=== PATIENT | male | born 1955 | race Caucasian/White ===

== ENCOUNTER 2020-04-04 12:47 | Inpatient (IN) | payer BC ==
[~2020-04-04] VITALS: Ht 162.6 cm; Wt 79.8 kg
--- NOTE | 2020-04-04 13:24 | Emergency Room Report ---
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 Patient flew in from [place] to see Dr. Messer who I spoke to this morning. Patient only complaining of mild abdominal pain. 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 COVID-19 Screening: Negative COVID-19 COVID-19 Testing Source: [facility] Nursing Documentation-[facility] Hx Hypertension: Yes Review of Systems All Other Systems: negative except mentioned in HPI Physical Exam Vital Signs Date Time Temp Pulse Resp B/P (MAP) Pulse Ox O2 Delivery O2 Flow Rate FiO2 04/04/20 13:01 98.4 77 16 145/84 (104) 96 Room Air Sp02 EP Interpretation: reviewed, normal General Appearance: no apparent distress, alert, non-toxic Head: normocephalic, atraumatic Eyes: bilateral eye normal inspection, bilateral eye PERRL ENT: hearing grossly normal, normal pharynx, no angioedema, normal voice Neck: full range of motion, supple/symm/no masses Respiratory: chest non-tender, lungs clear, normal breath sounds, speaking full sentences Cardiovascular #1: regular rate, rhythm, no edema Cardiovascular #2: 2+ carotid (R), 2+ carotid (L), 2+ radial (R), 2+ radial (L), 2+ dorsalis pedis (R), 2+ dorsalis pedis (L) Gastrointestinal: normal bowel sounds, non tender, soft, non-distended, no guarding, no rebound, other - Enterocutaneous fistula with colostomy bag overlying. Small amount of fecal matter within the colostomy bag. No active drainage. Nonperitoneal take abdomen. No distention or rebound or guarding Rectal: deferred Genitourinary: normal inspection, no CVA tenderness Musculoskeletal: back normal, normal range of motion, gait/station normal, non- tender Neurologic: alert, motor strength/tone normal, oriented x3, sensory intact, responsive, speech normal Psychiatric: judgement/insight normal, memory normal, mood/affect normal, no suicidal/homicidal ideation Lymphatic: no adenopathy Medical Decision Making Diagnostic Impression: Primary Impression: Post-operative complication ER Course EKG: NSR, no ischemia, intervals WNL. No ectopy. Rate 65 bpm Rhythm strip: patient monitored for arrhythmias - no malignant dysrhythmias, runs of PVCs, nor pauses noted 64-year-old male with a history of Weaver pouch here with enterocutaneous fistula. Patient had an enterocutaneous fistula on physical examination. He had no evidence of peritonitis. Vital signs within normal limits in the emergency department. Currently waiting results of lab tests rapid COVID-19, CBC, CMP, coagulation studies, urinalysis. Patient to be admitted to E. under care of Dr. Messer. Signed out to oncoming physician. Last Vital Signs Date Time Temp Pulse Resp B/P (MAP) Pulse Ox O2 Delivery O2 Flow Rate FiO2 04/04/20 13:01 98.4 77 16 145/84 (104) 96 Room Air Colby Helton M.D. Apr 04, 2020 13:24
[2020-04-04] MEDS ORDERED: Hydromorphone 0.5mg/0.5ml inj IVP ONE (14:00)
[2020-04-04 14:15] LABS: BASOPHILS % (AUTO) 1.4 % (0.0-2.0); EOSINOPHILS % (AUTO) 2.7 % (0.0-3.0); HEMATOCRIT 40.5 % (42.0-52.0); HEMOGLOBIN 12.5 G/DL (14.2-18.0); LYMPHOCYTES % (AUTO) 31.9 % (20.0-45.0); MEAN CORPUSCULAR VOLUME 85 FL (80-99); MONOCYTES % (AUTO) 9.3 % (1.0-10.0); NEUTROPHILS % (AUTO) 54.8 % (45.0-75.0); PLATELET COUNT 448 K/UL (150-450); RED BLOOD COUNT 4.74 M/UL (4.70-6.10); RED CELL DISTRIBUTION WIDTH 14.3 % (11.6-14.8); WHITE BLOOD COUNT 7.1 K/UL (4.8-10.8)
[2020-04-04 14:20] LABS: CALCIUM 9.6 MG/DL (8.5-10.1); CREATININE 1.4 MG/DL (0.55-1.30); POTASSIUM 3.6 MMOL/L (3.5-5.1)
[2020-04-04 14:26] LABS: ALBUMIN/GLOBULIN RATIO 0.6 (1.0-2.7); BILIRUBIN,TOTAL 0.2 MG/DL (0.2-1.0)
[2020-04-04] MEDS ORDERED: LANTUS SOL100 UNIT/1 SUBQ (14:39)
[2020-04-04] MEDS ORDERED: GLUCAGON EMERGEN1 MG IM (14:39)
[2020-04-04] MEDS ORDERED: NORCO 7.5/3251 EA ORAL (14:39)
[2020-04-04] MEDS ORDERED: FAMOTIDINE20 MG ORAL (14:39)
[2020-04-04] MEDS ORDERED: HUMALOG100 UNIT/4 SUBQ (14:39)
[2020-04-04] MEDS ORDERED: HYDROMORPHO2 MG/1 M8 IV (14:39)
[2020-04-04] MEDS ORDERED: LOVENOX10 M4 SUBQ (14:39)
[2020-04-04] MEDS ORDERED: APRESOLINE20 MG/ML IV (14:39)
[2020-04-04] MEDS ORDERED: ALLOPURINOL100 M1 ORAL (14:39)
[2020-04-04] MEDS ORDERED: AMLODIPINE BESYL5 MG ORAL (14:39)
[2020-04-04] MEDS ORDERED: CRESTOR10 M2 ORAL (14:39)
[2020-04-04] MEDS ORDERED: SEROQUEL400 MG ORAL (14:39)
[2020-04-04 16:00] VITALS: BP 140/67
--- NOTE | 2020-04-04 16:04 | General Progress Note ---
Progress Note Progress Note Admitted from Emergency Room (came in from [place]) this afternoon with history of proctocolectomy and Weaver continent ileostomy with recent onset enterocutaneous fistula. H&P dictated Abdomen soft, multiple vertical scars, LLQ scar, fistula in midline with bag over it draining small amount of stool Stoma of Weaver continent ileostomy pouch is low in the RLQ and well formed Indwelling 28Fr Leon inserted, confirmed with irrigation, connected to continuous gravity drainage Albumin 3.0 WBC 7100 Hgb 12.5 Imp: Enterocutaneous fistula likely from Weaver Continent Ileostomy pouch Malnutrition present on admission Diabetes HTN Plan: diabetic clear liquid diet indwelling Weaver pouch catheter to drainage Dr. Michaels to see for diabetes management and TPN - PICC line to be inserted tomorrow Pouchogram XRay to be performed tomorrow Will need Ct scan and pouch endoscopy as well Ambulatory Rodrigo Messer MD Apr 04, 2020 16:04
[2020-04-04] MEDS ORDERED: HYDROcodone/Acetamin 7.5/325 tab ORAL PRN (16:15)
[2020-04-04] MEDS ORDERED: Glucagon 1mg Inj IM SCH (16:15)
--- NOTE | 2020-04-04 16:52 | Diagnostic Imaging Report ---
Procedure: XRAY Chest 1v Reason for study: Cough. Preop. Comparison films: None. FINDINGS: A single one view chest is obtained. Vascularity is normal. The lung corbett are clear bilaterally. Cardiac and mediastinal silhouette are within normal limits. CP angles are sharp. The bony thorax appear unremarkable. IMPRESSION: NO ACUTE CARDIOPULMONARY DISEASE.
[2020-04-04 16:56] LABS: INR 1.1 (0.9-1.1)
[2020-04-04 17:15] LABS: FERRITIN 186 NG/ML (8-388); PHOSPHORUS 3.2 MG/DL (2.5-4.9)
[2020-04-04] MEDS: 1/2NS w/KCl 20mEq 1000ml 1,000 ML IV SCH (17:19)
[2020-04-04 18:04] LABS: % IRON SATURATION 13 % (15-50); IRON 41 ug/dL (50-175); TOTAL IRON BINDING CAPACITY 327 ug/dL (250-450)
[2020-04-04 20:00] VITALS: BP 142/89
[2020-04-04] MEDS: QUEtiapine 200mg tab ORAL SCH (22:46)
[2020-04-05] VITALS: BP 117/70
[2020-04-05 02:03] LABS: APPEARANCE,URINE CLEAR; BILIRUBIN, URINE NEGATIVE (NEGATIVE); COLOR,URINE PALE YELLOW; GLUCOSE, URINE (UA) NEGATIVE (NEGATIVE); KETONES,URINE NEGATIVE (NEGATIVE); LEUKOCYTE ESTERASE ,URINE NEGATIVE (NEGATIVE); NITRITE,URINE NEGATIVE (NEGATIVE); PH,URINE 7 (4.5-8.0); PROTEIN,URINE NEGATIVE (NEGATIVE); UROBILINOGEN,URINE NORMAL MG/DL (0.0-1.0)
[2020-04-05] MEDS: 1/2NS w/KCl 20mEq 1000ml 1,000 ML IV SCH ×3 (03:10→20:23)
[2020-04-05 04:00] VITALS: BP 110/65
[2020-04-05 06:40] LABS: EOSINOPHILS % (AUTO) 6.4 % (0.0-3.0); HEMATOCRIT 38.4 % (42.0-52.0); HEMOGLOBIN 12.1 G/DL (14.2-18.0); LYMPHOCYTES % (AUTO) 39.6 % (20.0-45.0); MEAN CORPUSCULAR VOLUME 85 FL (80-99); MONOCYTES % (AUTO) 9.3 % (1.0-10.0); NEUTROPHILS % (AUTO) 43.7 % (45.0-75.0); PLATELET COUNT 414 K/UL (150-450); RED CELL DISTRIBUTION WIDTH 14.7 % (11.6-14.8); WHITE BLOOD COUNT 6.9 K/UL (4.8-10.8)
[2020-04-05 06:52] LABS: INR 1.2 (0.9-1.1)
[2020-04-05 07:10] LABS: ALBUMIN 2.6 G/DL (3.4-5.0); ALBUMIN/GLOBULIN RATIO 0.6 (1.0-2.7); BILIRUBIN,TOTAL 0.2 MG/DL (0.2-1.0); CALCIUM 9.4 MG/DL (8.5-10.1); CREATININE 1.4 MG/DL (0.55-1.30); POTASSIUM 3.8 MMOL/L (3.5-5.1)
[2020-04-05 08:00] VITALS: BP_SYST 119; BP_SYST 163; BP_DIAS 78; BP_DIAS 80
[2020-04-05] MEDS ORDERED: QUEtiapine 200mg tab ORAL SCH ×2 (09:00→21:00)
[2020-04-05] MEDS: Allopurinol 100mg Tab ORAL SCH (09:16)
[2020-04-05] MEDS ORDERED: HYDROcodone/Acetamin 7.5/325 tab ORAL PRN (09:30)
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
--- NOTE | 2020-04-05 10:04 | General Progress Note ---
Progress Note Progress Note AVSS Only needed Wilbur x 1 Not much fistula output with indwelling Weaver pouch catheter to continuous drainage Abdomen soft, flat, catheter stable in pouch stoma Albumin 2.6 Imp: Enterocutaneous fistula, likely from Weaver continent ileostomy pouch Malnutrition, severe Insulin dependent diabetes Plan: PICC and Pouchogram XRay today Dr. Michaels to consult and manage diabetes/TPN Will do CT scan tomorrow and Weaver Pouch Endoscopy 04/08 Rodrigo Messer MD Apr 05, 2020 10:04
[2020-04-05] MEDS ORDERED: Phytonadione 10 MG in D5W 55 ML IVPB SCH (10:30)
[2020-04-05 12:00] VITALS: BP 124/70
[2020-04-05] MEDS ORDERED: Heparin1,000 units/500ml Premix(Conc:2 units/ml) INJ PRN (13:15)
[2020-04-05] MEDS ORDERED: Lidocaine 1% Plain 30 ml INJ PRN (13:15)
[2020-04-05] MEDS ORDERED: Heparin1,000 units/500ml Premix(Conc:2 units/ml) IV ONE (13:15)
[2020-04-05] MEDS ORDERED: Lidocaine 1% Plain 30 ml INJ ONE (13:15)
--- NOTE | 2020-04-05 13:26 | Pre-Procedure Note/Attestation ---
Pre-Procedure Note/Attestation Complete Prior to Procedure Planned Procedure: not applicable Procedure Narrative: PICC insertion Indications for Procedure Pre-Operative Diagnosis: need IV access Attestation informed consent obtained from patient prior to procedure Júnior Frost M.D. Apr 05, 2020 13:26
--- NOTE | 2020-04-05 14:47 | Diagnostic Imaging Report ---
Indications: Needs long-term IV access Technique: Ultrasound confirms patent compressible vein. Total sterile technique, including sterile probe cover and sterile gel, hat, mask,, sterile gown, large sterile drape, and preparation with 2% chlorhexidine utilized. Local anesthesia with 1% lidocaine. Under real-time ultrasound guidance, puncture left basilic vein using 21-gauge needle, documented and archived, passage 0.018 guidewire under direct fluoroscopy, which was used to determine appropriate catheter length, exchange for 4.5 Bhutanese peel-away sheath. 4French Bard dual-lumen power PICC cut to 47 cm. It was inserted through the peel-away sheath. Peel-away sheath and guidewire removed. Catheter fixed to the skin. Both catheter ports aspirated and flushed. Patient tolerated procedure well, without immediate complication. Digital radiograph documents satisfactory catheter tip position, at the cavoatrial junction. Total fluoroscopy time 6.3 seconds.Total fluoroscopy dose 0.85 mGy. Total number of fluoroscopic images obtained: 1. IMPRESSION: Successful placement of left arm PICC under sonographic and fluoroscopic guidance, as described above.
--- NOTE | 2020-04-05 15:21 | Diagnostic Imaging Report ---
Indication: Abdominal pain. Abscess. History of continent ostomy Technique: Kock Pouch Pouchogram w/SBS. Fluoroscopic and radiographic examination performed. Gyn radiograph obtained. Subsequently water-soluble contrast was instilled via the continent ostomy catheter. Radiographic and fluoroscopic images were obtained. Total fluoroscopy time 87.2 seconds. Total fluoroscopy dose 27.9 mGy. Total number of radiographic images/fluoroscopic runs obtained: 25. Comparison: None Findings: Gyn radiograph demonstrates surgical material in the pelvis consistent with known history of continent ostomy creation. Water-soluble contrast was instilled and subsequent fluoroscopic images were obtained. There is normal filling of the pouch. There is reflux into the upstream small bowel loops. The visualized loops of small bowel are normal in caliber. There is no evidence to suggest small bowel obstruction. No discrete mucosal irregularities appreciated however more sensitive evaluation suggested with endoscopy. On lateral imaging there is contrast collecting in the anterior abdominal soft tissues, region of open wound suggesting a fistula. This is above the level of the pouch on frontal view suggesting fistula arises from the pouch. IMPRESSION: Postsurgical changes related to continent ostomy. Suggestion of a very small fistulous connection to the skin with fistula suspected to be arising from the pouch. Unfortunately could not opacify the fistulous tract. Only small amount of contrast is noted in the skin on lateral view, which is at the level of the pouch on frontal view. Consider retrograde catheterization of the anterior abdominal wound once contrast clears from the bowel bowel/pouch. No evidence of small bowel obstruction. Small bowel loops grossly unremarkable appearance to the extent visualized. Findings discussed with ordering physician Dr. Messer.
[2020-04-05 16:00] VITALS: BP 116/79
[2020-04-05] MEDS: HYDROmorphone 1mg/ml Carpuject SUBQ PRN (17:26)
[2020-04-05 20:00] VITALS: BP 126/73
[2020-04-05] MEDS ORDERED: TPN IV SCH ×2 (20:00)
[2020-04-05] MEDS ORDERED: FAT EMULSION 20% IV SCH ×2 (20:00)
[2020-04-05] MEDS: Dyna-Hex 2% Top Sol 2oz TOPIC SCH (20:21)
[2020-04-05] MEDS: QUEtiapine 200mg tab ORAL SCH (20:22)
[2020-04-05] MEDS ORDERED: Fat Emulsion Iv 20% 250 ML IV SCH (21:00)
[2020-04-05] MEDS ORDERED: Dextrose 10% 1,000 ML IV PRN (21:00)
[2020-04-05] MEDS: NovoLOG Insulin Flexpen SUBQ SCH (23:57)
[2020-04-06] VITALS: BP 123/71
[2020-04-06] MEDS ORDERED: NovoLOG Insulin Flexpen SUBQ SCH
[2020-04-06 04:00] VITALS: BP 114/71
[2020-04-06] MEDS: NovoLOG Insulin Flexpen SUBQ SCH ×4 (05:42→23:46)
[2020-04-06 06:39] LABS: BASOPHILS % (AUTO) 1.4 % (0.0-2.0); EOSINOPHILS % (AUTO) 4.8 % (0.0-3.0); HEMATOCRIT 39.6 % (42.0-52.0); HEMOGLOBIN 12.5 G/DL (14.2-18.0); LYMPHOCYTES % (AUTO) 39.2 % (20.0-45.0); MEAN CORPUSCULAR VOLUME 86 FL (80-99); MONOCYTES % (AUTO) 9.2 % (1.0-10.0); NEUTROPHILS % (AUTO) 45.4 % (45.0-75.0); PLATELET COUNT 401 K/UL (150-450); RED BLOOD COUNT 4.59 M/UL (4.70-6.10); WHITE BLOOD COUNT 6.6 K/UL (4.8-10.8)
[2020-04-06 07:09] LABS: ALBUMIN 2.6 G/DL (3.4-5.0); ALBUMIN/GLOBULIN RATIO 0.6 (1.0-2.7); BILIRUBIN,TOTAL 0.2 MG/DL (0.2-1.0); CALCIUM 9.6 MG/DL (8.5-10.1); CREATININE 1.4 MG/DL (0.55-1.30); PHOSPHORUS 3.4 MG/DL (2.5-4.9); POTASSIUM 3.9 MMOL/L (3.5-5.1)
[2020-04-06 08:00] VITALS: BP 135/75
--- NOTE | 2020-04-06 08:57 | General Progress Note ---
Progress Note Progress Note AVSS Feeling well, not much pain. [place] continent ileostomy pouchogram with retrograde small bowel series revealed a fistula tract, likely from the pouch. No evidence of Crohn's disease of small bowel Abdomen soft Urine 2250 BCIR ileo 1640 Enterocutaneous fistula - scant enteric fluid/contrast Imp: Recent onset enterocutaneous fistula likely from Weaver continent ileostomy pouch Plan; TPN, clear liquid diet, monitor fistula output CT scan abd+pelvis with contrast today [place] Pouch endoscopy 04/08 Rodrigo Messer MD Apr 06, 2020 08:57
[2020-04-06] MEDS ORDERED: Omnipaque-300 100ml vial INJ PRN (09:00)
--- NOTE | 2020-04-06 09:10 | General Progress Note ---
Subjective Allergies: Coded Allergies: CODEINE (Verified Allergy, Unknown, 04/04/20) MORPHINE (Verified Allergy, Unknown, 04/04/20) All Systems: reviewed and negative except above Subjective events noted interval notes reviewed glucose values in fair control on TPN and clear liquid diet Item Value Date Time Bedside Blood Glucose 192 mg/dl H 04/06/20 0542 Bedside Blood Glucose 212 mg/dl H 04/06/20 0000 Bedside Blood Glucose 177 mg/dl H 04/05/20 1608 Objective Last 24 Hour Vital Signs Date Time Temp Pulse Resp B/P (MAP) Pulse Ox O2 Delivery O2 Flow Rate FiO2 04/06/20 04:00 97.1 65 16 114/71 (85) 95 04/06/20 00:00 97.3 67 16 123/71 (88) 95 04/05/20 21:00 Room Air 04/05/20 20:00 97.8 75 16 126/73 (90) 96 04/05/20 16:00 97.8 73 20 116/79 (91) 97 04/05/20 12:00 97.5 74 20 124/70 (88) 97 04/05/20 09:17 101 119/78 Intake and Output 04/05/20 04/06/20 19:00 07:00 Intake Total 2860 ml 1120 ml Output Total 2300 ml 1620 ml Balance 560 ml -500 ml Intake Oral 1860 ml 120 ml IV Total 1000 ml 1000 ml Output Urine Total 975 ml 1275 ml Other 1325 ml 345 ml # Voids 3 3 Laboratory Tests 04/05/20 16:03: POC Whole Blood Glucose 177H 04/05/20 23:52: POC Whole Blood Glucose 212H 04/06/20 05:35: White Blood Count 6.6, Red Blood Count 4.59L, Hemoglobin 12.5L, Hematocrit 39.6L , Mean Corpuscular Volume 86, Mean Corpuscular Hemoglobin 27.2, Mean Corpuscular Hemoglobin Concent 31.5L, Red Cell Distribution Width 15.0H, Platelet Count 401, Mean Platelet Volume 5.9L, Neutrophils (%) (Auto) 45.4, Lymphocytes (%) (Auto) 39.2, Monocytes (%) (Auto) 9.2, Eosinophils (%) (Auto) 4.8H, Basophils (%) (Auto) 1.4, Sodium Level 138, Potassium Level 3.9, Chloride Level 104, Carbon Dioxide Level 24, Anion Gap 10, Blood Urea Nitrogen 10, Creatinine 1.4H, Estimat Glomerular Filtration Rate 51.4, Glucose Level 197H, Calcium Level 9.6, Phosphorus Level 3.4, Magnesium Level 1.8, Total Bilirubin 0.2, Aspartate Amino Transf (AST/SGOT) 30, Alanine Aminotransferase (ALT/SGPT) 42, Alkaline Phosphata se 95, Total Protein 7.1, Albumin 2.6L, Globulin 4.5, Albumin/Globulin Ratio 0.6L 04/06/20 05:39: POC Whole Blood Glucose 192H Height (Feet): 5 Height (Inches): 5.00 Weight (Pounds): 169 General Appearance: no apparent distress Neck: normal alignment Cardiovascular: normal rate Respiratory/Chest: lungs clear Abdomen: normal bowel sounds Objective Current Medications Medications (Trade) Dose Ordered Sig/Lea Route PRN Reason Start Time Stop Time Status Last Admin Dose Admin Acetaminophen (Tylenol) 650 mg Q4H PRN ORAL Mild Pain (Pain Scale 1-3) 04/05/20 09:30 05/05/20 09:29 Acetaminophen/ Hydrocodone Bitart ([place] 7.5/325) 1 tab Q4H PRN ORAL Moderate Pain (Pain Scale 4-6) 04/05/20 09:30 04/12/20 09:29 Allopurinol (Zyloprim) 100 mg DAILY ORAL 04/05/20 09:00 05/05/20 08:59 04/05/20 09:16 Amlodipine Besylate (Norvasc) 5 mg DAILY ORAL 04/05/20 09:00 05/05/20 08:59 04/05/20 09:17 Barium Sulfate (Readi-Cat 2) 450 ml NOW PRN ORAL Radiology Procedure 04/06/20 09:00 04/08/20 08:59 Chlorhexidine Gluconate (Re-Hex 2%) 1 applic DAILY@2000 TOPIC 04/05/20 20:00 07/04/20 19:59 04/05/20 20:21 Dextrose 1,000 ml @ 0 mls/hr Q24H PRN IV PN interrupted or unavailable 04/05/20 21:00 05/05/20 20:59 Dextrose (Dextrose 50%) 25 ml Q30M PRN IV Hypoglycemia 04/05/20 20:30 07/04/20 20:29 Dextrose (Dextrose 50%) 50 ml Q30M PRN IV Hypoglycemia 04/05/20 20:30 07/04/20 20:29 Diatrizoate Meglum/ Diatrizoate Sod (Gastrografin) 720 ml ONCE RECTAL 04/05/20 08:00 04/08/20 23:59 Famotidine (Pepcid) 20 mg BID ORAL 04/04/20 18:00 07/03/20 17:59 04/05/20 17:26 Fat Emulsion Intravenous 240 ml/Amino Acids/ Electrolytes/ Dextrose 2,040 ml @ 85 mls/hr Q24H IV 04/05/20 20:00 05/05/20 19:59 04/05/20 20:24 Hydromorphone HCl (Dilaudid) 1 mg Q4H PRN SUBQ Severe Pain (Pain Scale 7-10) 04/05/20 09:30 04/12/20 09:29 04/05/20 17:26 Insulin Aspart (NovoLOG) Q6HR SUBQ 04/06/20 00:00 07/05/20 00:00 04/06/20 05:42 Iohexol (OMNIPAQUE-300 100ml) 100 ml NOW PRN INJ Radiology Procedure 04/06/20 09:00 04/08/20 08:59 Ondansetron HCl (Zofran) 4 mg Q4H PRN IVP Nausea & Vomiting 04/04/20 16:00 05/04/20 15:59 Phytonadione (Vitamin K) 10 mg ONCE A WEEK SUBQ 04/12/20 09:00 07/11/20 08:59 Quetiapine Fumarate (SEROqueL) 400 mg BEDTIME ORAL 04/04/20 22:45 05/20/20 20:59 04/05/20 20:22 Sodium 1,000 ml @ 40 mls/hr Q24H IV 04/05/20 20:00 05/05/20 19:59 04/05/20 20:23 Assessment/Plan Problem List: (1) Diabetes mellitus ICD Codes: E11.9 - Type 2 diabetes mellitus without complications SNOMED: 64249396 (2) Post-operative complication ICD Codes: T81.9XXA - Unspecified complication of procedure, initial encounter SNOMED: 749980957 (3) Weaver Pouch fistula Assessment/Plan: increase R insulin of TPN bag from 10 to 16 units discussed with pharmacist continue Novolog sliding scale every 6 hours hypoglycemia protocol in order Justyn Michaels MD Apr 06, 2020 09:10
[2020-04-06] MEDS: Allopurinol 100mg Tab ORAL SCH (09:48)
[2020-04-06 12:00] VITALS: BP 139/73
[2020-04-06 16:00] VITALS: BP 128/78
--- NOTE | 2020-04-06 16:44 | Consultation ---
DATE OF CONSULTATION: 04/05/2020 ENDOCRINOLOGY CONSULTATION CONSULTING PHYSICIAN: Justyn Michaels M.D. REFERRING PHYSICIAN: Rodrigo Messer M.D. REASON FOR CONSULTATION: Diabetes management. HISTORY OF PRESENT ILLNESS: The patient is a 64-year-old male with a history of ulcerative colitis, status post Weaver pouch, who presented to the hospital with cutaneous fistula. The patient is a diabetic. As an outpatient, he is on Levemir 35 units twice a day, metformin, as well as Victoza daily. I was called to manage diabetes since he is going to be NPO, on TPN. PAST MEDICAL HISTORY: 1. Type 2 diabetes, on insulin. 2. Hypertension. 3. Hyperuricemia. 4. Ulcerative colitis. PAST SURGICAL HISTORY: Proctocolectomy and creation of Weaver type of Kock pouch continent ileostomy many years ago. REVIEW OF SYSTEMS: Per history HPI. FAMILY HISTORY: Noncontributory. SOCIAL HISTORY: From [place]. No smoking, alcohol, or drug use. LABORATORY DATA: WBC 6.9, hemoglobin 12, hematocrit 38, platelets of 414. Sodium 138, potassium 3.9, chloride 104, bicarb 22, BUN 9, creatinine 1.4, glucose of 111. PHYSICAL EXAMINATION: GENERAL: Awake and alert. VITAL SIGNS: Blood pressure is 132/80, heart rate 80, temperature 98.2, respiratory rate 18. HEENT: Pupils are equal and reactive to light. Sclerae nonicteric. NECK: No JVD. No thyromegaly. No bruit. LUNGS: Clear. HEART: Regular. ABDOMEN: Positive bowel sounds. EXTREMITIES: No clubbing, cyanosis, or edema. DIAGNOSES: 1. Ulcerative colitis. 2. Diabetes. PLAN: 1. The patient will be mostly NPO, on clear liquid diet and on TPN. 2. I discussed with the pharmacist on adding 10 units of regular insulin to the TPN bag. 3. Humalog on sliding scale insulin. 4. NovoLog sliding scale every 6 hours. 5. Hypoglycemia protocol is in order. 6. Further adjustment according to blood glucose values. I will follow during the hospital stay. Thank you, Dr. Messer, for the courtesy of this consultation. Justyn Michaels M.D. DR: SRIDHAR JOB#: [id number] CC: ANANDA
--- NOTE | 2020-04-06 17:15 | Diagnostic Imaging Report ---
EXAM: CT Abdomen and Pelvis With Intravenous Contrast CLINICAL HISTORY: ABSCESS TECHNIQUE: Axial computed tomography images of the abdomen and pelvis with intravenous contrast. CTDI is 6.70 mGy and DLP is 371.70 mGy-cm. One or more of the following dose reduction techniques were used: automated exposure control, adjustment of the mA and/or kV according to patient size, use of iterative reconstruction technique. COMPARISON: No relevant prior studies available. FINDINGS: Reported fistula. Correlate with dedicated exam and report. Lung bases: Unremarkable. ABDOMEN: Liver: Unremarkable. Gallbladder and bile ducts: Cholecystectomy. Pancreas: Unremarkable. Spleen: Unremarkable. Adrenals: Unremarkable. Kidneys and ureters: Unremarkable. No hydronephrosis. Stomach and bowel: Scarring and tethering of some bowel loops in the lower abdomen. Previous bowel surgery with ileostomy pouch. Nonobstructive bowel gas pattern. PELVIS: Appendix: Appendix not identified. Bladder: Scarring and tethering of the dome of the bladder to the undersurface of the lower abdominal wall. Reproductive: Unremarkable. ABDOMEN and PELVIS: Intraperitoneal space: Unremarkable. Bones/joints: No acute fracture. Soft tissues: Soft tissue edema, inflammation and foci of air in the abdominal wall. No discrete drainable collection. Vasculature: Unremarkable. No abdominal aortic aneurysm. Lymph nodes: No enlarged lymph nodes. IMPRESSION: Soft tissue edema, inflammation and foci of air in the abdominal wall. No discrete drainable collection.
[2020-04-06 20:00] VITALS: BP 150/88
[2020-04-06] MEDS ORDERED: FAT EMULSION 20% IV SCH ×2 (20:00)
[2020-04-06] MEDS ORDERED: TPN IV SCH ×2 (20:00)
[2020-04-06] MEDS: Dyna-Hex 2% Top Sol 2oz TOPIC SCH (20:03)
[2020-04-06] MEDS: 1/2NS w/KCl 20mEq 1000ml 1,000 ML IV SCH (20:03)
[2020-04-06] MEDS: HYDROmorphone 1mg/ml Carpuject SUBQ PRN (20:04)
[2020-04-06] MEDS: QUEtiapine 200mg tab ORAL SCH (20:05)
[2020-04-07] VITALS: BP 122/71
[2020-04-07 04:00] VITALS: BP 125/79
[2020-04-07] MEDS: NovoLOG Insulin Flexpen SUBQ SCH ×4 (05:19→23:05)
[2020-04-07 06:32] LABS: BASOPHILS % (AUTO) 1.5 % (0.0-2.0); EOSINOPHILS % (AUTO) 4.7 % (0.0-3.0); HEMATOCRIT 38.5 % (42.0-52.0); LYMPHOCYTES % (AUTO) 42.1 % (20.0-45.0); MEAN CORPUSCULAR VOLUME 86 FL (80-99); NEUTROPHILS % (AUTO) 42.7 % (45.0-75.0); PLATELET COUNT 361 K/UL (150-450); RED BLOOD COUNT 4.49 M/UL (4.70-6.10); RED CELL DISTRIBUTION WIDTH 14.6 % (11.6-14.8); WHITE BLOOD COUNT 6.5 K/UL (4.8-10.8)
[2020-04-07 06:57] LABS: ALANINE AMINOTRANSFERASE 35 U/L (12-78); ALBUMIN 2.8 G/DL (3.4-5.0); ALBUMIN/GLOBULIN RATIO 0.6 (1.0-2.7); ALKALINE PHOSPHATASE 90 U/L (46-116); ANION GAP 9 mmol/L (5-15); ASPARTATE AMINO TRANSFERASE 24 U/L (15-37); BILIRUBIN,TOTAL 0.2 MG/DL (0.2-1.0); BLOOD UREA NITROGEN 13 mg/dL (7-18); CALCIUM 9.1 MG/DL (8.5-10.1); CARBON DIOXIDE 24 MMOL/L (21-32); CHLORIDE 106 MMOL/L (98-107); CREATININE 1.2 MG/DL (0.55-1.30); PHOSPHORUS 4.6 MG/DL (2.5-4.9); SODIUM 139 MMOL/L (136-145)
[2020-04-07 08:00] VITALS: BP 124/75
--- NOTE | 2020-04-07 09:09 | General Progress Note ---
Progress Note Progress Note AVSS Intermittent pain at fistula site. Dr. Michaels managing diabetes while on TPN Abdomen soft, scant tenderness at midline fistula site lower abdomen Indwelling Weavre pouch catheter stable in position draining well CT: inflammation of abdominal wall at fistula site, no fluid collection Urine 2150 (po 1800 clear liquids) BCIR ileo 1590 Fistula 5cc days/ 0 overnight Cr down 1.2 Albumin 2.8 Imp: Enterocutaneous fistula of Weaver continent ileostomy pouch Plan: Weaver pouch endoscopy in AM Fistulogram in AM Continue TPN and continuous drainage of Weaver continent ileostomy pouch Rodrigo Messer MD Apr 07, 2020 09:09
[2020-04-07] MEDS: Allopurinol 100mg Tab ORAL SCH (09:20)
[2020-04-07 12:00] VITALS: BP 139/60
--- NOTE | 2020-04-07 12:40 | General Progress Note ---
Subjective Allergies: Coded Allergies: CODEINE (Verified Allergy, Unknown, 04/04/20) MORPHINE (Verified Allergy, Unknown, 04/04/20) All Systems: reviewed and negative except above Subjective events noted interval notes reviewed glucose values slightly on higher side sitting on a chair and having clear liquid lunch Item Value Date Time Bedside Blood Glucose 165 mg/dl H 04/07/20 0519 Bedside Blood Glucose 197 mg/dl H 04/06/20 2346 Bedside Blood Glucose 212 mg/dl H 04/06/20 1710 Bedside Blood Glucose 193 mg/dl H 04/06/20 1313 Objective Last 24 Hour Vital Signs Date Time Temp Pulse Resp B/P (MAP) Pulse Ox O2 Delivery O2 Flow Rate FiO2 04/07/20 09:20 65 124/75 04/07/20 08:00 96.8 65 20 124/75 (91) 97 04/07/20 04:00 98.2 70 15 125/79 (94) 97 04/07/20 00:00 97.9 73 17 122/71 (88) 96 04/06/20 21:00 Room Air 04/06/20 20:00 98.1 67 16 150/88 (108) 98 04/06/20 16:00 97.6 67 20 128/78 (95) 99 Intake and Output 04/06/20 04/07/20 19:00 07:00 Intake Total 2820 ml 1895 ml Output Total 2175 ml 1600 ml Balance 645 ml 295 ml Intake Oral 1320 ml 480 ml IV Total 1500 ml 1415 ml Output Urine Total 900 ml 1250 ml Other 1275 ml 350 ml # Voids 5 Laboratory Tests 04/06/20 17:06: POC Whole Blood Glucose 212H 04/07/20 05:10: White Blood Count 6.5, Red Blood Count 4.49L, Hemoglobin 12.0L, Hematocrit 38.5L , Mean Corpuscular Volume 86, Mean Corpuscular Hemoglobin 26.8L, Mean Corpuscular Hemoglobin Concent 31.3L, Red Cell Distribution Width 14.6, Platelet Count 361, Mean Platelet Volume 5.8L, Neutrophils (%) (Auto) 42.7L, Lymphocytes (%) (Auto) 42.1, Monocytes (%) (Auto) 9.0, Eosinophils (%) (Auto) 4.7H, Basophils (%) (Auto) 1.5, Sodium Level 139, Potassium Level 4.0, Chloride Level 106, Carbon Dioxide Level 24, Anion Gap 9, Blood Urea Nitrogen 13, Creatinine 1.2, Estimat Glomerular Filtration Rate > 60, Glucose Level 179H, Calcium Level 9.1, Phosphorus Level 4.6, Magnesium Level 1.9, Total Bilirubin 0.2, Aspartate Amino Transf (AST/SGOT) 24, Alanine Aminotransferase (ALT/SGPT) 35, Alkaline Phosphatase 90, Total Protein 7.2, Albumin 2.8L, Globulin 4.4, Albumin/Globulin Ratio 0.6L Height (Feet): 5 Height (Inches): 5.00 Weight (Pounds): 169 General Appearance: no apparent distress Neck: normal alignment Cardiovascular: normal rate Respiratory/Chest: lungs clear Abdomen: normal bowel sounds Objective Current Medications Medications (Trade) Dose Ordered Sig/Lea Route PRN Reason Start Time Stop Time Status Last Admin Dose Admin Acetaminophen (Tylenol) 650 mg Q4H PRN ORAL Mild Pain (Pain Scale 1-3) 04/05/20 09:30 05/05/20 09:29 Acetaminophen/ Hydrocodone Bitart ([place] 7.5/325) 1 tab Q4H PRN ORAL Moderate Pain (Pain Scale 4-6) 04/05/20 09:30 04/12/20 09:29 Allopurinol (Zyloprim) 100 mg DAILY ORAL 04/05/20 09:00 05/05/20 08:59 04/07/20 09:20 Amlodipine Besylate (Norvasc) 5 mg DAILY ORAL 04/05/20 09:00 05/05/20 08:59 04/07/20 09:20 Barium Sulfate (Readi-Cat 2) 450 ml NOW PRN ORAL Radiology Procedure 04/06/20 09:00 04/08/20 08:59 Chlorhexidine Gluconate (Re-Hex 2%) 1 applic DAILY@2000 TOPIC 04/05/20 20:00 07/04/20 19:59 04/06/20 20:03 Dextrose 1,000 ml @ 0 mls/hr Q24H PRN IV PN interrupted or unavailable 04/05/20 21:00 05/05/20 20:59 Dextrose (Dextrose 50%) 25 ml Q30M PRN IV Hypoglycemia 04/05/20 20:30 07/04/20 20:29 Dextrose (Dextrose 50%) 50 ml Q30M PRN IV Hypoglycemia 04/05/20 20:30 07/04/20 20:29 Diatrizoate Meglum/ Diatrizoate Sod (Gastrografin) 720 ml ONCE RECTAL 04/05/20 08:00 04/08/20 23:59 Famotidine (Pepcid) 20 mg BID ORAL 04/04/20 18:00 07/03/20 17:59 04/07/20 09:20 Fat Emulsion Intravenous 240 ml/Amino Acids/ Electrolytes/ Dextrose 2,040 ml @ 85 mls/hr Q24H IV 04/06/20 20:00 04/07/20 19:59 04/06/20 20:10 Fat Emulsion Intravenous 240 ml/Amino Acids/ Electrolytes/ Dextrose 2,040 ml @ 85 mls/hr Q24H IV 04/07/20 20:00 04/08/20 19:59 Hydromorphone HCl (Dilaudid) 1 mg Q4H PRN SUBQ Severe Pain (Pain Scale 7-10) 04/05/20 09:30 04/12/20 09:29 04/06/20 20:04 Insulin Aspart (NovoLOG) Q6HR SUBQ 04/06/20 00:00 07/05/20 00:00 04/07/20 05:19 Iohexol (OMNIPAQUE-300 100ml) 100 ml NOW PRN INJ Radiology Procedure 04/06/20 09:00 04/08/20 08:59 Ondansetron HCl (Zofran) 4 mg Q4H PRN IVP Nausea & Vomiting 04/04/20 16:00 05/04/20 15:59 Phytonadione (Vitamin K) 10 mg ONCE A WEEK SUBQ 04/12/20 09:00 07/11/20 08:59 Quetiapine Fumarate (SEROqueL) 400 mg BEDTIME ORAL 04/04/20 22:45 05/20/20 20:59 04/06/20 20:05 Sodium 1,000 ml @ 40 mls/hr Q24H IV 04/05/20 20:00 05/05/20 19:59 04/06/20 20:03 Assessment/Plan Problem List: (1) Diabetes mellitus ICD Codes: E11.9 - Type 2 diabetes mellitus without complications SNOMED: 45938713 (2) Post-operative complication ICD Codes: T81.9XXA - Unspecified complication of procedure, initial encounter SNOMED: 162331054 (3) Weaver Pouch fistula Assessment/Plan: increase R insulin of TPN bag from 16 to 20 units discussed with pharmacist continue Novolog sliding scale every 6 hours hypoglycemia protocol in order Justyn Michaels MD Apr 07, 2020 12:40
[2020-04-07] MEDS: HYDROmorphone 1mg/ml Carpuject SUBQ PRN ×2 (13:51→19:45)
[2020-04-07 16:00] VITALS: BP 156/86
[2020-04-07] MEDS: 1/2NS w/KCl 20mEq 1000ml 1,000 ML IV SCH (19:45)
[2020-04-07] MEDS: Dyna-Hex 2% Top Sol 2oz TOPIC SCH (19:45)
[2020-04-07 20:00] VITALS: BP 138/78
[2020-04-07] MEDS ORDERED: FAT EMULSION 20% IV SCH ×2 (20:00)
[2020-04-07] MEDS ORDERED: TPN IV SCH ×2 (20:00)
[2020-04-07] MEDS: QUEtiapine 200mg tab ORAL SCH (20:52)
[2020-04-08] VITALS: BP 124/72
[2020-04-08 04:00] VITALS: BP 118/64
[2020-04-08] MEDS: NovoLOG Insulin Flexpen SUBQ SCH ×3 (05:45→17:13)
--- NOTE | 2020-04-08 06:26 | General Progress Note ---
Subjective Allergies: Coded Allergies: CODEINE (Verified Allergy, Unknown, 04/04/20) MORPHINE (Verified Allergy, Unknown, 04/04/20) All Systems: reviewed and negative except above Subjective events noted interval notes reviewed glucose values if fair control Item Value Date Time Bedside Blood Glucose 160 mg/dl H 04/08/20 0545 Bedside Blood Glucose 197 mg/dl H 04/07/20 2305 Bedside Blood Glucose 183 mg/dl H 04/07/20 1700 Bedside Blood Glucose 181 mg/dl H 04/07/20 1245 Bedside Blood Glucose 165 mg/dl H 04/07/20 0519 Objective Last 24 Hour Vital Signs Date Time Temp Pulse Resp B/P (MAP) Pulse Ox O2 Delivery O2 Flow Rate FiO2 04/08/20 04:00 97.8 71 18 118/64 (82) 96 04/08/20 00:00 97.7 66 20 124/72 (89) 96 04/07/20 21:00 Room Air 04/07/20 20:00 98.3 66 20 138/78 (98) 97 04/07/20 16:00 98.6 68 21 156/86 (109) 99 04/07/20 12:00 97.2 63 20 139/60 (86) 97 04/07/20 09:20 65 124/75 04/07/20 09:00 Room Air 04/07/20 08:00 96.8 65 20 124/75 (91) 97 Intake and Output 04/07/20 04/08/20 19:00 07:00 Intake Total 3135 ml 1605 ml Output Total 1570 ml 2080 ml Balance 1565 ml -475 ml Intake Oral 1760 ml 480 ml IV Total 1375 ml 1125 ml Output Urine Total 1050 ml 1930 ml Other 520 ml 150 ml # Voids 5 2 Laboratory Tests 04/07/20 23:04: POC Whole Blood Glucose 197H Height (Feet): 5 Height (Inches): 5.00 Weight (Pounds): 169 General Appearance: no apparent distress Neck: normal alignment Cardiovascular: normal rate Respiratory/Chest: lungs clear Abdomen: normal bowel sounds Objective Current Medications Medications (Trade) Dose Ordered Sig/Lea Route PRN Reason Start Time Stop Time Status Last Admin Dose Admin Acetaminophen (Tylenol) 650 mg Q4H PRN ORAL Mild Pain (Pain Scale 1-3) 04/05/20 09:30 05/05/20 09:29 Acetaminophen/ Hydrocodone Bitart ([place] 7.5/325) 1 tab Q4H PRN ORAL Moderate Pain (Pain Scale 4-6) 04/05/20 09:30 04/12/20 09:29 Allopurinol (Zyloprim) 100 mg DAILY ORAL 04/05/20 09:00 05/05/20 08:59 04/07/20 09:20 Amlodipine Besylate (Norvasc) 5 mg DAILY ORAL 04/05/20 09:00 05/05/20 08:59 04/07/20 09:20 Barium Sulfate (Readi-Cat 2) 450 ml NOW PRN ORAL Radiology Procedure 04/06/20 09:00 04/08/20 08:59 Chlorhexidine Gluconate (Re-Hex 2%) 1 applic DAILY@2000 TOPIC 04/05/20 20:00 07/04/20 19:59 04/07/20 19:45 Dextrose 1,000 ml @ 0 mls/hr Q24H PRN IV PN interrupted or unavailable 04/05/20 21:00 05/05/20 20:59 Dextrose (Dextrose 50%) 25 ml Q30M PRN IV Hypoglycemia 04/05/20 20:30 07/04/20 20:29 Dextrose (Dextrose 50%) 50 ml Q30M PRN IV Hypoglycemia 04/05/20 20:30 07/04/20 20:29 Diatrizoate Meglum/ Diatrizoate Sod (Gastrografin) 720 ml ONCE RECTAL 04/05/20 08:00 04/08/20 23:59 Famotidine (Pepcid) 20 mg BID ORAL 04/04/20 18:00 07/03/20 17:59 04/07/20 17:02 Fat Emulsion Intravenous 240 ml/Amino Acids/ Electrolytes/ Dextrose 2,040 ml @ 85 mls/hr Q24H IV 04/07/20 20:00 04/08/20 19:59 04/07/20 20:07 Hydromorphone HCl (Dilaudid) 1 mg Q4H PRN SUBQ Severe Pain (Pain Scale 7-10) 04/05/20 09:30 04/12/20 09:29 04/07/20 19:45 Insulin Aspart (NovoLOG) Q6HR SUBQ 04/06/20 00:00 07/05/20 00:00 04/08/20 05:45 Iohexol (OMNIPAQUE-300 100ml) 100 ml NOW PRN INJ Radiology Procedure 04/06/20 09:00 04/08/20 08:59 Ondansetron HCl (Zofran) 4 mg Q4H PRN IVP Nausea & Vomiting 04/04/20 16:00 05/04/20 15:59 Phytonadione (Vitamin K) 10 mg ONCE A WEEK SUBQ 04/12/20 09:00 07/11/20 08:59 Quetiapine Fumarate (SEROqueL) 400 mg BEDTIME ORAL 04/04/20 22:45 05/20/20 20:59 04/07/20 20:52 Sodium 1,000 ml @ 40 mls/hr Q24H IV 04/05/20 20:00 05/05/20 19:59 04/07/20 19:45 Assessment/Plan Problem List: (1) Diabetes mellitus ICD Codes: E11.9 - Type 2 diabetes mellitus without complications SNOMED: 50169947 (2) Post-operative complication ICD Codes: T81.9XXA - Unspecified complication of procedure, initial encounter SNOMED: 203835872 (3) Weaver Pouch fistula Assessment/Plan: keep R insulin of TPN at 20 units / bag continue Novolog sliding scale every 6 hours hypoglycemia protocol in order Justyn Michaels MD Apr 08, 2020 06:26
--- NOTE | 2020-04-08 07:55 | Pre-Procedure Note/Attestation ---
Pre-Procedure Note/Attestation Complete Prior to Procedure Planned Procedure: not applicable Procedure Narrative: Meg continent ileostomy pouch endoscopy Indications for Procedure Pre-Operative Diagnosis: enterocutaneous fistula Attestation I attest that I discussed the nature of the procedure; its benefits; risks and complications; and alternatives (and the risks and benefits of such alternatives), prior to the procedure, with the patient (or the patient's legal policy services representative). I attest that, if there was a reasonable possibility of needing a blood transfusion, the patient (or the patient's legal policy services representative) was given the [facility] standardized written summary, pursuant to the [place] Blood Safety Act ([place] Health and Safety Code # 1645, as amended). I attest that I re-evaluated the patient just prior to the surgery and that there has been no change in the patient's H&P, except as documented below: none Rodrigo Messer MD Apr 08, 2020 07:55
[2020-04-08 07:56] LABS: BASOPHILS % (AUTO) 1.8 % (0.0-2.0); EOSINOPHILS % (AUTO) 5.3 % (0.0-3.0); HEMATOCRIT 40.1 % (42.0-52.0); HEMOGLOBIN 12.8 G/DL (14.2-18.0); LYMPHOCYTES % (AUTO) 44.3 % (20.0-45.0); MEAN CORPUSCULAR VOLUME 85 FL (80-99); MONOCYTES % (AUTO) 9.1 % (1.0-10.0); NEUTROPHILS % (AUTO) 39.5 % (45.0-75.0); PLATELET COUNT 322 K/UL (150-450); RED BLOOD COUNT 4.69 M/UL (4.70-6.10); RED CELL DISTRIBUTION WIDTH 14.6 % (11.6-14.8); WHITE BLOOD COUNT 6.5 K/UL (4.8-10.8)
[2020-04-08 08:00] VITALS: BP 108/70
[2020-04-08 08:21] LABS: ALBUMIN/GLOBULIN RATIO 0.7 (1.0-2.7); BILIRUBIN,TOTAL 0.2 MG/DL (0.2-1.0); CALCIUM 9.5 MG/DL (8.5-10.1); CREATININE 1.3 MG/DL (0.55-1.30); POTASSIUM 4.2 MMOL/L (3.5-5.1)
--- NOTE | 2020-04-08 08:33 | General Progress Note ---
Progress Note Progress Note AVSS Having some abdominal pain around fistula site. Abdominal wall is indurated without evident cellulitis and scant drainage from fistula Pouch endoscopy this AM: normal pouch and valve, elongated and angulated access segment, no drainage or air from fistula during endoscopy Plan: Fistulogram XRay today ID consult re need for IV antibiotics in view of CT and exam, despite afebrile and no leukocytosis Continue TPN, continuous drainage of Weaver Pouch Rodrigo Messer MD Apr 08, 2020 08:33
--- NOTE | 2020-04-08 08:39 | Brief Operative Note ---
Immediate Post Operative Note Operative Note Pre-op Diagnosis: enterocutaneous fistula Procedure: Weaver continent ileostomy pouch endoscopy Post-op Diagnosis: same Post-op Diagnosis: same as pre-op Findings: consistent w/pre-op dx studies, other - normal pouch and valve, elongated and angulated access segment Surgeon: smiley Anesthesia: other - none Specimen: none Complications: none Condition: stable Fluids: none Estimated Blood Loss: none Drains: other - 28 Leon to Weaver Pouch Implant(s) used?: No Rodrigo Messer MD Apr 08, 2020 08:39
[2020-04-08] MEDS: Allopurinol 100mg Tab ORAL SCH (08:53)
[2020-04-08] MEDS ORDERED: Vancomycin 500 MG in D5W 110 ML IVPB ONE (09:00)
--- NOTE | 2020-04-08 09:29 | Procedure Note ---
DATE OF PROCEDURE: 04/08/2020 ENDOSCOPY PROCEDURE REPORT ENDOSCOPIST: Rodrigo Messer MD. ANESTHESIA: None. SEDATION: None. PRE-ENDOSCOPY DIAGNOSES: 1. 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 3. Status post proctocolectomy with ileostomy in 1979. 4. Status post Weaver continent ileostomy in 1994. POST-ENDOSCOPY DIAGNOSES: 1. 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 3. Status post proctocolectomy with ileostomy in 1979. 4. Status post Weaver continent ileostomy in 1994. ENDOSCOPY PERFORMED: Weaver continent ileostomy pouch endoscopy. FINDINGS: Elongation and angulation of the access segment with the distance from the stoma to the tip of the valve measuring 12 cm instead of what would be anticipated as approximately 8 cm in this patient. The pouch mucosa is normal and retroflexed views revealed a circumferentially well-formed nipple valve. The site of fistula was not identified and there was no bubbling or liquid coming out of the fistulous site in the midline incision during the endoscopy. DESCRIPTION OF PROCEDURE: The patient was positioned supine in the GI lab without any anesthesia or sedation given or required. Using a GIF-P140 endoscope, the stoma was entered and the pouch was distended. The above described findings were observed. Withdrawal views confirmed the above findings. After removing the endoscope, I was able with very slight manipulation to insert a 28-[place] Leon catheter into the Weaver continent ileostomy pouch. It was confirmed with irrigation and taped to the skin and connected to a continuous drainage bag. The patient tolerated the endoscopy well. Rodrigo Messer M.D. DR: AVERY JOB#: [id number] CC:
[2020-04-08 12:00] VITALS: BP 115/74
[2020-04-08] MEDS: Piperacillin/Tazobactam 3.375 GM in NS 110 ML IVPB SCH ×2 (12:30→19:45)
[2020-04-08] MEDS: HYDROmorphone 1mg/ml Carpuject SUBQ PRN ×2 (15:39→19:46)
[2020-04-08 16:00] VITALS: BP 115/73
[2020-04-08] MEDS ORDERED: Vancomycin 1.5gm/300ml Premix IVPB SCH (16:00)
--- NOTE | 2020-04-08 19:09 | Infectious Diseases Prog Note ---
Assessment/Plan Assessment/Plan Full consult dictated: A) 1) abdominal pain 2) CT with soft tissue edema and inflammation of abdominal wall, ?? cellulitis, hx of recent abscess and I/D 3) fistula 4) hx Weaver continent ileostomy 5) enterocutaneous fistula 6) pmh noted 7) allergies - codeine, morphine P) 1) zosyn and vancomycin 2) monitor clinically 3) monitor labs 4) will f/u 5) thank you Subjective Allergies: Coded Allergies: CODEINE (Verified Allergy, Unknown, 04/04/20) MORPHINE (Verified Allergy, Unknown, 04/04/20) Objective Last 24 Hour Vital Signs Date Time Temp Pulse Resp B/P (MAP) Pulse Ox O2 Delivery O2 Flow Rate FiO2 04/08/20 16:09 97.2 04/08/20 16:00 97.2 81 18 115/73 (87) 96 04/08/20 12:00 97.2 74 24 115/74 (88) 96 04/08/20 09:00 Room Air 04/08/20 08:53 81 108/70 04/08/20 08:00 97.9 81 18 108/70 (83) 97 04/08/20 04:00 97.8 71 18 118/64 (82) 96 04/08/20 00:00 97.7 66 20 124/72 (89) 96 04/07/20 21:00 Room Air 04/07/20 20:00 98.3 66 20 138/78 (98) 97 Height (Feet): 5 Height (Inches): 5.00 Weight (Pounds): 169 Laboratory Tests Test 04/07/20 23:04 04/08/20 06:42 POC Whole Blood Glucose 197 MG/DL (74-106) H White Blood Count 6.5 K/UL (4.8-10.8) Red Blood Count 4.69 M/UL (4.70-6.10) L Hemoglobin 12.8 G/DL (14.2-18.0) L Hematocrit 40.1 % (42.0-52.0) L Mean Corpuscular Volume 85 FL (80-99) Mean Corpuscular Hemoglobin 27.3 PG (27.0-31.0) Mean Corpuscular Hemoglobin Concent 32.0 G/DL (32.0-36.0) Red Cell Distribution Width 14.6 % (11.6-14.8) Platelet Count 322 K/UL (150-450) Mean Platelet Volume 6.1 FL (6.5-10.1) L Neutrophils (%) (Auto) 39.5 % (45.0-75.0) L Lymphocytes (%) (Auto) 44.3 % (20.0-45.0) Monocytes (%) (Auto) 9.1 % (1.0-10.0) Eosinophils (%) (Auto) 5.3 % (0.0-3.0) H Basophils (%) (Auto) 1.8 % (0.0-2.0) Sodium Level 138 MMOL/L (136-145) Potassium Level 4.2 MMOL/L (3.5-5.1) Chloride Level 103 MMOL/L (98-107) Carbon Dioxide Level 25 MMOL/L (21-32) Anion Gap 10 mmol/L (5-15) Blood Urea Nitrogen 16 mg/dL (7-18) Creatinine 1.3 MG/DL (0.55-1.30) Estimat Glomerular Filtration Rate 55.9 mL/min (>60) Glucose Level 163 MG/DL (74-106) H Calcium Level 9.5 MG/DL (8.5-10.1) Magnesium Level 1.8 MG/DL (1.8-2.4) Total Bilirubin 0.2 MG/DL (0.2-1.0) Aspartate Amino Transf (AST/SGOT) 36 U/L (15-37) Alanine Aminotransferase (ALT/SGPT) 42 U/L (12-78) Alkaline Phosphatase 98 U/L (46-116) Total Protein 7.3 G/DL (6.4-8.2) Albumin 3.0 G/DL (3.4-5.0) L Globulin 4.3 g/dL Albumin/Globulin Ratio 0.7 (1.0-2.7) L Current Medications Medications (Trade) Dose Ordered Sig/Lea Route PRN Reason Start Time Stop Time Status Last Admin Dose Admin Acetaminophen (Tylenol) 650 mg Q4H PRN ORAL Mild Pain (Pain Scale 1-3) 04/05/20 09:30 05/05/20 09:29 Acetaminophen/ Hydrocodone Bitart ([place] 7.5/325) 1 tab Q4H PRN ORAL Moderate Pain (Pain Scale 4-6) 04/05/20 09:30 04/12/20 09:29 Allopurinol (Zyloprim) 100 mg DAILY ORAL 04/05/20 09:00 05/05/20 08:59 04/08/20 08:53 Amlodipine Besylate (Norvasc) 5 mg DAILY ORAL 04/05/20 09:00 05/05/20 08:59 04/08/20 08:53 Chlorhexidine Gluconate (Re-Hex 2%) 1 applic DAILY@2000 TOPIC 04/05/20 20:00 07/04/20 19:59 04/07/20 19:45 Dextrose 1,000 ml @ 0 mls/hr Q24H PRN IV PN interrupted or unavailable 04/05/20 21:00 05/05/20 20:59 Dextrose (Dextrose 50%) 25 ml Q30M PRN IV Hypoglycemia 04/05/20 20:30 07/04/20 20:29 Dextrose (Dextrose 50%) 50 ml Q30M PRN IV Hypoglycemia 04/05/20 20:30 07/04/20 20:29 Diatrizoate Meglum/ Diatrizoate Sod (Gastrografin) 720 ml ONCE RECTAL 04/05/20 08:00 04/08/20 23:59 Famotidine (Pepcid) 20 mg BID ORAL 04/04/20 18:00 07/03/20 17:59 04/08/20 17:10 Fat Emulsion Intravenous 240 ml/Amino Acids/ Electrolytes/ Dextrose 2,040 ml @ 85 mls/hr Q24H IV 04/07/20 20:00 04/08/20 19:59 04/07/20 20:07 Hydromorphone HCl (Dilaudid) 1 mg Q4H PRN SUBQ Severe Pain (Pain Scale 7-10) 04/05/20 09:30 04/12/20 09:29 04/08/20 15:39 Insulin Aspart (NovoLOG) Q6HR SUBQ 04/06/20 00:00 07/05/20 00:00 04/08/20 17:13 Ondansetron HCl (Zofran) 4 mg Q4H PRN IVP Nausea & Vomiting 04/04/20 16:00 05/04/20 15:59 Phytonadione (Vitamin K) 10 mg ONCE A WEEK SUBQ 04/12/20 09:00 07/11/20 08:59 Piperacillin Sod/ Tazobactam Sod 3.375 gm/Sodium Chloride 110 ml @ 27.5 mls/hr Q8H IVPB 04/08/20 11:00 04/15/20 10:59 04/08/20 12:30 Quetiapine Fumarate (SEROqueL) 400 mg BEDTIME ORAL 04/04/20 22:45 05/20/20 20:59 04/07/20 20:52 Sodium 1,000 ml @ 40 mls/hr Q24H IV 04/05/20 20:00 05/05/20 19:59 04/07/20 19:45 Wilman Rosas MD Apr 08, 2020 19:09
[2020-04-08] MEDS: Fat Emulsion Iv 20% 240 ML in Tpn 1,800 ML IV SCH (19:41)
[2020-04-08] MEDS: Dyna-Hex 2% Top Sol 2oz TOPIC SCH (19:45)
[2020-04-08] MEDS: 1/2NS w/KCl 20mEq 1000ml 1,000 ML IV SCH (19:45)
[2020-04-08 20:00] VITALS: BP 145/78
[2020-04-08] MEDS: Vancomycin 750 MG in NS 275 ML IVPB SCH (20:27)
[2020-04-08] MEDS: QUEtiapine 200mg tab ORAL SCH (20:27)
--- NOTE | 2020-04-08 20:44 | Consultation ---
DATE OF CONSULTATION: 04/08/2020 INFECTIOUS DISEASE CONSULTATION CONSULTING PHYSICIAN: Wilman Rosas MD ATTENDING PHYSICIAN: Rodrigo Messer MD REFERRING PHYSICIAN: Rodrigo Messer MD REASON FOR CONSULTATION: Possible abdominal wall infection including cellulitis. CHIEF COMPLAINT: Patient's chief complaint coming to the hospital is enterocutaneous fistula, abdominal pain, recent abdominal wall abscess. HISTORY OF PRESENT ILLNESS: This is a very pleasant 64-year-old male who comes into [facility] with abdominal discomfort. Patient has a history of Weaver type of [place] pouch continent ileostomy. Patient was clinically stable and was able to intubate the pouch; however, recently in the past month he has noted some fullness in central abdomen. Patient lives in [place]. Patient had an abscess and status post drainage in [place]. Patient then subsequently had an enterocutaneous fistula. The fistula most likely involves the Weaver continent ileostomy pouch. Patient was admitted to [facility] and the ostomy appliance was applied over the fistula. Patient is status post Weaver continent ileostomy pouch endoscopy. A CT scan of the abdomen and pelvis showed the following: It showed abdominal wall soft tissue edema and inflammation, but no fluid collection. Infectious Disease consultation requested for further antibiotics for possible abdominal wall infection including possible cellulitis. Patient was started empirically on Vanco and Zosyn. Case was discussed with patient and RN at the bedside. REVIEW OF SYSTEMS: CONSTITUTIONAL: Patient denies any fever, chills, or night sweats. HEAD AND NECK: No mention of head pain or neck pain. CARDIAC: No chest pain. GASTROINTESTINAL: He had abdominal discomfort at the abdominal wall. GENITOURINARY: No urinary symptoms. No dysuria or frequency. PULMONARY: No cough, congestion, or shortness of breath. SKIN: No rash. 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 ALLERGIES: Allergic to codeine and morphine. He has no antibiotic allergies. SOCIAL HISTORY: Negative for smoking, alcohol, or drug abuse. He is from [place]. FAMILY HISTORY: Noncontributory. MEDICATIONS: Upon reviewing the MAR, I started the patient on Zosyn and Vanco. He is also on TPN. He is on insulin. He is on hydromorphone, hydrocodone, amlodipine, allopurinol, famotidine. Outside medications noted and reconciliated. Antibiotics, Vanco and Zosyn. PHYSICAL EXAMINATION: VITAL SIGNS: Temperature is 97.2, pulse rate is 81, respiratory rate is 18, blood pressure is 115/73, saturation 96% on room air. GENERAL: Alert, responsive, oriented x3. No acute distress. HEAD AND NECK: Oral exam, no thrush. Eye exam, no icterus. Normocephalic. Neck is supple. No JVD. HEART: Regular. No gallop or murmur. No friction rub. ABDOMEN: Soft. Positive bowel sounds. Some discomfort, fullness, redness, and warmth to the abdominal wall. LUNGS: Clear bilaterally. No rhonchi or rales. SKIN: No other rash noted. EXTREMITIES: Lower extremity exam, he has no evidence of cellulitis. No redness. MUSCULOSKELETAL: No joint pain. No septic arthritis. PERIPHERAL VASCULAR: No gangrene. GENITOURINARY: No Leon. No CVA tenderness. NEUROLOGIC: Intact. LINE SITES: Without phlebitis. He is on TPN. LABORATORY DATA: White count 6.5, hemoglobin 12.8. Creatinine is 1.3. LFTs were noted. UA was negative. Cultures, SARS COVID nasopharyngeal testing is negative. IMAGING STUDIES: CT scan of the abdomen and pelvis showed soft tissue edema and inflammation of the abdominal wall. No abscess or drainable collection. Chest x-ray showed no acute cardiopulmonary disease. ASSESSMENT AND PLAN: 1. Patient has soft tissue edema of the abdominal wall with inflammation. No obvious drainable fluid collection. He does have a history of abscess in abdominal wall that is status post drainage. Questionable if the patient has cellulitis. It is unclear. Clinically, he has some fullness and redness and pain, but nothing severe, but based on the CT scan, he looks like he could have some type of soft tissue infection including possibly cellulitis, soft tissue edema, inflammation mentioned on the CT scan and he has discomfort in the abdominal wall. I will place the patient on Vanco and Zosyn for MRSA gram-negative anaerobic coverage. Continue Vanco and Zosyn for abdominal wall soft tissue edema and inflammation, rule out abdominal wall cellulitis. Monitor the patient clinically and monitor laboratories. On Vanco and Zosyn for now again for possible abdominal wall infection including abdominal wall cellulitis. There is no abscess seen on the CT scan. 2. Patient has enterocutaneous fistula. Patient is status post pouch endoscopy. Management per Dr. Messer. 3. Patient has history of diabetes. Continue blood sugar treatment per Endocrine. 4. Hypertension. Continue blood pressure treatment primary care team and Endocrine. 5. Blood sugar and blood pressure control for hypertension and diabetes. 6. Patient has a history of Weaver continent ileostomy. 7. 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 8. History of multiple abdominal surgeries including proctocolectomy and cholecystectomy and Weaver ileostomy. 9. Allergies to codeine, morphine. 10. Social history is negative 11. Family history is noncontributory. 12. MAR is noted. 13. Case discussed with RN. 14. Continue treatment per Dr. Messer and consultants. 15. Orders were noted and entered. Wilman Rosas M.D. DR: TUSHAR JOB#: [id number] CC:
[2020-04-09] VITALS: BP 144/69
[2020-04-09] MEDS: NovoLOG Insulin Flexpen SUBQ SCH ×7 (00:02→23:55)
[2020-04-09] MEDS: Piperacillin/Tazobactam 3.375 GM in NS 110 ML IVPB SCH ×3 (03:01→18:27)
[2020-04-09 04:00] VITALS: BP 99/62
--- NOTE | 2020-04-09 06:33 | General Progress Note ---
Subjective Allergies: Coded Allergies: CODEINE (Verified Allergy, Unknown, 04/04/20) MORPHINE (Verified Allergy, Unknown, 04/04/20) All Systems: reviewed and negative except above Subjective events noted interval notes reviewed glucose values if fair control on clear liquid diet Item Value Date Time Bedside Blood Glucose 149 mg/dl H 04/09/20 0558 Bedside Blood Glucose 155 mg/dl H 04/09/20 0002 Bedside Blood Glucose 198 mg/dl H 04/08/20 1800 Bedside Blood Glucose 140 mg/dl H 04/08/20 1230 Bedside Blood Glucose 160 mg/dl H 04/08/20 0545 Bedside Blood Glucose 197 mg/dl H 04/07/20 2305 Objective Last 24 Hour Vital Signs Date Time Temp Pulse Resp B/P (MAP) Pulse Ox O2 Delivery O2 Flow Rate FiO2 04/09/20 04:00 98.0 79 18 99/62 (74) 97 04/09/20 00:00 97.8 66 20 144/69 (94) 96 04/08/20 21:00 Room Air 04/08/20 20:00 97.8 64 18 145/78 (100) 96 04/08/20 16:09 97.2 04/08/20 16:00 97.2 81 18 115/73 (87) 96 04/08/20 12:00 97.2 74 24 115/74 (88) 96 04/08/20 09:00 Room Air 04/08/20 08:53 81 108/70 04/08/20 08:00 97.9 81 18 108/70 (83) 97 Intake and Output 04/08/20 04/09/20 19:00 07:00 Intake Total 590 ml 990 ml Output Total 1320 ml 1120 ml Balance -730 ml -130 ml Intake Oral 590 ml 240 ml IV Total 750 ml Output Urine Total 900 ml 900 ml Other 420 ml 220 ml # Voids 3 4 Laboratory Tests 04/08/20 06:42: White Blood Count 6.5, Red Blood Count 4.69L, Hemoglobin 12.8L, Hematocrit 40.1L , Mean Corpuscular Volume 85, Mean Corpuscular Hemoglobin 27.3, Mean Corpuscular Hemoglobin Concent 32.0, Red Cell Distribution Width 14.6, Platelet Count 322, Mean Platelet Volume 6.1L, Neutrophils (%) (Auto) 39.5L, Lymphocytes (%) (Auto) 44.3, Monocytes (%) (Auto) 9.1, Eosinophils (%) (Auto) 5.3H, Basophils (%) (Auto) 1.8, Sodium Level 138, Potassium Level 4.2, Chloride Level 103, Carbon Dioxide Level 25, Anion Gap 10, Blood Urea Nitrogen 16, Creatinine 1.3, Estimat Glomerular Filtration Rate 55.9, Glucose Level 163H, Calcium Level 9.5, Magnesium Level 1.8, Total Bilirubin 0.2, Aspartate Amino Transf (AST/SGOT) 36, Alanine Aminotransferase (ALT/SGPT) 42, Alkaline Phosphatase 98, Total Protein 7.3, Albumin 3.0L, Globulin 4.3, Albumin/Globulin Ratio 0.7L 04/08/20 12:11: POC Whole Blood Glucose [Pending] 04/08/20 17:07: POC Whole Blood Glucose [Pending] 04/08/20 23:57: POC Whole Blood Glucose 155H 04/09/20 05:33: POC Whole Blood Glucose 149H 04/09/20 05:51: White Blood Count [Pending], Red Blood Count [Pending], Hemoglobin [Pending], Hematocrit [Pending], Mean Corpuscular Volume [Pending], Mean Corpuscular Hemoglobin [Pending], Mean Corpuscular Hemoglobin Concent [Pending], Red Cell Distribution Width [Pending], Platelet Count [Pending], Mean Platelet Volume [Pending], Neutrophils (%) (Auto) [Pending], Lymphocytes (%) (Auto) [Pending], Monocytes (%) (Auto) [Pending], Eosinophils (%) (Auto) [Pending], Basophils (%) (Auto) [Pending], Sodium Level [Pending], Potassium Level [Pending], Chloride Level [Pending], Carbon Dioxide Level [Pending], Blood Urea Nitrogen [Pending], Creatinine [Pending], Estimat Glomerular Filtration Rate [Pending], Glucose Level [Pending], Calcium Level [Pending], Phosphorus Level [Pending], Magnesium Level [Pending], Total Bilirubin [Pending], Aspartate Amino Transf (AST/SGOT) [Pending], Alanine Aminotransferase (ALT/SGPT) [Pending], Alkaline Phosphatase [Pending], Total Protein [Pending], Albumin [Pending], Globulin [Pending] Height (Feet): 5 Height (Inches): 5.00 Weight (Pounds): 169 General Appearance: no apparent distress Neck: normal alignment Cardiovascular: normal rate Respiratory/Chest: lungs clear Abdomen: normal bowel sounds Objective Current Medications Medications (Trade) Dose Ordered Sig/Lea Route PRN Reason Start Time Stop Time Status Last Admin Dose Admin Acetaminophen (Tylenol) 650 mg Q4H PRN ORAL Mild Pain (Pain Scale 1-3) 04/05/20 09:30 05/05/20 09:29 Acetaminophen/ Hydrocodone Bitart ([place] 7.5/325) 1 tab Q4H PRN ORAL Moderate Pain (Pain Scale 4-6) 04/05/20 09:30 04/12/20 09:29 Allopurinol (Zyloprim) 100 mg DAILY ORAL 04/05/20 09:00 05/05/20 08:59 04/08/20 08:53 Amlodipine Besylate (Norvasc) 5 mg DAILY ORAL 04/05/20 09:00 05/05/20 08:59 04/08/20 08:53 Chlorhexidine Gluconate (Re-Hex 2%) 1 applic DAILY@2000 TOPIC 04/05/20 20:00 07/04/20 19:59 04/08/20 19:45 Dextrose 1,000 ml @ 85 mls/hr Q24H PRN IV PN interrupted or unavailable 04/05/20 21:00 05/05/20 20:59 04/09/20 01:58 Dextrose (Dextrose 50%) 25 ml Q30M PRN IV Hypoglycemia 04/05/20 20:30 07/04/20 20:29 Dextrose (Dextrose 50%) 50 ml Q30M PRN IV Hypoglycemia 04/05/20 20:30 07/04/20 20:29 Famotidine (Pepcid) 20 mg BID ORAL 04/04/20 18:00 07/03/20 17:59 04/08/20 17:10 Fat Emulsion Intravenous 240 ml/Amino Acids/ Electrolytes/ Dextrose 2,040 ml @ 85 mls/hr Q24H IV 04/08/20 20:00 05/08/20 19:59 04/08/20 19:41 Hydromorphone HCl (Dilaudid) 1 mg Q4H PRN SUBQ Severe Pain (Pain Scale 7-10) 04/05/20 09:30 04/12/20 09:29 04/08/20 19:46 Insulin Aspart (NovoLOG) Q6HR SUBQ 04/06/20 00:00 07/05/20 00:00 04/09/20 05:36 Ondansetron HCl (Zofran) 4 mg Q4H PRN IVP Nausea & Vomiting 04/04/20 16:00 05/04/20 15:59 Phytonadione (Vitamin K) 10 mg ONCE A WEEK SUBQ 04/12/20 09:00 07/11/20 08:59 Piperacillin Sod/ Tazobactam Sod 3.375 gm/Sodium Chloride 110 ml @ 27.5 mls/hr Q8H IVPB 04/08/20 11:00 04/15/20 10:59 04/09/20 03:01 Quetiapine Fumarate (SEROqueL) 400 mg BEDTIME ORAL 04/04/20 22:45 05/20/20 20:59 04/08/20 20:27 Sodium 1,000 ml @ 40 mls/hr Q24H IV 04/05/20 20:00 05/05/20 19:59 04/08/20 19:45 Vancomycin HCl (Vanco pharmacy to dose) 1 ea DAILY PRN MISC Per rx protocol 04/08/20 19:15 05/08/20 19:14 Vancomycin HCl 750 mg/Sodium Chloride 275 ml @ 183.333 mls/hr Q12HR@0900,2100 IVPB 04/08/20 21:00 04/13/20 20:59 04/08/20 20:27 Assessment/Plan Problem List: (1) Diabetes mellitus ICD Codes: E11.9 - Type 2 diabetes mellitus without complications SNOMED: 99980470 (2) Post-operative complication ICD Codes: T81.9XXA - Unspecified complication of procedure, initial encounter SNOMED: 908828629 (3) Weaver Pouch fistula Assessment/Plan: keep R insulin of TPN at 20 units / bag add Novolog 3 units ac tid continue Novolog sliding scale every 6 hours hypoglycemia protocol in order Justyn Michaels MD Apr 09, 2020 06:33
[2020-04-09 06:40] LABS: BASOPHILS % (AUTO) 1.4 % (0.0-2.0); EOSINOPHILS % (AUTO) 4.1 % (0.0-3.0); HEMATOCRIT 42.4 % (42.0-52.0); HEMOGLOBIN 13.1 G/DL (14.2-18.0); LYMPHOCYTES % (AUTO) 50.3 % (20.0-45.0); MEAN CORPUSCULAR VOLUME 87 FL (80-99); MONOCYTES % (AUTO) 8.3 % (1.0-10.0); NEUTROPHILS % (AUTO) 35.9 % (45.0-75.0); PLATELET COUNT 343 K/UL (150-450); RED CELL DISTRIBUTION WIDTH 14.7 % (11.6-14.8); WHITE BLOOD COUNT 8.1 K/UL (4.8-10.8)
[2020-04-09 07:08] LABS: ALBUMIN 3.2 G/DL (3.4-5.0); ALBUMIN/GLOBULIN RATIO 0.7 (1.0-2.7); BILIRUBIN,TOTAL 0.6 MG/DL (0.2-1.0); CALCIUM 9.6 MG/DL (8.5-10.1); CREATININE 1.5 MG/DL (0.55-1.30); PHOSPHORUS 4.2 MG/DL (2.5-4.9); POTASSIUM 3.8 MMOL/L (3.5-5.1)
[2020-04-09 08:00] VITALS: BP 114/64
[2020-04-09] MEDS ORDERED: Cathflo Alteplase 2mg Inj INJ SCH (08:00)
[2020-04-09] MEDS: Vancomycin 750 MG in NS 275 ML IVPB SCH ×2 (08:53→20:18)
[2020-04-09] MEDS: Allopurinol 100mg Tab ORAL SCH (08:53)
[2020-04-09] MEDS: HYDROmorphone 1mg/ml Carpuject SUBQ PRN ×2 (09:55→18:26)
--- NOTE | 2020-04-09 10:03 | Diagnostic Imaging Report ---
Indication: Leaking cutaneous fistula in patient with ileostomy pouch Technique: After sterile prepping, a Leon catheter was inserted into the abdominal wall defect, and used to hand inject contrast under direct fluoroscopic visualization. Saved fluoroscopic loops and overhead images were obtained. Total fluoroscopy time 337 seconds. Total dose area product 2.5 mGym2 Number of images: 27 Comparison: Reference made to enterostomy pouch study dated 04/05/2020 Findings: Injection of contrast demonstrates contrast tracking in multiple directions. Contrast tracks to the left of the injection point, fills a blind ending structure that does not appear to be bowel. However, a small track of contrast is seen tracking caudad to the injection point, and opacifies the enterostomy pouch, as contrast is seen to surround the enterostomy catheter. Numerous other areas of intra-abdominal contrast opacification are demonstrated, but it is unclear whether these are intraluminal or extraluminal regarding the bowel, suspect the latter. Subsequent overhead images demonstrate contrast within the pouch as well as within what are probably abdominal wall or intraperitoneal blind-ending collections. Impression: Fistulogram, demonstrating very complex enterocutaneous fistula. One of the fistula tracts appears to communicate with the enterostomy pouch.
[2020-04-09 12:00] VITALS: BP 120/72
--- NOTE | 2020-04-09 14:17 | General Progress Note ---
Progress Note Progress Note AVSS On Zosyn and Vancomycin per ID. Fistulogram XRay revealed complex enterocutaneous fistula tract leading into the Weaver continent ileostomy pouch. 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
[2020-04-09 16:00] VITALS: BP 126/76
[2020-04-09 20:00] VITALS: BP 147/84
[2020-04-09] MEDS: Fat Emulsion Iv 20% 240 ML in Tpn 1,800 ML IV SCH (20:00)
[2020-04-09] MEDS: Dyna-Hex 2% Top Sol 2oz TOPIC SCH (20:15)
[2020-04-09] MEDS: QUEtiapine 200mg tab ORAL SCH (20:16)
[2020-04-09] MEDS: 1/2NS w/KCl 20mEq 1000ml 1,000 ML IV SCH (20:17)
[2020-04-10] VITALS: BP 107/62
[2020-04-10] MEDS: Piperacillin/Tazobactam 3.375 GM in NS 110 ML IVPB SCH ×3 (02:17→19:18)
[2020-04-10 04:00] VITALS: BP 130/68
[2020-04-10] MEDS: NovoLOG Insulin Flexpen SUBQ SCH ×5 (06:05→23:57)
[2020-04-10 06:32] LABS: ALBUMIN 2.9 G/DL (3.4-5.0); ALBUMIN/GLOBULIN RATIO 0.7 (1.0-2.7); BILIRUBIN,TOTAL 0.3 MG/DL (0.2-1.0); CALCIUM 8.8 MG/DL (8.5-10.1); CREATININE 1.4 MG/DL (0.55-1.30)
[2020-04-10 06:38] LABS: BASOPHILS % (AUTO) 1.4 % (0.0-2.0); EOSINOPHILS % (AUTO) 5.8 % (0.0-3.0); HEMATOCRIT 37.9 % (42.0-52.0); LYMPHOCYTES % (AUTO) 35.8 % (20.0-45.0); MEAN CORPUSCULAR VOLUME 86 FL (80-99); MONOCYTES % (AUTO) 9.1 % (1.0-10.0); NEUTROPHILS % (AUTO) 47.9 % (45.0-75.0); PLATELET COUNT 320 K/UL (150-450); RED BLOOD COUNT 4.43 M/UL (4.70-6.10); RED CELL DISTRIBUTION WIDTH 14.8 % (11.6-14.8); WHITE BLOOD COUNT 6.4 K/UL (4.8-10.8)
--- NOTE | 2020-04-10 06:52 | General Progress Note ---
Subjective ROS Limited/Unobtainable: Yes Allergies: Coded Allergies: CODEINE (Verified Allergy, Unknown, 04/04/20) MORPHINE (Verified Allergy, Unknown, 04/04/20) Subjective events noted interval notes reviewed no longer on liquid diet NPO on TPN glucose values in fair control - high 100s Objective Last 24 Hour Vital Signs Date Time Temp Pulse Resp B/P (MAP) Pulse Ox O2 Delivery O2 Flow Rate FiO2 04/10/20 04:00 98.2 74 20 130/68 (88) 98 04/10/20 00:00 98.1 61 18 107/62 (77) 98 04/09/20 21:00 Room Air 04/09/20 20:00 98.5 63 20 147/84 (105) 97 04/09/20 16:00 98.0 66 18 126/76 (93) 97 04/09/20 12:00 97.5 65 18 120/72 (88) 97 04/09/20 09:00 Room Air 04/09/20 08:53 81 114/64 04/09/20 08:00 99.2 81 18 114/64 (81) 99 Intake and Output 04/09/20 04/10/20 19:00 07:00 Intake Total 1000 ml Output Total 2795 ml 3370 ml Balance -1795 ml -3370 ml Intake Oral 1000 ml Output Urine Total 2400 ml 3100 ml Other 395 ml 270 ml Laboratory Tests 04/09/20 11:59: POC Whole Blood Glucose [Pending] 04/09/20 18:20: POC Whole Blood Glucose [Pending] 04/09/20 19:40: Vancomycin Level Trough 10.1 04/09/20 23:47: POC Whole Blood Glucose 171H 04/10/20 05:34: White Blood Count 6.4, Red Blood Count 4.43L, Hemoglobin 12.0L, Hematocrit 37.9L , Mean Corpuscular Volume 86, Mean Corpuscular Hemoglobin 27.2, Mean Corpuscular Hemoglobin Concent 31.8L, Red Cell Distribution Width 14.8, Platelet Count 320, Mean Platelet Volume 6.7, Neutrophils (%) (Auto) 47.9, Lymphocytes (%) (Auto) 35.8, Monocytes (%) (Auto) 9.1, Eosinophils (%) (Auto) 5.8H, Basophils (%) (Auto) 1.4, Sodium Level 137, Potassium Level 4.0, Chloride Level 103, Carbon Dioxide Level 25, Anion Gap 9, Blood Urea Nitrogen 16, Creatinine 1.4H, Estimat Glomerular Filtration Rate 51.4, Glucose Level 183H, Calcium Level 8.8, Magnesium Level 2.2, Total Bilirubin 0.3, Aspartate Amino Transf (AST/SGOT) 46H, Alanine Aminotransferase (ALT/SGPT) 58, Alkaline Phosphatase 110, Total Protein 7.0, Albumin 2.9L, Globulin 4.1, Albumin/Globulin Ratio 0.7L Height (Feet): 5 Height (Inches): 5.00 Weight (Pounds): 169 General Appearance: no apparent distress Neck: normal alignment Cardiovascular: normal rate Respiratory/Chest: lungs clear Abdomen: normal bowel sounds Objective Current Medications Medications (Trade) Dose Ordered Sig/Lea Route PRN Reason Start Time Stop Time Status Last Admin Dose Admin Acetaminophen (Tylenol) 650 mg Q4H PRN ORAL Mild Pain (Pain Scale 1-3) 04/05/20 09:30 05/05/20 09:29 Acetaminophen/ Hydrocodone Bitart ([place] 7.5/325) 1 tab Q4H PRN ORAL Moderate Pain (Pain Scale 4-6) 04/05/20 09:30 04/12/20 09:29 Allopurinol (Zyloprim) 100 mg DAILY ORAL 04/05/20 09:00 05/05/20 08:59 04/09/20 08:53 Amlodipine Besylate (Norvasc) 5 mg DAILY ORAL 04/05/20 09:00 05/05/20 08:59 04/09/20 08:53 Chlorhexidine Gluconate (Re-Hex 2%) 1 applic DAILY@2000 TOPIC 04/05/20 20:00 07/04/20 19:59 04/09/20 20:15 Dextrose 1,000 ml @ 85 mls/hr Q24H PRN IV PN interrupted or unavailable 04/05/20 21:00 05/05/20 20:59 04/09/20 01:58 Dextrose (Dextrose 50%) 25 ml Q30M PRN IV Hypoglycemia 04/09/20 06:45 07/08/20 06:44 Dextrose (Dextrose 50%) 50 ml Q30M PRN IV Hypoglycemia 04/09/20 06:45 07/08/20 06:44 Famotidine (Pepcid) 20 mg BID ORAL 04/04/20 18:00 07/03/20 17:59 04/09/20 18:26 Fat Emulsion Intravenous 240 ml/Amino Acids/ Electrolytes/ Dextrose 2,040 ml @ 85 mls/hr Q24H IV 04/08/20 20:00 05/08/20 19:59 04/09/20 20:00 Hydromorphone HCl (Dilaudid) 1 mg Q4H PRN SUBQ Severe Pain (Pain Scale 7-10) 04/05/20 09:30 04/12/20 09:29 04/09/20 18:26 Insulin Aspart (NovoLOG) Q6HR SUBQ 04/06/20 00:00 07/05/20 00:00 04/10/20 06:05 Insulin Aspart (NovoLOG) 3 units NOVOTIAC SUBQ 04/09/20 11:50 07/08/20 11:49 04/09/20 18:34 Ondansetron HCl (Zofran) 4 mg Q4H PRN IVP Nausea & Vomiting 04/04/20 16:00 05/04/20 15:59 Phytonadione (Vitamin K) 10 mg ONCE A WEEK SUBQ 04/12/20 09:00 07/11/20 08:59 Piperacillin Sod/ Tazobactam Sod 3.375 gm/Sodium Chloride 110 ml @ 27.5 mls/hr Q8H IVPB 04/08/20 11:00 04/15/20 10:59 04/10/20 02:17 Quetiapine Fumarate (SEROqueL) 400 mg BEDTIME ORAL 04/04/20 22:45 05/20/20 20:59 04/09/20 20:16 Sodium 1,000 ml @ 40 mls/hr Q24H IV 04/05/20 20:00 05/05/20 19:59 04/09/20 20:17 Vancomycin HCl (Vanco pharmacy to dose) 1 ea DAILY PRN MISC Per rx protocol 04/08/20 19:15 05/08/20 19:14 Vancomycin HCl 750 mg/Sodium Chloride 275 ml @ 183.333 mls/hr Q12HR@0900,2100 IVPB 04/08/20 21:00 04/13/20 20:59 04/09/20 20:18 Assessment/Plan Problem List: (1) Diabetes mellitus ICD Codes: E11.9 - Type 2 diabetes mellitus without complications SNOMED: 17265496 (2) Post-operative complication ICD Codes: T81.9XXA - Unspecified complication of procedure, initial encounter SNOMED: 458598217 (3) Weaver Pouch fistula Assessment/Plan: increase R insulin of TPN to 23 units / bag DC Novolog 3 units ac tid - he is NPO continue Novolog sliding scale every 6 hours hypoglycemia protocol in order Justyn Michaels MD Apr 10, 2020 06:52
[2020-04-10 08:00] VITALS: BP 114/67
[2020-04-10] MEDS: Vancomycin 750 MG in NS 275 ML IVPB SCH ×2 (08:31→20:59)
[2020-04-10] MEDS: Allopurinol 100mg Tab ORAL SCH (08:39)
--- NOTE | 2020-04-10 08:44 | General Progress Note ---
Progress Note Progress Note AVSS Now NPO with TPN and IV fluids. Pain around fistula is decreased Abdomen soft, mild nunu-fistula induration persists Urine 4100 BCIR ileo 665 Fistula - no drainage of stool or gas Cr yesterday 1.5 not 1.4 albumin 2.9 Mg 2.2 after infusions yesterday Imp: complex enterocutaneous fistula involving Weaver continent ileostomy pouch Improving on antibiotics, NPO, and TPN Plan: continue current regimen repeat Pouchogram XRay and repeat fistulogram XRay in 2-3 days continue TPN and Zosyn + Vancomycin Rodrigo Messer MD Apr 10, 2020 08:44
[2020-04-10] MEDS ORDERED: oxyCODONE HCL/Acetaminophen 5/325mg ORAL PRN (09:00)
[2020-04-10] MEDS ORDERED: Silver Nitrate Stick TOPIC PRN (09:00)
[2020-04-10 12:00] VITALS: BP 121/77
[2020-04-10 16:00] VITALS: BP 130/72
--- NOTE | 2020-04-10 16:44 | Infectious Diseases Prog Note ---
Assessment/Plan Assessment/Plan ASSESSMENT AND PLAN: 1. enterocutaneous fistula, abdominal wall soft tissue edema and inflammation on CT scan ? abdominal wall cellulitis/soft tissue infection, ? infected fistula site/wound infection - zosyn and vancomycin -day # 3 - clinically improved - monitor labs/creatinine - management per Dr. Messer 2. Patient has enterocutaneous fistula. Patient is status post pouch endoscopy. Management per Dr. Messer. 3. Patient has history of diabetes. Continue blood sugar treatment per Endocrine. 4. Hypertension. Continue blood pressure treatment primary care team and Endocrine. 5. Blood sugar and blood pressure control for hypertension and diabetes. 6. Patient has a history of Weaver continent ileostomy. 7. 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 8. History of multiple abdominal surgeries including proctocolectomy and cholecystectomy and Weaver ileostomy. 9. Allergies to codeine, morphine. 10. Social history is negative 11. Family history is noncontributory. 12. MAR is noted. 13. Case discussed with RN. 14. Continue treatment per Dr. Messer and consultants. 15. Orders were noted and entered. Subjective Constitutional: Denies: fever HEENT: Denies: congestion Respiratory: Denies: shortness of breath Cardiovascular: Denies: chest pain Gastrointestinal/Abdominal: Reports: diarrhea, other - less abdominal discomfort but still some ; Denies: nausea, vomiting Genitourinary: Denies: dysuria, hematuria Neurologic: Denies: headache, numbness Psychiatric: Denies: depression Skin: Denies: rash Hematologic: Denies: bleeding Musculoskeletal: Denies: pain Allergies: Coded Allergies: CODEINE (Verified Allergy, Unknown, 04/04/20) MORPHINE (Verified Allergy, Unknown, 04/04/20) Objective Last 24 Hour Vital Signs Date Time Temp Pulse Resp B/P (MAP) Pulse Ox O2 Delivery O2 Flow Rate FiO2 04/10/20 12:00 97.9 78 20 121/77 (92) 98 04/10/20 09:00 Room Air 04/10/20 08:40 76 114/67 04/10/20 08:00 97.3 76 20 114/67 (83) 98 04/10/20 04:00 98.2 74 20 130/68 (88) 98 04/10/20 00:00 98.1 61 18 107/62 (77) 98 04/09/20 21:00 Room Air 04/09/20 20:00 98.5 63 20 147/84 (105) 97 Height (Feet): 5 Height (Inches): 5.00 Weight (Pounds): 169 General Appearance: no acute distress HEENT: normocephalic, atraumatic, anicteric, mucous membranes moist, supple, no JVD Respiratory/Chest: lungs clear, normal breath sounds, no respiratory distress, no accessory muscle use Cardiovascular: normal rate, regular rhythm, no gallop/murmur, no JVD Abdomen: normal bowel sounds, soft, non tender, no organomegaly, non distended, other - less abdominal wall pain and induration Genitourinary: other - no lopez Extremities: no cyanosis Skin: no rash Neurologic/Psychiatric: baton twirler II-XII grossly normal, alert, responsive Lymphatic: no neck adenopathy Musculoskeletal: no effusion CT abdomen and pelvis: IMPRESSION: Soft tissue edema, inflammation and foci of air in the abdominal wall. No discrete drainable collection. Chest x-ray - FINDINGS: A single one view chest is obtained. Vascularity is normal. The lung corbett are clear bilaterally. Cardiac and mediastinal silhouette are within normal limits. CP angles are sharp. The bony thorax appear unremarkable. IMPRESSION: NO ACUTE CARDIOPULMONARY DISEASE. Laboratory Tests Test 04/09/20 18:20 04/09/20 19:40 04/09/20 23:47 04/10/20 05:34 POC Whole Blood Glucose Pending 171 MG/DL (74-106) H Vancomycin Level Trough 10.1 ug/mL (5.0-12.0) White Blood Count 6.4 K/UL (4.8-10.8) Red Blood Count 4.43 M/UL (4.70-6.10) L Hemoglobin 12.0 G/DL (14.2-18.0) L Hematocrit 37.9 % (42.0-52.0) L Mean Corpuscular Volume 86 FL (80-99) Mean Corpuscular Hemoglobin 27.2 PG (27.0-31.0) Mean Corpuscular Hemoglobin Concent 31.8 G/DL (32.0-36.0) L Red Cell Distribution Width 14.8 % (11.6-14.8) Platelet Count 320 K/UL (150-450) Mean Platelet Volume 6.7 FL (6.5-10.1) Neutrophils (%) (Auto) 47.9 % (45.0-75.0) Lymphocytes (%) (Auto) 35.8 % (20.0-45.0) Monocytes (%) (Auto) 9.1 % (1.0-10.0) Eosinophils (%) (Auto) 5.8 % (0.0-3.0) H Basophils (%) (Auto) 1.4 % (0.0-2.0) Sodium Level 137 MMOL/L (136-145) Potassium Level 4.0 MMOL/L (3.5-5.1) Chloride Level 103 MMOL/L (98-107) Carbon Dioxide Level 25 MMOL/L (21-32) Anion Gap 9 mmol/L (5-15) Blood Urea Nitrogen 16 mg/dL (7-18) Creatinine 1.4 MG/DL (0.55-1.30) H Estimat Glomerular Filtration Rate 51.4 mL/min (>60) Glucose Level 183 MG/DL (74-106) H Calcium Level 8.8 MG/DL (8.5-10.1) Magnesium Level 2.2 MG/DL (1.8-2.4) Total Bilirubin 0.3 MG/DL (0.2-1.0) Aspartate Amino Transf (AST/SGOT) 46 U/L (15-37) H Alanine Aminotransferase (ALT/SGPT) 58 U/L (12-78) Alkaline Phosphatase 110 U/L (46-116) Total Protein 7.0 G/DL (6.4-8.2) Albumin 2.9 G/DL (3.4-5.0) L Globulin 4.1 g/dL Albumin/Globulin Ratio 0.7 (1.0-2.7) L Test 04/10/20 11:55 POC Whole Blood Glucose 172 MG/DL (74-106) H Current Medications Medications (Trade) Dose Ordered Sig/Lea Route PRN Reason Start Time Stop Time Status Last Admin Dose Admin Acetaminophen (Tylenol) 650 mg Q4H PRN ORAL Mild Pain (Pain Scale 1-3) 04/05/20 09:30 05/05/20 09:29 Allopurinol (Zyloprim) 100 mg DAILY ORAL 04/05/20 09:00 05/05/20 08:59 04/10/20 08:39 Amlodipine Besylate (Norvasc) 5 mg DAILY ORAL 04/05/20 09:00 05/05/20 08:59 04/10/20 08:40 Chlorhexidine Gluconate (Re-Hex 2%) 1 applic DAILY@2000 TOPIC 04/05/20 20:00 07/04/20 19:59 04/09/20 20:15 Dextrose 1,000 ml @ 85 mls/hr Q24H PRN IV PN interrupted or unavailable 04/05/20 21:00 05/05/20 20:59 04/09/20 01:58 Dextrose (Dextrose 50%) 25 ml Q30M PRN IV Hypoglycemia 04/09/20 06:45 07/08/20 06:44 Dextrose (Dextrose 50%) 50 ml Q30M PRN IV Hypoglycemia 04/09/20 06:45 07/08/20 06:44 Famotidine (Pepcid) 20 mg BID ORAL 04/04/20 18:00 07/03/20 17:59 04/10/20 08:39 Fat Emulsion Intravenous 240 ml/Amino Acids/ Electrolytes/ Dextrose 2,040 ml @ 85 mls/hr Q24H IV 04/08/20 20:00 05/08/20 19:59 04/09/20 20:00 Hydromorphone HCl (Dilaudid) 1 mg Q4H PRN SUBQ Severe Pain (Pain Scale 7-10) 04/05/20 09:30 04/12/20 09:29 04/09/20 18:26 Insulin Aspart (NovoLOG) Q6HR SUBQ 04/06/20 00:00 07/05/20 00:00 04/10/20 11:59 Ondansetron HCl (Zofran) 4 mg Q4H PRN IVP Nausea & Vomiting 04/04/20 16:00 05/04/20 15:59 Oxycodone/ Acetaminophen (Percocet 5-325) 1 tab Q4H PRN ORAL Moderate Pain (Pain Scale 4-6) 04/10/20 09:00 04/17/20 08:59 Phytonadione (Vitamin K) 10 mg ONCE A WEEK SUBQ 04/12/20 09:00 07/11/20 08:59 Piperacillin Sod/ Tazobactam Sod 3.375 gm/Sodium Chloride 110 ml @ 27.5 mls/hr Q8H IVPB 04/08/20 11:00 04/15/20 10:59 04/10/20 11:50 Quetiapine Fumarate (SEROqueL) 400 mg BEDTIME ORAL 04/04/20 22:45 05/20/20 20:59 04/09/20 20:16 Silver Nitrate (Silver Nitrate Applicators) 6 applic DAILYPRN PRN TOPIC abdominal wound application 04/10/20 09:00 07/09/20 08:59 Sodium 1,000 ml @ 40 mls/hr Q24H IV 04/05/20 20:00 05/05/20 19:59 04/09/20 20:17 Vancomycin HCl (Vanco pharmacy to dose) 1 ea DAILY PRN MISC Per rx protocol 04/08/20 19:15 05/08/20 19:14 Vancomycin HCl 750 mg/Sodium Chloride 275 ml @ 183.333 mls/hr Q12HR@0900,2100 IVPB 04/08/20 21:00 04/13/20 20:59 04/10/20 08:31 Wilman Rosas MD Apr 10, 2020 16:44
[2020-04-10 20:00] VITALS: BP 135/73
[2020-04-10] MEDS: Dyna-Hex 2% Top Sol 2oz TOPIC SCH (20:02)
[2020-04-10] MEDS: QUEtiapine 200mg tab ORAL SCH (20:02)
[2020-04-10] MEDS: 1/2NS w/KCl 20mEq 1000ml 1,000 ML IV SCH (20:02)
[2020-04-10] MEDS: Fat Emulsion Iv 20% 240 ML in Tpn 1,800 ML IV SCH (20:04)
[2020-04-11] VITALS: BP 105/61
[2020-04-11] MEDS: Piperacillin/Tazobactam 3.375 GM in NS 110 ML IVPB SCH ×3 (03:03→19:26)
[2020-04-11 04:00] VITALS: BP 102/68
[2020-04-11] MEDS: NovoLOG Insulin Flexpen SUBQ SCH ×4 (06:12→23:49)
[2020-04-11 08:00] VITALS: BP 113/67
[2020-04-11 09:04] LABS: BASOPHILS % (AUTO) 2.1 % (0.0-2.0); EOSINOPHILS % (AUTO) 5.1 % (0.0-3.0); HEMOGLOBIN 12.6 G/DL (14.2-18.0); LYMPHOCYTES % (AUTO) 45.8 % (20.0-45.0); MEAN CORPUSCULAR VOLUME 84 FL (80-99); MONOCYTES % (AUTO) 8.4 % (1.0-10.0); NEUTROPHILS % (AUTO) 38.6 % (45.0-75.0); PLATELET COUNT 305 K/UL (150-450); RED BLOOD COUNT 4.63 M/UL (4.70-6.10); RED CELL DISTRIBUTION WIDTH 14.2 % (11.6-14.8); WHITE BLOOD COUNT 6.4 K/UL (4.8-10.8)
[2020-04-11] MEDS: Vancomycin 750 MG in NS 275 ML IVPB SCH ×2 (09:46→21:00)
[2020-04-11] MEDS: Allopurinol 100mg Tab ORAL SCH (09:46)
[2020-04-11 09:49] LABS: ALBUMIN/GLOBULIN RATIO 0.8 (1.0-2.7); BILIRUBIN,TOTAL 0.3 MG/DL (0.2-1.0); CALCIUM 8.9 MG/DL (8.5-10.1); CREATININE 1.3 MG/DL (0.55-1.30); PHOSPHORUS 3.3 MG/DL (2.5-4.9); POTASSIUM 4.4 MMOL/L (3.5-5.1)
--- NOTE | 2020-04-11 10:12 | General Progress Note ---
Progress Note Progress Note AVSS Only occasional pain at enterocutaneous fistula site just inferior to umbilicus in midline scar. Scant seropurulent drainage. AgNo3 applied to granulations at fistula site Abdomen soft Urine 4100 BCIR ileo 390 CBC - wnl BNN 17 Cr 1.3 (down) albumin 3 Imp: Healing enterocutaneous fistula of Weaver Pouch Plan: continue NPO, TPN, indwelling Weaver Pouch catheter to continuous drainage Anticipate follow-up fistulogram and Pouchogram on 04/15 Rodrigo Messer MD Apr 11, 2020 10:12
[2020-04-11] MEDS: HYDROmorphone 1mg/ml Carpuject SUBQ PRN ×2 (10:24→17:41)
[2020-04-11 12:00] VITALS: BP 130/73
[2020-04-11 16:00] VITALS: BP 116/66
--- NOTE | 2020-04-11 17:59 | General Progress Note ---
Subjective Allergies: Coded Allergies: CODEINE (Verified Allergy, Unknown, 04/04/20) MORPHINE (Verified Allergy, Unknown, 04/04/20) Subjective events noted interval notes reviewed NPO on TPN fair glycemic control Item Value Date Time Bedside Blood Glucose 175 mg/dl H 04/10/20 0605 Bedside Blood Glucose 171 mg/dl H 04/09/20 2355 Bedside Blood Glucose 161 mg/dl H 04/09/20 1839 Bedside Blood Glucose 238 mg/dl H 04/09/20 1201 Bedside Blood Glucose 149 mg/dl H 04/09/20 0558 Bedside Blood Glucose 155 mg/dl H 04/09/20 0002 Bedside Blood Glucose 160 mg/dl H 04/11/20 1726 Bedside Blood Glucose 185 mg/dl H 04/11/20 1222 Bedside Blood Glucose 171 mg/dl H 04/11/20 0612 Bedside Blood Glucose 165 mg/dl H 04/10/20 2357 Bedside Blood Glucose 163 mg/dl H 04/10/20 1747 Bedside Blood Glucose 172 mg/dl H 04/10/20 1159 Objective Last 24 Hour Vital Signs Date Time Temp Pulse Resp B/P (MAP) Pulse Ox O2 Delivery O2 Flow Rate FiO2 04/11/20 16:00 98.2 65 17 116/66 (83) 100 04/11/20 12:00 97.8 63 18 130/73 (92) 97 04/11/20 09:46 72 113/67 04/11/20 09:00 Room Air 04/11/20 08:00 97.8 72 17 113/67 (82) 96 04/11/20 04:00 97.9 65 18 102/68 (79) 96 04/11/20 00:00 98.1 66 18 105/61 (76) 97 04/10/20 21:00 Room Air 04/10/20 20:00 98.2 63 20 135/73 (93) 97 Intake and Output 04/10/20 04/11/20 19:00 07:00 Intake Total 245 ml Output Total 1170 ml 1620 ml Balance -1170 ml -1375 ml Intake Oral 120 ml IV Total 125 ml Output Urine Total 1000 ml 1400 ml Other 170 ml 220 ml # Voids 4 Laboratory Tests 04/11/20 06:10: POC Whole Blood Glucose 171H 04/11/20 08:05: White Blood Count 6.4, Red Blood Count 4.63L, Hemoglobin 12.6L, Hematocrit 39.0L , Mean Corpuscular Volume 84, Mean Corpuscular Hemoglobin 27.3, Mean Corpuscular Hemoglobin Concent 32.4, Red Cell Distribution Width 14.2, Platelet Count 305, Mean Platelet Volume 6.8, Neutrophils (%) (Auto) 38.6L, Lymphocytes (%) (Auto) 45.8H, Monocytes (%) (Auto) 8.4, Eosinophils (%) (Auto) 5.1H, Basophils (%) (Auto) 2.1H, Sodium Level 138, Potassium Level 4.4, Chloride Level 104, Carbon Dioxide Level 23, Anion Gap 11, Blood Urea Nitrogen 17, Creatinine 1.3, Estimat Glomerular Filtration Rate 55.9, Glucose Level 154H, Calcium Level 8.9, Phosphorus Level 3.3, Magnesium Level 1.9, Total Bilirubin 0.3, Aspartate Amino Transf (AST/SGOT) 65H, Alanine Aminotransferase (ALT/SGPT) 81H, Alkaline Phosphatase 130H, Total Protein 6.8, Albumin 3.0L, Globulin 3.8, Albumin/Globulin Ratio 0.8L, Vancomycin Level Trough 13.4H 04/11/20 12:17: POC Whole Blood Glucose 185H 04/11/20 17:23: POC Whole Blood Glucose 160H Height (Feet): 5 Height (Inches): 5.00 Weight (Pounds): 169 General Appearance: no apparent distress Neck: normal alignment Cardiovascular: normal rate Respiratory/Chest: lungs clear Abdomen: normal bowel sounds Pelvis: normal external exam Objective Current Medications Medications (Trade) Dose Ordered Sig/Lea Route PRN Reason Start Time Stop Time Status Last Admin Dose Admin Acetaminophen (Tylenol) 650 mg Q4H PRN ORAL Mild Pain (Pain Scale 1-3) 04/05/20 09:30 05/05/20 09:29 Allopurinol (Zyloprim) 100 mg DAILY ORAL 04/05/20 09:00 05/05/20 08:59 04/11/20 09:46 Amlodipine Besylate (Norvasc) 5 mg DAILY ORAL 04/05/20 09:00 05/05/20 08:59 04/11/20 09:46 Chlorhexidine Gluconate (Re-Hex 2%) 1 applic DAILY@1999 TOPIC 04/05/20 20:00 07/04/20 19:59 04/10/20 20:02 Dextrose 1,000 ml @ 85 mls/hr Q24H PRN IV PN interrupted or unavailable 04/05/20 21:00 05/05/20 20:59 04/09/20 01:58 Dextrose (Dextrose 50%) 25 ml Q30M PRN IV Hypoglycemia 04/09/20 06:45 07/08/20 06:44 Dextrose (Dextrose 50%) 50 ml Q30M PRN IV Hypoglycemia 04/09/20 06:45 07/08/20 06:44 Famotidine (Pepcid) 20 mg BID ORAL 04/04/20 18:00 07/03/20 17:59 04/11/20 17:20 Fat Emulsion Intravenous 240 ml/Amino Acids/ Electrolytes/ Dextrose 2,040 ml @ 85 mls/hr Q24H IV 04/08/20 20:00 04/11/20 19:59 04/10/20 20:04 Fat Emulsion Intravenous 240 ml/Amino Acids/ Electrolytes/ Dextrose 2,040 ml @ 85 mls/hr Q24H IV 04/11/20 20:00 05/11/20 19:59 Hydromorphone HCl (Dilaudid) 1 mg Q4H PRN SUBQ Severe Pain (Pain Scale 7-10) 04/11/20 10:30 04/18/20 10:29 04/11/20 17:41 Insulin Aspart (NovoLOG) Q6HR SUBQ 04/06/20 00:00 07/05/20 00:00 04/11/20 17:26 Ondansetron HCl (Zofran) 4 mg Q4H PRN IVP Nausea & Vomiting 04/04/20 16:00 05/04/20 15:59 Oxycodone/ Acetaminophen (Percocet 5-325) 1 tab Q4H PRN ORAL Moderate Pain (Pain Scale 4-6) 04/10/20 09:00 04/17/20 08:59 04/10/20 17:27 Phytonadione (Vitamin K) 10 mg ONCE A WEEK SUBQ 04/12/20 09:00 07/11/20 08:59 Piperacillin Sod/ Tazobactam Sod 3.375 gm/Sodium Chloride 110 ml @ 27.5 mls/hr Q8H IVPB 04/08/20 11:00 04/15/20 10:59 04/11/20 12:08 Quetiapine Fumarate (SEROqueL) 400 mg BEDTIME ORAL 04/04/20 22:45 05/20/20 20:59 04/10/20 20:02 Silver Nitrate (Silver Nitrate Applicators) 6 applic DAILYPRN PRN TOPIC abdominal wound application 04/10/20 09:00 07/09/20 08:59 Sodium 1,000 ml @ 40 mls/hr Q24H IV 04/05/20 20:00 05/05/20 19:59 04/10/20 20:02 Vancomycin HCl (Vanco pharmacy to dose) 1 ea DAILY PRN MISC Per rx protocol 04/08/20 19:15 05/08/20 19:14 Vancomycin HCl 750 mg/Sodium Chloride 275 ml @ 183.333 mls/hr Q12HR@0900,2100 IVPB 04/08/20 21:00 04/13/20 20:59 04/11/20 09:46 Assessment/Plan Problem List: (1) Diabetes mellitus ICD Codes: E11.9 - Type 2 diabetes mellitus without complications SNOMED: 58465876 (2) Post-operative complication ICD Codes: T81.9XXA - Unspecified complication of procedure, initial encounter SNOMED: 113645033 (3) Weaver Pouch fistula Assessment/Plan: continue with R 23 units per bag of TPN continue Novolog sliding scale every 6 hours hypoglycemia protocol in order Justyn Michaels MD Apr 11, 2020 17:59
[2020-04-11 20:00] VITALS: BP 150/81
[2020-04-11] MEDS: Dyna-Hex 2% Top Sol 2oz TOPIC SCH (20:02)
[2020-04-11] MEDS: 1/2NS w/KCl 20mEq 1000ml 1,000 ML IV SCH (20:02)
[2020-04-11] MEDS: Fat Emulsion Iv 20% 240 ML in Tpn 1,800 ML IV SCH (20:03)
[2020-04-11] MEDS: QUEtiapine 200mg tab ORAL SCH (20:03)
[2020-04-12] VITALS: BP 97/60
[2020-04-12] MEDS: Piperacillin/Tazobactam 3.375 GM in NS 110 ML IVPB SCH ×3 (03:05→20:04)
[2020-04-12 04:00] VITALS: BP 103/61
[2020-04-12] MEDS: NovoLOG Insulin Flexpen SUBQ SCH ×3 (05:27→18:40)
[2020-04-12 06:25] LABS: BASOPHILS % (AUTO) 2.6 % (0.0-2.0); EOSINOPHILS % (AUTO) 5.2 % (0.0-3.0); HEMATOCRIT 39.3 % (42.0-52.0); HEMOGLOBIN 12.2 G/DL (14.2-18.0); LYMPHOCYTES % (AUTO) 45.1 % (20.0-45.0); MEAN CORPUSCULAR VOLUME 86 FL (80-99); MONOCYTES % (AUTO) 8.5 % (1.0-10.0); NEUTROPHILS % (AUTO) 38.5 % (45.0-75.0); PLATELET COUNT 312 K/UL (150-450); RED BLOOD COUNT 4.58 M/UL (4.70-6.10); RED CELL DISTRIBUTION WIDTH 14.4 % (11.6-14.8); WHITE BLOOD COUNT 6.4 K/UL (4.8-10.8)
--- NOTE | 2020-04-12 06:25 | General Progress Note ---
Subjective ROS Limited/Unobtainable: Yes Allergies: Coded Allergies: CODEINE (Verified Allergy, Unknown, 04/04/20) MORPHINE (Verified Allergy, Unknown, 04/04/20) Subjective events noted at bedside NPO fair glycemic control Item Value Date Time Bedside Blood Glucose 152 mg/dl H 04/12/20 0527 Bedside Blood Glucose 164 mg/dl H 04/11/20 2349 Bedside Blood Glucose 160 mg/dl H 04/11/20 1800 Bedside Blood Glucose 185 mg/dl H 04/11/20 1222 Bedside Blood Glucose 171 mg/dl H 04/11/20 0612 Bedside Blood Glucose 165 mg/dl H 04/10/20 2357 Objective Last 24 Hour Vital Signs Date Time Temp Pulse Resp B/P (MAP) Pulse Ox O2 Delivery O2 Flow Rate FiO2 04/12/20 04:00 97.2 60 16 103/61 (75) 95 04/12/20 00:00 97.9 67 16 97/60 (72) 95 04/11/20 21:00 Room Air 04/11/20 20:00 97.3 64 16 150/81 (104) 98 04/11/20 16:00 98.2 65 17 116/66 (83) 100 04/11/20 12:00 97.8 63 18 130/73 (92) 97 04/11/20 09:46 72 113/67 04/11/20 09:00 Room Air 04/11/20 08:00 97.8 72 17 113/67 (82) 96 Intake and Output 04/11/20 04/12/20 19:00 07:00 Intake Total 1615 ml 1435 ml Output Total 1795 ml 1345 ml Balance -180 ml 90 ml Intake Oral 240 ml 50 ml IV Total 1375 ml 1385 ml Output Urine Total 1475 ml 1050 ml Other 320 ml 295 ml # Voids 4 3 Laboratory Tests 04/11/20 08:05: White Blood Count 6.4, Red Blood Count 4.63L, Hemoglobin 12.6L, Hematocrit 39.0L , Mean Corpuscular Volume 84, Mean Corpuscular Hemoglobin 27.3, Mean Corpuscular Hemoglobin Concent 32.4, Red Cell Distribution Width 14.2, Platelet Count 305, Mean Platelet Volume 6.8, Neutrophils (%) (Auto) 38.6L, Lymphocytes (%) (Auto) 45.8H, Monocytes (%) (Auto) 8.4, Eosinophils (%) (Auto) 5.1H, Basophils (%) (Auto) 2.1H, Sodium Level 138, Potassium Level 4.4, Chloride Level 104, Carbon Dioxide Level 23, Anion Gap 11, Blood Urea Nitrogen 17, Creatinine 1.3, Estimat Glomerular Filtration Rate 55.9, Glucose Level 154H, Calcium Level 8.9, Phosphorus Level 3.3, Magnesium Level 1.9, Total Bilirubin 0.3, Aspartate Amino Transf (AST/SGOT) 65H, Alanine Aminotransferase (ALT/SGPT) 81H, Alkaline Phosphatase 130H, Total Protein 6.8, Albumin 3.0L, Globulin 3.8, Albumin/Globulin Ratio 0.8L, Vancomycin Level Trough 13.4H 04/11/20 12:17: POC Whole Blood Glucose 185H 04/11/20 17:23: POC Whole Blood Glucose 160H 04/11/20 23:41: POC Whole Blood Glucose 164H 04/12/20 05:20: White Blood Count [Pending], Red Blood Count [Pending], Hemoglobin [Pending], Hematocrit [Pending], Mean Corpuscular Volume [Pending], Mean Corpuscular Hemoglobin [Pending], Mean Corpuscular Hemoglobin Concent [Pending], Red Cell Distribution Width [Pending], Platelet Count [Pending], Mean Platelet Volume [Pending], Neutrophils (%) (Auto) [Pending], Lymphocytes (%) (Auto) [Pending], Monocytes (%) (Auto) [Pending], Eosinophils (%) (Auto) [Pending], Basophils (%) (Auto) [Pending], Sodium Level [Pending], Potassium Level [Pending], Chloride Level [Pending], Carbon Dioxide Level [Pending], Blood Urea Nitrogen [Pending], Creatinine [Pending], Estimat Glomerular Filtration Rate [Pending], Glucose Level [Pending], Calcium Level [Pending], Phosphorus Level [Pending], Magnesium Level [Pending], Total Bilirubin [Pending], Aspartate Amino Transf (AST/SGOT) [P ending], Alanine Aminotransferase (ALT/SGPT) [Pending], Alkaline Phosphatase [Pending], Total Protein [Pending], Albumin [Pending], Globulin [Pending] 04/12/20 05:23: POC Whole Blood Glucose 152H Height (Feet): 5 Height (Inches): 5.00 Weight (Pounds): 169 General Appearance: no apparent distress Neck: normal alignment Cardiovascular: normal rate Respiratory/Chest: lungs clear Abdomen: normal bowel sounds Pelvis: normal external exam Objective Current Medications Medications (Trade) Dose Ordered Sig/Lea Route PRN Reason Start Time Stop Time Status Last Admin Dose Admin Acetaminophen (Tylenol) 650 mg Q4H PRN ORAL Mild Pain (Pain Scale 1-3) 04/05/20 09:30 05/05/20 09:29 Allopurinol (Zyloprim) 100 mg DAILY ORAL 04/05/20 09:00 05/05/20 08:59 04/11/20 09:46 Amlodipine Besylate (Norvasc) 5 mg DAILY ORAL 04/05/20 09:00 05/05/20 08:59 04/11/20 09:46 Chlorhexidine Gluconate (Re-Hex 2%) 1 applic DAILY@2000 TOPIC 04/05/20 20:00 07/04/20 19:59 04/11/20 20:02 Dextrose 1,000 ml @ 85 mls/hr Q24H PRN IV PN interrupted or unavailable 04/05/20 21:00 05/05/20 20:59 04/09/20 01:58 Dextrose (Dextrose 50%) 25 ml Q30M PRN IV Hypoglycemia 04/09/20 06:45 07/08/20 06:44 Dextrose (Dextrose 50%) 50 ml Q30M PRN IV Hypoglycemia 04/09/20 06:45 07/08/20 06:44 Famotidine (Pepcid) 20 mg BID ORAL 04/04/20 18:00 07/03/20 17:59 04/11/20 17:20 Fat Emulsion Intravenous 240 ml/Amino Acids/ Electrolytes/ Dextrose 2,040 ml @ 85 mls/hr Q24H IV 04/11/20 20:00 05/11/20 19:59 04/11/20 20:03 Hydromorphone HCl (Dilaudid) 1 mg Q4H PRN SUBQ Severe Pain (Pain Scale 7-10) 04/11/20 10:30 04/18/20 10:29 04/11/20 17:41 Insulin Aspart (NovoLOG) Q6HR SUBQ 04/06/20 00:00 07/05/20 00:00 04/12/20 05:27 Ondansetron HCl (Zofran) 4 mg Q4H PRN IVP Nausea & Vomiting 04/04/20 16:00 05/04/20 15:59 Oxycodone/ Acetaminophen (Percocet 5-325) 1 tab Q4H PRN ORAL Moderate Pain (Pain Scale 4-6) 04/10/20 09:00 04/17/20 08:59 04/10/20 17:27 Phytonadione (Vitamin K) 10 mg ONCE A WEEK SUBQ 04/12/20 09:00 07/11/20 08:59 Piperacillin Sod/ Tazobactam Sod 3.375 gm/Sodium Chloride 110 ml @ 27.5 mls/hr Q8H IVPB 04/08/20 11:00 04/15/20 10:59 04/12/20 03:05 Quetiapine Fumarate (SEROqueL) 400 mg BEDTIME ORAL 04/04/20 22:45 05/20/20 20:59 04/11/20 20:03 Silver Nitrate (Silver Nitrate Applicators) 6 applic DAILYPRN PRN TOPIC abdominal wound application 04/10/20 09:00 07/09/20 08:59 Sodium 1,000 ml @ 40 mls/hr Q24H IV 04/05/20 20:00 05/05/20 19:59 04/11/20 20:02 Vancomycin HCl (Vanco pharmacy to dose) 1 ea DAILY PRN MISC Per rx protocol 04/08/20 19:15 05/08/20 19:14 Vancomycin HCl 750 mg/Sodium Chloride 275 ml @ 183.333 mls/hr Q12HR@0900,2100 IVPB 04/08/20 21:00 04/13/20 20:59 04/11/20 21:00 Assessment/Plan Problem List: (1) Diabetes mellitus ICD Codes: E11.9 - Type 2 diabetes mellitus without complications SNOMED: 47751577 (2) Post-operative complication ICD Codes: T81.9XXA - Unspecified complication of procedure, initial encounter SNOMED: 295385510 (3) Weaver Pouch fistula Assessment/Plan: continue with R 23 units per bag of TPN continue Novolog sliding scale every 6 hours hypoglycemia protocol in order Dr Brian Cornell will cover me this weekend Justyn Michaels MD Apr 12, 2020 06:25
[2020-04-12 06:45] LABS: ALBUMIN 2.8 G/DL (3.4-5.0); ALBUMIN/GLOBULIN RATIO 0.7 (1.0-2.7); BILIRUBIN,TOTAL 0.4 MG/DL (0.2-1.0); CALCIUM 9.2 MG/DL (8.5-10.1); CREATININE 1.4 MG/DL (0.55-1.30); PHOSPHORUS 4.1 MG/DL (2.5-4.9); POTASSIUM 4.1 MMOL/L (3.5-5.1)
[2020-04-12 08:00] VITALS: BP 131/76
--- NOTE | 2020-04-12 08:46 | General Progress Note ---
Progress Note Progress Note AVSS Still needing analgesia for mid-abdominal pain. Fistula site dry overnight - C&S sent of drainage yesterday. No stool or gas from fistula. 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
[2020-04-12] MEDS: Allopurinol 100mg Tab ORAL SCH (09:08)
[2020-04-12] MEDS: Vancomycin 750 MG in NS 275 ML IVPB SCH ×2 (09:08→21:55)
[2020-04-12] MEDS: 1/2NS w/KCl 20mEq 1000ml 1,000 ML IV SCH ×2 (09:10→15:30)
[2020-04-12] MEDS: Phytonadione 10 mg/mL 1ml amp SUBQ SCH (09:18)
[2020-04-12] MEDS: HYDROmorphone 1mg/ml Carpuject SUBQ PRN ×2 (10:59→18:43)
[2020-04-12 12:00] VITALS: BP 133/70
[2020-04-12 16:00] VITALS: BP 130/71
--- NOTE | 2020-04-12 16:51 | Infectious Diseases Prog Note ---
Assessment/Plan Assessment/Plan ASSESSMENT AND PLAN: 1. enterocutaneous fistula, abdominal wall soft tissue edema and inflammation on CT scan ? abdominal wall cellulitis/soft tissue infection, ? infected fistula site/wound infection - zosyn and vancomycin -day # 5 - f/u on wound culture culture - clinically improved but still some mild induration - monitor labs/creatinine - continue management per Dr. Messer 2. Patient has enterocutaneous fistula. Patient is status post pouch endoscopy. Management per Dr. Messer. 3. Patient has history of diabetes. Continue blood sugar treatment per Endocrine. 4. Hypertension. Continue blood pressure treatment primary care team and Endocrine. 5. Blood sugar and blood pressure control for hypertension and diabetes. 6. Patient has a history of Weaver continent ileostomy. 7. 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 8. History of multiple abdominal surgeries including proctocolectomy and cholecystectomy and Weaver ileostomy. 9. Allergies to codeine, morphine. 10. Social history is negative 11. Family history is noncontributory. 12. MAR is noted. 13. Case discussed with RN. 14. Continue treatment per Dr. Messer and consultants. 15. Orders were noted and entered. Subjective Constitutional: Reports: fatigue; Denies: fever HEENT: Denies: congestion Respiratory: Denies: shortness of breath Cardiovascular: Denies: chest pain Gastrointestinal/Abdominal: Reports: other - less abdominal pain ; Denies: nausea, vomiting Genitourinary: Denies: dysuria, hematuria Neurologic: Denies: headache Psychiatric: Denies: depression Skin: Denies: rash Hematologic: Denies: bleeding Musculoskeletal: Reports: pain - less abdominal pain Allergies: Coded Allergies: CODEINE (Verified Allergy, Unknown, 04/04/20) MORPHINE (Verified Allergy, Unknown, 04/04/20) Objective Last 24 Hour Vital Signs Date Time Temp Pulse Resp B/P (MAP) Pulse Ox O2 Delivery O2 Flow Rate FiO2 04/12/20 12:00 97.7 61 18 133/70 (91) 98 04/12/20 09:08 71 131/76 04/12/20 08:43 Room Air 04/12/20 08:00 98.4 71 18 131/76 (94) 98 04/12/20 04:00 97.2 60 16 103/61 (75) 95 04/12/20 00:00 97.9 67 16 97/60 (72) 95 04/11/20 21:00 Room Air 04/11/20 20:00 97.3 64 16 150/81 (104) 98 Height (Feet): 5 Height (Inches): 5.00 Weight (Pounds): 169 General Appearance: no acute distress HEENT: normocephalic, atraumatic, anicteric Respiratory/Chest: lungs clear, normal breath sounds, no respiratory distress, no accessory muscle use Cardiovascular: normal rate, regular rhythm, no gallop/murmur, no JVD Abdomen: normal bowel sounds, soft, non tender, no organomegaly, non distended, other - less induration and pain but persists Genitourinary: other - no lopez, no cva pain Extremities: no cyanosis Skin: no rash Neurologic/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 No discrete drainable collection. Chest x-ray - FINDINGS: A single one view chest is obtained. Vascularity is normal. The lung corbett are clear bilaterally. Cardiac and mediastinal silhouette are within normal limits. CP angles are sharp. The bony thorax appear unremarkable. IMPRESSION: NO ACUTE CARDIOPULMONARY DISEASE. Microbiology Date/Time Source Procedure Growth Status 04/11/20 17:10 Other(Specify in comment) Gram Stain - Final Resulted 04/11/20 17:10 Other(Specify in comment) Wound Culture Pending Resulted Laboratory Tests Test 04/11/20 17:23 04/11/20 23:41 04/12/20 05:20 04/12/20 05:23 POC Whole Blood Glucose 160 MG/DL (74-106) H 164 MG/DL (74-106) H 152 MG/DL (74-106) H White Blood Count 6.4 K/UL (4.8-10.8) Red Blood Count 4.58 M/UL (4.70-6.10) L Hemoglobin 12.2 G/DL (14.2-18.0) L Hematocrit 39.3 % (42.0-52.0) L Mean Corpuscular Volume 86 FL (80-99) Mean Corpuscular Hemoglobin 26.6 PG (27.0-31.0) L Mean Corpuscular Hemoglobin Concent 31.0 G/DL (32.0-36.0) L Red Cell Distribution Width 14.4 % (11.6-14.8) Platelet Count 312 K/UL (150-450) Mean Platelet Volume 7.3 FL (6.5-10.1) Neutrophils (%) (Auto) 38.5 % (45.0-75.0) L Lymphocytes (%) (Auto) 45.1 % (20.0-45.0) H Monocytes (%) (Auto) 8.5 % (1.0-10.0) Eosinophils (%) (Auto) 5.2 % (0.0-3.0) H Basophils (%) (Auto) 2.6 % (0.0-2.0) H Sodium Level 139 MMOL/L (136-145) Potassium Level 4.1 MMOL/L (3.5-5.1) Chloride Level 105 MMOL/L (98-107) Carbon Dioxide Level 23 MMOL/L (21-32) Anion Gap 11 mmol/L (5-15) Blood Urea Nitrogen 19 mg/dL (7-18) H Creatinine 1.4 MG/DL (0.55-1.30) H Estimat Glomerular Filtration Rate 51.4 mL/min (>60) Glucose Level 158 MG/DL (74-106) H Calcium Level 9.2 MG/DL (8.5-10.1) Phosphorus Level 4.1 MG/DL (2.5-4.9) Magnesium Level 1.9 MG/DL (1.8-2.4) Total Bilirubin 0.4 MG/DL (0.2-1.0) Aspartate Amino Transf (AST/SGOT) 61 U/L (15-37) H Alanine Aminotransferase (ALT/SGPT) 84 U/L (12-78) H Alkaline Phosphatase 132 U/L (46-116) H Total Protein 6.9 G/DL (6.4-8.2) Albumin 2.8 G/DL (3.4-5.0) L Globulin 4.1 g/dL Albumin/Globulin Ratio 0.7 (1.0-2.7) L Current Medications Medications (Trade) Dose Ordered Sig/Lea Route PRN Reason Start Time Stop Time Status Last Admin Dose Admin Acetaminophen (Tylenol) 650 mg Q4H PRN ORAL Mild Pain (Pain Scale 1-3) 04/05/20 09:30 05/05/20 09:29 Allopurinol (Zyloprim) 100 mg DAILY ORAL 04/05/20 09:00 05/05/20 08:59 04/12/20 09:08 Amlodipine Besylate (Norvasc) 5 mg DAILY ORAL 04/05/20 09:00 05/05/20 08:59 04/12/20 09:08 Chlorhexidine Gluconate (Re-Hex 2%) 1 applic DAILY@2000 TOPIC 04/05/20 20:00 07/04/20 19:59 04/11/20 20:02 Dextrose 1,000 ml @ 85 mls/hr Q24H PRN IV PN interrupted or unavailable 04/05/20 21:00 05/05/20 20:59 04/09/20 01:58 Dextrose (Dextrose 50%) 25 ml Q30M PRN IV Hypoglycemia 04/09/20 06:45 07/08/20 06:44 Dextrose (Dextrose 50%) 50 ml Q30M PRN IV Hypoglycemia 04/09/20 06:45 07/08/20 06:44 Famotidine (Pepcid) 20 mg BID ORAL 04/04/20 18:00 07/03/20 17:59 04/12/20 09:08 Fat Emulsion Intravenous 240 ml/Amino Acids/ Electrolytes/ Dextrose 2,040 ml @ 85 mls/hr Q24H IV 04/11/20 20:00 05/11/20 19:59 04/11/20 20:03 Hydromorphone HCl (Dilaudid) 1 mg Q4H PRN SUBQ Severe Pain (Pain Scale 7-10) 04/11/20 10:30 04/18/20 10:29 04/12/20 10:59 Insulin Aspart (NovoLOG) Q6HR SUBQ 04/06/20 00:00 07/05/20 00:00 04/12/20 13:24 Ondansetron HCl (Zofran) 4 mg Q4H PRN IVP Nausea & Vomiting 04/04/20 16:00 05/04/20 15:59 Oxycodone/ Acetaminophen (Percocet 5-325) 1 tab Q4H PRN ORAL Moderate Pain (Pain Scale 4-6) 04/10/20 09:00 04/17/20 08:59 04/10/20 17:27 Phytonadione (Vitamin K) 10 mg ONCE A WEEK SUBQ 04/12/20 09:00 07/11/20 08:59 04/12/20 09:18 Piperacillin Sod/ Tazobactam Sod 3.375 gm/Sodium Chloride 110 ml @ 27.5 mls/hr Q8H IVPB 04/08/20 11:00 04/15/20 10:59 04/12/20 11:07 Quetiapine Fumarate (SEROqueL) 400 mg BEDTIME ORAL 04/12/20 21:00 05/20/20 20:59 Silver Nitrate (Silver Nitrate Applicators) 6 applic DAILYPRN PRN TOPIC abdominal wound application 04/10/20 09:00 07/09/20 08:59 Sodium 1,000 ml @ 75 mls/hr [id number] IV 04/05/20 20:00 05/05/20 19:59 04/12/20 15:30 Vancomycin HCl (Vanco pharmacy to dose) 1 ea DAILY PRN MISC Per rx protocol 04/08/20 19:15 05/08/20 19:14 Vancomycin HCl 750 mg/Sodium Chloride 275 ml @ 183.333 mls/hr Q12HR@0900,2100 IVPB 04/08/20 21:00 04/15/20 20:59 04/12/20 09:08 Wilman Rosas MD Apr 12, 2020 16:51
[2020-04-12 20:00] VITALS: BP 141/74
[2020-04-12] MEDS: Fat Emulsion Iv 20% 240 ML in Tpn 1,800 ML IV SCH (20:40)
[2020-04-12] MEDS: Dyna-Hex 2% Top Sol 2oz TOPIC SCH (20:45)
[2020-04-13] VITALS: BP 116/75
[2020-04-13] MEDS: Vancomycin 750 MG in NS 275 ML IVPB SCH ×3 (00:12→23:12)
[2020-04-13] MEDS: NovoLOG Insulin Flexpen SUBQ SCH ×5 (00:18→23:28)
[2020-04-13] MEDS: Piperacillin/Tazobactam 3.375 GM in NS 110 ML IVPB SCH ×3 (03:10→18:24)
[2020-04-13 04:00] VITALS: BP 118/70
[2020-04-13 06:02] LABS: BASOPHILS % (AUTO) 2.2 % (0.0-2.0); EOSINOPHILS % (AUTO) 5.9 % (0.0-3.0); HEMATOCRIT 38.1 % (42.0-52.0); MEAN CORPUSCULAR VOLUME 86 FL (80-99); MONOCYTES % (AUTO) 10.5 % (1.0-10.0); NEUTROPHILS % (AUTO) 37.5 % (45.0-75.0); PLATELET COUNT 298 K/UL (150-450); RED BLOOD COUNT 4.43 M/UL (4.70-6.10); RED CELL DISTRIBUTION WIDTH 14.1 % (11.6-14.8); WHITE BLOOD COUNT 5.7 K/UL (4.8-10.8)
[2020-04-13 06:44] LABS: ALBUMIN 2.9 G/DL (3.4-5.0); ALBUMIN/GLOBULIN RATIO 0.7 (1.0-2.7); BILIRUBIN,TOTAL 0.6 MG/DL (0.2-1.0); CALCIUM 9.6 MG/DL (8.5-10.1); CREATININE 1.3 MG/DL (0.55-1.30)
[2020-04-13] MEDS: 1/2NS w/KCl 20mEq 1000ml 1,000 ML IV SCH (07:10)
[2020-04-13 08:00] VITALS: BP 101/60
[2020-04-13] MEDS: Allopurinol 100mg Tab ORAL SCH (08:57)
--- NOTE | 2020-04-13 09:47 | General Progress Note ---
Progress Note Progress Note AVSS Scant fistula output - no enteric fluid or gas. C&S revealing gram neg fred (prelim) - on Zosyn and Vanco Abdomen soft, nunu-fistula abdominal wall tissues are less indurated - no sign of cellulitis or abscess Urine 3275 BCIR ileo 415 (he is npo) BUN 18 Cr 1.3 (down) Mg 1.8 Imp: Stable with healing Weaver pouch enterocutaneous fistula Plan: continue NPO, TPN, antibiotics per ID, continuous drainage of Weaver Pouch Rodrigo Messer MD Apr 13, 2020 09:47
[2020-04-13 12:02] VITALS: BP 131/75
[2020-04-13] MEDS: HYDROmorphone 1mg/ml Carpuject SUBQ PRN ×2 (12:45→18:24)
[2020-04-13 16:00] VITALS: BP 120/73
[2020-04-13 20:00] VITALS: BP_SYST 140; BP_SYST 146; BP_DIAS 81; BP_DIAS 87
[2020-04-13] MEDS: Fat Emulsion Iv 20% 240 ML in Tpn 1,800 ML IV SCH (20:00)
[2020-04-13] MEDS: Dyna-Hex 2% Top Sol 2oz TOPIC SCH (20:21)
[2020-04-14] VITALS: BP 117/69
[2020-04-14] MEDS: 1/2NS w/KCl 20mEq 1000ml 1,000 ML IV SCH ×2 (01:33→13:46)
[2020-04-14] MEDS: Piperacillin/Tazobactam 3.375 GM in NS 110 ML IVPB SCH (02:01)
[2020-04-14 04:00] VITALS: BP 122/71
[2020-04-14] MEDS: NovoLOG Insulin Flexpen SUBQ SCH ×4 (06:07→23:40)
--- NOTE | 2020-04-14 06:59 | Consultation ---
DATE OF CONSULTATION: 04/13/2020 ENDOCRINOLOGY CONSULTATION CONSULTING PHYSICIAN: Brian Cornell M.D. REFERRING PHYSICIAN: Rodrigo Messer M.D. REASON FOR CONSULTATION: I was asked to see this 64-year-old male by Dr. Rodrigo Messer in endocrinology consultation for management of type 2 diabetes mellitus, PERTINENT HISTORY:He hasw been diabetic for many years on metformin 1000 mg b.i.d. and Januvia 100 mg po qd.He is admitted for revision of Kock pouch by Dr. Gabe Messer.He is on TPN [id number]% at 80 cc/hr. FAMILY HISTORY: Unremarkable. PERSONAL HISTORY: Unremarkable. REVIEW OF SYSTEMS: Unremarkable. PHYSICAL EXAMINATION: GENERAL: The patient is in no acute distress. VITAL SIGNS: Blood pressure is 140/81, pulse 71, respirations 18, and temperature 98.0. HEAD AND NECK: Unremarkable. LUNGS: Clear. HEART: Regular. ABDOMEN: Soft. Bowel sounds hypoactive.Kock pouch intact/ EXTREMITIES: No edema._. NEUROLOGICAL: Cranial nerves II through XII are grossly intact. Toes are downgoing to plantar stimulation. LABORATORY DATA: Glucose 175 mg %. IMPRESSIONS:1.Diabetes mellitus stable 2.Malnutrition PLANS:He can take oral meds but still needs TPN.Metformin 1000 mg po BID and Januvia 100 mg po qd. Accuchecks Q6hr with intermediate sliding scale Novolog. Brian Cornell M.D. DR: JEANETTE JOB#: [id number] CC: ANANDA
[2020-04-14 08:00] VITALS: BP 113/68
--- NOTE | 2020-04-14 09:37 | General Progress Note ---
Progress Note Progress Note AVSS No labs drawn today except CBC despite obvious orders in chart. Abdomen soft, fistula site dry with surrounding induration, mild tenderness, no cellulitis Urine 2074 BCIR ileo 390 CBC - stable No other labs drawn despite orders from yesterday Fistula site swab - Klebsiella resistant to Zosyn - ID notified Imp: Stable Plan: continue npo, TPN, indwelling Weaver Pouch catheter to continuous drainage ID to alter antibiotics per C&S Tomorrow repeat fistulogram and Pouchogram XRays Rodrigo Messer MD Apr 14, 2020 09:37
[2020-04-14] MEDS: Allopurinol 100mg Tab ORAL SCH (09:41)
[2020-04-14 10:32] LABS: BASOPHILS % (AUTO) 2.5 % (0.0-2.0); EOSINOPHILS % (AUTO) 4.5 % (0.0-3.0); HEMATOCRIT 37.7 % (42.0-52.0); LYMPHOCYTES % (AUTO) 47.1 % (20.0-45.0); MEAN CORPUSCULAR VOLUME 86 FL (80-99); MONOCYTES % (AUTO) 8.2 % (1.0-10.0); NEUTROPHILS % (AUTO) 37.7 % (45.0-75.0); PLATELET COUNT 323 K/UL (150-450); RED BLOOD COUNT 4.39 M/UL (4.70-6.10); RED CELL DISTRIBUTION WIDTH 14.4 % (11.6-14.8); WHITE BLOOD COUNT 5.3 K/UL (4.8-10.8)
[2020-04-14] MEDS: cefTRIAXone 2 GM in D5W 55 ML IVPB SCH (10:38)
[2020-04-14 10:48] LABS: ALBUMIN/GLOBULIN RATIO 0.7 (1.0-2.7); BILIRUBIN,TOTAL 0.4 MG/DL (0.2-1.0); CALCIUM 9.2 MG/DL (8.5-10.1); CREATININE 1.3 MG/DL (0.55-1.30); POTASSIUM 4.2 MMOL/L (3.5-5.1)
[2020-04-14 12:00] VITALS: BP 124/74
[2020-04-14] MEDS: HYDROmorphone 1mg/ml Carpuject SUBQ PRN ×2 (13:46→18:27)
[2020-04-14 16:00] VITALS: BP 124/72
--- NOTE | 2020-04-14 17:35 | Infectious Diseases Prog Note ---
Assessment/Plan Assessment/Plan ASSESSMENT AND PLAN: 1. enterocutaneous fistula, abdominal wall soft tissue edema and inflammation on CT scan ? abdominal wall cellulitis/soft tissue infection, ? infected fistula site/wound infection wound/drainage culture with klebsiella - sensitive to cephalosporins, carbapenems and levofloxacin, R-zosyn - change abx to ceftriaxone and flagyl - clinically improved but still some mild induration - monitor labs/creatinine - continue management per Dr. Messer - fistulogram and pouchogram - communicated with Dr. Messer - d/w patient and 2. Patient has enterocutaneous fistula. Patient is status post pouch endoscopy. Management per Dr. Messer. 3. Patient has history of diabetes. Continue blood sugar treatment per Endocrine. 4. Hypertension. Continue blood pressure treatment primary care team and Endocrine. 5. Blood sugar and blood pressure control for hypertension and diabetes. 6. Patient has a history of Weaver continent ileostomy. 7. 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 8. History of multiple abdominal surgeries including proctocolectomy and cholecystectomy and Weaver ileostomy. 9. Allergies to codeine, morphine. 10. Social history is negative 11. Family history is noncontributory. 12. MAR is noted. 13. Case discussed with RN. 14. Continue treatment per Dr. Messer and consultants. 15. Orders were noted and entered. Subjective Constitutional: Denies: fever HEENT: Denies: congestion Respiratory: Denies: shortness of breath Cardiovascular: Denies: chest pain Gastrointestinal/Abdominal: Reports: other - some abdominal discomfort but less ; Denies: nausea, vomiting Genitourinary: Denies: dysuria Neurologic: Denies: headache Psychiatric: Denies: depression Skin: Denies: rash Hematologic: Denies: bleeding Musculoskeletal: Denies: pain Allergies: Coded Allergies: CODEINE (Verified Allergy, Unknown, 04/04/20) MORPHINE (Verified Allergy, Unknown, 04/04/20) Objective Last 24 Hour Vital Signs Date Time Temp Pulse Resp B/P (MAP) Pulse Ox O2 Delivery O2 Flow Rate FiO2 04/14/20 16:00 98.1 66 18 124/72 (89) 96 04/14/20 16:00 98.1 66 18 124/72 (89) 96 04/14/20 14:16 98.2 04/14/20 12:00 98.2 67 18 124/74 (91) 97 04/14/20 09:40 68 113/68 04/14/20 09:00 Room Air 04/14/20 08:00 97.9 68 17 113/68 (83) 93 04/14/20 04:00 98.1 67 18 122/71 (88) 98 04/14/20 00:00 97.7 85 18 117/69 (85) 96 04/13/20 21:00 Room Air 04/13/20 20:00 98.0 71 18 140/81 (100) 97 04/13/20 18:54 97.8 Height (Feet): 5 Height (Inches): 5.00 Weight (Pounds): 169 General Appearance: no acute distress HEENT: normocephalic, atraumatic, anicteric, mucous membranes moist Respiratory/Chest: lungs clear, normal breath sounds, no respiratory distress, no accessory muscle use Cardiovascular: normal rate, regular rhythm, no gallop/murmur Abdomen: normal bowel sounds, soft, non tender, no organomegaly, non distended, other - fistula site with mild drainage and abdminal wall induration, no significant cellulitis Genitourinary: other - no lopez Extremities: no cyanosis Skin: no rash, no lesions Neurologic/Psychiatric: 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 No discrete drainable collection. Chest x-ray - FINDINGS: A single one view chest is obtained. Vascularity is normal. The lung corbett are clear bilaterally. Cardiac and mediastinal silhouette are within normal limits. CP angles are sharp. The bony thorax appear unremarkable. IMPRESSION: NO ACUTE CARDIOPULMONARY DISEASE. Microbiology Date/Time Source Procedure Growth Status 04/11/20 17:10 Other(Specify in comment) Gram Stain - Final Complete 04/11/20 17:10 Wound Culture - Final Klebsiella Pneumoniae Complete 04/04/20 13:45 Nasopharynx SARS-CoV-2 Antigen (Rapid)(NALINI) - Final Complete Laboratory Tests Test 04/13/20 18:17 04/13/20 23:11 04/14/20 05:52 04/14/20 09:50 POC Whole Blood Glucose 155 MG/DL (74-106) H 179 MG/DL (74-106) H 175 MG/DL (74-106) H White Blood Count 5.3 K/UL (4.8-10.8) Red Blood Count 4.39 M/UL (4.70-6.10) L Hemoglobin 12.0 G/DL (14.2-18.0) L Hematocrit 37.7 % (42.0-52.0) L Mean Corpuscular Volume 86 FL (80-99) Mean Corpuscular Hemoglobin 27.4 PG (27.0-31.0) Mean Corpuscular Hemoglobin Concent 31.9 G/DL (32.0-36.0) L Red Cell Distribution Width 14.4 % (11.6-14.8) Platelet Count 323 K/UL (150-450) Mean Platelet Volume 7.8 FL (6.5-10.1) Neutrophils (%) (Auto) 37.7 % (45.0-75.0) L Lymphocytes (%) (Auto) 47.1 % (20.0-45.0) H Monocytes (%) (Auto) 8.2 % (1.0-10.0) Eosinophils (%) (Auto) 4.5 % (0.0-3.0) H Basophils (%) (Auto) 2.5 % (0.0-2.0) H Prothrombin Time 11.3 SEC (9.30-11.50) Prothromb Time International Ratio 1.0 (0.9-1.1) Sodium Level 140 MMOL/L (136-145) Potassium Level 4.2 MMOL/L (3.5-5.1) Chloride Level 106 MMOL/L (98-107) Carbon Dioxide Level 25 MMOL/L (21-32) Anion Gap 9 mmol/L (5-15) Blood Urea Nitrogen 17 mg/dL (7-18) Creatinine 1.3 MG/DL (0.55-1.30) Estimat Glomerular Filtration Rate 55.9 mL/min (>60) Glucose Level 175 MG/DL (74-106) H Calcium Level 9.2 MG/DL (8.5-10.1) Phosphorus Level 3.0 MG/DL (2.5-4.9) Magnesium Level 2.1 MG/DL (1.8-2.4) Total Bilirubin 0.4 MG/DL (0.2-1.0) Aspartate Amino Transf (AST/SGOT) 71 U/L (15-37) H Alanine Aminotransferase (ALT/SGPT) 111 U/L (12-78) H Alkaline Phosphatase 142 U/L (46-116) H Total Protein 7.3 G/DL (6.4-8.2) Albumin 3.0 G/DL (3.4-5.0) L Globulin 4.3 g/dL Albumin/Globulin Ratio 0.7 (1.0-2.7) L Test 04/14/20 11:55 POC Whole Blood Glucose 183 MG/DL (74-106) H Current Medications Medications (Trade) Dose Ordered Sig/Lea Route PRN Reason Start Time Stop Time Status Last Admin Dose Admin Acetaminophen (Tylenol) 650 mg Q4H PRN ORAL Mild Pain (Pain Scale 1-3) 04/05/20 09:30 05/05/20 09:29 Allopurinol (Zyloprim) 100 mg DAILY ORAL 04/05/20 09:00 05/05/20 08:59 04/14/20 09:41 Amlodipine Besylate (Norvasc) 5 mg DAILY ORAL 04/05/20 09:00 05/05/20 08:59 04/14/20 09:40 Ceftriaxone Sodium 2 gm/ Dextrose 55 ml @ 110 mls/hr Q24H IVPB 04/14/20 11:00 04/21/20 10:59 04/14/20 10:38 Chlorhexidine Gluconate (Re-Hex 2%) 1 applic DAILY@2000 TOPIC 04/05/20 20:00 07/04/20 19:59 04/13/20 20:21 Dextrose 1,000 ml @ 85 mls/hr Q24H PRN IV PN interrupted or unavailable 04/05/20 21:00 05/05/20 20:59 04/09/20 01:58 Dextrose (Dextrose 50%) 25 ml Q30M PRN IV Hypoglycemia 04/09/20 06:45 07/08/20 06:44 Dextrose (Dextrose 50%) 50 ml Q30M PRN IV Hypoglycemia 04/09/20 06:45 07/08/20 06:44 Famotidine (Pepcid) 20 mg BID ORAL 04/04/20 18:00 07/03/20 17:59 04/14/20 09:40 Fat Emulsion Intravenous 240 ml/Amino Acids/ Electrolytes/ Dextrose 2,040 ml @ 85 mls/hr Q24H IV 04/11/20 20:00 05/11/20 19:59 04/13/20 20:00 Hydromorphone HCl (Dilaudid) 1 mg Q4H PRN SUBQ Severe Pain (Pain Scale 7-10) 04/11/20 10:30 04/18/20 10:29 04/14/20 13:46 Insulin Aspart (NovoLOG) Q6HR SUBQ 04/06/20 00:00 07/05/20 00:00 04/14/20 12:07 Metronidazole 100 ml @ 100 mls/hr Q8HR IVPB 04/14/20 14:00 04/21/20 13:59 04/14/20 13:28 Ondansetron HCl (Zofran) 4 mg Q4H PRN IVP Nausea & Vomiting 04/04/20 16:00 05/04/20 15:59 Oxycodone/ Acetaminophen (Percocet 5-325) 1 tab Q4H PRN ORAL Moderate Pain (Pain Scale 4-6) 04/10/20 09:00 04/17/20 08:59 04/10/20 17:27 Phytonadione (Vitamin K) 10 mg ONCE A WEEK SUBQ 04/12/20 09:00 07/11/20 08:59 04/12/20 09:18 Quetiapine Fumarate (SEROqueL) 400 mg BEDTIME ORAL 04/12/20 21:00 05/20/20 20:59 04/13/20 20:21 Silver Nitrate (Silver Nitrate Applicators) 6 applic DAILYPRN PRN TOPIC abdominal wound application 04/10/20 09:00 07/09/20 08:59 Sodium 1,000 ml @ 75 mls/hr [id number] IV 04/05/20 20:00 05/05/20 19:59 04/14/20 13:46 Wilman Rosas MD Apr 14, 2020 17:35
[2020-04-14 20:00] VITALS: BP 134/79
[2020-04-14] MEDS: Fat Emulsion Iv 20% 240 ML in Tpn 1,800 ML IV SCH (20:03)
[2020-04-14] MEDS: Dyna-Hex 2% Top Sol 2oz TOPIC SCH (20:03)
[2020-04-15] VITALS (8 sets, daily range): BP systolic 107–123; BP diastolic 63–79
[2020-04-15] MEDS: 1/2NS w/KCl 20mEq 1000ml 1,000 ML IV SCH ×2 (03:02→16:44)
[2020-04-15] MEDS: NovoLOG Insulin Flexpen SUBQ SCH ×4 (05:36→23:13)
--- NOTE | 2020-04-15 06:17 | General Progress Note ---
Subjective Allergies: Coded Allergies: CODEINE (Verified Allergy, Unknown, 04/04/20) MORPHINE (Verified Allergy, Unknown, 04/04/20) All Systems: reviewed and negative except above Subjective events noted NPO fair glycemic control Item Value Date Time Bedside Blood Glucose 156 mg/dl H 04/15/20 0536 Bedside Blood Glucose 164 mg/dl H 04/14/20 2340 Bedside Blood Glucose 159 mg/dl H 04/14/20 1741 Bedside Blood Glucose 183 mg/dl H 04/14/20 1207 Bedside Blood Glucose 175 mg/dl H 04/14/20 0607 Bedside Blood Glucose 179 mg/dl H 04/14/20 0000 Objective Last 24 Hour Vital Signs Date Time Temp Pulse Resp B/P (MAP) Pulse Ox O2 Delivery O2 Flow Rate FiO2 04/15/20 00:00 97.8 69 18 114/69 (84) 96 04/14/20 21:00 Room Air 04/14/20 20:00 98.0 62 18 134/79 (97) 97 04/14/20 18:57 98.1 04/14/20 16:00 98.1 66 18 124/72 (89) 96 04/14/20 16:00 98.1 66 18 124/72 (89) 96 04/14/20 14:16 98.2 04/14/20 12:00 98.2 67 18 124/74 (91) 97 04/14/20 09:40 68 113/68 04/14/20 09:00 Room Air 04/14/20 08:00 97.9 68 17 113/68 (83) 93 Intake and Output 04/14/20 04/15/20 19:00 07:00 Output Total 1620 ml Balance -1620 ml Output Urine Total 1300 ml Other 320 ml # Voids 2 Laboratory Tests 04/14/20 09:50: White Blood Count 5.3, Red Blood Count 4.39L, Hemoglobin 12.0L, Hematocrit 37.7L , Mean Corpuscular Volume 86, Mean Corpuscular Hemoglobin 27.4, Mean Corpuscular Hemoglobin Concent 31.9L, Red Cell Distribution Width 14.4, Platelet Count 323, Mean Platelet Volume 7.8, Neutrophils (%) (Auto) 37.7L, Lymphocytes (%) (Auto) 47.1H, Monocytes (%) (Auto) 8.2, Eosinophils (%) (Auto) 4.5H, Basophils (%) (Auto) 2.5H, Prothrombin Time 11.3, Prothromb Time International Ratio 1.0, Sodium Level 140, Potassium Level 4.2, Chloride Level 106, Carbon Dioxide Level 25, Anion Gap 9, Blood Urea Nitrogen 17, Creatinine 1.3, Estimat Glomerular Filtration Rate 55.9, Glucose Level 175H, Calcium Level 9.2, Phosphorus Level 3.0, Magnesium Level 2.1, Total Bilirubin 0.4, Aspartate Amino Transf (AST/SGOT) 71H, Alanine Aminotransferase (ALT/SGPT) 111H, Alkaline Phosphatase 142H, Total Protein 7.3, Albumin 3.0L, Globulin 4.3, Albumin/Globulin Ratio 0.7L 04/14/20 11:55: POC Whole Blood Glucose 183H 04/14/20 17:35: POC Whole Blood Glucose 159H 04/14/20 23:32: POC Whole Blood Glucose [Pending] 04/15/20 05:23: POC Whole Blood Glucose [Pending] Height (Feet): 5 Height (Inches): 5.00 Weight (Pounds): 169 General Appearance: no apparent distress Neck: normal alignment Cardiovascular: normal rate Respiratory/Chest: lungs clear Abdomen: normal bowel sounds Objective Current Medications Medications (Trade) Dose Ordered Sig/Lea Route PRN Reason Start Time Stop Time Status Last Admin Dose Admin Acetaminophen (Tylenol) 650 mg Q4H PRN ORAL Mild Pain (Pain Scale 1-3) 04/05/20 09:30 05/05/20 09:29 Allopurinol (Zyloprim) 100 mg DAILY ORAL 04/05/20 09:00 05/05/20 08:59 04/14/20 09:41 Amlodipine Besylate (Norvasc) 5 mg DAILY ORAL 04/05/20 09:00 05/05/20 08:59 04/14/20 09:40 Ceftriaxone Sodium 2 gm/ Dextrose 55 ml @ 110 mls/hr Q24H IVPB 04/14/20 11:00 04/21/20 10:59 04/14/20 10:38 Chlorhexidine Gluconate (Re-Hex 2%) 1 applic DAILY@2000 TOPIC 04/05/20 20:00 07/04/20 19:59 04/14/20 20:03 Dextrose 1,000 ml @ 85 mls/hr Q24H PRN IV PN interrupted or unavailable 04/05/20 21:00 05/05/20 20:59 04/09/20 01:58 Dextrose (Dextrose 50%) 25 ml Q30M PRN IV Hypoglycemia 04/09/20 06:45 07/08/20 06:44 Dextrose (Dextrose 50%) 50 ml Q30M PRN IV Hypoglycemia 04/09/20 06:45 07/08/20 06:44 Famotidine (Pepcid) 20 mg BID ORAL 04/04/20 18:00 07/03/20 17:59 04/14/20 17:31 Fat Emulsion Intravenous 240 ml/Amino Acids/ Electrolytes/ Dextrose 2,040 ml @ 85 mls/hr Q24H IV 04/11/20 20:00 05/11/20 19:59 04/14/20 20:03 Hydromorphone HCl (Dilaudid) 1 mg Q4H PRN SUBQ Severe Pain (Pain Scale 7-10) 04/11/20 10:30 04/18/20 10:29 04/14/20 18:27 Insulin Aspart (NovoLOG) Q6HR SUBQ 04/06/20 00:00 07/05/20 00:00 04/15/20 05:36 Metronidazole 100 ml @ 100 mls/hr Q8HR IVPB 04/14/20 14:00 04/21/20 13:59 04/15/20 05:20 Ondansetron HCl (Zofran) 4 mg Q4H PRN IVP Nausea & Vomiting 04/04/20 16:00 05/04/20 15:59 Oxycodone/ Acetaminophen (Percocet 5-325) 1 tab Q4H PRN ORAL Moderate Pain (Pain Scale 4-6) 04/10/20 09:00 04/17/20 08:59 04/10/20 17:27 Phytonadione (Vitamin K) 10 mg ONCE A WEEK SUBQ 04/12/20 09:00 07/11/20 08:59 04/12/20 09:18 Quetiapine Fumarate (SEROqueL) 400 mg BEDTIME ORAL 04/12/20 21:00 05/20/20 20:59 04/14/20 21:31 Silver Nitrate (Silver Nitrate Applicators) 6 applic DAILYPRN PRN TOPIC abdominal wound application 04/10/20 09:00 07/09/20 08:59 Sodium 1,000 ml @ 75 mls/hr [id number] IV 04/05/20 20:00 05/05/20 19:59 04/15/20 03:02 Assessment/Plan Problem List: (1) Diabetes mellitus ICD Codes: E11.9 - Type 2 diabetes mellitus without complications SNOMED: 33837079 (2) Post-operative complication ICD Codes: T81.9XXA - Unspecified complication of procedure, initial encounter SNOMED: 144918873 (3) Weaver Pouch fistula Assessment/Plan: continue with R 23 units per bag of TPN continue Novolog sliding scale every 6 hours hypoglycemia protocol in order Dr Brian Cornell will cover me this weekend Justyn Michaels MD Apr 15, 2020 06:16
[2020-04-15 07:10] LABS: BASOPHILS % (AUTO) 2.1 % (0.0-2.0); EOSINOPHILS % (AUTO) 4.6 % (0.0-3.0); HEMATOCRIT 38.2 % (42.0-52.0); LYMPHOCYTES % (AUTO) 46.4 % (20.0-45.0); MEAN CORPUSCULAR VOLUME 86 FL (80-99); MONOCYTES % (AUTO) 8.9 % (1.0-10.0); PLATELET COUNT 326 K/UL (150-450); RED BLOOD COUNT 4.42 M/UL (4.70-6.10); RED CELL DISTRIBUTION WIDTH 14.5 % (11.6-14.8); WHITE BLOOD COUNT 5.3 K/UL (4.8-10.8)
[2020-04-15 07:13] LABS: ALANINE AMINOTRANSFERASE 114 U/L (12-78); ALBUMIN 2.9 G/DL (3.4-5.0); ALBUMIN/GLOBULIN RATIO 0.7 (1.0-2.7); ALKALINE PHOSPHATASE 140 U/L (46-116); ANION GAP 10 mmol/L (5-15); ASPARTATE AMINO TRANSFERASE 67 U/L (15-37); BILIRUBIN,TOTAL 0.4 MG/DL (0.2-1.0); BLOOD UREA NITROGEN 17 mg/dL (7-18); CALCIUM 9.3 MG/DL (8.5-10.1); CARBON DIOXIDE 24 MMOL/L (21-32); CHLORIDE 106 MMOL/L (98-107); CREATININE 1.1 MG/DL (0.55-1.30); PHOSPHORUS 3.9 MG/DL (2.5-4.9); SODIUM 140 MMOL/L (136-145)
[2020-04-15] MEDS: Allopurinol 100mg Tab ORAL SCH (08:45)
--- NOTE | 2020-04-15 08:45 | General Progress Note ---
Progress Note Progress Note AVSS Still with central abdominal pain - occasional percocet and occasional dilaudid SQ. Now on Rocephin + Flagyl IV per ID and cultures Abdomen soft, fistula site dry with mild surrounding induration which is decreased Urine 2700 BCIR ileo 540 CBC- wnl BUN down 17 Cr down 1.1 Mg 1.7 albumin 2.9 Imp: Enterocutaneous fistula involving Weaver Continent Ileostomy pouch - no drainage since NPO with continuous drainage of Weaver Pouch with indwelling catheter Plan: Mg infusions Continue TPN, npo follow-up Fistulogram and Pouchogram XRays today Rodrigo Messer MD Apr 15, 2020 08:45
[2020-04-15] MEDS ORDERED: oxyCODONE HCL/Acetaminophen 5/325mg ORAL PRN (09:00)
[2020-04-15] MEDS: cefTRIAXone 2 GM in D5W 55 ML IVPB SCH (11:19)
[2020-04-15] MEDS: HYDROmorphone 1mg/ml Carpuject SUBQ PRN ×2 (14:57→19:59)
--- NOTE | 2020-04-15 15:56 | Diagnostic Imaging Report ---
Indication: Abdominal pain. Abscess. History of continent ostomy. Cutaneous fistulogram from the pouch noted on exam of 04/08/2020. Technique: Fistulogram, Kock Pouch Pouchogram w/SBS. Fluoroscopic and radiographic examination performed. [employer] radiograph obtained. Subsequently the cutaneous site of the fistula was probed with a 5 Serbian Kumpe catheter and injection of water-soluble contrast. Subsequently water-soluble contrast instilled via the continent ostomy catheter. Radiographic and fluoroscopic images were obtained. Total fluoroscopy time 88.1 seconds. Total fluoroscopy dose 19.4 mGy. Total number of radiographic images/fluoroscopic runs obtained: 32. Comparison: 04/08/2009 and and 04/05/2020 Findings: [employer] radiograph demonstrates surgical material in the pelvis consistent with known history of continent ostomy creation. Upon probing of the exit site and extending/so the Kumpe catheter cannot opacify the bowel or fistulous tract to the pouch. Water-soluble contrast was instilled and subsequent fluoroscopic images were obtained. There is normal filling of the pouch. There is reflux into the upstream small bowel loops. The visualized loops of small bowel are normal in caliber. There is no evidence to suggest small bowel obstruction. On lateral imaging there is contrast collecting in the anterior abdominal soft tissues, with persistent connection to the pouch which appears smaller compared to the prior exam. IMPRESSION: Persistent enterocutaneous fistula communicating with the enterostomy pouch. The fistulous tract however appears smaller/narrower when compared to the prior exam. Findings discussed and images reviewed in person with ordering physician Dr. Messer.
[2020-04-15] MEDS ORDERED: Cathflo Alteplase 2mg Inj INJ ONE (19:45)
[2020-04-15] MEDS ORDERED: Pantoprazole Inj IVP ONE (19:45)
[2020-04-15] MEDS: Dyna-Hex 2% Top Sol 2oz TOPIC SCH (19:57)
[2020-04-15] MEDS: Fat Emulsion Iv 20% 240 ML in Tpn 1,800 ML IV SCH (19:59)
[2020-04-16 03:49] VITALS: BP 118/78
[2020-04-16] MEDS: NovoLOG Insulin Flexpen SUBQ SCH ×3 (05:43→17:38)
[2020-04-16] MEDS: 1/2NS w/KCl 20mEq 1000ml 1,000 ML IV SCH ×3 (05:44→15:02)
--- NOTE | 2020-04-16 05:59 | General Progress Note ---
Subjective Allergies: Coded Allergies: CODEINE (Verified Allergy, Unknown, 04/04/20) MORPHINE (Verified Allergy, Unknown, 04/04/20) All Systems: reviewed and negative except above Subjective events noted NPO glucose slightly on higher side plan for surgery on Wed at noon noted NPO on TPN Item Value Date Time Bedside Blood Glucose 160 mg/dl H 04/16/20 0543 Bedside Blood Glucose 177 mg/dl H 04/15/20 2313 Bedside Blood Glucose 170 mg/dl H 04/15/20 1834 Bedside Blood Glucose 231 mg/dl H 04/15/20 1212 Bedside Blood Glucose 156 mg/dl H 04/15/20 0536 Bedside Blood Glucose 164 mg/dl H 04/14/20 2340 Objective Last 24 Hour Vital Signs Date Time Temp Pulse Resp B/P (MAP) Pulse Ox O2 Delivery O2 Flow Rate FiO2 04/16/20 03:49 97.9 69 20 118/78 (91) 97 04/15/20 23:23 97.8 70 17 107/68 (81) 98 04/15/20 21:00 Room Air 04/15/20 20:00 98.1 66 20 123/79 (94) 97 04/15/20 16:00 98.4 69 18 114/71 (85) 98 04/15/20 12:00 98.2 72 18 122/71 (88) 98 04/15/20 09:00 Room Air 04/15/20 08:45 72 119/72 04/15/20 08:00 98.1 72 18 119/72 (88) 96 Intake and Output 04/15/20 04/16/20 19:00 07:00 Output Total 2820 ml Balance -2820 ml Output Urine Total 1800 ml Other 1020 ml Laboratory Tests 04/15/20 12:05: POC Whole Blood Glucose [Pending] 04/15/20 18:32: POC Whole Blood Glucose [Pending] 04/15/20 23:12: POC Whole Blood Glucose [Pending] 04/16/20 05:42: POC Whole Blood Glucose [Pending] Height (Feet): 5 Height (Inches): 5.00 Weight (Pounds): 169 General Appearance: no apparent distress Neck: normal alignment Cardiovascular: normal rate Respiratory/Chest: lungs clear Abdomen: normal bowel sounds Objective Current Medications Medications (Trade) Dose Ordered Sig/Lea Route PRN Reason Start Time Stop Time Status Last Admin Dose Admin Acetaminophen (Tylenol) 650 mg Q4H PRN ORAL Mild Pain (Pain Scale 1-3) 04/05/20 09:30 05/05/20 09:29 Al Hydroxide/Mg Hydroxide (Mylanta) 30 ml Q2HR PRN ORAL GI 04/15/20 21:45 05/15/20 21:44 Allopurinol (Zyloprim) 100 mg DAILY ORAL 04/05/20 09:00 05/05/20 08:59 04/15/20 08:45 Amlodipine Besylate (Norvasc) 5 mg DAILY ORAL 04/05/20 09:00 05/05/20 08:59 04/15/20 08:45 Ceftriaxone Sodium 2 gm/ Dextrose 55 ml @ 110 mls/hr Q24H IVPB 04/14/20 11:00 04/21/20 10:59 04/15/20 11:19 Chlorhexidine Gluconate (Re-Hex 2%) 1 applic DAILY@2000 TOPIC 04/05/20 20:00 07/04/20 19:59 04/15/20 19:57 Dextrose 1,000 ml @ 85 mls/hr Q24H PRN IV PN interrupted or unavailable 04/05/20 21:00 05/05/20 20:59 04/09/20 01:58 Dextrose (Dextrose 50%) 25 ml Q30M PRN IV Hypoglycemia 04/09/20 06:45 07/08/20 06:44 Dextrose (Dextrose 50%) 50 ml Q30M PRN IV Hypoglycemia 04/09/20 06:45 07/08/20 06:44 Famotidine (Pepcid) 20 mg BID ORAL 04/04/20 18:00 07/03/20 17:59 04/15/20 18:32 Fat Emulsion Intravenous 240 ml/Amino Acids/ Electrolytes/ Dextrose 2,040 ml @ 85 mls/hr Q24H IV 04/11/20 20:00 05/11/20 19:59 04/15/20 19:59 Hydromorphone HCl (Dilaudid) 1 mg Q4H PRN SUBQ Severe Pain (Pain Scale 7-10) 04/11/20 10:30 04/18/20 10:29 04/15/20 19:59 Insulin Aspart (NovoLOG) Q6HR SUBQ 04/06/20 00:00 07/05/20 00:00 04/16/20 05:43 Metronidazole 100 ml @ 100 mls/hr Q8HR IVPB 04/14/20 14:00 04/21/20 13:59 04/16/20 05:42 Ondansetron HCl (Zofran) 4 mg Q4H PRN IVP Nausea & Vomiting 04/04/20 16:00 05/04/20 15:59 Oxycodone/ Acetaminophen (Percocet 5-325) 1 tab Q4H PRN ORAL Moderate Pain (Pain Scale 4-6) 04/15/20 09:00 04/22/20 08:59 Pantoprazole (Protonix) 40 mg DAILY IVP 04/16/20 09:00 05/16/20 08:59 Phytonadione (Vitamin K) 10 mg ONCE A WEEK SUBQ 04/12/20 09:00 07/11/20 08:59 04/12/20 09:18 Quetiapine Fumarate (SEROqueL) 400 mg BEDTIME ORAL 04/12/20 21:00 05/20/20 20:59 04/15/20 22:30 Silver Nitrate (Silver Nitrate Applicators) 6 applic DAILYPRN PRN TOPIC abdominal wound application 04/10/20 09:00 07/09/20 08:59 Sodium 1,000 ml @ 75 mls/hr [id number] IV 04/05/20 20:00 05/05/20 19:59 04/16/20 05:44 Assessment/Plan Problem List: (1) Diabetes mellitus ICD Codes: E11.9 - Type 2 diabetes mellitus without complications SNOMED: 53290717 (2) Post-operative complication ICD Codes: T81.9XXA - Unspecified complication of procedure, initial encounter SNOMED: 127055514 (3) Weaver Pouch fistula Assessment/Plan: increase R insulin of TPN from 23 to 27 units / bag continue Novolog sliding scale every 6 hours hypoglycemia protocol in order plan for surgery on Wed noted Justyn Michaels MD Apr 16, 2020 05:58
[2020-04-16 06:40] LABS: EOSINOPHILS % (AUTO) 4.9 % (0.0-3.0); HEMATOCRIT 37.8 % (42.0-52.0); HEMOGLOBIN 12.1 G/DL (14.2-18.0); LYMPHOCYTES % (AUTO) 44.5 % (20.0-45.0); MEAN CORPUSCULAR VOLUME 86 FL (80-99); MONOCYTES % (AUTO) 9.8 % (1.0-10.0); NEUTROPHILS % (AUTO) 38.8 % (45.0-75.0); PLATELET COUNT 326 K/UL (150-450); RED BLOOD COUNT 4.42 M/UL (4.70-6.10); WHITE BLOOD COUNT 6.4 K/UL (4.8-10.8)
[2020-04-16 06:50] LABS: ALANINE AMINOTRANSFERASE 105 U/L (12-78); ALBUMIN/GLOBULIN RATIO 0.8 (1.0-2.7); ALKALINE PHOSPHATASE 144 U/L (46-116); ANION GAP 9 mmol/L (5-15); ASPARTATE AMINO TRANSFERASE 58 U/L (15-37); BILIRUBIN,TOTAL 0.3 MG/DL (0.2-1.0); BLOOD UREA NITROGEN 19 mg/dL (7-18); CALCIUM 8.9 MG/DL (8.5-10.1); CARBON DIOXIDE 24 MMOL/L (21-32); CHLORIDE 104 MMOL/L (98-107); CREATININE 1.2 MG/DL (0.55-1.30); SODIUM 137 MMOL/L (136-145)
[2020-04-16 07:51] VITALS: BP 126/76
--- NOTE | 2020-04-16 08:12 | General Progress Note ---
Progress Note Progress Note Fistulogram negative but Pouchogram of Weaver continent ileostomy pouch reveals persistent fistulous tract to skin Abdomen soft I&O satisfactory Labs all stable on TPN Imp: Persistent enterocutaneous fistula involving Weaver continent ileostomy pouch Plan; Surgical repair of fistula with laparotomy, possible gastrostomy Continue TPN, npo Heparin SQ pre-op Full discussion with patient re the surgery, indications, alternatives, options and risks including pouch resection with Tracie ileostomy, bleeding, infection, injury to adjacent structures or organs, DVT despite prophylaxis, etc; all questions answered Rodrigo Messer MD Apr 16, 2020 08:12
[2020-04-16] MEDS: Allopurinol 100mg Tab ORAL SCH (09:04)
[2020-04-16] MEDS: Pantoprazole Inj IVP SCH (09:04)
[2020-04-16] MEDS ORDERED: Fat Emulsion Iv 20% 240 ML in Tpn 1,800 ML IV SCH (09:30)
[2020-04-16 12:00] VITALS: BP 115/74
[2020-04-16] MEDS: HYDROmorphone 1mg/ml Carpuject SUBQ PRN ×2 (12:00→18:15)
[2020-04-16] MEDS: Neomycin Sulfate 500mg Tab ORAL SCH ×3 (12:00→20:58)
[2020-04-16] MEDS: cefTRIAXone 2 GM in D5W 55 ML IVPB SCH (12:00)
--- NOTE | 2020-04-16 12:43 | Anethesia Preoperative Eval ---
Anesthesia Pre-op PMH/ROS General Date of Evaluation: Apr 16, 2020 Time of Evaluation: 12:39 Anesthesiologist: Ember ASA Score: ASA 2 Mallampati Score Class I : Soft palate, uvula, fauces, pillars visible Class II: Soft palate, uvula, fauces visible Class III: Soft palate, base of uvula visible Class IV: Only hard plate visible Mallampati Classification: Class II Surgeon: Ayde Diagnosis: Entero-cutaneous fistula Surgical Procedure: Laparotomy Anesthesia History: none Family History: no anesthesia problems Allergies: Coded Allergies: CODEINE (Verified Allergy, Unknown, 04/04/20) MORPHINE (Verified Allergy, Unknown, 04/04/20) Medications: see eMAR Patient NPO?: Yes Past Medical History Cardiovascular: Reports: HTN - stable on meds; Denies: CAD, [place], valve dz, arrhythmia, other Pulmonary: Denies: asthma, COPD, JAYESH, other Gastrointestinal/Genitourinary: Reports: GERD - mild, other - h/o UC s/p total colectomy; Denies: CRI, ESRD Neurologic/Psychiatric: Denies: dementia, CVA, depression/anxiety, TIA, other Endocrine: Reports: DM; Denies: hypothyroidism, steroids, other HEENT: Denies: cataract (L), cataract (R), glaucoma, [place] (L), [place] (R), other Hematology/Immune: Denies: anemia, DVT, bleeding disorder, other Musculoskeletal/Integumentary: Denies: OA, RA, DJD, DDD, edema, other PMH Narrative: as above PSxH Narrative: see H&P Anesthesia Pre-op Phys. Exam Physician Exam Last Vital Signs Date Time Temp Pulse Resp B/P (MAP) Pulse Ox O2 Delivery O2 Flow Rate FiO2 04/16/20 12:00 99.9 56 19 115/74 (88) 100 04/16/20 09:00 Room Air Constitutional: NAD Neurologic: CN 2-12 intact Cardiovascular: RRR, no M/R/G Respiratory: CTA Gastrointestinal: S/NT/ND Airway Exam Mallampati Score: Class II MO: full Neck: flexible ROM: full Teeth: intact Dentures: no upper, no lower Anesthesia Pre-op A/P Labs Hematology Test 04/16/20 05:20 White Blood Count 6.4 K/UL (4.8-10.8) Red Blood Count 4.42 M/UL (4.70-6.10) L Hemoglobin 12.1 G/DL (14.2-18.0) L Hematocrit 37.8 % (42.0-52.0) L Mean Corpuscular Volume 86 FL (80-99) Mean Corpuscular Hemoglobin 27.5 PG (27.0-31.0) Mean Corpuscular Hemoglobin Concent 32.1 G/DL (32.0-36.0) Red Cell Distribution Width 14.0 % (11.6-14.8) Platelet Count 326 K/UL (150-450) Mean Platelet Volume 7.8 FL (6.5-10.1) Neutrophils (%) (Auto) 38.8 % (45.0-75.0) L Lymphocytes (%) (Auto) 44.5 % (20.0-45.0) Monocytes (%) (Auto) 9.8 % (1.0-10.0) Eosinophils (%) (Auto) 4.9 % (0.0-3.0) H Basophils (%) (Auto) 2.0 % (0.0-2.0) Chemistry Test 04/15/20 18:32 04/15/20 23:12 04/16/20 05:20 04/16/20 05:42 POC Whole Blood Glucose Pending Pending Pending Sodium Level 137 MMOL/L (136-145) Potassium Level 4.0 MMOL/L (3.5-5.1) Chloride Level 104 MMOL/L (98-107) Carbon Dioxide Level 24 MMOL/L (21-32) Anion Gap 9 mmol/L (5-15) Blood Urea Nitrogen 19 mg/dL (7-18) H Creatinine 1.2 MG/DL (0.55-1.30) Estimat Glomerular Filtration Rate > 60 mL/min (>60) Glucose Level 172 MG/DL (74-106) H Calcium Level 8.9 MG/DL (8.5-10.1) Magnesium Level 2.0 MG/DL (1.8-2.4) Total Bilirubin 0.3 MG/DL (0.2-1.0) Aspartate Amino Transf (AST/SGOT) 58 U/L (15-37) H Alanine Aminotransferase (ALT/SGPT) 105 U/L (12-78) H Alkaline Phosphatase 144 U/L (46-116) H Total Protein 6.9 G/DL (6.4-8.2) Albumin 3.0 G/DL (3.4-5.0) L Globulin 3.9 g/dL Albumin/Globulin Ratio 0.8 (1.0-2.7) L Test 04/16/20 12:09 POC Whole Blood Glucose 195 MG/DL (74-106) H Studies Pre-op Studies: EKG - NSR Risk Assessment & Plan Assessment: ASA 2 Plan: GA with ETT Pre-Antibiotics Drug: as scheduled Fernandez Pa MD Apr 16, 2020 12:43
--- NOTE | 2020-04-16 14:31 | Infectious Diseases Prog Note ---
Assessment/Plan Assessment/Plan ASSESSMENT AND PLAN: 1. enterocutaneous fistula, abdominal wall soft tissue edema and inflammation on CT scan ? abdominal wall cellulitis/soft tissue infection, ? infected fistula site/wound infection wound/drainage culture with klebsiella - sensitive to cephalosporins, carbapenems and levofloxacin, R-zosyn - ceftriaxone and flagyl - day # 3 - antifungal coverage - micafungin (cannot use diflucan because of drug interactions) - clinically improved but still some mild induration - plan on fistula repair surgery tomorrow - monitor labs - continue management per Dr. Messer - communicated with Dr. Messer - d/w patient and 2. Patient has enterocutaneous fistula. Patient is status post pouch endoscopy. Management per Dr. Messer. 3. Patient has history of diabetes. Continue blood sugar treatment per Endocrine. 4. Hypertension. Continue blood pressure treatment primary care team and Endocrine. 5. Blood sugar and blood pressure control for hypertension and diabetes. 6. Patient has a history of Weaver continent ileostomy. 7. 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 8. History of multiple abdominal surgeries including proctocolectomy and cholecystectomy and Weaver ileostomy. 9. Allergies to codeine, morphine. 10. Social history is negative 11. Family history is noncontributory. 12. MAR is noted. 13. Case discussed with RN. 14. Continue treatment per Dr. Messer and consultants. 15. Orders were noted and entered. Subjective Constitutional: Denies: fever HEENT: Denies: congestion Respiratory: Denies: shortness of breath Cardiovascular: Denies: chest pain Gastrointestinal/Abdominal: Reports: other - less abdominal pain ; Denies: nausea, vomiting Genitourinary: Denies: dysuria Neurologic: Denies: headache Psychiatric: Denies: depression Skin: Denies: rash Hematologic: Denies: bleeding Musculoskeletal: Denies: pain Allergies: Coded Allergies: CODEINE (Verified Allergy, Unknown, 04/04/20) MORPHINE (Verified Allergy, Unknown, 04/04/20) Objective Last 24 Hour Vital Signs Date Time Temp Pulse Resp B/P (MAP) Pulse Ox O2 Delivery O2 Flow Rate FiO2 04/16/20 12:30 97.6 04/16/20 12:00 99.9 56 19 115/74 (88) 100 04/16/20 09:04 76 126/76 3/9/21 09:00 Room Air 04/16/20 07:51 97.6 76 17 126/76 (93) 95 04/16/20 03:49 97.9 69 20 118/78 (91) 97 04/15/20 23:23 97.8 70 17 107/68 (81) 98 04/15/20 21:00 Room Air 04/15/20 20:00 98.1 66 20 123/79 (94) 97 04/15/20 16:00 98.4 69 18 114/71 (85) 98 Height (Feet): 5 Height (Inches): 5.00 Weight (Pounds): 169 General Appearance: no acute distress HEENT: normocephalic, atraumatic, anicteric, mucous membranes moist Respiratory/Chest: lungs clear, normal breath sounds, no respiratory distress, no accessory muscle use Cardiovascular: normal rate, regular rhythm, no gallop/murmur Abdomen: normal bowel sounds, soft, non tender, no organomegaly, non distended, other - less abdominal induration and less pain Genitourinary: other - no lopez Extremities: no cyanosis Skin: no rash Neurologic/Psychiatric: track man II-XII grossly normal, alert, responsive Lymphatic: no neck adenopathy Musculoskeletal: no effusion CT abdomen and pelvis: IMPRESSION: Soft tissue edema, inflammation and foci of air in the abdominal wall. No discrete drainable collection. Chest x-ray - FINDINGS: A single one view chest is obtained. Vascularity is normal. The lung corbett are clear bilaterally. Cardiac and mediastinal silhouette are within normal limits. CP angles are sharp. The bony thorax appear unremarkable. IMPRESSION: NO ACUTE CARDIOPULMONARY DISEASE. Laboratory Tests Test 04/15/20 18:32 04/15/20 23:12 04/16/20 05:20 04/16/20 05:42 POC Whole Blood Glucose Pending Pending Pending White Blood Count 6.4 K/UL (4.8-10.8) Red Blood Count 4.42 M/UL (4.70-6.10) L Hemoglobin 12.1 G/DL (14.2-18.0) L Hematocrit 37.8 % (42.0-52.0) L Mean Corpuscular Volume 86 FL (80-99) Mean Corpuscular Hemoglobin 27.5 PG (27.0-31.0) Mean Corpuscular Hemoglobin Concent 32.1 G/DL (32.0-36.0) Red Cell Distribution Width 14.0 % (11.6-14.8) Platelet Count 326 K/UL (150-450) Mean Platelet Volume 7.8 FL (6.5-10.1) Neutrophils (%) (Auto) 38.8 % (45.0-75.0) L Lymphocytes (%) (Auto) 44.5 % (20.0-45.0) Monocytes (%) (Auto) 9.8 % (1.0-10.0) Eosinophils (%) (Auto) 4.9 % (0.0-3.0) H Basophils (%) (Auto) 2.0 % (0.0-2.0) Sodium Level 137 MMOL/L (136-145) Potassium Level 4.0 MMOL/L (3.5-5.1) Chloride Level 104 MMOL/L (98-107) Carbon Dioxide Level 24 MMOL/L (21-32) Anion Gap 9 mmol/L (5-15) Blood Urea Nitrogen 19 mg/dL (7-18) H Creatinine 1.2 MG/DL (0.55-1.30) Estimat Glomerular Filtration Rate > 60 mL/min (>60) Glucose Level 172 MG/DL (74-106) H Calcium Level 8.9 MG/DL (8.5-10.1) Magnesium Level 2.0 MG/DL (1.8-2.4) Total Bilirubin 0.3 MG/DL (0.2-1.0) Aspartate Amino Transf (AST/SGOT) 58 U/L (15-37) H Alanine Aminotransferase (ALT/SGPT) 105 U/L (12-78) H Alkaline Phosphatase 144 U/L (46-116) H Total Protein 6.9 G/DL (6.4-8.2) Albumin 3.0 G/DL (3.4-5.0) L Globulin 3.9 g/dL Albumin/Globulin Ratio 0.8 (1.0-2.7) L Test 04/16/20 12:09 POC Whole Blood Glucose 195 MG/DL (74-106) H Current Medications Medications (Trade) Dose Ordered Sig/Lae Route PRN Reason Start Time Stop Time Status Last Admin Dose Admin Acetaminophen (Tylenol) 650 mg Q4H PRN ORAL Mild Pain (Pain Scale 1-3) 04/05/20 09:30 05/05/20 09:29 Al Hydroxide/Mg Hydroxide (Mylanta) 30 ml Q2HR PRN ORAL GI 04/15/20 21:45 05/15/20 21:44 Allopurinol (Zyloprim) 100 mg DAILY ORAL 04/05/20 09:00 05/05/20 08:59 04/16/20 09:04 Amlodipine Besylate (Norvasc) 5 mg DAILY ORAL 04/05/20 09:00 05/05/20 08:59 04/16/20 09:04 Ceftriaxone Sodium 2 gm/ Dextrose 55 ml @ 110 mls/hr Q24H IVPB 04/14/20 11:00 04/21/20 10:59 04/16/20 12:00 Chlorhexidine Gluconate (Re-Hex 2%) 1 applic DAILY@2000 TOPIC 04/05/20 20:00 07/04/20 19:59 04/15/20 19:57 Dextrose 1,000 ml @ 85 mls/hr Q24H PRN IV PN interrupted or unavailable 04/05/20 21:00 05/05/20 20:59 04/09/20 01:58 Dextrose (Dextrose 50%) 25 ml Q30M PRN IV Hypoglycemia 04/09/20 06:45 07/08/20 06:44 Dextrose (Dextrose 50%) 50 ml Q30M PRN IV Hypoglycemia 04/09/20 06:45 07/08/20 06:44 Famotidine (Pepcid) 20 mg BID ORAL 04/04/20 18:00 07/03/20 17:59 04/16/20 09:04 Fat Emulsion Intravenous 240 ml/Amino Acids/ Electrolytes/ Dextrose 2,040 ml @ 85 mls/hr Q24H IV 04/11/20 20:00 04/16/20 19:59 04/15/20 19:59 Fat Emulsion Intravenous 240 ml/Amino Acids/ Electrolytes/ Dextrose 2,040 ml @ 85 mls/hr Q24H IV 04/16/20 20:00 05/16/20 19:59 Heparin Sodium (Porcine) (Heparin 5000 units/ml) 5,000 units ONCE SUBQ 04/17/20 10:00 04/17/20 11:00 Hydromorphone HCl (Dilaudid) 1 mg Q4H PRN SUBQ Severe Pain (Pain Scale 7-10) 04/11/20 10:30 04/18/20 10:29 04/16/20 12:00 Insulin Aspart (NovoLOG) Q6HR SUBQ 04/06/20 00:00 07/05/20 00:00 04/16/20 12:15 Metronidazole 100 ml @ 100 mls/hr Q8HR IVPB 04/14/20 14:00 04/21/20 13:59 04/16/20 05:42 Micafungin Sodium 100 mg/Sodium Chloride 110 ml @ 110 mls/hr Q24H IVPB 04/16/20 16:00 04/23/20 15:59 Neomycin Sulfate (Neomycin Sulfate) 500 mg TID@,,20 ORAL 04/16/20 12:00 04/16/20 20:01 04/16/20 12:00 Ondansetron HCl (Zofran) 4 mg Q4H PRN IVP Nausea & Vomiting 04/04/20 16:00 05/04/20 15:59 Oxycodone/ Acetaminophen (Percocet 5-325) 1 tab Q4H PRN ORAL Moderate Pain (Pain Scale 4-6) 04/15/20 09:00 04/22/20 08:59 Pantoprazole (Protonix) 40 mg DAILY IVP 04/16/20 09:00 05/16/20 08:59 04/16/20 09:04 Phytonadione (Vitamin K) 10 mg ONCE A WEEK SUBQ 04/12/20 09:00 07/11/20 08:59 04/12/20 09:18 Quetiapine Fumarate (SEROqueL) 400 mg BEDTIME ORAL 04/12/20 21:00 05/20/20 20:59 04/15/20 22:30 Silver Nitrate (Silver Nitrate Applicators) 6 applic DAILYPRN PRN TOPIC abdominal wound application 04/10/20 09:00 07/09/20 08:59 Sodium 1,000 ml @ 75 mls/hr [id number] IV 04/05/20 20:00 05/05/20 19:59 04/16/20 05:44 Wilman Rosas MD Apr 16, 2020 14:31
[2020-04-16 15:45] VITALS: BP 127/78
[2020-04-16] MEDS: Micafungin 100 MG in NS 110 ML IVPB SCH ×2 (16:51→16:55)
[2020-04-16 20:00] VITALS: BP 113/72
[2020-04-16] MEDS: Dyna-Hex 2% Top Sol 2oz TOPIC SCH (20:58)
[2020-04-16] MEDS: Fat Emulsion Iv 20% 240 ML in Tpn 1,800 ML IV SCH (20:59)
[2020-04-17] VITALS (14 sets, daily range): BP systolic 109–162; BP diastolic 68–88
[2020-04-17] MEDS: NovoLOG Insulin Flexpen SUBQ SCH ×5 (00:14→23:47)
[2020-04-17] MEDS: 1/2NS w/KCl 20mEq 1000ml 1,000 ML IV SCH ×2 (04:59→17:54)
[2020-04-17 06:14] LABS: EOSINOPHILS % (AUTO) 4.5 % (0.0-3.0); HEMATOCRIT 37.4 % (42.0-52.0); MEAN CORPUSCULAR VOLUME 86 FL (80-99); MONOCYTES % (AUTO) 10.6 % (1.0-10.0); NEUTROPHILS % (AUTO) 39.9 % (45.0-75.0); PLATELET COUNT 324 K/UL (150-450); RED BLOOD COUNT 4.36 M/UL (4.70-6.10); RED CELL DISTRIBUTION WIDTH 14.4 % (11.6-14.8); WHITE BLOOD COUNT 5.7 K/UL (4.8-10.8)
--- NOTE | 2020-04-17 06:27 | General Progress Note ---
Subjective Allergies: Coded Allergies: CODEINE (Verified Allergy, Unknown, 04/04/20) MORPHINE (Verified Allergy, Unknown, 04/04/20) All Systems: reviewed and negative except above Subjective events noted NPO on TPN surgery planned for today glucose values improved Item Value Date Time Bedside Blood Glucose 180 mg/dl H 04/17/20 0520 Bedside Blood Glucose 182 mg/dl H 04/17/20 0014 Bedside Blood Glucose 154 mg/dl H 04/16/20 1800 Bedside Blood Glucose 195 mg/dl H 04/16/20 1215 Bedside Blood Glucose 160 mg/dl H 04/16/20 0543 Bedside Blood Glucose 177 mg/dl H 04/15/20 2313 Objective Last 24 Hour Vital Signs Date Time Temp Pulse Resp B/P (MAP) Pulse Ox O2 Delivery O2 Flow Rate FiO2 04/17/20 04:00 98.0 74 16 109/69 (82) 97 04/17/20 00:00 97.3 69 16 114/68 (83) 95 04/16/20 21:00 Room Air 04/16/20 20:00 97.9 72 16 113/72 (86) 95 04/16/20 18:45 97.8 04/16/20 15:45 97.8 61 18 127/78 (94) 98 04/16/20 12:30 97.6 04/16/20 12:00 99.9 56 19 115/74 (88) 100 04/16/20 09:04 76 126/76 04/16/20 09:00 Room Air 04/16/20 07:51 97.6 76 17 126/76 (93) 95 Intake and Output 04/16/20 04/17/20 19:00 07:00 Intake Total 2025 ml Output Total 2170 ml Balance -145 ml IV Total 2025 ml Output Urine Total 1400 ml Other 770 ml # Voids 1 Laboratory Tests 04/16/20 12:09: POC Whole Blood Glucose 195H 04/16/20 17:31: POC Whole Blood Glucose 154H 04/17/20 00:10: POC Whole Blood Glucose 182H 04/17/20 05:07: POC Whole Blood Glucose 180H 04/17/20 05:31: White Blood Count [Pending], Red Blood Count [Pending], Hemoglobin [Pending], Hematocrit [Pending], Mean Corpuscular Volume [Pending], Mean Corpuscular Hemoglobin [Pending], Mean Corpuscular Hemoglobin Concent [Pending], Red Cell Distribution Width [Pending], Platelet Count [Pending], Mean Platelet Volume [Pending], Neutrophils (%) (Auto) [Pending], Lymphocytes (%) (Auto) [Pending], Monocytes (%) (Auto) [Pending], Eosinophils (%) (Auto) [Pending], Basophils (%) (Auto) [Pending], Sodium Level [Pending], Potassium Level [Pending], Chloride Level [Pending], Carbon Dioxide Level [Pending], Blood Urea Nitrogen [Pending], Creatinine [Pending], Estimat Glomerular Filtration Rate [Pending], Glucose Level [Pending], Calcium Level [Pending], Phosphorus Level [Pending], Magnesium Level [Pending], Total Bilirubin [Pending], Aspartate Amino Transf (AST/SGOT) [Pending], Alanine Aminotransferase (ALT/SGPT) [Pending], Alkaline Phosphatase [Pending], Total Protein [Pending], Albumin [Pending], Globulin [Pending] Height (Feet): 5 Height (Inches): 5.00 Weight (Pounds): 169 General Appearance: no apparent distress Neck: normal alignment Cardiovascular: normal rate Respiratory/Chest: lungs clear Abdomen: normal bowel sounds Objective Current Medications Medications (Trade) Dose Ordered Sig/Lea Route PRN Reason Start Time Stop Time Status Last Admin Dose Admin Acetaminophen (Tylenol) 650 mg Q4H PRN ORAL Mild Pain (Pain Scale 1-3) 04/05/20 09:30 05/05/20 09:29 Al Hydroxide/Mg Hydroxide (Mylanta) 30 ml Q2HR PRN ORAL GI 04/15/20 21:45 05/15/20 21:44 Allopurinol (Zyloprim) 100 mg DAILY ORAL 04/05/20 09:00 05/05/20 08:59 04/16/20 09:04 Amlodipine Besylate (Norvasc) 5 mg DAILY ORAL 04/05/20 09:00 05/05/20 08:59 04/16/20 09:04 Ceftriaxone Sodium 2 gm/ Dextrose 55 ml @ 110 mls/hr Q24H IVPB 04/14/20 11:00 04/21/20 10:59 04/16/20 12:00 Chlorhexidine Gluconate (Re-Hex 2%) 1 applic DAILY@2000 TOPIC 04/05/20 20:00 07/04/20 19:59 04/16/20 20:58 Dextrose 1,000 ml @ 85 mls/hr Q24H PRN IV PN interrupted or unavailable 04/05/20 21:00 05/05/20 20:59 04/09/20 01:58 Dextrose (Dextrose 50%) 25 ml Q30M PRN IV Hypoglycemia 04/09/20 06:45 07/08/20 06:44 Dextrose (Dextrose 50%) 50 ml Q30M PRN IV Hypoglycemia 04/09/20 06:45 07/08/20 06:44 Famotidine (Pepcid) 20 mg BID ORAL 04/04/20 18:00 07/03/20 17:59 04/16/20 17:32 Fat Emulsion Intravenous 240 ml/Amino Acids/ Electrolytes/ Dextrose 2,040 ml @ 85 mls/hr Q24H IV 04/16/20 20:00 05/16/20 19:59 04/16/20 20:59 Heparin Sodium (Porcine) (Heparin 5000 units/ml) 5,000 units ONCE SUBQ 04/17/20 10:00 04/17/20 11:00 Hydromorphone HCl (Dilaudid) 1 mg Q4H PRN SUBQ Severe Pain (Pain Scale 7-10) 04/11/20 10:30 04/18/20 10:29 04/16/20 18:15 Insulin Aspart (NovoLOG) Q6HR SUBQ 04/06/20 00:00 07/05/20 00:00 04/17/20 05:13 Metronidazole 100 ml @ 100 mls/hr Q8HR IVPB 04/14/20 14:00 04/21/20 13:59 04/17/20 05:00 Micafungin Sodium 100 mg/Sodium Chloride 110 ml @ 110 mls/hr Q24H IVPB 04/16/20 16:00 04/23/20 15:59 04/16/20 16:55 Ondansetron HCl (Zofran) 4 mg Q4H PRN IVP Nausea & Vomiting 04/04/20 16:00 05/04/20 15:59 Oxycodone/ Acetaminophen (Percocet 5-325) 1 tab Q4H PRN ORAL Moderate Pain (Pain Scale 4-6) 04/15/20 09:00 04/22/20 08:59 Pantoprazole (Protonix) 40 mg DAILY IVP 04/16/20 09:00 05/16/20 08:59 04/16/20 09:04 Phytonadione (Vitamin K) 10 mg ONCE A WEEK SUBQ 04/12/20 09:00 07/11/20 08:59 04/12/20 09:18 Quetiapine Fumarate (SEROqueL) 400 mg BEDTIME ORAL 04/12/20 21:00 05/20/20 20:59 04/16/20 21:07 Silver Nitrate (Silver Nitrate Applicators) 6 applic DAILYPRN PRN TOPIC abdominal wound application 04/10/20 09:00 07/09/20 08:59 Sodium 1,000 ml @ 75 mls/hr [id number] IV 04/05/20 20:00 05/05/20 19:59 04/17/20 04:59 Assessment/Plan Problem List: (1) Diabetes mellitus ICD Codes: E11.9 - Type 2 diabetes mellitus without complications SNOMED: 49270802 (2) Post-operative complication ICD Codes: T81.9XXA - Unspecified complication of procedure, initial encounter SNOMED: 743926053 (3) Weaver Pouch fistula Assessment/Plan: continue R insulin at 27 units / bag continue Novolog sliding scale every 6 hours hypoglycemia protocol in order going for surgery today Justyn Michaels MD Apr 17, 2020 06:27
[2020-04-17 06:56] LABS: ALBUMIN 2.9 G/DL (3.4-5.0); ALBUMIN/GLOBULIN RATIO 0.7 (1.0-2.7); BILIRUBIN,TOTAL 0.4 MG/DL (0.2-1.0); CREATININE 1.3 MG/DL (0.55-1.30); PHOSPHORUS 3.9 MG/DL (2.5-4.9); POTASSIUM 3.8 MMOL/L (3.5-5.1)
[2020-04-17] MEDS: Allopurinol 100mg Tab ORAL SCH (08:36)
[2020-04-17] MEDS: Pantoprazole Inj IVP SCH (08:36)
--- NOTE | 2020-04-17 08:37 | Pre-Procedure Note/Attestation ---
Pre-Procedure Note/Attestation Complete Prior to Procedure Planned Procedure: not applicable Procedure Narrative: repair of Weaver continent ileostomy pouch enterocutaneous fistula, revision of Weaver pouch stoma, gastrostomy Indications for Procedure Pre-Operative Diagnosis: enterocutaneous fistula of Weaver Continent Ileostomy pouch Attestation I attest that I discussed the nature of the procedure; its benefits; risks and complications; and alternatives (and the risks and benefits of such alternatives), prior to the procedure, with the patient (or the patient's legal telemarketing sales representative). I attest that, if there was a reasonable possibility of needing a blood transfusion, the patient (or the patient's legal telemarketing sales representative) was given the [place] [facility] [employer] [facility] standardized written summary, pursuant to the [place] Blood Safety Act ([place] Health and Safety Code # 1645, as amended). I attest that I re-evaluated the patient just prior to the surgery and that there has been no change in the patient's H&P, except as documented below: none Rodrigo Messer MD Apr 17, 2020 08:36
[2020-04-17] MEDS ORDERED: Heparin 5000 units/ml inj SUBQ SCH (10:00)
[2020-04-17] MEDS ORDERED: NeoSporin Gu Irrig 1ml Amp IRRIG ONE ×2 (10:16→13:27)
[2020-04-17] MEDS ORDERED: Bacitracin 50000 Units Vial ONE ×2 (10:16→13:24)
[2020-04-17] MEDS ORDERED: fentaNYL 100 mcg/2 mL IV PRN (11:00)
[2020-04-17] MEDS ORDERED: Atropine Sulfate 0.4mg/ml inj IVP PRN (11:00)
[2020-04-17] MEDS ORDERED: Labetalol 5mg/ml 20ml vial IV PRN (11:00)
[2020-04-17] MEDS ORDERED: DiphenhydrAMINE 50mg/ml Inj IVP PRN ×2 (11:00→14:30)
[2020-04-17] MEDS ORDERED: Acetaminophen (Non formulary) 100 ML IV ONE (11:00)
[2020-04-17] MEDS ORDERED: Meperidine 25mg/1ml Inj (FOR RIGORS ONLY) IV PRN (11:00)
[2020-04-17] MEDS ORDERED: Midazolam 2mg/2ml Inj IVP PRN (11:00)
[2020-04-17] MEDS ORDERED: LR 1000ml 1,000 ML IVLG SCH (11:00)
[2020-04-17] MEDS ORDERED: LORazepam Inj 2mg/ml 1ml IV PRN (11:00)
--- NOTE | 2020-04-17 11:02 | Immediate Post-Op Evaluation ---
Immediate Post-Op Evalulation Immediate Post-Op Evalulation Procedure: Repair Weaver Pouch Fistula Date of Evaluation: Apr 17, 2020 Time of Evaluation: 14:37 IV Fluids: 500 LR Blood Products: 0 Estimated Blood Loss: 50 Urinary Output: 300 Blood Pressure Systolic: 156 Blood Pressure Diastolic: 86 Pulse Rate: 64 Respiratory Rate: 16 O2 Sat by Pulse Oximetry: 100 Temperature (Fahrenheit): 98 Pain Score (1-10): 2 Nausea: No Vomiting: No Complications 0 Patient Status: awake, reacts, patent, extubated, none Hydration Status: adequate Drug: Given Nathan Vogel MD Apr 17, 2020 11:02
--- NOTE | 2020-04-17 11:03 | 48 Hour Post Anesthesia Eval ---
Post Anesthesia Evaluation Procedure: Repair Weaver Pouch Fistula Date of Evaluation: Apr 17, 2020 Airway: patent Nausea: No Vomiting: No Pain Intensity: 2 Hydration Status: adequate Cardiopulmonary Status: Stable Mental Status/LOC: patient returned to baseline Follow-up Care/Observations: 0 Post-Anesthesia Complications: 0 Follow-up care needed: N/A Nathan Vogel MD Apr 17, 2020 11:03
[2020-04-17] MEDS: cefTRIAXone 2 GM in D5W 55 ML IVPB SCH (11:29)
[2020-04-17] MEDS ORDERED: NS Irrig 1000ml IRRIG ONE ×4 (11:45→13:34)
[2020-04-17] MEDS ORDERED: Lidocaine 1% Plain 30 ml INJ ONE ×2 (11:48→13:46)
[2020-04-17] MEDS ORDERED: Lidocaine 1% MPF 10mg/ml 5ml ONE (11:48)
[2020-04-17] MEDS ORDERED: fentaNYL 100 mcg/2 mL IV ONE ×2 (11:49→12:59)
[2020-04-17] MEDS ORDERED: Rocuronium Bromide 50mg/5ml Inj IV ONE (12:00)
[2020-04-17] MEDS ORDERED: propofoL 1,000mg/100ml IV ONE (12:00)
[2020-04-17] MEDS ORDERED: LR 1000ml ONE (12:00)
[2020-04-17] MEDS ORDERED: NS Irrig 1000ml ONE (12:00)
[2020-04-17] MEDS ORDERED: Sterile Water Irrig 1000ml IRRIG ONE (12:00)
[2020-04-17] MEDS ORDERED: Glycopyrrolate 0.2mg/ml 1ml Vial ONE (13:55)
[2020-04-17] MEDS ORDERED: Neostigmine 1mg/ml 10ml Inj ONE (13:55)
[2020-04-17] MEDS ORDERED: LORazepam 1mg tab SL PRN (14:30)
[2020-04-17] MEDS ORDERED: PCA Education Pamphlet MISC ONE (14:30)
[2020-04-17] MEDS ORDERED: Naloxone 0.4mg/ml Inj IVP PRN (14:30)
[2020-04-17] MEDS ORDERED: PCA HYDROmorphone 1mg/ml 30 ML IV PRN (14:30)
[2020-04-17] MEDS ORDERED: Rate Change PCA 1 Each MISC PRN (14:30)
--- NOTE | 2020-04-17 14:33 | Brief Operative Note ---
Immediate Post Operative Note Operative Note Pre-op Diagnosis: enterocutaneous fistula of Weaver Continent Ileostomy pouch Procedure: Laparotomy with repair of Weaver continent ileostomy enterocutaneous fistula Post-op Diagnosis: same Post-op Diagnosis: same as pre-op Findings: consistent w/pre-op dx studies Surgeon: smiley Additional Surgeons: dania Anesthesiologist: ata Anesthesia: general Specimen: yes - fistula tract with small bowel segment Complications: none Condition: stable Fluids: see anesthesia record Estimated Blood Loss: minimal Drains: other - 28 Leon to Weaver Pouch Implant(s) used?: No Rodrigo Messer MD Apr 17, 2020 14:33
--- NOTE | 2020-04-17 16:14 | Operative Note - Dictated ---
DATE OF OPERATION: 04/17/2020 SURGEON: Rodrigo Messer MD. ADDITIONAL SURGEON: Sg Cervantes MD. ANESTHESIOLOGIST: Nathan Vogel MD. TYPE OF ANESTHESIA: General endotracheal. PREOPERATIVE DIAGNOSES: 1. Weaver continent ileostomy pouch enterocutaneous fistula. 2. History of indeterminate colitis. 3. STATUS POST MULTIPLE ABDOMINAL OPERATIONS: 3.1. Cholecystectomy with incidental appendectomy in . 3.2. Proctocolectomy with Tracie ileostomy in 1979. 3.3. Weaver continent ileostomy pouch in 1989. POSTOPERATIVE DIAGNOSES: 1. Weaver continent ileostomy pouch enterocutaneous fistula. 2. History of indeterminate colitis. 3. STATUS POST MULTIPLE ABDOMINAL OPERATIONS: 3.1. Cholecystectomy with incidental appendectomy in . 3.2. Proctocolectomy with Tracie ileostomy in 1979. 3.3. Weaver continent ileostomy pouch in 1989. OPERATION PERFORMED: Laparotomy with repair of Weaver continent ileostomy pouch enterocutaneous fistula. DESCRIPTION OF PROCEDURE: The patient was taken to the operating room and under general anesthesia with sequential compression device stockings in place, Leon catheter in place and having received preoperative intravenous antibiotics and subcutaneous heparin, the patient was prepped and draped in usual fashion initially with a Tegaderm over the stoma low in the right lower quadrant. Previous midline incision was reopened from above the umbilicus to the pubis going elliptically around the fistula site which was approximately 7 cm inferior to the umbilicus. I initially probed with a lacrimal duct probe, but it did not enter the bowel, although recent imaging showed persistent fistula. There were mild to moderate adhesions to the undersurface of the abdominal wall, but the incision was opened to the full length protecting the bladder. The pouch was mobilized and was lying transversely toward the left upper quadrant, not into the deep pelvis. The afferent bowel was adjacent to where the access segment entered the pouch to become the valve segment. It was clear that the fistula involved the end of the intestinal collar, which is part of the Weaver technique of the Kock pouch continent ileostomy. The site of the fistula was circumferentially mobilized and then resected using a JULES 55 with the staple line oversewn with continuous 3-0 Vicryl. During the dissection, a pouch enterotomy was created. The pouch itself was capacious and completely normal without any evidence of inflammatory bowel disease involving either the pouch or the rest of the small intestine. The pouch enterotomy was closed in layers with continuous locking 2-0 chromic followed by continuous 3-0 Vicryl with serosal patch of some mesenteric fat overlying the repair. There was minimal redundancy of the access segment and the 28-S[place] Leon catheter could readily go from the stoma into the apex of the pouch without difficulty. It was now positioned in the apex of the pouch and the afferent bowel manually occluded. The pouch was distended with 650 mL of saline and there was no sign of any extravasation. The catheter was removed and there was no incontinence. The catheter was reinserted without any difficulty. The pouch was decompressed. I did not feel there was any indication to revise the stoma or access segment because release of scar tissue had alleviated any angulation. Hemostasis was carefully achieved with the Lorena [employer] vessel sealing electrosurgical device and cautery. The field was irrigated with saline and then antibiotic solution. There was slight oozing from the area of the pouch repair, which was covered with Surgicel. The bladder and retroperitoneal structures had been left undisturbed and protected. After ascertaining that hemostasis was secure, the incision was closed in one layer with continuous #1 PDS followed by antibiotic irrigation and closure of the skin with sena. The ileostomy pouch catheter was flushed and connected to a continuous gravity drainage bag. The patient tolerated the procedure well and left the operating room in good condition. Rodrigo Messer M.D. DR: AVERY JOB#: [id number] CC: ANANDA
[2020-04-17] MEDS ORDERED: Ketorolac 30mg Inj IV SCH (16:35)
--- NOTE | 2020-04-17 16:40 | General Progress Note ---
Progress Note Progress Note AVSS c/o back pain despite Dilaudid ALL ROUND LOGGER abdomen soft, dressing dry urine clear yellow Weaver pouch catheter to drainage Imp: back pain ? positional from OR Plan: toradol 15mg IV STAT then q6h for 6 doses maximum prn severe breakthrough pain Rodrigo Messer MD Apr 17, 2020 16:40
[2020-04-17] MEDS ORDERED: Ketorolac 30mg Inj IV PRN (16:45)
[2020-04-17] MEDS: PCA shift volume MISC SCH (19:00)
[2020-04-17] MEDS: Dyna-Hex 2% Top Sol 2oz TOPIC SCH (20:22)
[2020-04-17] MEDS: Fat Emulsion Iv 20% 240 ML in Tpn 1,800 ML IV SCH (20:46)
[2020-04-18] VITALS: BP 109/64
[2020-04-18 04:00] VITALS: BP 122/64
[2020-04-18 05:31] LABS: BASOPHILS % (AUTO) 0.4 % (0.0-2.0); HEMATOCRIT 36.6 % (42.0-52.0); HEMOGLOBIN 11.7 G/DL (14.2-18.0); LYMPHOCYTES % (AUTO) 12.9 % (20.0-45.0); MEAN CORPUSCULAR VOLUME 86 FL (80-99); MONOCYTES % (AUTO) 7.7 % (1.0-10.0); NEUTROPHILS % (AUTO) 79.1 % (45.0-75.0); PLATELET COUNT 322 K/UL (150-450); RED BLOOD COUNT 4.26 M/UL (4.70-6.10); WHITE BLOOD COUNT 12.7 K/UL (4.8-10.8)
[2020-04-18 05:33] LABS: ALBUMIN 2.8 G/DL (3.4-5.0); ALBUMIN/GLOBULIN RATIO 0.7 (1.0-2.7); BILIRUBIN,TOTAL 0.4 MG/DL (0.2-1.0); CREATININE 1.3 MG/DL (0.55-1.30); PHOSPHORUS 2.9 MG/DL (2.5-4.9); POTASSIUM 4.8 MMOL/L (3.5-5.1)
[2020-04-18] MEDS: NovoLOG Insulin Flexpen SUBQ SCH ×4 (06:01→23:48)
--- NOTE | 2020-04-18 06:50 | General Progress Note ---
Subjective Allergies: Coded Allergies: CODEINE (Verified Allergy, Unknown, 04/04/20) MORPHINE (Verified Allergy, Unknown, 04/04/20) All Systems: reviewed and negative except above Subjective events noted NPO on TPN glucose values are high > 200 Item Value Date Time Bedside Blood Glucose 219 mg/dl H 04/18/20 0601 Bedside Blood Glucose 275 mg/dl H 04/18/20 0000 Bedside Blood Glucose 295 mg/dl H 04/17/20 1755 Bedside Blood Glucose 242 mg/dl H 04/17/20 1146 Bedside Blood Glucose 180 mg/dl H 04/17/20 0520 Objective Last 24 Hour Vital Signs Date Time Temp Pulse Resp B/P (MAP) Pulse Ox O2 Delivery O2 Flow Rate FiO2 04/18/20 04:00 77 18 96 04/18/20 04:00 98.1 78 18 122/64 (83) 96 04/18/20 00:00 97.9 82 18 109/64 (79) 95 04/18/20 00:00 82 18 95 04/17/20 21:00 Nasal Cannula 3.0 04/17/20 20:00 86 18 95 04/17/20 20:00 98.1 86 16 128/74 (92) 95 04/17/20 16:00 97.5 72 16 142/77 (98) 97 04/17/20 15:30 97.3 62 16 131/82 (98) 97 04/17/20 15:20 19 04/17/20 15:17 97.9 04/17/20 15:10 97.9 66 15 152/81 100 Nasal Cannula 3 04/17/20 15:05 60 15 154/80 100 Nasal Cannula 3 04/17/20 15:05 14 04/17/20 14:54 63 17 149/83 100 Nasal Cannula 3 04/17/20 14:47 16 04/17/20 14:44 70 16 162/82 100 Nasal Cannula 3 04/17/20 14:39 69 14 154/82 100 Simple Mask 6 04/17/20 14:29 67 15 161/88 100 Simple Mask 6 04/17/20 14:24 67 18 160/84 100 Simple Mask 6 04/17/20 14:23 64 16 100 04/17/20 14:19 98.0 65 19 153/88 99 Simple Mask 6 04/17/20 09:00 Room Air 04/17/20 08:36 72 116/70 04/17/20 08:00 97.3 72 16 116/70 (85) 95 Intake and Output 04/17/20 04/18/20 19:00 07:00 Intake Total 600 ml Output Total 2430 ml 1400 ml Balance -1830 ml -1400 ml IV Total 600 ml Output Urine Total 1980 ml 1400 ml Estimated Blood Loss 50 ml Other 400 ml Laboratory Tests 04/17/20 11:46: POC Whole Blood Glucose 242H 04/17/20 17:55: POC Whole Blood Glucose 295H 04/17/20 23:42: POC Whole Blood Glucose 275H 04/18/20 04:30: White Blood Count 12.7#H, Red Blood Count 4.26L, Hemoglobin 11.7L, Hematocrit 36.6L, Mean Corpuscular Volume 86, Mean Corpuscular Hemoglobin 27.5, Mean Corpuscular Hemoglobin Concent 32.0, Red Cell Distribution Width 14.0, Platelet Count 322, Mean Platelet Volume 7.9, Neutrophils (%) (Auto) 79.1H, Lymphocytes (%) (Auto) 12.9L, Monocytes (%) (Auto) 7.7, Eosinophils (%) (Auto) 0.0, Basophils (%) (Auto) 0.4, Sodium Level 135L, Potassium Level 4.8, Chloride Level 103, Carbon Dioxide Level 25, Anion Gap 8, Blood Urea Nitrogen 19H, Creatinine 1.3, Estimat Glomerular Filtration Rate 55.9, Glucose Level 229H, Calcium Level 9.0, Phosphorus Level 2.9, Magnesium Level 1.8, Total Bilirubin 0.4, Aspartate Amino Transf (AST/SGOT) 42H, Alanine Aminotransferase (ALT/SGPT) 85H, Alkaline Phosphatase 125H, Total Protein 6.7, Albumin 2.8L, Globulin 3.9, Albumin/Globulin Ratio 0.7L 04/18/20 05:53: POC Whole Blood Glucose 219H Height (Feet): 5 Height (Inches): 4.00 Weight (Pounds): 176 General Appearance: no apparent distress Neck: normal alignment Cardiovascular: normal rate Respiratory/Chest: lungs clear Objective Current Medications Medications (Trade) Dose Ordered Sig/Lea Route PRN Reason Start Time Stop Time Status Last Admin Dose Admin Acetaminophen (Tylenol) 650 mg Q4H PRN ORAL Mild Pain 2/26/21 09:30 05/05/20 09:29 Acetaminophen (Tylenol) 650 mg Q4H PRN ORAL temp 100.2 or above 04/17/20 14:45 05/17/20 14:44 Al Hydroxide/Mg Hydroxide (Mylanta) 30 ml Q2HR PRN ORAL GI 04/15/20 21:45 05/15/20 21:44 Allopurinol (Zyloprim) 100 mg DAILY ORAL 04/05/20 09:00 05/05/20 08:59 04/16/20 09:04 Amlodipine Besylate (Norvasc) 5 mg DAILY ORAL 04/05/20 09:00 05/05/20 08:59 04/16/20 09:04 Ceftriaxone Sodium 2 gm/ Dextrose 55 ml @ 110 mls/hr Q24H IVPB 04/14/20 11:00 04/21/20 10:59 04/17/20 11:29 Chlorhexidine Gluconate (Re-Hex 2%) 1 applic DAILY@2000 TOPIC 04/05/20 20:00 07/04/20 19:59 04/17/20 20:22 Dextrose 1,000 ml @ 85 mls/hr Q24H PRN IV PN interrupted or unavailable 04/05/20 21:00 05/05/20 20:59 04/09/20 01:58 Dextrose (Dextrose 50%) 25 ml Q30M PRN IV Hypoglycemia 04/09/20 06:45 07/08/20 06:44 Dextrose (Dextrose 50%) 50 ml Q30M PRN IV Hypoglycemia 04/09/20 06:45 07/08/20 06:44 Diphenhydramine HCl (Benadryl) 50 mg Q4H PRN IVP Itching/Pruritis 04/17/20 14:30 04/19/20 14:29 Fat Emulsion Intravenous 240 ml/Amino Acids/ Electrolytes/ Dextrose 2,040 ml @ 85 mls/hr Q24H IV 04/16/20 20:00 05/16/20 19:59 04/17/20 20:46 Hydromorphone HCl 30 ml @ 0 mls/hr Q24H PRN IV For Pain 04/17/20 14:30 04/19/20 14:29 04/17/20 14:47 Insulin Aspart (NovoLOG) Q6HR SUBQ 04/06/20 00:00 07/05/20 00:00 04/18/20 06:01 Ketorolac Tromethamine (Toradol 30mg) 15 mg Q6H PRN IV Severe Breakthru Pain (>7) 04/17/20 16:45 04/22/20 16:44 Lorazepam (Ativan) 1 mg HSPRN PRN SL Sleep 04/17/20 14:30 04/24/20 14:29 Lorazepam (Ativan) 1 mg Q4H PRN SL Muscle Spasm 04/17/20 14:30 04/24/20 14:29 Metronidazole 100 ml @ 100 mls/hr Q8HR IVPB 04/17/20 14:00 04/24/20 11:39 04/18/20 05:54 Micafungin Sodium 100 mg/Sodium Chloride 110 ml @ 110 mls/hr Q24H IVPB 04/16/20 16:00 04/23/20 15:59 04/16/20 16:55 Miscellaneous Medication (STUDENT ACTIVITIES DIRECTOR Rate Change) 1 ea DAILY PRN MISC rate change 04/17/20 14:30 04/19/20 14:29 Miscellaneous Medication (STUDENT ACTIVITIES DIRECTOR shift volume) 1 ea Q12HR@0700,1900 MISC 04/17/20 19:00 04/19/20 18:59 04/17/20 19:00 Naloxone HCl (Narcan) 0.1 mg Q1M PRN IVP RR<10/min OR SBP<90 mmHg 04/17/20 14:30 04/19/20 14:29 Ondansetron HCl (Zofran) 4 mg Q4H PRN IVP Nausea & Vomiting 04/17/20 14:30 05/17/20 14:29 Pantoprazole (Protonix) 40 mg DAILY IVP 04/16/20 09:00 05/16/20 08:59 04/17/20 08:36 Phytonadione (Vitamin K) 10 mg ONCE A WEEK SUBQ 04/12/20 09:00 07/11/20 08:59 04/12/20 09:18 Quetiapine Fumarate (SEROqueL) 400 mg BEDTIME ORAL 04/12/20 21:00 05/20/20 20:59 04/17/20 20:22 Silver Nitrate (Silver Nitrate Applicators) 6 applic DAILYPRN PRN TOPIC abdominal wound application 04/10/20 09:00 07/09/20 08:59 Sodium 1,000 ml @ 75 mls/hr [id number] IV 04/05/20 20:00 05/05/20 19:59 04/17/20 17:54 Assessment/Plan Problem List: (1) Diabetes mellitus ICD Codes: E11.9 - Type 2 diabetes mellitus without complications SNOMED: 33155666 (2) Post-operative complication ICD Codes: T81.9XXA - Unspecified complication of procedure, initial encounter SNOMED: 559054213 (3) Weaver Pouch fistula Assessment/Plan: add Levemir 10 units bid - OK to administer full dose while NPO continue R insulin at 27 units / bag continue Novolog sliding scale every 6 hours hypoglycemia protocol in order Justyn Michaels MD Apr 18, 2020 06:50
[2020-04-18] MEDS: PCA shift volume MISC SCH ×2 (07:25→19:00)
[2020-04-18 08:00] VITALS: BP 107/64
[2020-04-18] MEDS: Pantoprazole Inj IVP SCH (09:13)
[2020-04-18] MEDS: Allopurinol 100mg Tab ORAL SCH (09:13)
[2020-04-18] MEDS: Levemir Flexpen SUBQ SCH ×2 (09:15→17:55)
[2020-04-18] MEDS ORDERED: Potassium Phosphate 15mm/250ml 250 ML IVPB SCH (10:00)
--- NOTE | 2020-04-18 11:22 | 48 Hour Post Anesthesia Eval ---
Post Anesthesia Evaluation Procedure: Repair Weaver Pouch Fistula Date of Evaluation: Apr 18, 2020 Time of Evaluation: 11:21 Blood Pressure Systolic: 124 0: 72 Pulse Rate: 68 Respiratory Rate: 20 Temperature (Fahrenheit): 97.6 O2 Sat by Pulse Oximetry: 98 Airway: patent Nausea: No Vomiting: No Pain Intensity: 3 Hydration Status: adequate Cardiopulmonary Status: stable Mental Status/LOC: patient returned to baseline Follow-up Care/Observations: n/a Post-Anesthesia Complications: none Follow-up care needed: N/A Fernandez Pa MD Apr 18, 2020 11:22
--- NOTE | 2020-04-18 11:48 | General Progress Note ---
Progress Note Progress Note AVSS pain controlled with dilaudid TRACK LABORER - no need for toradol Chest clear but decreased expansion Cor reg rhythm Abdomen mildly distended, soft, incision clean Overnight 12 hours: urine 1400 BCIR ileo small amount enteric fluid WBC 12,700 Hgb 11.7 BUN 19 Cr 1.3 Phos 2.9 Mg 1.8 On Rocephin, Flagyl, Micafungin Imp: Ileus Atelectasis Plan: Continue NPO, TPN, antibiotics, Leon, TRACK LABORER with basal infusion+demand dosing f/u labs with iron paned Mg and Phos infusions Connect Weaver continent ileostomy pouch catheter to medium intermittent suction instead of gravity drainage - continue q3h and prn flush with NS PT mobility protocol - ambulate with assistance BID as tolerated Rodrigo Messer MD Apr 18, 2020 11:48
[2020-04-18 12:00] VITALS: BP 124/64
[2020-04-18] MEDS: cefTRIAXone 2 GM in D5W 55 ML IVPB SCH (12:02)
[2020-04-18 16:00] VITALS: BP 125/72
[2020-04-18] MEDS: Micafungin 100 MG in NS 110 ML IVPB SCH (16:38)
--- NOTE | 2020-04-18 16:47 | Infectious Diseases Prog Note ---
Assessment/Plan Assessment/Plan ASSESSMENT AND PLAN: 1. enterocutaneous fistula, abdominal wall soft tissue edema and inflammation on CT scan ? abdominal wall cellulitis/soft tissue infection, ? infected fistula site/wound infection wound/drainage culture with klebsiella - sensitive to cephalosporins, carbapenems and levofloxacin, R-zosyn mild leukocytosis post-op - ceftriaxone and flagyl - day # 5 - antifungal coverage - micafungin day # 3 (cannot use diflucan because of drug interactions) - s/p fistula repair - 04/17/20 - monitor labs - continue management per Dr. Messer 2. Patient has enterocutaneous fistula. Patient is status post pouch endoscopy. Management per Dr. Messer. 3. Patient has history of diabetes. Continue blood sugar treatment per Endocrine. 4. Hypertension. Continue blood pressure treatment primary care team and Endocrine. 5. Blood sugar and blood pressure control for hypertension and diabetes. 6. Patient has a history of Weaver continent ileostomy. 7. 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 8. History of multiple abdominal surgeries including proctocolectomy and cholecystectomy and Weaver ileostomy. 9. Allergies to codeine, morphine. 10. Social history is negative 11. Family history is noncontributory. 12. MAR is noted. 13. Case discussed with RN. 14. Continue treatment per Dr. Messer and consultants. 15. Orders were noted and entered. Subjective Constitutional: Denies: fever HEENT: Reports: congestion Respiratory: Reports: shortness of breath Cardiovascular: Denies: chest pain Gastrointestinal/Abdominal: Denies: nausea, vomiting, diarrhea Genitourinary: Reports: other - + lopez Neurologic: Denies: headache Psychiatric: Denies: depression Skin: Denies: rash Hematologic: Denies: bleeding Musculoskeletal: Denies: pain Allergies: Coded Allergies: CODEINE (Verified Allergy, Unknown, 04/04/20) MORPHINE (Verified Allergy, Unknown, 04/04/20) Objective Last 24 Hour Vital Signs Date Time Temp Pulse Resp B/P (MAP) Pulse Ox O2 Delivery O2 Flow Rate FiO2 04/18/20 12:00 77 18 96 04/18/20 12:00 98.4 70 18 124/64 (84) 97 04/18/20 11:22 68 20 98 04/18/20 09:13 77 107/64 04/18/20 09:00 Nasal Cannula 3.0 04/18/20 08:00 98.0 83 18 107/64 (78) 97 04/18/20 08:00 77 18 96 04/18/20 04:00 77 18 96 04/18/20 04:00 98.1 78 18 122/64 (83) 96 04/18/20 00:00 97.9 82 18 109/64 (79) 95 04/18/20 00:00 82 18 95 04/17/20 21:00 Nasal Cannula 3.0 04/17/20 20:00 86 18 95 04/17/20 20:00 98.1 86 16 128/74 (92) 95 Height (Feet): 5 Height (Inches): 4.00 Weight (Pounds): 176 General Appearance: no acute distress HEENT: normocephalic, atraumatic, anicteric, mucous membranes moist Respiratory/Chest: crackles/rales, rhonchi - bilaterally Cardiovascular: normal rate, regular rhythm, no gallop/murmur Abdomen: normal bowel sounds, soft, non tender, non distended Genitourinary: other - no lopez Extremities: no cyanosis Skin: no rash Neurologic/Psychiatric: 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 No discrete drainable collection. Chest x-ray - FINDINGS: A single one view chest is obtained. Vascularity is normal. The lung corbett are clear bilaterally. Cardiac and mediastinal silhouette are within normal limits. CP angles are sharp. The bony thorax appear unremarkable. IMPRESSION: NO ACUTE CARDIOPULMONARY DISEASE. Microbiology Date/Time Source Procedure Growth Status 04/11/20 17:10 Other(Specify in comment) Gram Stain - Final Complete 04/11/20 17:10 Wound Culture - Final Klebsiella Pneumoniae Complete 04/04/20 13:45 Nasopharynx SARS-CoV-2 Antigen (Rapid)(NALINI) - Final Complete Laboratory Tests Test 04/17/20 17:55 04/17/20 23:42 04/18/20 04:30 04/18/20 05:53 POC Whole Blood Glucose 295 MG/DL (74-106) H 275 MG/DL (74-106) H 219 MG/DL (74-106) H White Blood Count 12.7 K/UL (4.8-10.8) #H Red Blood Count 4.26 M/UL (4.70-6.10) L Hemoglobin 11.7 G/DL (14.2-18.0) L Hematocrit 36.6 % (42.0-52.0) L Mean Corpuscular Volume 86 FL (80-99) Mean Corpuscular Hemoglobin 27.5 PG (27.0-31.0) Mean Corpuscular Hemoglobin Concent 32.0 G/DL (32.0-36.0) Red Cell Distribution Width 14.0 % (11.6-14.8) Platelet Count 322 K/UL (150-450) Mean Platelet Volume 7.9 FL (6.5-10.1) Neutrophils (%) (Auto) 79.1 % (45.0-75.0) H Lymphocytes (%) (Auto) 12.9 % (20.0-45.0) L Monocytes (%) (Auto) 7.7 % (1.0-10.0) Eosinophils (%) (Auto) 0.0 % (0.0-3.0) Basophils (%) (Auto) 0.4 % (0.0-2.0) Sodium Level 135 MMOL/L (136-145) L Potassium Level 4.8 MMOL/L (3.5-5.1) Chloride Level 103 MMOL/L (98-107) Carbon Dioxide Level 25 MMOL/L (21-32) Anion Gap 8 mmol/L (5-15) Blood Urea Nitrogen 19 mg/dL (7-18) H Creatinine 1.3 MG/DL (0.55-1.30) Estimat Glomerular Filtration Rate 55.9 mL/min (>60) Glucose Level 229 MG/DL (74-106) H Calcium Level 9.0 MG/DL (8.5-10.1) Phosphorus Level 2.9 MG/DL (2.5-4.9) Magnesium Level 1.8 MG/DL (1.8-2.4) Total Bilirubin 0.4 MG/DL (0.2-1.0) Aspartate Amino Transf (AST/SGOT) 42 U/L (15-37) H Alanine Aminotransferase (ALT/SGPT) 85 U/L (12-78) H Alkaline Phosphatase 125 U/L (46-116) H Total Protein 6.7 G/DL (6.4-8.2) Albumin 2.8 G/DL (3.4-5.0) L Globulin 3.9 g/dL Albumin/Globulin Ratio 0.7 (1.0-2.7) L Current Medications Medications (Trade) Dose Ordered Sig/Lea Route PRN Reason Start Time Stop Time Status Last Admin Dose Admin Acetaminophen (Tylenol) 650 mg Q4H PRN ORAL Mild Pain 04/05/20 09:30 05/05/20 09:29 Acetaminophen (Tylenol) 650 mg Q4H PRN ORAL temp 100.2 or above 04/17/20 14:45 05/17/20 14:44 Al Hydroxide/Mg Hydroxide (Mylanta) 30 ml Q2HR PRN ORAL GI 04/15/20 21:45 05/15/20 21:44 Allopurinol (Zyloprim) 100 mg DAILY ORAL 04/05/20 09:00 05/05/20 08:59 04/18/20 09:13 Amlodipine Besylate (Norvasc) 5 mg DAILY ORAL 04/05/20 09:00 05/05/20 08:59 04/18/20 09:13 Ceftriaxone Sodium 2 gm/ Dextrose 55 ml @ 110 mls/hr Q24H IVPB 04/14/20 11:00 04/21/20 10:59 04/18/20 12:02 Chlorhexidine Gluconate (Re-Hex 2%) 1 applic DAILY@2000 TOPIC 04/05/20 20:00 07/04/20 19:59 04/17/20 20:22 Dextrose 1,000 ml @ 85 mls/hr Q24H PRN IV PN interrupted or unavailable 04/05/20 21:00 05/05/20 20:59 04/09/20 01:58 Dextrose (Dextrose 50%) 25 ml Q30M PRN IV Hypoglycemia 04/09/20 06:45 07/08/20 06:44 Dextrose (Dextrose 50%) 50 ml Q30M PRN IV Hypoglycemia 04/09/20 06:45 07/08/20 06:44 Diphenhydramine HCl (Benadryl) 50 mg Q4H PRN IVP Itching/Pruritis 04/17/20 14:30 04/20/20 12:00 Fat Emulsion Intravenous 240 ml/Amino Acids/ Electrolytes/ Dextrose 2,040 ml @ 85 mls/hr Q24H IV 04/16/20 20:00 05/16/20 19:59 04/17/20 20:46 Hydromorphone HCl 30 ml @ 0 mls/hr Q24H PRN IV For Pain 04/17/20 14:30 04/20/20 12:00 04/17/20 14:47 Insulin Aspart (NovoLOG) Q6HR SUBQ 04/06/20 00:00 07/05/20 00:00 04/18/20 12:04 Insulin Detemir (Levemir) 10 units BID SUBQ 04/18/20 09:00 07/17/20 08:59 04/18/20 09:15 Ketorolac Tromethamine (Toradol 30mg) 15 mg Q6H PRN IV Severe Breakthru Pain (>7) 04/17/20 16:45 04/22/20 16:44 Lorazepam (Ativan) 1 mg HSPRN PRN SL Sleep 04/17/20 14:30 04/24/20 14:29 Lorazepam (Ativan) 1 mg Q4H PRN SL Muscle Spasm 04/17/20 14:30 04/24/20 14:29 Metronidazole 100 ml @ 100 mls/hr Q8HR IVPB 04/17/20 14:00 04/24/20 11:39 04/18/20 14:02 Micafungin Sodium 100 mg/Sodium Chloride 110 ml @ 110 mls/hr Q24H IVPB 04/16/20 16:00 04/23/20 15:59 04/16/20 16:55 Miscellaneous Medication (SENIOR PROPERTY ACCOUNTANT Rate Change) 1 ea DAILY PRN MISC rate change 04/17/20 14:30 04/20/20 12:00 Miscellaneous Medication (SENIOR PROPERTY ACCOUNTANT shift volume) 1 ea Q12HR@0700,1900 MISC 04/17/20 19:00 04/20/20 18:59 04/18/20 07:25 Naloxone HCl (Narcan) 0.1 mg Q1M PRN IVP RR<10/min OR SBP<90 mmHg 04/17/20 14:30 04/20/20 12:00 Ondansetron HCl (Zofran) 4 mg Q4H PRN IVP Nausea & Vomiting 04/17/20 14:30 05/17/20 14:29 04/18/20 14:49 Pantoprazole (Protonix) 40 mg DAILY IVP 04/16/20 09:00 05/16/20 08:59 04/18/20 09:13 Phytonadione (Vitamin K) 10 mg ONCE A WEEK SUBQ 04/12/20 09:00 07/11/20 08:59 04/12/20 09:18 Quetiapine Fumarate (SEROqueL) 400 mg BEDTIME ORAL 04/12/20 21:00 05/20/20 20:59 04/17/20 20:22 Silver Nitrate (Silver Nitrate Applicators) 6 applic DAILYPRN PRN TOPIC abdominal wound application 04/10/20 09:00 07/09/20 08:59 Sodium 1,000 ml @ 75 mls/hr [id number] IV 04/05/20 20:00 05/05/20 19:59 04/17/20 17:54 Wilman Rosas MD Apr 18, 2020 16:47
[2020-04-18] MEDS: 1/2NS w/KCl 20mEq 1000ml 1,000 ML IV SCH (18:10)
[2020-04-18] MEDS: Fat Emulsion Iv 20% 240 ML in Tpn 1,800 ML IV SCH (19:58)
[2020-04-18] MEDS: Dyna-Hex 2% Top Sol 2oz TOPIC SCH (19:58)
[2020-04-18 20:00] VITALS: BP 129/69
[2020-04-19] VITALS: BP 113/61
[2020-04-19 04:00] VITALS: BP 95/50
[2020-04-19] MEDS: NovoLOG Insulin Flexpen SUBQ SCH ×5 (06:14→20:28)
[2020-04-19 06:30] LABS: BASOPHILS % (AUTO) 0.9 % (0.0-2.0); EOSINOPHILS % (AUTO) 1.8 % (0.0-3.0); HEMATOCRIT 34.7 % (42.0-52.0); HEMOGLOBIN 10.9 G/DL (14.2-18.0); LYMPHOCYTES % (AUTO) 29.7 % (20.0-45.0); MEAN CORPUSCULAR VOLUME 88 FL (80-99); MONOCYTES % (AUTO) 9.8 % (1.0-10.0); NEUTROPHILS % (AUTO) 57.8 % (45.0-75.0); PLATELET COUNT 285 K/UL (150-450); RED BLOOD COUNT 3.96 M/UL (4.70-6.10); RED CELL DISTRIBUTION WIDTH 14.5 % (11.6-14.8); WHITE BLOOD COUNT 7.7 K/UL (4.8-10.8)
[2020-04-19 06:53] LABS: % IRON SATURATION 11 % (15-50); IRON 26 ug/dL (50-175); TOTAL IRON BINDING CAPACITY 232 ug/dL (250-450)
[2020-04-19] MEDS: PCA shift volume MISC SCH ×2 (07:00→19:22)
[2020-04-19 07:06] LABS: ALANINE AMINOTRANSFERASE 72 U/L (12-78); ALBUMIN 2.5 G/DL (3.4-5.0); ALBUMIN/GLOBULIN RATIO 0.7 (1.0-2.7); ALKALINE PHOSPHATASE 106 U/L (46-116); ANION GAP 7 mmol/L (5-15); ASPARTATE AMINO TRANSFERASE 30 U/L (15-37); BILIRUBIN,TOTAL 0.3 MG/DL (0.2-1.0); BLOOD UREA NITROGEN 18 mg/dL (7-18); CALCIUM 8.8 MG/DL (8.5-10.1); CARBON DIOXIDE 28 MMOL/L (21-32); CHLORIDE 105 MMOL/L (98-107); CREATININE 1.2 MG/DL (0.55-1.30); PHOSPHORUS 2.8 MG/DL (2.5-4.9); POTASSIUM 4.5 MMOL/L (3.5-5.1); SODIUM 140 MMOL/L (136-145)
[2020-04-19] MEDS ORDERED: Potassium Phosphate 15mm/250ml 250 ML IVPB SCH ×2 (09:00→17:00)
[2020-04-19] MEDS ORDERED: Naloxone 0.4mg/ml Inj IVP PRN (09:00)
[2020-04-19] MEDS ORDERED: DiphenhydrAMINE 50mg/ml Inj IVP PRN (09:00)
[2020-04-19] MEDS ORDERED: PCA HYDROmorphone 1mg/ml 30 ML IV PRN (09:00)
[2020-04-19] MEDS ORDERED: Rate Change PCA 1 Each MISC PRN (09:00)
[2020-04-19 10:07] VITALS: BP 114/67
[2020-04-19] MEDS: Allopurinol 100mg Tab ORAL SCH (10:23)
[2020-04-19] MEDS: Pantoprazole Inj IVP SCH (10:23)
[2020-04-19] MEDS: Phytonadione 10 mg/mL 1ml amp SUBQ SCH (10:24)
[2020-04-19] MEDS: Levemir Flexpen SUBQ SCH ×2 (10:27→18:33)
--- NOTE | 2020-04-19 11:34 | General Progress Note ---
Progress Note Progress Note AVSS Ambulated in hallways this AM. c/o back pain/spasms both sides of lumbar spine - better sitting up (with SCDs on) No palpable abnormality or focal tenderness Also c/o intermittent nausea despite Zofran. Using dilaudid DEVELOPMENT TEAM LEAD with basal rate + demand dosint Abdomen soft, mildly distended, incision clean, Weaver Pouch catheter in place in stoma/pouch Urine 3750 BCIR ileo 120cc overnight WBC down 7700 Hgb down 10.9 BUN 18 Cr 1.2 Mg 1.6 Phos 2.8 albumin 2.5 Iron 26 (50-175) Imp: Ileus Persistent pain, occasional nausea Plan: maintain current regimen including DEVELOPMENT TEAM LEAD with basal infusion another 24 hours, TPN, NPO, Weaver Pouch catheter to medium intermittent suction with q3h flushing, antibiotics Venofer 200mg IV daily x 5 doses Mg and Phos infusions Maintain urinary lopez catheter additional 24-48 hours (pelvic dissection) Add Compazine prn nausea (interactions with Reglan per pharmacist) ambulate with assistance 2-3xdaily as tolerated Rodrigo Messer MD Apr 19, 2020 11:34
[2020-04-19 12:00] VITALS: BP 123/65
[2020-04-19] MEDS: cefTRIAXone 2 GM in D5W 55 ML IVPB SCH (13:33)
[2020-04-19] MEDS: Cyclobenzaprine 10mg Tab ORAL PRN ×2 (13:42→21:44)
[2020-04-19] MEDS: Micafungin 100 MG in NS 110 ML IVPB SCH (15:50)
[2020-04-19 16:00] VITALS: BP 107/70
[2020-04-19] MEDS: 1/2NS w/KCl 20mEq 1000ml 1,000 ML IV SCH ×2 (16:06→20:26)
--- NOTE | 2020-04-19 18:25 | General Progress Note ---
Subjective Allergies: Coded Allergies: CODEINE (Verified Allergy, Unknown, 04/04/20) MORPHINE (Verified Allergy, Unknown, 04/04/20) All Systems: reviewed and negative except above Subjective events noted NPO on TPN glucose values are higher despite adding Levemir Item Value Date Time Bedside Blood Glucose 268 mg/dl H 04/19/20 1207 Bedside Blood Glucose 276 mg/dl H 04/19/20 1027 Bedside Blood Glucose 226 mg/dl H 04/19/20 0614 Bedside Blood Glucose 210 mg/dl H 04/18/20 2348 Objective Last 24 Hour Vital Signs Date Time Temp Pulse Resp B/P (MAP) Pulse Ox O2 Delivery O2 Flow Rate FiO2 04/19/20 12:00 98.1 78 18 123/65 (84) 99 04/19/20 10:23 91 114/67 04/19/20 10:07 97.6 91 18 114/67 (83) 95 04/19/20 09:00 Nasal Cannula 3.0 04/19/20 08:47 95 Nasal Cannula 21 04/19/20 04:00 72 18 95 04/19/20 04:00 98.1 72 18 95/50 (65) 95 04/19/20 00:00 97.9 78 18 113/61 (78) 94 04/19/20 00:00 78 18 94 04/18/20 21:00 Nasal Cannula 3.0 04/18/20 20:00 97.8 77 18 129/69 (89) 94 04/18/20 20:00 77 18 94 04/18/20 19:43 96 Nasal Cannula 1.0 24 Intake and Output 04/18/20 04/19/20 19:00 07:00 Output Total 1310 ml 2570 ml Balance -1310 ml -2570 ml Output Urine Total 1300 ml 2450 ml Other 10 ml 120 ml # Voids 3 Laboratory Tests 04/18/20 23:45: POC Whole Blood Glucose 210H 04/19/20 05:10: White Blood Count 7.7, Red Blood Count 3.96L, Hemoglobin 10.9L, Hematocrit 34.7L , Mean Corpuscular Volume 88, Mean Corpuscular Hemoglobin 27.5, Mean Corpuscular Hemoglobin Concent 31.3L, Red Cell Distribution Width 14.5, Platelet Count 285, Mean Platelet Volume 8.1, Neutrophils (%) (Auto) 57.8, Lymphocytes (%) (Auto) 29.7, Monocytes (%) (Auto) 9.8, Eosinophils (%) (Auto) 1.8, Basophils (%) (Auto) 0.9, Sodium Level 140, Potassium Level 4.5, Chloride Level 105, Carbon Dioxide Level 28, Anion Gap 7, Blood Urea Nitrogen 18, Creatinine 1.2, Estimat Glomerular Filtration Rate > 60, Glucose Level 248H, Calcium Level 8.8, Phosph orus Level 2.8, Magnesium Level 1.6L, Iron Level 26L, Total Iron Binding Ca pacity 232L, Percent Iron Saturation 11L, Unsaturated Iron Binding 206, Total Bilirubin 0.3, Aspartate Amino Transf (AST/SGOT) 30, Alanine Aminotransferase (ALT/SGPT) 72, Alkaline Phosphatase 106, Total Protein 6.2L, Albumin 2.5L, Globulin 3.7, Albumin/Globulin Ratio 0.7L 04/19/20 05:17: POC Whole Blood Glucose 226H 04/19/20 10:22: POC Whole Blood Glucose [Pending] 04/19/20 12:04: POC Whole Blood Glucose [Pending] Height (Feet): 5 Height (Inches): 4.00 Weight (Pounds): 176 General Appearance: no apparent distress Neck: normal alignment Cardiovascular: normal rate Respiratory/Chest: lungs clear Abdomen: hypoactive bowel sounds Pelvis: normal external exam Objective Current Medications Medications (Trade) Dose Ordered Sig/Lea Route PRN Reason Start Time Stop Time Status Last Admin Dose Admin Acetaminophen (Tylenol) 650 mg Q4H PRN ORAL Mild Pain 04/05/20 09:30 05/05/20 09:29 Acetaminophen (Tylenol) 650 mg Q4H PRN ORAL temp 100.2 or above 04/17/20 14:45 05/17/20 14:44 Al Hydroxide/Mg Hydroxide (Mylanta) 30 ml Q2HR PRN ORAL GI 04/15/20 21:45 05/15/20 21:44 Allopurinol (Zyloprim) 100 mg DAILY ORAL 04/05/20 09:00 05/05/20 08:59 04/19/20 10:23 Amlodipine Besylate (Norvasc) 5 mg DAILY ORAL 04/05/20 09:00 05/05/20 08:59 04/19/20 10:23 Ceftriaxone Sodium 2 gm/ Dextrose 55 ml @ 110 mls/hr Q24H IVPB 04/19/20 11:00 04/26/20 10:59 04/19/20 13:33 Chlorhexidine Gluconate (Re-Hex 2%) 1 applic DAILY@2000 TOPIC 04/05/20 20:00 07/04/20 19:59 04/18/20 19:58 Cyclobenzaprine HCl (Flexeril) 10 mg EVERY 8 HOURS PRN ORAL For Pain 04/19/20 11:30 04/26/20 11:29 04/19/20 13:42 Dextrose 1,000 ml @ 85 mls/hr Q24H PRN IV PN interrupted or unavailable 04/05/20 21:00 05/05/20 20:59 04/09/20 01:58 Dextrose (Dextrose 50%) 25 ml Q30M PRN IV Hypoglycemia 04/09/20 06:45 07/08/20 06:44 Dextrose (Dextrose 50%) 50 ml Q30M PRN IV Hypoglycemia 04/09/20 06:45 07/08/20 06:44 Diphenhydramine HCl (Benadryl) 50 mg Q4H PRN IVP Itching/Pruritis 04/19/20 09:00 04/22/20 08:59 Fat Emulsion Intravenous 240 ml/Amino Acids/ Electrolytes/ Dextrose 2,040 ml @ 85 mls/hr Q24H IV 04/19/20 20:00 05/19/20 19:59 Fat Emulsion Intravenous 240 ml/Amino Acids/ Electrolytes/ Dextrose 2,040 ml @ 85 mls/hr Q24H IV 04/16/20 20:00 04/19/20 19:59 04/18/20 19:58 Hydromorphone HCl 30 ml @ 0 mls/hr Q24H PRN IV For Pain 04/19/20 09:00 04/22/20 08:59 04/19/20 15:59 Insulin Aspart (NovoLOG) Q6HR SUBQ 04/06/20 00:00 07/05/20 00:00 04/19/20 12:07 Insulin Detemir (Levemir) 18 units BID SUBQ 04/19/20 09:00 07/17/20 08:59 04/19/20 10:27 Iron Sucrose 200 mg/Sodium Chloride 120 ml @ 240 mls/hr QHS IVPB 04/19/20 21:00 04/23/20 21:29 Ketorolac Tromethamine (Toradol 30mg) 15 mg Q6H PRN IV Severe Breakthru Pain (>7) 04/17/20 16:45 04/22/20 16:44 04/19/20 02:30 Lorazepam (Ativan) 1 mg HSPRN PRN SL Sleep 04/17/20 14:30 04/24/20 14:29 Lorazepam (Ativan) 1 mg Q4H PRN SL Muscle Spasm 04/17/20 14:30 04/24/20 14:29 Metronidazole 100 ml @ 100 mls/hr Q8HR IVPB 04/17/20 14:00 04/24/20 11:39 04/19/20 14:27 Micafungin Sodium 100 mg/Sodium Chloride 110 ml @ 110 mls/hr Q24H IVPB 04/16/20 16:00 04/23/20 15:59 04/19/20 15:50 Miscellaneous Medication (PLASTIC DOLLS MOLD FILLER Rate Change) 1 ea DAILY PRN MISC rate change 04/19/20 09:00 04/22/20 08:59 Miscellaneous Medication (PLASTIC DOLLS MOLD FILLER shift volume) 1 ea Q12HR@0700,1900 MISC 04/19/20 19:00 04/22/20 18:59 Naloxone HCl (Narcan) 0.1 mg Q1M PRN IVP RR<10/min OR SBP<90 mmHg 04/19/20 09:00 04/22/20 08:59 Ondansetron HCl (Zofran) 4 mg Q4H PRN IVP Nausea & Vomiting 04/17/20 14:30 05/17/20 14:29 04/18/20 14:49 Pantoprazole (Protonix) 40 mg DAILY IVP 04/16/20 09:00 05/16/20 08:59 04/19/20 10:23 Phytonadione (Vitamin K) 10 mg ONCE A WEEK SUBQ 04/12/20 09:00 07/11/20 08:59 04/19/20 10:24 Potassium Phosphate 250 ml @ 62.5 mls/hr ONCE IVPB 04/19/20 17:00 04/19/20 19:00 04/19/20 18:16 Prochlorperazine (Compazine) 10 mg Q6H PRN IVP Nausea & Vomiting 04/19/20 11:30 05/19/20 11:29 Quetiapine Fumarate (SEROqueL) 400 mg BEDTIME ORAL 04/12/20 21:00 05/20/20 20:59 04/18/20 21:47 Silver Nitrate (Silver Nitrate Applicators) 6 applic DAILYPRN PRN TOPIC abdominal wound application 04/10/20 09:00 07/09/20 08:59 Sodium 1,000 ml @ 75 mls/hr [id number] IV 04/05/20 20:00 05/05/20 19:59 04/19/20 16:06 Assessment/Plan Problem List: (1) Diabetes mellitus ICD Codes: E11.9 - Type 2 diabetes mellitus without complications SNOMED: 23225528 (2) Post-operative complication ICD Codes: T81.9XXA - Unspecified complication of procedure, initial encounter SNOMED: 992592931 (3) Weaver Pouch fistula Assessment/Plan: increase Levemir to 18 units bid increase R insulin of TPN to 36 untits / bag add Novolog 6 units every 4 hours - hold if glucose < 110 mg/dL change Novolog sliding scale every 6 hours to every 4 hours hypoglycemia protocol in order Justyn Michaels MD Apr 19, 2020 18:25
[2020-04-19 20:00] VITALS: BP 134/75
[2020-04-19] MEDS ORDERED: Fat Emulsion Iv 20% 240 ML in Tpn 1,800 ML IV SCH (20:00)
[2020-04-19] MEDS: Dyna-Hex 2% Top Sol 2oz TOPIC SCH (20:24)
[2020-04-19] MEDS: Venofer 200mg in NS 110ml IVPB SCH (21:59)
[2020-04-20] VITALS: BP 134/69
[2020-04-20] MEDS: NovoLOG Insulin Flexpen SUBQ SCH ×12 (00:18→20:32)
[2020-04-20 04:00] VITALS: BP 124/65
[2020-04-20 06:19] LABS: BASOPHILS % (AUTO) 1.7 % (0.0-2.0); EOSINOPHILS % (AUTO) 5.3 % (0.0-3.0); HEMATOCRIT 34.1 % (42.0-52.0); HEMOGLOBIN 10.6 G/DL (14.2-18.0); MEAN CORPUSCULAR VOLUME 87 FL (80-99); MONOCYTES % (AUTO) 10.4 % (1.0-10.0); NEUTROPHILS % (AUTO) 46.5 % (45.0-75.0); PLATELET COUNT 260 K/UL (150-450); RED BLOOD COUNT 3.91 M/UL (4.70-6.10); RED CELL DISTRIBUTION WIDTH 14.7 % (11.6-14.8); WHITE BLOOD COUNT 5.5 K/UL (4.8-10.8)
[2020-04-20 06:39] LABS: ALANINE AMINOTRANSFERASE 61 U/L (12-78); ALBUMIN 2.4 G/DL (3.4-5.0); ALBUMIN/GLOBULIN RATIO 0.6 (1.0-2.7); ALKALINE PHOSPHATASE 108 U/L (46-116); ANION GAP 9 mmol/L (5-15); ASPARTATE AMINO TRANSFERASE 27 U/L (15-37); BILIRUBIN,TOTAL 0.3 MG/DL (0.2-1.0); BLOOD UREA NITROGEN 13 mg/dL (7-18); CALCIUM 8.6 MG/DL (8.5-10.1); CARBON DIOXIDE 27 MMOL/L (21-32); CHLORIDE 104 MMOL/L (98-107); CREATININE 1.1 MG/DL (0.55-1.30); PHOSPHORUS 3.5 MG/DL (2.5-4.9); POTASSIUM 3.8 MMOL/L (3.5-5.1); SODIUM 140 MMOL/L (136-145)
--- NOTE | 2020-04-20 07:34 | General Progress Note ---
Subjective Allergies: Coded Allergies: CODEINE (Verified Allergy, Unknown, 04/04/20) MORPHINE (Verified Allergy, Unknown, 04/04/20) All Systems: reviewed and negative except above Subjective events noted NPO on TPN glucose values improved after yesterday's adjustment Item Value Date Time Bedside Blood Glucose 146 mg/dl H 04/20/20 0504 Bedside Blood Glucose 125 mg/dl H 04/20/20 0019 Bedside Blood Glucose 217 mg/dl H 04/19/20 2100 Bedside Blood Glucose 219 mg/dl H 04/19/20 1843 Bedside Blood Glucose 268 mg/dl H 04/19/20 1207 Bedside Blood Glucose 276 mg/dl H 04/19/20 1027 Bedside Blood Glucose 226 mg/dl H 04/19/20 0614 Bedside Blood Glucose 210 mg/dl H 04/18/20 2348 Objective Last 24 Hour Vital Signs Date Time Temp Pulse Resp B/P (MAP) Pulse Ox O2 Delivery O2 Flow Rate FiO2 04/20/20 04:00 85 16 93 04/20/20 04:00 98.4 85 16 124/65 (84) 93 04/20/20 00:00 80 18 94 04/20/20 00:00 98.0 83 18 134/69 (90) 93 04/19/20 21:00 Room Air 04/19/20 20:00 98.6 80 18 134/75 (94) 94 04/19/20 20:00 80 18 94 04/19/20 19:23 96 Room Air 21 04/19/20 16:00 98.4 99 18 107/70 (82) 98 04/19/20 16:00 99 18 98 04/19/20 12:00 98.1 78 18 123/65 (84) 99 04/19/20 12:00 79 18 99 04/19/20 10:23 91 114/67 04/19/20 10:07 97.6 91 18 114/67 (83) 95 04/19/20 09:00 Nasal Cannula 3.0 04/19/20 08:47 95 Nasal Cannula 21 Intake and Output 04/19/20 04/20/20 19:00 07:00 Intake Total 2090 ml Output Total 1300 ml 2770 ml Balance 790 ml -2770 ml IV Total 2090 ml Output Urine Total 1300 ml 2650 ml Other 120 ml Laboratory Tests 04/19/20 10:22: POC Whole Blood Glucose [Pending] 04/19/20 12:04: POC Whole Blood Glucose [Pending] 04/19/20 18:30: POC Whole Blood Glucose [Pending] 04/19/20 20:22: POC Whole Blood Glucose 217H 04/20/20 00:10: POC Whole Blood Glucose 125H 04/20/20 04:14: POC Whole Blood Glucose 146H 04/20/20 05:15: White Blood Count 5.5, Red Blood Count 3.91L, Hemoglobin 10.6L, Hematocrit 34.1L , Mean Corpuscular Volume 87, Mean Corpuscular Hemoglobin 27.0, Mean Corpuscular Hemoglobin Concent 31.0L, Red Cell Distribution Width 14.7, Platelet Count 260, Mean Platelet Volume 8.0, Neutrophils (%) (Auto) 46.5, Lymphocytes (%) (Auto) 36.0, Monocytes (%) (Auto) 10.4H, Eosinophils (%) (Auto) 5.3H, Basophils (%) (Auto) 1.7, Sodium Level 140, Potassium Level 3.8, Chloride Level 104, Carbon Dioxide Level 27, Anion Gap 9, Blood Urea Nitrogen 13, Creatinine 1.1, Estimat Glomerular Filtration Rate > 60, Glucose Level 180H, Calcium Level 8.6, Phosphorus Level 3.5, Magnesium Level 1.6L, Total Bilirubin 0.3, Aspartate Amino Transf (AST/SGOT) 27, Alanine Aminotransferase (ALT/SGPT) 61, Alkaline Phosphatase 108, Total Protein 6.1L, Albumin 2.4L, Globulin 3.7, Albumin/Globulin Ratio 0.6L, Vitamin B12 Level 1170H Height (Feet): 5 Height (Inches): 4.00 Weight (Pounds): 176 General Appearance: no apparent distress Neck: normal alignment Cardiovascular: normal rate Respiratory/Chest: lungs clear Abdomen: hypoactive bowel sounds Objective Current Medications Medications (Trade) Dose Ordered Sig/Lea Route PRN Reason Start Time Stop Time Status Last Admin Dose Admin Acetaminophen (Tylenol) 650 mg Q4H PRN ORAL Mild Pain 04/05/20 09:30 05/05/20 09:29 Acetaminophen (Tylenol) 650 mg Q4H PRN ORAL temp 100.2 or above 04/17/20 14:45 05/17/20 14:44 Al Hydroxide/Mg Hydroxide (Mylanta) 30 ml Q2HR PRN ORAL GI 04/15/20 21:45 05/15/20 21:44 Allopurinol (Zyloprim) 100 mg DAILY ORAL 04/05/20 09:00 05/05/20 08:59 04/19/20 10:23 Amlodipine Besylate (Norvasc) 5 mg DAILY ORAL 04/05/20 09:00 05/05/20 08:59 04/19/20 10:23 Ceftriaxone Sodium 2 gm/ Dextrose 55 ml @ 110 mls/hr Q24H IVPB 04/19/20 11:00 04/26/20 10:59 04/19/20 13:33 Chlorhexidine Gluconate (Re-Hex 2%) 1 applic DAILY@2000 TOPIC 04/05/20 20:00 07/04/20 19:59 04/19/20 20:24 Cyclobenzaprine HCl (Flexeril) 10 mg EVERY 8 HOURS PRN ORAL For Pain 04/19/20 11:30 04/26/20 11:29 04/19/20 21:44 Dextrose 1,000 ml @ 85 mls/hr Q24H PRN IV PN interrupted or unavailable 04/05/20 21:00 05/05/20 20:59 04/09/20 01:58 Dextrose (Dextrose 50%) 25 ml Q30M PRN IV Hypoglycemia 04/09/20 06:45 07/08/20 06:44 Dextrose (Dextrose 50%) 50 ml Q30M PRN IV Hypoglycemia 04/09/20 06:45 07/08/20 06:44 Diphenhydramine HCl (Benadryl) 50 mg Q4H PRN IVP Itching/Pruritis 04/19/20 09:00 04/22/20 08:59 Fat Emulsion Intravenous 240 ml/Amino Acids/ Electrolytes/ Dextrose 2,040 ml @ 85 mls/hr Q24H IV 04/19/20 20:00 05/19/20 19:59 04/19/20 20:25 Hydromorphone HCl 30 ml @ 0 mls/hr Q24H PRN IV For Pain 04/19/20 09:00 04/22/20 08:59 04/19/20 15:59 Insulin Aspart (NovoLOG) EVERY 4 HOURS SUBQ 04/19/20 18:30 07/05/20 00:00 04/20/20 05:03 Insulin Aspart (NovoLOG) 6 units EVERY 4 HOURS SUBQ 04/19/20 21:00 07/18/20 20:59 04/20/20 05:04 Insulin Detemir (Levemir) 18 units BID SUBQ 04/19/20 09:00 07/17/20 08:59 04/19/20 18:33 Iron Sucrose 200 mg/Sodium Chloride 120 ml @ 240 mls/hr QHS IVPB 04/19/20 21:00 04/23/20 21:29 04/19/20 21:59 Ketorolac Tromethamine (Toradol 30mg) 15 mg Q6H PRN IV Severe Breakthru Pain (>7) 04/17/20 16:45 04/22/20 16:44 04/19/20 02:30 Lorazepam (Ativan) 1 mg HSPRN PRN SL Sleep 04/17/20 14:30 04/24/20 14:29 Lorazepam (Ativan) 1 mg Q4H PRN SL Muscle Spasm 04/17/20 14:30 04/24/20 14:29 Metronidazole 100 ml @ 100 mls/hr Q8HR IVPB 04/17/20 14:00 04/24/20 11:39 04/20/20 05:02 Micafungin Sodium 100 mg/Sodium Chloride 110 ml @ 110 mls/hr Q24H IVPB 04/16/20 16:00 04/23/20 15:59 04/19/20 15:50 Miscellaneous Medication (INSURANCE SALES MANAGER Rate Change) 1 ea DAILY PRN MISC rate change 04/19/20 09:00 04/22/20 08:59 Miscellaneous Medication (INSURANCE SALES MANAGER shift volume) 1 ea Q12HR@0700,1900 MISC 04/19/20 19:00 04/22/20 18:59 04/19/20 19:22 Naloxone HCl (Narcan) 0.1 mg Q1M PRN IVP RR<10/min OR SBP<90 mmHg 04/19/20 09:00 04/22/20 08:59 Ondansetron HCl (Zofran) 4 mg Q4H PRN IVP Nausea & Vomiting 04/17/20 14:30 05/17/20 14:29 04/18/20 14:49 Pantoprazole (Protonix) 40 mg DAILY IVP 04/16/20 09:00 05/16/20 08:59 04/19/20 10:23 Phytonadione (Vitamin K) 10 mg ONCE A WEEK SUBQ 04/12/20 09:00 07/11/20 08:59 04/19/20 10:24 Prochlorperazine (Compazine) 10 mg Q6H PRN IVP Nausea & Vomiting 04/19/20 11:30 05/19/20 11:29 Quetiapine Fumarate (SEROqueL) 400 mg BEDTIME ORAL 04/12/20 21:00 05/20/20 20:59 04/19/20 20:24 Silver Nitrate (Silver Nitrate Applicators) 6 applic DAILYPRN PRN TOPIC abdominal wound application 04/10/20 09:00 07/09/20 08:59 Sodium 1,000 ml @ 75 mls/hr [id number] IV 04/05/20 20:00 05/05/20 19:59 04/19/20 16:06 Assessment/Plan Problem List: (1) Diabetes mellitus ICD Codes: E11.9 - Type 2 diabetes mellitus without complications SNOMED: 75735912 (2) Post-operative complication ICD Codes: T81.9XXA - Unspecified complication of procedure, initial encounter SNOMED: 571220056 (3) Weaver Pouch fistula Assessment/Plan: continue Levemir 18 units bid continue R insulin of TPN at 36 untits / bag continue Novolog 6 units every 4 hours - hold if glucose < 110 mg/dL continue Novolog sliding scale every 4 hours hypoglycemia protocol in order Justyn Michaels MD Apr 20, 2020 07:34
[2020-04-20] MEDS: PCA shift volume MISC SCH ×2 (07:35→19:18)
[2020-04-20 08:00] VITALS: BP 116/66
[2020-04-20] MEDS: Cyclobenzaprine 10mg Tab ORAL PRN ×2 (08:17→21:56)
[2020-04-20] MEDS ORDERED: Naloxone 0.4mg/ml Inj IVP PRN (08:48)
[2020-04-20] MEDS: Allopurinol 100mg Tab ORAL SCH (08:50)
[2020-04-20] MEDS: Pantoprazole Inj IVP SCH (08:51)
[2020-04-20] MEDS ORDERED: PCA HYDROmorphone 1mg/ml 30 ML IV PRN ×2 (09:00→09:15)
[2020-04-20] MEDS ORDERED: DiphenhydrAMINE 50mg/ml Inj IVP PRN (09:00)
[2020-04-20] MEDS ORDERED: Rate Change PCA 1 Each MISC PRN (09:00)
--- NOTE | 2020-04-20 09:06 | General Progress Note ---
Progress Note Progress Note AVSS Ambulates in hallways - back pain better with Flexeril po. Not needing Toradol only dilaudid LABEL MAKER Abdomen still mildly distended and tympanitic, incision clean Urine 3900 BCIR ileo 190 Hgb 10.6 stable BUN 13 Cr 1.1 Mg 1.6 Albumin 2.4 Imp: Ileus Persistent low Mg Plan; Mg infusions today, increase MG in TPN Continue NPO, TPN, Weaver pouch catheter to med intermittent suction, Venofer, antibiotics and urinary Leon f/u labs in AM d/c continuous basal infusion of LABEL MAKER - only demand dosing Rodrigo Messer MD Apr 20, 2020 09:05
[2020-04-20] MEDS: Levemir Flexpen SUBQ SCH ×2 (09:10→18:13)
[2020-04-20] MEDS: 1/2NS w/KCl 20mEq 1000ml 1,000 ML IV SCH ×2 (10:40→21:56)
[2020-04-20] MEDS ORDERED: Ketorolac 30mg Inj IV PRN (10:45)
[2020-04-20] MEDS: cefTRIAXone 2 GM in D5W 55 ML IVPB SCH (11:31)
[2020-04-20] MEDS: LORazepam 1mg tab SL PRN (11:48)
[2020-04-20 12:00] VITALS: BP 134/74
[2020-04-20 16:00] VITALS: BP 131/76
[2020-04-20] MEDS: Micafungin 100 MG in NS 110 ML IVPB SCH (16:08)
--- NOTE | 2020-04-20 17:37 | Infectious Diseases Prog Note ---
Assessment/Plan Assessment/Plan ASSESSMENT AND PLAN: 1. enterocutaneous fistula, abdominal wall soft tissue edema and inflammation on CT scan ? abdominal wall cellulitis/soft tissue infection, ? infected fistula site/wound infection wound/drainage culture with klebsiella - sensitive to cephalosporins, carbapenems and levofloxacin, R-zosyn mild leukocytosis post-op resolved mild thrush seen - on micafungin - ceftriaxone and flagyl - plan on 2-3 days more treatment, d/w Dr. Messer - antifungal coverage - micafungin (cannot use diflucan because of drug interactions) - s/p fistula repair - 04/17/20 - monitor labs - continue management per Dr. Messer 2. Patient has enterocutaneous fistula. Patient is status post pouch endoscopy. Management per Dr. Messer. 3. Patient has history of diabetes. Continue blood sugar treatment per Endocrine. 4. Hypertension. Continue blood pressure treatment primary care team and Endocrine. 5. Blood sugar and blood pressure control for hypertension and diabetes. 6. Patient has a history of Weaver continent ileostomy. 7. 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 8. History of multiple abdominal surgeries including proctocolectomy and cholecystectomy and Weaver ileostomy. 9. Allergies to codeine, morphine. 10. Social history is negative 11. Family history is noncontributory. 12. MAR is noted. 13. Case discussed with RN. 14. Continue treatment per Dr. Messer and consultants. 15. Orders were noted and entered. Subjective Constitutional: Reports: fatigue; Denies: fever HEENT: Denies: congestion Respiratory: Denies: shortness of breath Cardiovascular: Denies: chest pain Gastrointestinal/Abdominal: Denies: nausea, vomiting Neurologic: Denies: headache Psychiatric: Denies: depression Skin: Denies: rash Hematologic: Denies: bleeding Musculoskeletal: Reports: pain - back, abdominal Allergies: Coded Allergies: CODEINE (Verified Allergy, Unknown, 04/04/20) MORPHINE (Verified Allergy, Unknown, 04/04/20) Objective Last 24 Hour Vital Signs Date Time Temp Pulse Resp B/P (MAP) Pulse Ox O2 Delivery O2 Flow Rate FiO2 04/20/20 16:00 98.0 89 19 131/76 (94) 97 04/20/20 12:26 93 20 125/78 93 04/20/20 12:00 98.2 93 20 134/74 (94) 93 04/20/20 12:00 93 04/20/20 11:48 93 20 134/79 93 04/20/20 09:00 Room Air 04/20/20 08:51 81 116/66 04/20/20 08:36 95 Room Air 21 04/20/20 08:00 98.2 81 19 116/66 (83) 92 04/20/20 08:00 16 95 04/20/20 04:00 85 16 93 04/20/20 04:00 98.4 85 16 124/65 (84) 93 04/20/20 00:00 80 18 94 04/20/20 00:00 98.0 83 18 134/69 (90) 93 04/19/20 21:00 Room Air 04/19/20 20:00 98.6 80 18 134/75 (94) 94 04/19/20 20:00 80 18 94 04/19/20 19:23 96 Room Air 21 Height (Feet): 5 Height (Inches): 4.00 Weight (Pounds): 176 General Appearance: no acute distress HEENT: normocephalic, atraumatic, anicteric, mucous membranes moist, thrush Respiratory/Chest: lungs clear, normal breath sounds, no respiratory distress, no accessory muscle use Cardiovascular: normal rate, regular rhythm, no gallop/murmur, no JVD Abdomen: normal bowel sounds, soft, non tender, no organomegaly, non distended, other - some pain, no rebound, Genitourinary: other - + lopez Extremities: no cyanosis Skin: no rash Neurologic/Psychiatric: drapery examiner II-XII grossly normal, alert Lymphatic: no neck adenopathy Musculoskeletal: no effusion CT abdomen and pelvis: IMPRESSION: Soft tissue edema, inflammation and foci of air in the abdominal wall. No discrete drainable collection. Chest x-ray - FINDINGS: A single one view chest is obtained. Vascularity is normal. The lung corbett are clear bilaterally. Cardiac and mediastinal silhouette are within normal limits. CP angles are sharp. The bony thorax appear unremarkable. IMPRESSION: NO ACUTE CARDIOPULMONARY DISEASE. Laboratory Tests Test 04/19/20 18:30 04/19/20 20:22 04/20/20 00:10 04/20/20 04:14 POC Whole Blood Glucose Pending 217 MG/DL (74-106) H 125 MG/DL (74-106) H 146 MG/DL (74-106) H Test 04/20/20 05:15 04/20/20 08:21 04/20/20 11:43 04/20/20 16:17 White Blood Count 5.5 K/UL (4.8-10.8) Red Blood Count 3.91 M/UL (4.70-6.10) L Hemoglobin 10.6 G/DL (14.2-18.0) L Hematocrit 34.1 % (42.0-52.0) L Mean Corpuscular Volume 87 FL (80-99) Mean Corpuscular Hemoglobin 27.0 PG (27.0-31.0) Mean Corpuscular Hemoglobin Concent 31.0 G/DL (32.0-36.0) L Red Cell Distribution Width 14.7 % (11.6-14.8) Platelet Count 260 K/UL (150-450) Mean Platelet Volume 8.0 FL (6.5-10.1) Neutrophils (%) (Auto) 46.5 % (45.0-75.0) Lymphocytes (%) (Auto) 36.0 % (20.0-45.0) Monocytes (%) (Auto) 10.4 % (1.0-10.0) H Eosinophils (%) (Auto) 5.3 % (0.0-3.0) H Basophils (%) (Auto) 1.7 % (0.0-2.0) Sodium Level 140 MMOL/L (136-145) Potassium Level 3.8 MMOL/L (3.5-5.1) Chloride Level 104 MMOL/L (98-107) Carbon Dioxide Level 27 MMOL/L (21-32) Anion Gap 9 mmol/L (5-15) Blood Urea Nitrogen 13 mg/dL (7-18) Creatinine 1.1 MG/DL (0.55-1.30) Estimat Glomerular Filtration Rate > 60 mL/min (>60) Glucose Level 180 MG/DL (74-106) H Calcium Level 8.6 MG/DL (8.5-10.1) Phosphorus Level 3.5 MG/DL (2.5-4.9) Magnesium Level 1.6 MG/DL (1.8-2.4) L Total Bilirubin 0.3 MG/DL (0.2-1.0) Aspartate Amino Transf (AST/SGOT) 27 U/L (15-37) Alanine Aminotransferase (ALT/SGPT) 61 U/L (12-78) Alkaline Phosphatase 108 U/L (46-116) Total Protein 6.1 G/DL (6.4-8.2) L Albumin 2.4 G/DL (3.4-5.0) L Globulin 3.7 g/dL Albumin/Globulin Ratio 0.6 (1.0-2.7) L Vitamin B12 Level 1170 PG/ML (193-986) H POC Whole Blood Glucose 148 MG/DL (74-106) H 176 MG/DL (74-106) H Pending Current Medications Medications (Trade) Dose Ordered Sig/Lea Route PRN Reason Start Time Stop Time Status Last Admin Dose Admin Acetaminophen (Tylenol) 650 mg Q4H PRN ORAL Mild Pain 04/05/20 09:30 05/05/20 09:29 Acetaminophen (Tylenol) 650 mg Q4H PRN ORAL temp 100.2 or above 04/17/20 14:45 05/17/20 14:44 Al Hydroxide/Mg Hydroxide (Mylanta) 30 ml Q2HR PRN ORAL GI 04/15/20 21:45 05/15/20 21:44 Allopurinol (Zyloprim) 100 mg DAILY ORAL 04/05/20 09:00 05/05/20 08:59 04/20/20 08:50 Amlodipine Besylate (Norvasc) 5 mg DAILY ORAL 04/05/20 09:00 05/05/20 08:59 04/20/20 08:51 Ceftriaxone Sodium 2 gm/ Dextrose 55 ml @ 110 mls/hr Q24H IVPB 04/19/20 11:00 04/26/20 10:59 04/20/20 11:31 Chlorhexidine Gluconate (Re-Hex 2%) 1 applic DAILY@2000 TOPIC 04/05/20 20:00 07/04/20 19:59 04/19/20 20:24 Cyclobenzaprine HCl (Flexeril) 10 mg EVERY 8 HOURS PRN ORAL For Pain 04/19/20 11:30 04/26/20 11:29 04/20/20 08:17 Dextrose 1,000 ml @ 85 mls/hr Q24H PRN IV PN interrupted or unavailable 04/05/20 21:00 05/05/20 20:59 04/09/20 01:58 Dextrose (Dextrose 50%) 25 ml Q30M PRN IV Hypoglycemia 04/09/20 06:45 07/08/20 06:44 Dextrose (Dextrose 50%) 50 ml Q30M PRN IV Hypoglycemia 04/09/20 06:45 07/08/20 06:44 Diphenhydramine HCl (Benadryl) 50 mg Q4H PRN IVP Itching/Pruritis 04/20/20 09:00 04/23/20 08:59 Fat Emulsion Intravenous 240 ml/Amino Acids/ Electrolytes/ Dextrose 2,040 ml @ 85 mls/hr Q24H IV 04/19/20 20:00 04/20/20 19:59 04/19/20 20:25 Fat Emulsion Intravenous 240 ml/Amino Acids/ Electrolytes/ Dextrose 2,040 ml @ 85 mls/hr Q24H IV 04/20/20 20:00 05/20/20 19:59 Hydromorphone HCl 30 ml @ 0 mls/hr Q24H PRN IV For Pain 04/20/20 09:15 04/23/20 08:59 Insulin Aspart (NovoLOG) EVERY 4 HOURS SUBQ 04/19/20 18:30 07/05/20 00:00 04/20/20 13:16 Insulin Aspart (NovoLOG) 6 units EVERY 4 HOURS SUBQ 04/19/20 21:00 07/18/20 20:59 04/20/20 13:16 Insulin Detemir (Levemir) 18 units BID SUBQ 04/19/20 09:00 07/17/20 08:59 04/20/20 09:10 Iron Sucrose 200 mg/Sodium Chloride 120 ml @ 240 mls/hr QHS IVPB 04/19/20 21:00 04/23/20 21:29 04/19/20 21:59 Ketorolac Tromethamine (Toradol 30mg) 15 mg Q6H PRN IV Severe Breakthru Pain (>7) 04/20/20 10:45 04/25/20 10:44 Lorazepam (Ativan) 1 mg HSPRN PRN SL Sleep 04/17/20 14:30 04/24/20 14:29 Lorazepam (Ativan) 1 mg Q4H PRN SL Muscle Spasm 04/17/20 14:30 04/24/20 14:29 04/20/20 11:48 Metronidazole 100 ml @ 100 mls/hr Q8HR IVPB 04/17/20 14:00 04/24/20 11:39 04/20/20 14:21 Micafungin Sodium 100 mg/Sodium Chloride 110 ml @ 110 mls/hr Q24H IVPB 04/16/20 16:00 04/23/20 15:59 04/20/20 16:08 Miscellaneous Medication (ATHLETE MANAGER Rate Change) 1 ea DAILY PRN MISC rate change 04/20/20 09:00 04/23/20 08:59 Miscellaneous Medication (ATHLETE MANAGER shift volume) 1 ea Q12HR@0700,1900 MISC 04/20/20 19:00 04/23/20 18:59 Naloxone HCl (Narcan) 0.1 mg Q1M PRN IVP RR<10/min OR SBP<90 mmHg 04/20/20 08:48 04/23/20 08:46 Ondansetron HCl (Zofran) 4 mg Q4H PRN IVP Nausea & Vomiting 04/17/20 14:30 05/17/20 14:29 04/18/20 14:49 Pantoprazole (Protonix) 40 mg DAILY IVP 04/16/20 09:00 05/16/20 08:59 04/20/20 08:51 Phytonadione (Vitamin K) 10 mg ONCE A WEEK SUBQ 04/12/20 09:00 07/11/20 08:59 04/19/20 10:24 Prochlorperazine (Compazine) 10 mg Q6H PRN IVP Nausea & Vomiting 04/19/20 11:30 05/19/20 11:29 Quetiapine Fumarate (SEROqueL) 400 mg BEDTIME ORAL 04/12/20 21:00 05/20/20 20:59 04/19/20 20:24 Silver Nitrate (Silver Nitrate Applicators) 6 applic DAILYPRN PRN TOPIC abdominal wound application 04/10/20 09:00 07/09/20 08:59 Sodium 1,000 ml @ 75 mls/hr [id number] IV 04/05/20 20:00 05/05/20 19:59 04/19/20 16:06 Wilman Rosas MD Apr 20, 2020 17:37
[2020-04-20 20:00] VITALS: BP 137/72
[2020-04-20] MEDS: Fat Emulsion Iv 20% 240 ML in Tpn 1,800 ML IV SCH (20:05)
[2020-04-20] MEDS: Dyna-Hex 2% Top Sol 2oz TOPIC SCH (20:06)
[2020-04-20] MEDS: Venofer 200mg in NS 110ml IVPB SCH (20:06)
[2020-04-21] VITALS: BP 122/58
[2020-04-21] MEDS: NovoLOG Insulin Flexpen SUBQ SCH ×12 (00:12→20:20)
[2020-04-21 04:00] VITALS: BP 126/61
[2020-04-21 06:34] LABS: BASOPHILS % (AUTO) 1.6 % (0.0-2.0); HEMATOCRIT 34.6 % (42.0-52.0); LYMPHOCYTES % (AUTO) 31.2 % (20.0-45.0); MEAN CORPUSCULAR VOLUME 87 FL (80-99); MONOCYTES % (AUTO) 10.4 % (1.0-10.0); NEUTROPHILS % (AUTO) 48.9 % (45.0-75.0); PLATELET COUNT 291 K/UL (150-450); RED CELL DISTRIBUTION WIDTH 14.6 % (11.6-14.8); WHITE BLOOD COUNT 5.9 K/UL (4.8-10.8)
[2020-04-21 06:54] LABS: ALANINE AMINOTRANSFERASE 55 U/L (12-78); ALBUMIN 2.4 G/DL (3.4-5.0); ALBUMIN/GLOBULIN RATIO 0.6 (1.0-2.7); ALKALINE PHOSPHATASE 113 U/L (46-116); ANION GAP 9 mmol/L (5-15); ASPARTATE AMINO TRANSFERASE 31 U/L (15-37); BILIRUBIN,TOTAL 0.3 MG/DL (0.2-1.0); BLOOD UREA NITROGEN 13 mg/dL (7-18); CALCIUM 8.7 MG/DL (8.5-10.1); CARBON DIOXIDE 26 MMOL/L (21-32); CHLORIDE 104 MMOL/L (98-107); CREATININE 1.1 MG/DL (0.55-1.30); PHOSPHORUS 3.9 MG/DL (2.5-4.9); POTASSIUM 3.8 MMOL/L (3.5-5.1); SODIUM 139 MMOL/L (136-145)
--- NOTE | 2020-04-21 07:17 | General Progress Note ---
Subjective Allergies: Coded Allergies: CODEINE (Verified Allergy, Unknown, 04/04/20) MORPHINE (Verified Allergy, Unknown, 04/04/20) All Systems: reviewed and negative except above Subjective events noted NPO on TPN glucose values are controlled Item Value Date Time Bedside Blood Glucose 107 mg/dl 04/21/20 0500 Bedside Blood Glucose 144 mg/dl H 04/21/20 0013 Bedside Blood Glucose 133 mg/dl H 04/20/20 2032 Bedside Blood Glucose 218 mg/dl H 04/20/20 1813 Bedside Blood Glucose 176 mg/dl H 04/20/20 1316 Bedside Blood Glucose 148 mg/dl H 04/20/20 0913 Bedside Blood Glucose 146 mg/dl H 04/20/20 0504 Bedside Blood Glucose 125 mg/dl H 04/20/20 0019 Objective Last 24 Hour Vital Signs Date Time Temp Pulse Resp B/P (MAP) Pulse Ox O2 Delivery O2 Flow Rate FiO2 04/21/20 04:00 77 16 94 04/21/20 04:00 98.1 77 16 126/61 (82) 94 04/21/20 00:00 98.1 86 17 122/58 (79) 94 04/21/20 00:00 86 17 94 04/20/20 21:00 Room Air 04/20/20 20:00 82 17 95 04/20/20 20:00 98.3 82 17 137/72 (93) 95 04/20/20 16:00 98.0 89 19 131/76 (94) 97 04/20/20 16:00 97 04/20/20 12:26 93 20 125/78 93 04/20/20 12:00 98.2 93 20 134/74 (94) 93 04/20/20 12:00 93 04/20/20 11:48 93 20 134/79 93 04/20/20 09:00 Room Air 04/20/20 08:51 81 116/66 04/20/20 08:36 95 Room Air 21 04/20/20 08:00 98.2 81 19 116/66 (83) 92 04/20/20 08:00 16 95 Intake and Output 04/20/20 04/21/20 19:00 07:00 Output Total 2060 ml 1950 ml Balance -2060 ml -1950 ml Output Urine Total 1950 ml 1950 ml Other 110 ml Laboratory Tests 04/20/20 08:21: POC Whole Blood Glucose 148H 04/20/20 11:43: POC Whole Blood Glucose 176H 04/20/20 16:17: POC Whole Blood Glucose [Pending] 04/20/20 20:23: POC Whole Blood Glucose 133H 04/21/20 00:11: POC Whole Blood Glucose 144H 04/21/20 04:19: POC Whole Blood Glucose 107H 04/21/20 05:35: White Blood Count 5.9, Red Blood Count 4.00L, Hemoglobin 11.0L, Hematocrit 34.6L , Mean Corpuscular Volume 87, Mean Corpuscular Hemoglobin 27.5, Mean Corpuscular Hemoglobin Concent 31.8L, Red Cell Distribution Width 14.6, Platelet Count 291, Mean Platelet Volume 8.3, Neutrophils (%) (Auto) 48.9, Lymphocytes (%) (Auto) 31.2, Monocytes (%) (Auto) 10.4H, Eosinophils (%) (Auto) 8.0H, Basophils (%) (Auto) 1.6, Sodium Level 139, Potassium Level 3.8, Chloride Level 104, Carbon Dioxide Level 26, Anion Gap 9, Blood Urea Nitrogen 13, Creatinine 1.1, Estimat Glomerular Filtration Rate > 60, Glucose Level 158H, Calcium Level 8.7, Phosphorus Level 3.9, Magnesium Level 1.7L, Total Bilirubin 0.3, Aspartate Amino Transf (AST/SGOT) 31, Alanine Aminotransferase (ALT/SGPT) 55, Alkaline Phosphatase 113, Total Protein 6.2L, Albumin 2.4L, Globulin 3.8, Albumin/Globulin Ratio 0.6L Height (Feet): 5 Height (Inches): 4.00 Weight (Pounds): 176 General Appearance: no apparent distress Neck: normal alignment Cardiovascular: normal rate Respiratory/Chest: lungs clear Abdomen: normal bowel sounds Pelvis: normal external exam Objective Current Medications Medications (Trade) Dose Ordered Sig/Lea Route PRN Reason Start Time Stop Time Status Last Admin Dose Admin Acetaminophen (Tylenol) 650 mg Q4H PRN ORAL Mild Pain 04/05/20 09:30 05/05/20 09:29 Acetaminophen (Tylenol) 650 mg Q4H PRN ORAL temp 100.2 or above 04/17/20 14:45 05/17/20 14:44 Al Hydroxide/Mg Hydroxide (Mylanta) 30 ml Q2HR PRN ORAL GI 04/15/20 21:45 05/15/20 21:44 Allopurinol (Zyloprim) 100 mg DAILY ORAL 04/05/20 09:00 05/05/20 08:59 04/20/20 08:50 Amlodipine Besylate (Norvasc) 5 mg DAILY ORAL 04/05/20 09:00 05/05/20 08:59 04/20/20 08:51 Ceftriaxone Sodium 2 gm/ Dextrose 55 ml @ 110 mls/hr Q24H IVPB 04/19/20 11:00 04/26/20 10:59 04/20/20 11:31 Chlorhexidine Gluconate (Re-Hex 2%) 1 applic DAILY@2000 TOPIC 04/05/20 20:00 07/04/20 19:59 04/20/20 20:06 Cyclobenzaprine HCl (Flexeril) 10 mg EVERY 8 HOURS PRN ORAL For Pain 04/19/20 11:30 04/26/20 11:29 04/20/20 21:56 Dextrose 1,000 ml @ 85 mls/hr Q24H PRN IV PN interrupted or unavailable 04/05/20 21:00 05/05/20 20:59 04/09/20 01:58 Dextrose (Dextrose 50%) 25 ml Q30M PRN IV Hypoglycemia 04/09/20 06:45 07/08/20 06:44 Dextrose (Dextrose 50%) 50 ml Q30M PRN IV Hypoglycemia 04/09/20 06:45 07/08/20 06:44 Diphenhydramine HCl (Benadryl) 50 mg Q4H PRN IVP Itching/Pruritis 04/20/20 09:00 04/23/20 08:59 Fat Emulsion Intravenous 240 ml/Amino Acids/ Electrolytes/ Dextrose 2,040 ml @ 85 mls/hr Q24H IV 04/20/20 20:00 05/20/20 19:59 04/20/20 20:05 Hydromorphone HCl 30 ml @ 0 mls/hr Q24H PRN IV For Pain 04/20/20 09:15 04/23/20 08:59 Insulin Aspart (NovoLOG) EVERY 4 HOURS SUBQ 04/19/20 18:30 07/05/20 00:00 04/21/20 00:12 Insulin Aspart (NovoLOG) 6 units EVERY 4 HOURS SUBQ 04/19/20 21:00 07/18/20 20:59 04/21/20 00:13 Insulin Detemir (Levemir) 18 units BID SUBQ 04/19/20 09:00 07/17/20 08:59 04/20/20 18:13 Iron Sucrose 200 mg/Sodium Chloride 120 ml @ 240 mls/hr QHS IVPB 04/19/20 21:00 04/23/20 21:29 04/20/20 20:06 Ketorolac Tromethamine (Toradol 30mg) 15 mg Q6H PRN IV Severe Breakthru Pain (>7) 04/20/20 10:45 04/25/20 10:44 Lorazepam (Ativan) 1 mg HSPRN PRN SL Sleep 04/17/20 14:30 04/24/20 14:29 Lorazepam (Ativan) 1 mg Q4H PRN SL Muscle Spasm 04/17/20 14:30 04/24/20 14:29 04/20/20 11:48 Metronidazole 100 ml @ 100 mls/hr Q8HR IVPB 04/17/20 14:00 04/24/20 11:39 04/21/20 05:20 Micafungin Sodium 100 mg/Sodium Chloride 110 ml @ 110 mls/hr Q24H IVPB 04/16/20 16:00 04/23/20 15:59 04/20/20 16:08 Miscellaneous Medication (ROUGH ROUNDER Rate Change) 1 ea DAILY PRN MISC rate change 04/20/20 09:00 04/23/20 08:59 Miscellaneous Medication (ROUGH ROUNDER shift volume) 1 ea Q12HR@0700,1900 MISC 04/20/20 19:00 04/23/20 18:59 04/20/20 19:18 Naloxone HCl (Narcan) 0.1 mg Q1M PRN IVP RR<10/min OR SBP<90 mmHg 04/20/20 08:48 04/23/20 08:46 Ondansetron HCl (Zofran) 4 mg Q4H PRN IVP Nausea & Vomiting 04/17/20 14:30 05/17/20 14:29 04/18/20 14:49 Pantoprazole (Protonix) 40 mg DAILY IVP 04/16/20 09:00 05/16/20 08:59 04/20/20 08:51 Phytonadione (Vitamin K) 10 mg ONCE A WEEK SUBQ 04/12/20 09:00 07/11/20 08:59 04/19/20 10:24 Prochlorperazine (Compazine) 10 mg Q6H PRN IVP Nausea & Vomiting 04/19/20 11:30 05/19/20 11:29 Quetiapine Fumarate (SEROqueL) 400 mg BEDTIME ORAL 04/12/20 21:00 05/20/20 20:59 04/20/20 20:06 Silver Nitrate (Silver Nitrate Applicators) 6 applic DAILYPRN PRN TOPIC abdominal wound application 04/10/20 09:00 07/09/20 08:59 Sodium 1,000 ml @ 75 mls/hr [id number] IV 04/05/20 20:00 05/05/20 19:59 04/20/20 21:56 Assessment/Plan Problem List: (1) Diabetes mellitus ICD Codes: E11.9 - Type 2 diabetes mellitus without complications SNOMED: 51219720 (2) Post-operative complication ICD Codes: T81.9XXA - Unspecified complication of procedure, initial encounter SNOMED: 969871087 (3) Weaver Pouch fistula Assessment/Plan: continue Levemir 18 units bid continue R insulin of TPN at 36 untits / bag continue Novolog 6 units every 4 hours - hold if glucose < 110 mg/dL continue Novolog sliding scale every 4 hours hypoglycemia protocol in order Justyn Michaels MD Apr 21, 2020 07:16
[2020-04-21] MEDS: PCA shift volume MISC SCH ×2 (07:22→19:18)
[2020-04-21 08:00] VITALS: BP 133/71
[2020-04-21] MEDS: Pantoprazole Inj IVP SCH (09:26)
[2020-04-21] MEDS: Allopurinol 100mg Tab ORAL SCH (09:26)
[2020-04-21] MEDS: Levemir Flexpen SUBQ SCH ×2 (09:30→17:05)
--- NOTE | 2020-04-21 09:38 | General Progress Note ---
Progress Note Progress Note AVSS Still with intermittent back pain/spasms - improved with ambulation and sitting and Flexeril and heating pad. No abnormality on exam. Tolerated no basal infusion of SECURITIES ADVISER Abdomen still mildly distended, incision clean, stoma stable Urine 3900 BCIR ileo 100 Hgb up 11 BUN 13 Cr 1.1 Mg 1.7 Albumin 2.4 Imp: Persistent ileus Plan: continue npo, TPN, Venofer, antibiotics, Leon additional 24 hours Mg increased in TPN - will give additional infusion today Rodrigo Messer MD Apr 21, 2020 09:38
[2020-04-21] MEDS: Cyclobenzaprine 10mg Tab ORAL PRN (10:27)
[2020-04-21] MEDS: cefTRIAXone 2 GM in D5W 55 ML IVPB SCH (11:55)
[2020-04-21 12:00] VITALS: BP 117/76
[2020-04-21] MEDS: Micafungin 100 MG in NS 110 ML IVPB SCH (15:57)
[2020-04-21 16:00] VITALS: BP 139/77
[2020-04-21] MEDS: LORazepam 1mg tab SL PRN (17:08)
[2020-04-21] MEDS: 1/2NS w/KCl 20mEq 1000ml 1,000 ML IV SCH ×2 (18:27→18:28)
[2020-04-21] MEDS: Dyna-Hex 2% Top Sol 2oz TOPIC SCH (19:51)
[2020-04-21] MEDS: Fat Emulsion Iv 20% 240 ML in Tpn 1,800 ML IV SCH (19:53)
[2020-04-21 20:00] VITALS: BP 136/80
[2020-04-21] MEDS: Venofer 200mg in NS 110ml IVPB SCH (20:08)
[2020-04-22] VITALS: BP 120/72
[2020-04-22] MEDS: NovoLOG Insulin Flexpen SUBQ SCH ×12 (00:10→20:18)
[2020-04-22 04:00] VITALS: BP 120/74
[2020-04-22 06:35] LABS: BASOPHILS % (AUTO) 1.5 % (0.0-2.0); EOSINOPHILS % (AUTO) 9.1 % (0.0-3.0); HEMATOCRIT 36.3 % (42.0-52.0); HEMOGLOBIN 11.5 G/DL (14.2-18.0); LYMPHOCYTES % (AUTO) 30.1 % (20.0-45.0); MEAN CORPUSCULAR VOLUME 87 FL (80-99); MONOCYTES % (AUTO) 9.7 % (1.0-10.0); NEUTROPHILS % (AUTO) 49.6 % (45.0-75.0); PLATELET COUNT 303 K/UL (150-450); RED BLOOD COUNT 4.19 M/UL (4.70-6.10); RED CELL DISTRIBUTION WIDTH 14.8 % (11.6-14.8); WHITE BLOOD COUNT 6.5 K/UL (4.8-10.8)
--- NOTE | 2020-04-22 06:43 | General Progress Note ---
Subjective Allergies: Coded Allergies: CODEINE (Verified Allergy, Unknown, 04/04/20) MORPHINE (Verified Allergy, Unknown, 04/04/20) All Systems: reviewed and negative except above Subjective events noted NPO x ice chips and meds on TPN glucose values are in fair control Item Value Date Time Bedside Blood Glucose 181 mg/dl H 04/22/20 0416 Bedside Blood Glucose 165 mg/dl H 04/22/20 0011 Bedside Blood Glucose 159 mg/dl H 04/21/202019 Bedside Blood Glucose 142 mg/dl H 04/21/20 1706 Bedside Blood Glucose 191 mg/dl H 04/21/20 1311 Bedside Blood Glucose 189 mg/dl H 04/21/20 0934 Bedside Blood Glucose 107 mg/dl 04/21/20 0500 Objective Last 24 Hour Vital Signs Date Time Temp Pulse Resp B/P (MAP) Pulse Ox O2 Delivery O2 Flow Rate FiO2 04/22/20 04:00 98.8 86 16 120/74 (89) 95 04/22/20 04:00 86 16 95 04/22/20 00:00 90 16 94 04/22/20 00:00 97.9 90 16 120/72 (88) 94 04/21/20 21:00 Room Air 04/21/20 20:00 97.9 86 16 136/80 (98) 94 04/21/20 20:00 86 16 94 04/21/20 17:38 77 18 135/75 96 04/21/20 17:08 79 21 139/77 95 04/21/20 16:00 98.3 79 21 139/77 (97) 95 04/21/20 16:00 79 18 99 04/21/20 12:00 97.9 87 17 117/76 (90) 96 04/21/20 12:00 86 17 97 04/21/20 09:27 80 133/71 04/21/20 09:00 Room Air 04/21/20 08:00 98.4 80 16 133/71 (91) 94 04/21/20 08:00 80 16 94 Intake and Output 04/21/20 04/22/20 19:00 07:00 Intake Total 1775 ml Output Total 2565 ml 1395 ml Balance -790 ml -1395 ml IV Total 1775 ml Output Urine Total 2175 ml 1350 ml Other 390 ml 45 ml Laboratory Tests 04/21/20 08:25: POC Whole Blood Glucose 189H 04/21/20 12:19: POC Whole Blood Glucose 191H 04/21/20 16:34: POC Whole Blood Glucose 142H 04/21/20 20:15: POC Whole Blood Glucose 159H 04/22/20 00:05: POC Whole Blood Glucose 165H 04/22/20 04:09: POC Whole Blood Glucose 181H 04/22/20 05:20: White Blood Count [Pending], Red Blood Count [Pending], Hemoglobin [Pending], Hematocrit [Pending], Mean Corpuscular Volume [Pending], Mean Corpuscular Hemoglobin [Pending], Mean Corpuscular Hemoglobin Concent [Pending], Red Cell Distribution Width [Pending], Platelet Count [Pending], Mean Platelet Volume [Pending], Neutrophils (%) (Auto) [Pending], Lymphocytes (%) (Auto) [Pending], Monocytes (%) (Auto) [Pending], Eosinophils (%) (Auto) [Pending], Basophils (%) (Auto) [Pending], Sodium Level [Pending], Potassium Level [Pending], Chloride Level [Pending], Carbon Dioxide Level [Pending], Blood Urea Nitrogen [Pending], Creatinine [Pending], Estimat Glomerular Filtration Rate [Pending], Glucose Level [Pending], Calcium Level [Pending], Phosphorus Level [Pending], Magnesium Level [Pending], Total Bilirubin [Pending], Aspartate Amino Transf (AST/SGOT) [Pending], Alanine Aminotransferase (ALT/SGPT) [Pending], Alkaline Phosphatase [Pending], Total Protein [Pending], Albumin [Pending], Globulin [Pending] Height (Feet): 5 Height (Inches): 4.00 Weight (Pounds): 176 General Appearance: no apparent distress Neck: normal alignment Cardiovascular: normal rate Respiratory/Chest: lungs clear Abdomen: normal bowel sounds Objective Current Medications Medications (Trade) Dose Ordered Sig/Lea Route PRN Reason Start Time Stop Time Status Last Admin Dose Admin Acetaminophen (Tylenol) 650 mg Q4H PRN ORAL Mild Pain 04/05/20 09:30 05/05/20 09:29 Acetaminophen (Tylenol) 650 mg Q4H PRN ORAL temp 100.2 or above 04/17/20 14:45 05/17/20 14:44 Al Hydroxide/Mg Hydroxide (Mylanta) 30 ml Q2HR PRN ORAL GI 04/15/20 21:45 05/15/20 21:44 Allopurinol (Zyloprim) 100 mg DAILY ORAL 04/05/20 09:00 05/05/20 08:59 04/21/20 09:26 Amlodipine Besylate (Norvasc) 5 mg DAILY ORAL 04/05/20 09:00 05/05/20 08:59 04/21/20 09:27 Ceftriaxone Sodium 2 gm/ Dextrose 55 ml @ 110 mls/hr Q24H IVPB 04/19/20 11:00 04/26/20 10:59 04/21/20 11:55 Chlorhexidine Gluconate (Re-Hex 2%) 1 applic DAILY@2000 TOPIC 04/05/20 20:00 07/04/20 19:59 04/21/20 19:51 Cyclobenzaprine HCl (Flexeril) 10 mg EVERY 8 HOURS PRN ORAL For Pain 04/19/20 11:30 04/26/20 11:29 04/21/20 10:27 Dextrose 1,000 ml @ 85 mls/hr Q24H PRN IV PN interrupted or unavailable 04/05/20 21:00 05/05/20 20:59 04/09/20 01:58 Dextrose (Dextrose 50%) 25 ml Q30M PRN IV Hypoglycemia 04/09/20 06:45 07/08/20 06:44 Dextrose (Dextrose 50%) 50 ml Q30M PRN IV Hypoglycemia 04/09/20 06:45 07/08/20 06:44 Diphenhydramine HCl (Benadryl) 50 mg Q4H PRN IVP Itching/Pruritis 04/20/20 09:00 04/23/20 08:59 Fat Emulsion Intravenous 240 ml/Amino Acids/ Electrolytes/ Dextrose 2,040 ml @ 85 mls/hr Q24H IV 04/20/20 20:00 05/20/20 19:59 04/21/20 19:53 Hydromorphone HCl 30 ml @ 0 mls/hr Q24H PRN IV For Pain 04/20/20 09:15 04/23/20 08:59 04/21/20 22:18 Insulin Aspart (NovoLOG) EVERY 4 HOURS SUBQ 04/19/20 18:30 07/05/20 00:00 04/22/20 04:16 Insulin Aspart (NovoLOG) 6 units EVERY 4 HOURS SUBQ 04/19/20 21:00 07/18/20 20:59 04/22/20 04:16 Insulin Detemir (Levemir) 18 units BID SUBQ 04/19/20 09:00 07/17/20 08:59 04/21/20 17:05 Iron Sucrose 200 mg/Sodium Chloride 120 ml @ 240 mls/hr QHS IVPB 04/19/20 21:00 04/23/20 21:29 04/21/20 20:08 Ketorolac Tromethamine (Toradol 30mg) 15 mg Q6H PRN IV Severe Breakthru Pain (>7) 04/20/20 10:45 04/25/20 10:44 Lorazepam (Ativan) 1 mg HSPRN PRN SL Sleep 04/17/20 14:30 04/24/20 14:29 Lorazepam (Ativan) 1 mg Q4H PRN SL Muscle Spasm 04/17/20 14:30 04/24/20 14:29 04/21/20 17:08 Metronidazole 100 ml @ 100 mls/hr Q8HR IVPB 04/17/20 14:00 04/24/20 11:39 04/22/20 05:07 Micafungin Sodium 100 mg/Sodium Chloride 110 ml @ 110 mls/hr Q24H IVPB 04/16/20 16:00 04/23/20 15:59 04/21/20 15:57 Miscellaneous Medication (AUTO PARKER Rate Change) 1 ea DAILY PRN MISC rate change 04/20/20 09:00 04/23/20 08:59 Miscellaneous Medication (AUTO PARKER shift volume) 1 ea Q12HR@0700,1900 MISC 04/20/20 19:00 04/23/20 18:59 04/21/20 19:18 Naloxone HCl (Narcan) 0.1 mg Q1M PRN IVP RR<10/min OR SBP<90 mmHg 04/20/20 08:48 04/23/20 08:46 Ondansetron HCl (Zofran) 4 mg Q4H PRN IVP Nausea & Vomiting 04/17/20 14:30 05/17/20 14:29 04/18/20 14:49 Pantoprazole (Protonix) 40 mg DAILY IVP 04/16/20 09:00 05/16/20 08:59 04/21/20 09:26 Phytonadione (Vitamin K) 10 mg ONCE A WEEK SUBQ 04/12/20 09:00 07/11/20 08:59 04/19/20 10:24 Prochlorperazine (Compazine) 10 mg Q6H PRN IVP Nausea & Vomiting 04/19/20 11:30 05/19/20 11:29 Quetiapine Fumarate (SEROqueL) 400 mg BEDTIME ORAL 04/12/20 21:00 05/20/20 20:59 04/21/20 20:07 Silver Nitrate (Silver Nitrate Applicators) 6 applic DAILYPRN PRN TOPIC abdominal wound application 04/10/20 09:00 07/09/20 08:59 Sodium 1,000 ml @ 25 mls/hr Q24H IV 04/05/20 20:00 05/05/20 19:59 04/21/20 18:28 Assessment/Plan Problem List: (1) Diabetes mellitus ICD Codes: E11.9 - Type 2 diabetes mellitus without complications SNOMED: 80953112 (2) Post-operative complication ICD Codes: T81.9XXA - Unspecified complication of procedure, initial encounter SNOMED: 924517933 (3) Weaver Pouch fistula Assessment/Plan: continue Levemir 18 units bid continue R insulin of TPN at 36 untits / bag continue Novolog 6 units every 4 hours - hold if glucose < 110 mg/dL continue Novolog sliding scale every 4 hours will adjust insulin regimen once diet is advanced hypoglycemia protocol in order Justyn Michaels MD Apr 22, 2020 06:43
[2020-04-22 06:59] LABS: ALANINE AMINOTRANSFERASE 47 U/L (12-78); ALBUMIN 2.4 G/DL (3.4-5.0); ALBUMIN/GLOBULIN RATIO 0.6 (1.0-2.7); ALKALINE PHOSPHATASE 114 U/L (46-116); ANION GAP 9 mmol/L (5-15); ASPARTATE AMINO TRANSFERASE 23 U/L (15-37); BILIRUBIN,TOTAL 0.3 MG/DL (0.2-1.0); BLOOD UREA NITROGEN 14 mg/dL (7-18); CALCIUM 8.8 MG/DL (8.5-10.1); CARBON DIOXIDE 26 MMOL/L (21-32); CHLORIDE 102 MMOL/L (98-107); CREATININE 1.2 MG/DL (0.55-1.30); PHOSPHORUS 3.3 MG/DL (2.5-4.9); POTASSIUM 3.9 MMOL/L (3.5-5.1); SODIUM 137 MMOL/L (136-145)
[2020-04-22] MEDS: PCA shift volume MISC SCH ×2 (07:25→19:14)
[2020-04-22 08:00] VITALS: BP 133/89
[2020-04-22] MEDS: Cyclobenzaprine 10mg Tab ORAL PRN (08:32)
[2020-04-22] MEDS: Allopurinol 100mg Tab ORAL SCH (08:36)
[2020-04-22] MEDS: Pantoprazole Inj IVP SCH (08:36)
[2020-04-22] MEDS ORDERED: Rate Change PCA 1 Each MISC PRN (08:45)
[2020-04-22] MEDS ORDERED: Naloxone 0.4mg/ml Inj IVP PRN (08:45)
[2020-04-22] MEDS ORDERED: LORazepam 1mg tab SL PRN ×2 (08:45→10:30)
[2020-04-22] MEDS ORDERED: DiphenhydrAMINE 50mg/ml Inj IVP PRN (09:00)
--- NOTE | 2020-04-22 09:01 | General Progress Note ---
Progress Note Progress Note AVSS Feeling a bit better each day now POD#5. Back pain persists but better with ambulation and sitting. Uses dilaudid senior quality engineer intermittently Abdomen remains mildly distended and tympanitic,. Incision healing nicely Urine 3525 BCIR ileo 435 Hbg up 11.5 (getting Venofer IV) Mg 1.6 despite increased Mg in TPN albumin 2.4 Imp: Persistent ileus, slowly resolving Plan: STAT KUB - if dilated small bowel loops continue NPO Mg infusions Remove urinary Leon catheter now continue TPN, Weaver Pouch catheter to med intermittent suction Antibiotics discussed with Rodrigo Noel MD Apr 22, 2020 09:01
[2020-04-22] MEDS: Levemir Flexpen SUBQ SCH ×2 (09:03→17:09)
[2020-04-22] MEDS ORDERED: PCA HYDROmorphone 1mg/ml 30 ML IV PRN (09:15)
[2020-04-22] MEDS: cefTRIAXone 2 GM in D5W 55 ML IVPB SCH (10:41)
[2020-04-22 12:00] VITALS: BP 122/79
--- NOTE | 2020-04-22 14:48 | Diagnostic Imaging Report ---
Indication: Reason For Exam: ABD DIST Technique: Supine view of the abdomen Comparison: 04/08/2020 Findings: There is evidence of recent midline incision with skin sena. A few small bowel loops on the left are mildly dilated. Small bowel loops on the right are prominent, gas-filled, but not frankly dilated. Again demonstrated are surgical staple lines indicating continent ileostomy. No masses or unusual calcifications. There are cholecystectomy clips Impression: Mildly dilated small bowel loops. Given evidence of recent surgery, most likely on the basis of postoperative ileus. Small bowel obstruction also possible and correlation with clinical findings and follow-up radiographs as indicated is recommended
[2020-04-22 16:00] VITALS: BP 135/82
[2020-04-22] MEDS: Micafungin 100 MG in NS 110 ML IVPB SCH (16:47)
[2020-04-22] MEDS: 1/2NS w/KCl 20mEq 1000ml 1,000 ML IV SCH (18:17)
--- NOTE | 2020-04-22 19:24 | Infectious Diseases Prog Note ---
Assessment/Plan Assessment/Plan ASSESSMENT AND PLAN: 1. enterocutaneous fistula, abdominal wall soft tissue edema and inflammation on CT scan ? abdominal wall cellulitis/soft tissue infection, ? infected fistula site/wound infection wound/drainage culture with klebsiella - sensitive to cephalosporins, carbapenems and levofloxacin, R-zosyn mild leukocytosis post-op resolved mild thrush seen - on micafungin ileus vs bowel obstruction - w/u per Dr. Messer - ceftriaxone and flagyl - day # 5 post-op - antifungal coverage - micafungin (cannot use diflucan because of drug interactions) - s/p fistula repair - 04/17/20 - monitor labs - continue management per Dr. Messer 2. Patient has enterocutaneous fistula. Patient is status post pouch endoscopy. Management per Dr. Messer. 3. Patient has history of diabetes. Continue blood sugar treatment per Endocrine. 4. Hypertension. Continue blood pressure treatment primary care team and Endocrine. 5. Blood sugar and blood pressure control for hypertension and diabetes. 6. Patient has a history of Weaver continent ileostomy. 7. 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 8. History of multiple abdominal surgeries including proctocolectomy and cholecystectomy and Weaver ileostomy. 9. Allergies to codeine, morphine. 10. Social history is negative 11. Family history is noncontributory. 12. MAR is noted. 13. Case discussed with RN. 14. Continue treatment per Dr. Messer and consultants. 15. Orders were noted and entered. Subjective Constitutional: Denies: fever HEENT: Denies: congestion Respiratory: Denies: shortness of breath Cardiovascular: Denies: chest pain Gastrointestinal/Abdominal: Denies: nausea, vomiting Genitourinary: Denies: dysuria, hematuria Neurologic: Denies: headache Psychiatric: Denies: depression Skin: Denies: rash Hematologic: Denies: bleeding Musculoskeletal: Denies: pain Allergies: Coded Allergies: CODEINE (Verified Allergy, Unknown, 04/04/20) MORPHINE (Verified Allergy, Unknown, 04/04/20) Objective Last 24 Hour Vital Signs Date Time Temp Pulse Resp B/P (MAP) Pulse Ox O2 Delivery O2 Flow Rate FiO2 04/22/20 16:00 98.3 92 20 135/82 (99) 98 04/22/20 12:00 98.2 101 20 122/79 (93) 96 04/22/20 09:00 Room Air 04/22/20 08:36 86 125/74 04/22/20 08:00 97.9 117 20 133/89 (104) 95 04/22/20 04:00 98.8 86 16 120/74 (89) 95 04/22/20 04:00 86 16 95 04/22/20 00:00 90 16 94 04/22/20 00:00 97.9 90 16 120/72 (88) 94 04/21/20 21:00 Room Air 04/21/20 20:00 97.9 86 16 136/80 (98) 94 04/21/20 20:00 86 16 94 Height (Feet): 5 Height (Inches): 4.00 Weight (Pounds): 176 General Appearance: no acute distress HEENT: normocephalic, atraumatic Respiratory/Chest: lungs clear, normal breath sounds, no respiratory distress, no accessory muscle use Cardiovascular: normal rate, regular rhythm, no gallop/murmur, no JVD Abdomen: normal bowel sounds, soft, non tender, no organomegaly, non distended Genitourinary: other - no lopez Extremities: no cyanosis Skin: no rash Neurologic/Psychiatric: equip maint eng II-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 No discrete drainable collection. Chest x-ray - FINDINGS: A single one view chest is obtained. Vascularity is normal. The lung corbett are clear bilaterally. Cardiac and mediastinal silhouette are within normal limits. CP angles are sharp. The bony thorax appear unremarkable. IMPRESSION: NO ACUTE CARDIOPULMONARY DISEASE. KUB - 04/22/20 - Impression: Mildly dilated small bowel loops. Given evidence of recent surgery, most likely on the basis of postoperative ileus. Small bowel obstruction also possible and correlation with clinical findings and follow-up radiographs as indicated is recommended Microbiology Date/Time Source Procedure Growth Status 04/11/20 17:10 Other(Specify in comment) Gram Stain - Final Complete 04/11/20 17:10 Wound Culture - Final Klebsiella Pneumoniae Complete 04/04/20 13:45 Nasopharynx SARS-CoV-2 Antigen (Rapid)(NALINI) - Final Complete Laboratory Tests Test 04/21/20 20:15 04/22/20 00:05 04/22/20 04:09 04/22/20 05:20 POC Whole Blood Glucose 159 MG/DL (74-106) H 165 MG/DL (74-106) H 181 MG/DL (74-106) H White Blood Count 6.5 K/UL (4.8-10.8) Red Blood Count 4.19 M/UL (4.70-6.10) L Hemoglobin 11.5 G/DL (14.2-18.0) L Hematocrit 36.3 % (42.0-52.0) L Mean Corpuscular Volume 87 FL (80-99) Mean Corpuscular Hemoglobin 27.5 PG (27.0-31.0) Mean Corpuscular Hemoglobin Concent 31.7 G/DL (32.0-36.0) L Red Cell Distribution Width 14.8 % (11.6-14.8) Platelet Count 303 K/UL (150-450) Mean Platelet Volume 7.9 FL (6.5-10.1) Neutrophils (%) (Auto) 49.6 % (45.0-75.0) Lymphocytes (%) (Auto) 30.1 % (20.0-45.0) Monocytes (%) (Auto) 9.7 % (1.0-10.0) Eosinophils (%) (Auto) 9.1 % (0.0-3.0) H Basophils (%) (Auto) 1.5 % (0.0-2.0) Sodium Level 137 MMOL/L (136-145) Potassium Level 3.9 MMOL/L (3.5-5.1) Chloride Level 102 MMOL/L (98-107) Carbon Dioxide Level 26 MMOL/L (21-32) Anion Gap 9 mmol/L (5-15) Blood Urea Nitrogen 14 mg/dL (7-18) Creatinine 1.2 MG/DL (0.55-1.30) Estimat Glomerular Filtration Rate > 60 mL/min (>60) Glucose Level 182 MG/DL (74-106) H Calcium Level 8.8 MG/DL (8.5-10.1) Phosphorus Level 3.3 MG/DL (2.5-4.9) Magnesium Level 1.6 MG/DL (1.8-2.4) L Total Bilirubin 0.3 MG/DL (0.2-1.0) Aspartate Amino Transf (AST/SGOT) 23 U/L (15-37) Alanine Aminotransferase (ALT/SGPT) 47 U/L (12-78) Alkaline Phosphatase 114 U/L (46-116) Total Protein 6.4 G/DL (6.4-8.2) Albumin 2.4 G/DL (3.4-5.0) L Globulin 4.0 g/dL Albumin/Globulin Ratio 0.6 (1.0-2.7) L Test 04/22/20 08:43 04/22/20 13:04 04/22/20 16:56 POC Whole Blood Glucose 184 MG/DL (74-106) H 214 MG/DL (74-106) H 238 MG/DL (74-106) H Current Medications Medications (Trade) Dose Ordered Sig/Lea Route PRN Reason Start Time Stop Time Status Last Admin Dose Admin Acetaminophen (Tylenol) 650 mg Q4H PRN ORAL Mild Pain 04/05/20 09:30 05/05/20 09:29 Acetaminophen (Tylenol) 650 mg Q4H PRN ORAL temp 100.2 or above 04/17/20 14:45 05/17/20 14:44 Al Hydroxide/Mg Hydroxide (Mylanta) 30 ml Q2HR PRN ORAL GI 04/15/20 21:45 05/15/20 21:44 Allopurinol (Zyloprim) 100 mg DAILY ORAL 04/05/20 09:00 05/05/20 08:59 04/22/20 08:36 Amlodipine Besylate (Norvasc) 5 mg DAILY ORAL 04/05/20 09:00 05/05/20 08:59 04/22/20 08:36 Ceftriaxone Sodium 2 gm/ Dextrose 55 ml @ 110 mls/hr Q24H IVPB 04/19/20 11:00 04/26/20 10:59 04/22/20 10:41 Chlorhexidine Gluconate (Re-Hex 2%) 1 applic DAILY@2000 TOPIC 04/05/20 20:00 07/04/20 19:59 04/21/20 19:51 Cyclobenzaprine HCl (Flexeril) 10 mg EVERY 8 HOURS PRN ORAL For Pain 04/19/20 11:30 04/26/20 11:29 04/22/20 08:32 Dextrose 1,000 ml @ 85 mls/hr Q24H PRN IV PN interrupted or unavailable 04/05/20 21:00 05/05/20 20:59 04/09/20 01:58 Dextrose (Dextrose 50%) 25 ml Q30M PRN IV Hypoglycemia 04/09/20 06:45 07/08/20 06:44 Dextrose (Dextrose 50%) 50 ml Q30M PRN IV Hypoglycemia 04/09/20 06:45 07/08/20 06:44 Diphenhydramine HCl (Benadryl) 50 mg Q4H PRN IVP Itching/Pruritis 04/22/20 09:00 04/25/20 08:59 Fat Emulsion Intravenous 240 ml/Amino Acids/ Electrolytes/ Dextrose 2,040 ml @ 85 mls/hr Q24H IV 04/20/20 20:00 05/20/20 19:59 04/21/20 19:53 Hydromorphone HCl 30 ml @ 0 mls/hr Q24H PRN IV For Pain 04/22/20 09:15 04/25/20 08:59 Insulin Aspart (NovoLOG) EVERY 4 HOURS SUBQ 04/19/20 18:30 07/05/20 00:00 04/22/20 17:07 Insulin Aspart (NovoLOG) 6 units EVERY 4 HOURS SUBQ 04/19/20 21:00 07/18/20 20:59 04/22/20 17:08 Insulin Detemir (Levemir) 18 units BID SUBQ 04/19/20 09:00 07/17/20 08:59 04/22/20 17:09 Iron Sucrose 200 mg/Sodium Chloride 120 ml @ 240 mls/hr QHS IVPB 04/19/20 21:00 04/23/20 21:29 04/21/20 20:08 Ketorolac Tromethamine (Toradol 30mg) 15 mg Q6H PRN IV Severe Breakthru Pain (>7) 04/20/20 10:45 04/25/20 10:44 Lorazepam (Ativan) 1 mg HSPRN PRN SL Sleep 04/22/20 08:45 04/29/20 08:44 Lorazepam (Ativan) 1 mg Q4H PRN SL Muscle Spasm 04/22/20 10:30 04/29/20 10:29 Metronidazole 100 ml @ 100 mls/hr Q8HR IVPB 04/17/20 14:00 04/24/20 11:39 04/22/20 13:55 Micafungin Sodium 100 mg/Sodium Chloride 110 ml @ 110 mls/hr Q24H IVPB 04/16/20 16:00 04/23/20 15:59 04/22/20 16:47 Miscellaneous Medication (COVER SEAMER Rate Change) 1 ea DAILY PRN MISC rate change 04/22/20 08:45 04/25/20 08:44 Miscellaneous Medication (COVER SEAMER shift volume) 1 ea Q12HR@0700,1900 MISC 04/22/20 19:00 04/25/20 18:59 Naloxone HCl (Narcan) 0.1 mg Q1M PRN IVP RR<10/min OR SBP<90 mmHg 04/22/20 08:45 04/25/20 08:42 Ondansetron HCl (Zofran) 4 mg Q4H PRN IVP Nausea & Vomiting 04/17/20 14:30 05/17/20 14:29 04/18/20 14:49 Pantoprazole (Protonix) 40 mg DAILY IVP 04/16/20 09:00 05/16/20 08:59 04/22/20 08:36 Phytonadione (Vitamin K) 10 mg ONCE A WEEK SUBQ 04/12/20 09:00 07/11/20 08:59 04/19/20 10:24 Prochlorperazine (Compazine) 10 mg Q6H PRN IVP Nausea & Vomiting 04/19/20 11:30 05/19/20 11:29 Quetiapine Fumarate (SEROqueL) 400 mg BEDTIME ORAL 04/12/20 21:00 05/20/20 20:59 04/21/20 20:07 Silver Nitrate (Silver Nitrate Applicators) 6 applic DAILYPRN PRN TOPIC abdominal wound application 04/10/20 09:00 07/09/20 08:59 Sodium 1,000 ml @ 25 mls/hr Q24H IV 04/05/20 20:00 05/05/20 19:59 04/21/20 18:28 Wilman Rosas MD Apr 22, 2020 19:24
[2020-04-22] MEDS: Dyna-Hex 2% Top Sol 2oz TOPIC SCH (19:40)
[2020-04-22] MEDS: Fat Emulsion Iv 20% 240 ML in Tpn 1,800 ML IV SCH (19:53)
[2020-04-22 20:00] VITALS: BP 139/84
[2020-04-22] MEDS: Venofer 200mg in NS 110ml IVPB SCH (21:00)
[2020-04-23] VITALS: BP 122/60
[2020-04-23] MEDS: NovoLOG Insulin Flexpen SUBQ SCH ×12 (00:19→20:51)
[2020-04-23 04:00] VITALS: BP 128/62
--- NOTE | 2020-04-23 06:23 | General Progress Note ---
Subjective Allergies: Coded Allergies: CODEINE (Verified Allergy, Unknown, 04/04/20) MORPHINE (Verified Allergy, Unknown, 04/04/20) Subjective events noted still NPO due to ileus glucose values in fair control he is resting Item Value Date Time Bedside Blood Glucose 165 mg/dl H 04/23/20 0430 Bedside Blood Glucose 164 mg/dl H 04/23/20 0020 Bedside Blood Glucose 213 mg/dl H 04/22/202017 Bedside Blood Glucose 238 mg/dl H 04/22/20 1709 Bedside Blood Glucose 214 mg/dl H 04/22/20 1308 Bedside Blood Glucose 184 mg/dl H 04/22/20 0906 Bedside Blood Glucose 181 mg/dl H 04/22/20 0416 Bedside Blood Glucose 165 mg/dl H 04/22/20 0011 Objective Last 24 Hour Vital Signs Date Time Temp Pulse Resp B/P (MAP) Pulse Ox O2 Delivery O2 Flow Rate FiO2 04/23/20 04:00 97.9 83 17 128/62 (84) 95 04/23/20 04:00 83 17 95 04/23/20 00:00 89 18 95 04/23/20 00:00 98.2 89 18 122/60 (80) 95 04/22/20 21:00 Room Air 04/22/20 20:00 85 18 94 04/22/20 20:00 98.9 85 18 139/84 (102) 94 04/22/20 16:00 98.3 92 20 135/82 (99) 98 04/22/20 12:00 98.2 101 20 122/79 (93) 96 04/22/20 09:00 Room Air 04/22/20 08:36 86 125/74 04/22/20 08:00 97.9 117 20 133/89 (104) 95 Intake and Output 04/22/20 04/23/20 19:00 07:00 Output Total 1340 ml 1320 ml Balance -1340 ml -1320 ml Output Urine Total 1200 ml 1250 ml Other 140 ml 70 ml Laboratory Tests 04/22/20 08:43: POC Whole Blood Glucose 184H 04/22/20 13:04: POC Whole Blood Glucose 214H 04/22/20 16:56: POC Whole Blood Glucose 238H 04/22/20 20:14: POC Whole Blood Glucose 213H 04/23/20 00:16: POC Whole Blood Glucose 164H 04/23/20 04:20: POC Whole Blood Glucose 165H Height (Feet): 5 Height (Inches): 4.00 Weight (Pounds): 176 General Appearance: no apparent distress Neck: normal alignment Cardiovascular: normal rate Respiratory/Chest: lungs clear Abdomen: hypoactive bowel sounds Objective Current Medications Medications (Trade) Dose Ordered Sig/Lea Route PRN Reason Start Time Stop Time Status Last Admin Dose Admin Acetaminophen (Tylenol) 650 mg Q4H PRN ORAL Mild Pain 04/05/20 09:30 05/05/20 09:29 Acetaminophen (Tylenol) 650 mg Q4H PRN ORAL temp 100.2 or above 04/17/20 14:45 05/17/20 14:44 Al Hydroxide/Mg Hydroxide (Mylanta) 30 ml Q2HR PRN ORAL GI 04/15/20 21:45 05/15/20 21:44 Allopurinol (Zyloprim) 100 mg DAILY ORAL 04/05/20 09:00 05/05/20 08:59 04/22/20 08:36 Amlodipine Besylate (Norvasc) 5 mg DAILY ORAL 04/05/20 09:00 05/05/20 08:59 04/22/20 08:36 Ceftriaxone Sodium 2 gm/ Dextrose 55 ml @ 110 mls/hr Q24H IVPB 04/19/20 11:00 04/26/20 10:59 04/22/20 10:41 Chlorhexidine Gluconate (Re-Hex 2%) 1 applic DAILY@2000 TOPIC 04/05/20 20:00 07/04/20 19:59 04/22/20 19:40 Cyclobenzaprine HCl (Flexeril) 10 mg EVERY 8 HOURS PRN ORAL For Pain 04/19/20 11:30 04/26/20 11:29 04/22/20 08:32 Dextrose 1,000 ml @ 85 mls/hr Q24H PRN IV PN interrupted or unavailable 04/05/20 21:00 05/05/20 20:59 04/09/20 01:58 Dextrose (Dextrose 50%) 25 ml Q30M PRN IV Hypoglycemia 04/09/20 06:45 07/08/20 06:44 Dextrose (Dextrose 50%) 50 ml Q30M PRN IV Hypoglycemia 04/09/20 06:45 07/08/20 06:44 Diphenhydramine HCl (Benadryl) 50 mg Q4H PRN IVP Itching/Pruritis 04/22/20 09:00 04/25/20 08:59 Fat Emulsion Intravenous 240 ml/Amino Acids/ Electrolytes/ Dextrose 2,040 ml @ 85 mls/hr Q24H IV 04/20/20 20:00 05/20/20 19:59 04/22/20 19:53 Hydromorphone HCl 30 ml @ 0 mls/hr Q24H PRN IV For Pain 04/22/20 09:15 04/25/20 08:59 Insulin Aspart (NovoLOG) EVERY 4 HOURS SUBQ 04/19/20 18:30 07/05/20 00:00 04/23/20 04:30 Insulin Aspart (NovoLOG) 6 units EVERY 4 HOURS SUBQ 04/19/20 21:00 07/18/20 20:59 04/23/20 04:30 Insulin Detemir (Levemir) 18 units BID SUBQ 04/19/20 09:00 07/17/20 08:59 04/22/20 17:09 Iron Sucrose 200 mg/Sodium Chloride 120 ml @ 240 mls/hr QHS IVPB 04/23/20 21:00 04/24/20 21:29 Ketorolac Tromethamine (Toradol 30mg) 15 mg Q6H PRN IV Severe Breakthru Pain (>7) 04/20/20 10:45 04/25/20 10:44 Lorazepam (Ativan) 1 mg HSPRN PRN SL Sleep 04/22/20 08:45 04/29/20 08:44 Lorazepam (Ativan) 1 mg Q4H PRN SL Muscle Spasm 04/22/20 10:30 04/29/20 10:29 Metronidazole 100 ml @ 100 mls/hr Q8HR IVPB 04/22/20 22:00 04/29/20 19:39 04/23/20 05:52 Micafungin Sodium 100 mg/Sodium Chloride 110 ml @ 110 mls/hr Q24H IVPB 04/23/20 16:00 04/30/20 15:59 Miscellaneous Medication (SALSA DANCE INSTRUCTOR Rate Change) 1 ea DAILY PRN MISC rate change 04/22/20 08:45 04/25/20 08:44 Miscellaneous Medication (SALSA DANCE INSTRUCTOR shift volume) 1 ea Q12HR@0700,1900 MISC 04/22/20 19:00 04/25/20 18:59 04/22/20 19:14 Naloxone HCl (Narcan) 0.1 mg Q1M PRN IVP RR<10/min OR SBP<90 mmHg 04/22/20 08:45 04/25/20 08:42 Ondansetron HCl (Zofran) 4 mg Q4H PRN IVP Nausea & Vomiting 04/17/20 14:30 05/17/20 14:29 04/18/20 14:49 Pantoprazole (Protonix) 40 mg DAILY IVP 04/16/20 09:00 05/16/20 08:59 04/22/20 08:36 Phytonadione (Vitamin K) 10 mg ONCE A WEEK SUBQ 04/12/20 09:00 07/11/20 08:59 04/19/20 10:24 Prochlorperazine (Compazine) 10 mg Q6H PRN IVP Nausea & Vomiting 04/19/20 11:30 05/19/20 11:29 Quetiapine Fumarate (SEROqueL) 400 mg BEDTIME ORAL 04/12/20 21:00 05/20/20 20:59 04/22/20 20:14 Silver Nitrate (Silver Nitrate Applicators) 6 applic DAILYPRN PRN TOPIC abdominal wound application 04/10/20 09:00 07/09/20 08:59 Sodium 1,000 ml @ 25 mls/hr Q24H IV 04/05/20 20:00 05/05/20 19:59 04/21/20 18:28 Assessment/Plan Problem List: (1) Diabetes mellitus ICD Codes: E11.9 - Type 2 diabetes mellitus without complications SNOMED: 79550865 (2) Post-operative complication ICD Codes: T81.9XXA - Unspecified complication of procedure, initial encounter SNOMED: 963485250 (3) Weaver Pouch fistula Assessment/Plan: continue Levemir 18 units bid continue R insulin of TPN at 36 untits / bag continue Novolog 6 units every 4 hours - hold if glucose < 110 mg/dL continue Novolog sliding scale every 4 hours will adjust insulin regimen once diet is advanced hypoglycemia protocol in order Justyn Michaels MD Apr 23, 2020 06:23
[2020-04-23] MEDS: PCA shift volume MISC SCH ×2 (07:00→19:22)
[2020-04-23 08:00] VITALS: BP 126/83
[2020-04-23] MEDS: Cyclobenzaprine 10mg Tab ORAL PRN (09:01)
[2020-04-23] MEDS: Allopurinol 100mg Tab ORAL SCH (09:15)
[2020-04-23] MEDS: Pantoprazole Inj IVP SCH (09:16)
[2020-04-23] MEDS: Levemir Flexpen SUBQ SCH ×2 (09:17→17:28)
[2020-04-23] MEDS ORDERED: Naloxone 0.4mg/ml Inj IVP PRN (09:57)
[2020-04-23] MEDS ORDERED: Rate Change PCA 1 Each MISC PRN (10:00)
[2020-04-23 10:14] LABS: BASOPHILS % (AUTO) 1.2 % (0.0-2.0); EOSINOPHILS % (AUTO) 8.3 % (0.0-3.0); HEMOGLOBIN 11.9 G/DL (14.2-18.0); LYMPHOCYTES % (AUTO) 29.4 % (20.0-45.0); MEAN CORPUSCULAR VOLUME 87 FL (80-99); MONOCYTES % (AUTO) 10.1 % (1.0-10.0); NEUTROPHILS % (AUTO) 51.1 % (45.0-75.0); PLATELET COUNT 292 K/UL (150-450); RED BLOOD COUNT 4.27 M/UL (4.70-6.10); RED CELL DISTRIBUTION WIDTH 14.7 % (11.6-14.8); WHITE BLOOD COUNT 7.2 K/UL (4.8-10.8)
[2020-04-23] MEDS ORDERED: DiphenhydrAMINE 50mg/ml Inj IVP PRN (10:15)
[2020-04-23] MEDS ORDERED: PCA HYDROmorphone 1mg/ml 30 ML IV PRN (10:15)
[2020-04-23 10:42] LABS: ALANINE AMINOTRANSFERASE 47 U/L (12-78); ALBUMIN 2.7 G/DL (3.4-5.0); ALBUMIN/GLOBULIN RATIO 0.6 (1.0-2.7); ALKALINE PHOSPHATASE 122 U/L (46-116); ANION GAP 9 mmol/L (5-15); ASPARTATE AMINO TRANSFERASE 27 U/L (15-37); BILIRUBIN,TOTAL 0.4 MG/DL (0.2-1.0); BLOOD UREA NITROGEN 17 mg/dL (7-18); CARBON DIOXIDE 25 MMOL/L (21-32); CHLORIDE 103 MMOL/L (98-107); CREATININE 1.1 MG/DL (0.55-1.30); PHOSPHORUS 3.2 MG/DL (2.5-4.9); POTASSIUM 3.8 MMOL/L (3.5-5.1); SODIUM 137 MMOL/L (136-145)
[2020-04-23] MEDS ORDERED: Ketorolac 30mg Inj IV PRN (10:45)
--- NOTE | 2020-04-23 11:30 | General Progress Note ---
Progress Note Progress Note AVSS Having some gas pains now. Abdomen slightly less distended, soft, incision clean. KUB XRay yesterday showed dilated loops Urine 2450 voiding well after lopez removed BCIR ileo 210cc Labs all stable with Mg 1.7 and albumin up 2.7 Imp: persistent prolonged ileus Plan: continue npo, TPN, BCIR ileo catheter to med intermittent suction (to gravity drainage bag while ambulating), Venofer (1000mg total to be given) if ileus is not clearly resolving by tomorrow will do CT abd+pelvis with oral and IV contrast Rodrigo Messer MD Apr 23, 2020 11:30
[2020-04-23] MEDS: cefTRIAXone 2 GM in D5W 55 ML IVPB SCH (11:37)
[2020-04-23 12:00] VITALS: BP_SYST 127; BP_DIAS 74; BP_DIAS 80
[2020-04-23] MEDS: Micafungin 100 MG in NS 110 ML IVPB SCH (15:45)
[2020-04-23 16:00] VITALS: BP_SYST 120; BP_DIAS 7; BP_DIAS 77
[2020-04-23] MEDS: 1/2NS w/KCl 20mEq 1000ml 1,000 ML IV SCH (18:50)
[2020-04-23 20:00] VITALS: BP 126/72
[2020-04-23] MEDS: Dyna-Hex 2% Top Sol 2oz TOPIC SCH (20:13)
[2020-04-23] MEDS: Fat Emulsion Iv 20% 240 ML in Tpn 1,800 ML IV SCH (20:14)
[2020-04-23] MEDS: Venofer 200mg in NS 110ml IVPB SCH (20:15)
[2020-04-24] VITALS: BP 110/69
[2020-04-24] MEDS: NovoLOG Insulin Flexpen SUBQ SCH ×12 (00:28→21:01)
[2020-04-24 04:00] VITALS: BP 131/68
[2020-04-24 06:32] LABS: BASOPHILS % (AUTO) 1.3 % (0.0-2.0); EOSINOPHILS % (AUTO) 10.3 % (0.0-3.0); HEMATOCRIT 34.9 % (42.0-52.0); HEMOGLOBIN 11.1 G/DL (14.2-18.0); LYMPHOCYTES % (AUTO) 30.8 % (20.0-45.0); MEAN CORPUSCULAR VOLUME 87 FL (80-99); MONOCYTES % (AUTO) 11.3 % (1.0-10.0); NEUTROPHILS % (AUTO) 46.3 % (45.0-75.0); PLATELET COUNT 287 K/UL (150-450); RED BLOOD COUNT 4.03 M/UL (4.70-6.10); RED CELL DISTRIBUTION WIDTH 14.8 % (11.6-14.8); WHITE BLOOD COUNT 7.2 K/UL (4.8-10.8)
[2020-04-24 06:38] LABS: ALANINE AMINOTRANSFERASE 39 U/L (12-78); ALBUMIN 2.5 G/DL (3.4-5.0); ALBUMIN/GLOBULIN RATIO 0.6 (1.0-2.7); ALKALINE PHOSPHATASE 120 U/L (46-116); ANION GAP 7 mmol/L (5-15); ASPARTATE AMINO TRANSFERASE 28 U/L (15-37); BILIRUBIN,TOTAL 0.3 MG/DL (0.2-1.0); BLOOD UREA NITROGEN 15 mg/dL (7-18); CALCIUM 8.8 MG/DL (8.5-10.1); CARBON DIOXIDE 26 MMOL/L (21-32); CHLORIDE 104 MMOL/L (98-107); CREATININE 1.1 MG/DL (0.55-1.30); PHOSPHORUS 3.9 MG/DL (2.5-4.9); POTASSIUM 4.1 MMOL/L (3.5-5.1); SODIUM 137 MMOL/L (136-145)
--- NOTE | 2020-04-24 06:45 | General Progress Note ---
Subjective Allergies: Coded Allergies: CODEINE (Verified Allergy, Unknown, 04/04/20) MORPHINE (Verified Allergy, Unknown, 04/04/20) All Systems: reviewed and negative except above Subjective events noted still NPO due to ileus glucose values in fair control he is resting Item Value Date Time Bedside Blood Glucose 151 mg/dl H 04/24/20 0540 Bedside Blood Glucose 123 mg/dl H 04/24/20 0030 Bedside Blood Glucose 86 mg/dl 04/23/20 2051 Bedside Blood Glucose 155 mg/dl H 04/23/20 1728 Bedside Blood Glucose 220 mg/dl H 04/23/20 1305 Bedside Blood Glucose 209 mg/dl H 04/23/20 0918 Bedside Blood Glucose 165 mg/dl H 04/23/20 0430 Objective Last 24 Hour Vital Signs Date Time Temp Pulse Resp B/P (MAP) Pulse Ox O2 Delivery O2 Flow Rate FiO2 04/24/20 04:00 98.6 86 18 131/68 (89) 96 04/24/20 04:00 86 18 96 04/24/20 00:00 80 18 96 04/24/20 00:00 98.4 80 18 110/69 (83) 96 04/23/20 21:00 Room Air 04/23/20 20:00 75 18 95 04/23/20 20:00 98.4 75 18 126/72 (90) 95 04/23/20 16:00 98.3 104 17 120/77 (91) 96 04/23/20 16:00 83 17 96 04/23/20 12:00 98.5 79 17 127/74 (91) 95 04/23/20 12:00 83 17 94 04/23/20 09:15 83 126/83 04/23/20 09:00 Room Air 04/23/20 08:00 98.5 110 17 126/83 (97) 95 04/23/20 08:00 83 17 95 Intake and Output 04/23/20 04/24/20 19:00 07:00 Intake Total 295 ml Output Total 1980 ml 1590 ml Balance -1980 ml -1295 ml IV Total 295 ml Output Urine Total 1650 ml 1500 ml Other 330 ml 90 ml Laboratory Tests 04/23/20 09:25: White Blood Count 7.2, Red Blood Count 4.27L, Hemoglobin 11.9L, Hematocrit 37.0L , Mean Corpuscular Volume 87, Mean Corpuscular Hemoglobin 27.8, Mean Corpuscular Hemoglobin Concent 32.1, Red Cell Distribution Width 14.7, Platelet Count 292, Mean Platelet Volume 7.4, Neutrophils (%) (Auto) 51.1, Lymphocytes (%) (Auto) 29.4, Monocytes (%) (Auto) 10.1H, Eosinophils (%) (Auto) 8.3H, Basophils (%) (Auto) 1.2, Sodium Level 137, Potassium Level 3.8, Chloride Level 103, Carbon Dioxide Level 25, Anion Gap 9, Blood Urea Nitrogen 17, Creatinine 1.1, Estimat Glomerular Filtration Rate > 60, Glucose Level 215H, Calcium Level 9.0, Phosphorus Level 3.2, Magnesium Level 1.7L, Total Bilirubin 0.4, Aspartate Amino Transf (AST/SGOT) 27, Alanine Aminotransferase (ALT/SGPT) 47, Alkaline Phosphat ase 122H, Total Protein 7.0, Albumin 2.7L, Globulin 4.3, Albumin/Globulin Ratio 0.6L 04/23/20 20:19: POC Whole Blood Glucose 86 04/24/20 05:25: POC Whole Blood Glucose 151H 04/24/20 05:26: White Blood Count [Pending], Red Blood Count [Pending], Hemoglobin [Pending], Hematocrit [Pending], Mean Corpuscular Volume [Pending], Mean Corpuscular Hemoglobin [Pending], Mean Corpuscular Hemoglobin Concent [Pending], Red Cell Distribution Width [Pending], Platelet Count [Pending], Mean Platelet Volume [Pending], Neutrophils (%) (Auto) [Pending], Lymphocytes (%) (Auto) [Pending], Monocytes (%) (Auto) [Pending], Eosinophils (%) (Auto) [Pending], Basophils (%) (Auto) [Pending], Sodium Level [Pending], Potassium Level [Pending], Chloride Level [Pending], Carbon Dioxide Level [Pending], Blood Urea Nitrogen [Pending], Creatinine [Pending], Estimat Glomerular Filtration Rate [Pending], Glucose Level [Pending], Calcium Level [Pending], Phosphorus Level [Pending], Magnesium Level [Pending], Total Bilirubin [Pending], Aspartate Amino Transf (AST/SGOT) [Pending], Alanine Aminotransferase (ALT/SGPT) [Pending], Alkaline Phosphatase [Pending], Total Protein [Pending], Albumin [Pending], Globulin [Pending] Height (Feet): 5 Height (Inches): 4.00 Weight (Pounds): 176 General Appearance: no apparent distress Neck: normal alignment Cardiovascular: normal rate Respiratory/Chest: lungs clear Abdomen: decreased bowel sounds Pelvis: normal external exam Objective Current Medications Medications (Trade) Dose Ordered Sig/Lea Route PRN Reason Start Time Stop Time Status Last Admin Dose Admin Acetaminophen (Tylenol) 650 mg Q4H PRN ORAL Mild Pain 04/05/20 09:30 05/05/20 09:29 Acetaminophen (Tylenol) 650 mg Q4H PRN ORAL temp 100.2 or above 04/17/20 14:45 05/17/20 14:44 Al Hydroxide/Mg Hydroxide (Mylanta) 30 ml Q2HR PRN ORAL GI 04/15/20 21:45 05/15/20 21:44 Allopurinol (Zyloprim) 100 mg DAILY ORAL 04/05/20 09:00 05/05/20 08:59 04/23/20 09:15 Amlodipine Besylate (Norvasc) 5 mg DAILY ORAL 04/05/20 09:00 05/05/20 08:59 04/23/20 09:15 Ceftriaxone Sodium 2 gm/ Dextrose 55 ml @ 110 mls/hr Q24H IVPB 04/19/20 11:00 04/26/20 10:59 04/23/20 11:37 Chlorhexidine Gluconate (Re-Hex 2%) 1 applic DAILY@2000 TOPIC 04/05/20 20:00 07/04/20 19:59 04/23/20 20:13 Cyclobenzaprine HCl (Flexeril) 10 mg EVERY 8 HOURS PRN ORAL For Pain 04/19/20 11:30 04/26/20 11:29 04/23/20 09:01 Dextrose 1,000 ml @ 85 mls/hr Q24H PRN IV PN interrupted or unavailable 04/05/20 21:00 05/05/20 20:59 04/09/20 01:58 Dextrose (Dextrose 50%) 25 ml Q30M PRN IV Hypoglycemia 04/09/20 06:45 07/08/20 06:44 Dextrose (Dextrose 50%) 50 ml Q30M PRN IV Hypoglycemia 04/09/20 06:45 07/08/20 06:44 Diphenhydramine HCl (Benadryl) 50 mg Q4H PRN IVP Itching/Pruritis 04/23/20 10:15 04/26/20 10:14 Fat Emulsion Intravenous 240 ml/Amino Acids/ Electrolytes/ Dextrose 2,040 ml @ 85 mls/hr Q24H IV 04/20/20 20:00 05/20/20 19:59 04/23/20 20:14 Hydromorphone HCl 30 ml @ 0 mls/hr Q24H PRN IV For Pain 04/23/20 10:15 04/25/20 10:14 Insulin Aspart (NovoLOG) EVERY 4 HOURS SUBQ 04/19/20 18:30 07/05/20 00:00 04/24/20 05:39 Insulin Aspart (NovoLOG) 6 units EVERY 4 HOURS SUBQ 04/19/20 21:00 07/18/20 20:59 04/24/20 05:40 Insulin Detemir (Levemir) 18 units BID SUBQ 04/19/20 09:00 07/17/20 08:59 04/23/20 17:28 Iron Sucrose 200 mg/Sodium Chloride 120 ml @ 240 mls/hr QHS IVPB 04/23/20 21:00 04/24/20 21:29 04/23/20 20:15 Ketorolac Tromethamine (Toradol 30mg) 15 mg Q6H PRN IV Severe Breakthru Pain (>7) 04/23/20 10:45 04/28/20 10:44 Lorazepam (Ativan) 1 mg HSPRN PRN SL Sleep 04/22/20 08:45 04/29/20 08:44 Lorazepam (Ativan) 1 mg Q4H PRN SL Muscle Spasm 04/22/20 10:30 04/29/20 10:29 Metronidazole 100 ml @ 100 mls/hr Q8HR IVPB 04/22/20 22:00 04/29/20 19:39 04/24/20 05:16 Micafungin Sodium 100 mg/Sodium Chloride 110 ml @ 110 mls/hr Q24H IVPB 04/23/20 16:00 04/30/20 15:59 04/23/20 15:45 Miscellaneous Medication (BAKERY HELPER Rate Change) 1 ea DAILY PRN MISC rate change 04/23/20 10:00 04/26/20 09:59 Miscellaneous Medication (BAKERY HELPER shift volume) 1 ea Q12HR@0700,1900 MISC 04/23/20 19:00 04/26/20 18:59 04/23/20 19:22 Naloxone HCl (Narcan) 0.1 mg Q1M PRN IVP RR<10/min OR SBP<90 mmHg 04/23/20 09:57 04/26/20 09:53 Ondansetron HCl (Zofran) 4 mg Q4H PRN IVP Nausea & Vomiting 04/17/20 14:30 05/17/20 14:29 04/18/20 14:49 Pantoprazole (Protonix) 40 mg DAILY IVP 04/16/20 09:00 05/16/20 08:59 04/23/20 09:16 Phytonadione (Vitamin K) 10 mg ONCE A WEEK SUBQ 04/12/20 09:00 07/11/20 08:59 04/19/20 10:24 Prochlorperazine (Compazine) 10 mg Q6H PRN IVP Nausea & Vomiting 04/19/20 11:30 05/19/20 11:29 Quetiapine Fumarate (SEROqueL) 400 mg BEDTIME ORAL 04/12/20 21:00 05/20/20 20:59 04/23/20 20:13 Silver Nitrate (Silver Nitrate Applicators) 6 applic DAILYPRN PRN TOPIC abdominal wound application 04/10/20 09:00 07/09/20 08:59 Sodium 1,000 ml @ 25 mls/hr Q24H IV 04/05/20 20:00 05/05/20 19:59 04/23/20 18:50 Assessment/Plan Problem List: (1) Diabetes mellitus ICD Codes: E11.9 - Type 2 diabetes mellitus without complications SNOMED: 87537608 (2) Post-operative complication ICD Codes: T81.9XXA - Unspecified complication of procedure, initial encounter SNOMED: 282507930 (3) Weaver Pouch fistula Assessment/Plan: continue Levemir 18 units bid continue R insulin of TPN at 36 untits / bag continue Novolog 6 units every 4 hours - hold if glucose < 110 mg/dL continue Novolog sliding scale every 4 hours will adjust insulin regimen once diet is advanced hypoglycemia protocol in order Justyn Michaels MD Apr 24, 2020 06:45
[2020-04-24] MEDS: PCA shift volume MISC SCH (07:16)
--- NOTE | 2020-04-24 07:57 | General Progress Note ---
Progress Note Progress Note [facility] Feeling better. Abdomen soft, distention nearly fully resolved, incision clean Urine 3150 BCIR ileo 420 CBC stable BUN 15 Cr 1.1 Mg 1.7 Imp: Resolving ileus Plan: Clear liquid diet d/c T[employer] INS[employer]OR Percocet 5/325 prn pain continue TPN and maintain indwelling Weaver pouch catheter to med intermittent suction or to gravity drainage bag while ambulating Mg infusion d/c antibiotics per ID Rodrigo Messer MD Apr 24, 2020 07:57
[2020-04-24 08:00] VITALS: BP 121/73
[2020-04-24] MEDS: Cyclobenzaprine 10mg Tab ORAL PRN (08:37)
[2020-04-24] MEDS: Allopurinol 100mg Tab ORAL SCH (08:37)
[2020-04-24] MEDS: Pantoprazole Inj IVP SCH (08:37)
[2020-04-24] MEDS: Levemir Flexpen SUBQ SCH ×2 (08:55→18:37)
[2020-04-24 12:00] VITALS: BP 142/84
[2020-04-24] MEDS: cefTRIAXone 2 GM in D5W 55 ML IVPB SCH (12:37)
[2020-04-24] MEDS: oxyCODONE HCL/Acetaminophen 5/325mg ORAL PRN ×2 (14:51→21:28)
[2020-04-24 16:00] VITALS: BP 140/85
[2020-04-24] MEDS: Micafungin 100 MG in NS 110 ML IVPB SCH (16:23)
[2020-04-24] MEDS ORDERED: Ketorolac 30mg Inj IV SCH (16:52)
--- NOTE | 2020-04-24 18:05 | Infectious Diseases Prog Note ---
Assessment/Plan Assessment/Plan ASSESSMENT AND PLAN: 1. enterocutaneous fistula, abdominal wall soft tissue edema and inflammation on CT scan ? abdominal wall cellulitis/soft tissue infection, ? infected fistula site/wound infection wound/drainage culture with klebsiella - sensitive to cephalosporins, carbapenems and levofloxacin, R-zosyn mild leukocytosis post-op resolved mild thrush seen - on micafungin ileus vs bowel obstruction - management per Dr. Messer - ceftriaxone and flagyl - day # 7 post-op - will discontinue - antifungal coverage - finish course - s/p fistula repair - 04/17/20 - monitor labs - continue management per Dr. Messer - communicated with Dr. Messer 2. Patient has enterocutaneous fistula. Patient is status post pouch endoscopy. Management per Dr. Messer. 3. Patient has history of diabetes. Continue blood sugar treatment per Endocrine. 4. Hypertension. Continue blood pressure treatment primary care team and Endocrine. 5. Blood sugar and blood pressure control for hypertension and diabetes. 6. Patient has a history of Weaver continent ileostomy. 7. 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 8. History of multiple abdominal surgeries including proctocolectomy and cholecystectomy and Weaver ileostomy. 9. Allergies to codeine, morphine. 10. Social history is negative 11. Family history is noncontributory. 12. MAR is noted. 13. Case discussed with RN. 14. Continue treatment per Dr. Messer and consultants. 15. Orders were noted and entered. Subjective Constitutional: Reports: fatigue; Denies: fever HEENT: Denies: congestion Respiratory: Denies: shortness of breath Cardiovascular: Denies: chest pain Gastrointestinal/Abdominal: Denies: nausea, vomiting, diarrhea Genitourinary: Denies: dysuria, hematuria, frequency Neurologic: Reports: other - intact Skin: Denies: rash Hematologic: Denies: bleeding Musculoskeletal: Denies: pain Allergies: Coded Allergies: CODEINE (Verified Allergy, Unknown, 04/04/20) MORPHINE (Verified Allergy, Unknown, 04/04/20) Objective Last 24 Hour Vital Signs Date Time Temp Pulse Resp B/P (MAP) Pulse Ox O2 Delivery O2 Flow Rate FiO2 04/24/20 16:00 98.3 89 20 140/85 (103) 95 04/24/20 15:21 98.7 04/24/20 12:00 98.7 98 20 142/84 (103) 97 04/24/20 09:00 Room Air 04/24/20 08:37 87 121/73 04/24/20 08:00 98.5 87 20 121/73 (89) 95 04/24/20 08:00 87 20 95 04/24/20 04:00 98.6 86 18 131/68 (89) 96 04/24/20 04:00 86 18 96 04/24/20 00:00 80 18 96 04/24/20 00:00 98.4 80 18 110/69 (83) 96 04/23/20 21:00 Room Air 04/23/20 20:00 75 18 95 04/23/20 20:00 98.4 75 18 126/72 (90) 95 Height (Feet): 5 Height (Inches): 4.00 Weight (Pounds): 176 General Appearance: no acute distress HEENT: normocephalic, atraumatic, anicteric Respiratory/Chest: lungs clear, normal breath sounds, no respiratory distress, no accessory muscle use Cardiovascular: normal rate, regular rhythm, regularly irregular Abdomen: normal bowel sounds, soft, non tender, no organomegaly, non distended, other - some discomfort, no rebound Genitourinary: other - no cva pain Extremities: no cyanosis Skin: no rash Neurologic/Psychiatric: manager unix II-XII grossly normal, alert, responsive Lymphatic: no neck adenopathy Musculoskeletal: no effusion CT abdomen and pelvis: IMPRESSION: Soft tissue edema, inflammation and foci of air in the abdominal wall. No discrete drainable collection. Chest x-ray - FINDINGS: A single one view chest is obtained. Vascularity is normal. The lung corbett are clear bilaterally. Cardiac and mediastinal silhouette are within normal limits. CP angles are sharp. The bony thorax appear unremarkable. IMPRESSION: NO ACUTE CARDIOPULMONARY DISEASE. KUB - 04/22/20 - Impression: Mildly dilated small bowel loops. Given evidence of recent surgery, most likely on the basis of postoperative ileus. Small bowel obstruction also possible and correlation with clinical findings and follow-up radiographs as indicated is recommended Microbiology Date/Time Source Procedure Growth Status 04/11/20 17:10 Other(Specify in comment) Gram Stain - Final Complete 04/11/20 17:10 Wound Culture - Final Klebsiella Pneumoniae Complete 04/04/20 13:45 Nasopharynx SARS-CoV-2 Antigen (Rapid)(NALINI) - Final Complete Laboratory Tests Test 04/23/20 20:19 04/24/20 05:25 04/24/20 05:26 POC Whole Blood Glucose 86 MG/DL (74-106) 151 MG/DL (74-106) H White Blood Count 7.2 K/UL (4.8-10.8) Red Blood Count 4.03 M/UL (4.70-6.10) L Hemoglobin 11.1 G/DL (14.2-18.0) L Hematocrit 34.9 % (42.0-52.0) L Mean Corpuscular Volume 87 FL (80-99) Mean Corpuscular Hemoglobin 27.6 PG (27.0-31.0) Mean Corpuscular Hemoglobin Concent 31.9 G/DL (32.0-36.0) L Red Cell Distribution Width 14.8 % (11.6-14.8) Platelet Count 287 K/UL (150-450) Mean Platelet Volume 7.5 FL (6.5-10.1) Neutrophils (%) (Auto) 46.3 % (45.0-75.0) Lymphocytes (%) (Auto) 30.8 % (20.0-45.0) Monocytes (%) (Auto) 11.3 % (1.0-10.0) H Eosinophils (%) (Auto) 10.3 % (0.0-3.0) H Basophils (%) (Auto) 1.3 % (0.0-2.0) Sodium Level 137 MMOL/L (136-145) Potassium Level 4.1 MMOL/L (3.5-5.1) Chloride Level 104 MMOL/L (98-107) Carbon Dioxide Level 26 MMOL/L (21-32) Anion Gap 7 mmol/L (5-15) Blood Urea Nitrogen 15 mg/dL (7-18) Creatinine 1.1 MG/DL (0.55-1.30) Estimat Glomerular Filtration Rate > 60 mL/min (>60) Glucose Level 169 MG/DL (74-106) H Calcium Level 8.8 MG/DL (8.5-10.1) Phosphorus Level 3.9 MG/DL (2.5-4.9) Magnesium Level 1.7 MG/DL (1.8-2.4) L Total Bilirubin 0.3 MG/DL (0.2-1.0) Aspartate Amino Transf (AST/SGOT) 28 U/L (15-37) Alanine Aminotransferase (ALT/SGPT) 39 U/L (12-78) Alkaline Phosphatase 120 U/L (46-116) H Total Protein 6.4 G/DL (6.4-8.2) Albumin 2.5 G/DL (3.4-5.0) L Globulin 3.9 g/dL Albumin/Globulin Ratio 0.6 (1.0-2.7) L Current Medications Medications (Trade) Dose Ordered Sig/Lea Route PRN Reason Start Time Stop Time Status Last Admin Dose Admin Acetaminophen (Tylenol) 650 mg Q4H PRN ORAL Mild Pain 04/05/20 09:30 05/05/20 09:29 Acetaminophen (Tylenol) 650 mg Q4H PRN ORAL temp 100.2 or above 04/17/20 14:45 05/17/20 14:44 Al Hydroxide/Mg Hydroxide (Mylanta) 30 ml Q2HR PRN ORAL GI 04/15/20 21:45 05/15/20 21:44 Allopurinol (Zyloprim) 100 mg DAILY ORAL 04/05/20 09:00 05/05/20 08:59 04/24/20 08:37 Amlodipine Besylate (Norvasc) 5 mg DAILY ORAL 04/05/20 09:00 05/05/20 08:59 04/24/20 08:37 Ceftriaxone Sodium 2 gm/ Dextrose 55 ml @ 110 mls/hr Q24H IVPB 04/19/20 11:00 04/26/20 10:59 04/24/20 12:37 Chlorhexidine Gluconate (Re-Hex 2%) 1 applic DAILY@2000 TOPIC 04/05/20 20:00 07/04/20 19:59 04/23/20 20:13 Cyclobenzaprine HCl (Flexeril) 10 mg EVERY 8 HOURS PRN ORAL For Pain 04/19/20 11:30 04/26/20 11:29 04/24/20 08:37 Dextrose 1,000 ml @ 85 mls/hr Q24H PRN IV PN interrupted or unavailable 04/05/20 21:00 05/05/20 20:59 04/09/20 01:58 Dextrose (Dextrose 50%) 25 ml Q30M PRN IV Hypoglycemia 04/09/20 06:45 07/08/20 06:44 Dextrose (Dextrose 50%) 50 ml Q30M PRN IV Hypoglycemia 04/09/20 06:45 07/08/20 06:44 Fat Emulsion Intravenous 240 ml/Amino Acids/ Electrolytes/ Dextrose 2,040 ml @ 85 mls/hr Q24H IV 04/20/20 20:00 05/20/20 19:59 04/23/20 20:14 Hydromorphone HCl (Dilaudid) 1 mg Q4H PRN SUBQ Severe pain 04/24/20 17:00 05/01/20 16:59 Insulin Aspart (NovoLOG) EVERY 4 HOURS SUBQ 04/19/20 18:30 07/05/20 00:00 04/24/20 16:42 Insulin Aspart (NovoLOG) 6 units EVERY 4 HOURS SUBQ 04/19/20 21:00 07/18/20 20:59 04/24/20 16:43 Insulin Detemir (Levemir) 18 units BID SUBQ 04/19/20 09:00 07/17/20 08:59 04/24/20 08:55 Iron Sucrose 200 mg/Sodium Chloride 120 ml @ 240 mls/hr QHS IVPB 04/23/20 21:00 04/24/20 21:29 04/23/20 20:15 Ketorolac Tromethamine (Toradol 30mg) 15 mg Q6H PRN IV Severe Breakthru Pain (>7) 04/23/20 10:45 04/28/20 10:44 Lorazepam (Ativan) 1 mg HSPRN PRN SL Sleep 04/22/20 08:45 04/29/20 08:44 Lorazepam (Ativan) 1 mg Q4H PRN SL Muscle Spasm 04/22/20 10:30 04/29/20 10:29 Metronidazole 100 ml @ 100 mls/hr Q8HR IVPB 04/22/20 22:00 04/29/20 19:39 04/24/20 14:36 Micafungin Sodium 100 mg/Sodium Chloride 110 ml @ 110 mls/hr Q24H IVPB 04/23/20 16:00 04/30/20 15:59 04/24/20 16:23 Ondansetron HCl (Zofran) 4 mg Q4H PRN IVP Nausea & Vomiting 04/17/20 14:30 05/17/20 14:29 04/18/20 14:49 Oxycodone/ Acetaminophen (Percocet 5-325) 1 tab Q4H PRN ORAL Moderate Pain (Pain Scale 4-6) 04/24/20 08:00 05/01/20 07:59 04/24/20 14:51 Pantoprazole (Protonix) 40 mg DAILY IVP 04/16/20 09:00 05/16/20 08:59 04/24/20 08:37 Phytonadione (Vitamin K) 10 mg ONCE A WEEK SUBQ 04/12/20 09:00 07/11/20 08:59 04/19/20 10:24 Prochlorperazine (Compazine) 10 mg Q6H PRN IVP Nausea & Vomiting 04/19/20 11:30 05/19/20 11:29 Quetiapine Fumarate (SEROqueL) 400 mg BEDTIME ORAL 04/12/20 21:00 05/20/20 20:59 04/23/20 20:13 Silver Nitrate (Silver Nitrate Applicators) 6 applic DAILYPRN PRN TOPIC abdominal wound application 04/10/20 09:00 07/09/20 08:59 Wilman Rosas MD Apr 24, 2020 18:05
[2020-04-24 20:00] VITALS: BP 150/87
[2020-04-24] MEDS: Dyna-Hex 2% Top Sol 2oz TOPIC SCH (20:25)
[2020-04-24] MEDS: Fat Emulsion Iv 20% 240 ML in Tpn 1,800 ML IV SCH (20:26)
[2020-04-24] MEDS: Venofer 200mg in NS 110ml IVPB SCH (20:27)
[2020-04-25] VITALS: BP 130/74
[2020-04-25] MEDS: NovoLOG Insulin Flexpen SUBQ SCH ×12 (00:25→20:32)
[2020-04-25 04:00] VITALS: BP 129/72
[2020-04-25 05:50] LABS: BASOPHILS % (AUTO) 1.3 % (0.0-2.0); HEMATOCRIT 34.2 % (42.0-52.0); HEMOGLOBIN 10.9 G/DL (14.2-18.0); LYMPHOCYTES % (AUTO) 26.2 % (20.0-45.0); MEAN CORPUSCULAR VOLUME 87 FL (80-99); MONOCYTES % (AUTO) 11.2 % (1.0-10.0); NEUTROPHILS % (AUTO) 53.3 % (45.0-75.0); PLATELET COUNT 264 K/UL (150-450); RED BLOOD COUNT 3.95 M/UL (4.70-6.10); RED CELL DISTRIBUTION WIDTH 15.4 % (11.6-14.8); WHITE BLOOD COUNT 5.3 K/UL (4.8-10.8)
[2020-04-25 06:09] LABS: ALANINE AMINOTRANSFERASE 39 U/L (12-78); ALBUMIN 2.5 G/DL (3.4-5.0); ALBUMIN/GLOBULIN RATIO 0.6 (1.0-2.7); ALKALINE PHOSPHATASE 126 U/L (46-116); ANION GAP 9 mmol/L (5-15); ASPARTATE AMINO TRANSFERASE 29 U/L (15-37); BILIRUBIN,TOTAL 0.3 MG/DL (0.2-1.0); BLOOD UREA NITROGEN 16 mg/dL (7-18); CALCIUM 8.9 MG/DL (8.5-10.1); CARBON DIOXIDE 26 MMOL/L (21-32); CHLORIDE 106 MMOL/L (98-107); CREATININE 1.1 MG/DL (0.55-1.30); PHOSPHORUS 3.6 MG/DL (2.5-4.9); POTASSIUM 3.7 MMOL/L (3.5-5.1); SODIUM 140 MMOL/L (136-145)
[2020-04-25] MEDS ORDERED: Cyclobenzaprine 10mg Tab ORAL PRN (07:45)
--- NOTE | 2020-04-25 07:56 | General Progress Note ---
Progress Note Progress Note AVSS Had more severe incisional and back pain - relieved with Toradol IV x 1 Tolerated small amount of clear liquids Abdomen more distended, soft, incisional healing ridge induration - no evidence of infection Urine 2750 BCIR ileo 5220 labs all stable Antibiotics stopped per ID Imp: Persistent abdominal/incisional and back pain Plan: STAT CT scan abd+pelvis with oral and IV contrast continue npo, TPN, Weaver pouch catheter to continuous suction or gravity drainage Rodrigo Messer MD Apr 25, 2020 07:56
[2020-04-25 08:00] VITALS: BP 133/75
[2020-04-25] MEDS: Pantoprazole Inj IVP SCH (08:59)
[2020-04-25] MEDS: Levemir Flexpen SUBQ SCH ×2 (09:00→17:07)
[2020-04-25] MEDS: Allopurinol 100mg Tab ORAL SCH (09:04)
[2020-04-25] MEDS: oxyCODONE HCL/Acetaminophen 5/325mg ORAL PRN ×3 (09:05→20:14)
--- NOTE | 2020-04-25 10:50 | Cardiology Report ---
APPROVED REPORT EKG Measurement Heart [id number] <Conclusion> Normal sinus rhythm Normal ECG
--- NOTE | 2020-04-25 10:51 | Cardiology Report ---
APPROVED REPORT EKG Measurement Heart [id number] <Conclusion> Normal sinus rhythm Normal ECG
--- NOTE | 2020-04-25 11:08 | Diagnostic Imaging Report ---
Clinical Indication: Abdominal pain, recent surgery for continent ileostomy Technique: Patient ingested enteric contrast. IV administration nonionic contrast. Venous phase spiral acquisition obtained through the abdomen and pelvis. Multiplanar reconstructions were generated. Total dose length product 378 mGycm. CTDIvol(s) 7 mGy. Dose reduction achieved using automated exposure control Comparison: 04/06/2020 Findings: There is evidence of recent surgery, with a lower abdominal staple line, and incisional edema and a small amount of gas within the incision. There is also a small amount of intraperitoneal gas. There is a continent ileostomy reservoir again demonstrated. Ingested contrast is seen filling the reservoir as well as the catheter within the reservoir. Gas bubbles and ill-defined fluid/phlegmon are seen immediately peripheral to the reservoir, anteriorly and inferiorly. Small bowel loops are nondistended. No discrete well-defined fluid collection is demonstrated. The colon has been removed. The liver is unremarkable. There is evidence of prior cholecystectomy. The bile ducts, pancreas, spleen, adrenals, kidneys are unremarkable. No renal or ureteral calculi, hydronephrosis, no hydroureter. A small amount of gas is seen within the bladder lumen. No pelvic mass or adenopathy. Atelectatic changes and or scarring are seen at the lung bases bilaterally. The bones are unremarkable. Impression: Evidence of recent surgery, presumably revision of previously demonstrated continent ileostomy. There is no evidence of bowel obstruction. Ill-defined gas bubbles and phlegmon our seen surrounding the reservoir. Most likely represents routine postsurgical changes, but the possibility of developing abscess should also be considered. Correlate with clinical findings. Gas within the bladder lumen. Most likely represents recent instrumentation. If there is no history of such, then the possibility of infection with gas-forming organism should be considered Prior cholecystectomy Other findings as noted The CT scanner at [facility] is accredited by the [employer] and the scans are performed using protocols designed to limit radiation exposure to as low as reasonably achievable to attain images of sufficient resolution adequate for diagnostic evaluation.
[2020-04-25 12:00] VITALS: BP 139/80
--- NOTE | 2020-04-25 13:26 | General Progress Note ---
Progress Note Progress Note See prior note. CT scan reveals a phlegmon with ill-defined gas bubbles surrounding the pouch most likely postsurgical but cannot rule out developing abscess. No distended small bowel loops Discussed with ID and patient - will stay on clear liquids today, ? full liquids in AM for 24-48 hours before advancing to BCIR low residue diet. If he becomes febrile or develops leukocytosis he will need to go back on antibiotics, with follow-up CT in several days Rodrigo Messer MD Apr 25, 2020 13:26
[2020-04-25 16:00] VITALS: BP 132/86
--- NOTE | 2020-04-25 17:13 | General Progress Note ---
Subjective Allergies: Coded Allergies: CODEINE (Verified Allergy, Unknown, 04/04/20) MORPHINE (Verified Allergy, Unknown, 04/04/20) All Systems: reviewed and negative except above Subjective events noted started on clear liquid diet - did not tolerate glucose values are stable no hypo Item Value Date Time Bedside Blood Glucose 135 mg/dl H 04/25/20 1707 Bedside Blood Glucose 147 mg/dl H 04/25/20 1311 Bedside Blood Glucose 157 mg/dl H 04/25/20 0902 Bedside Blood Glucose 133 mg/dl H 04/25/20 0439 Bedside Blood Glucose 91 mg/dl 04/25/20 0025 Bedside Blood Glucose 116 mg/dl 04/24/20 2101 Bedside Blood Glucose 161 mg/dl H 04/24/20 1837 Objective Last 24 Hour Vital Signs Date Time Temp Pulse Resp B/P (MAP) Pulse Ox O2 Delivery O2 Flow Rate FiO2 04/25/20 16:20 98.6 04/25/20 16:00 98.8 89 18 132/86 (101) 98 04/25/20 12:00 98.6 85 19 139/80 (99) 97 04/25/20 09:35 99.0 04/25/20 09:04 84 133/75 04/25/20 09:00 Room Air 04/25/20 08:00 99.0 84 18 133/75 (94) 94 04/25/20 04:00 98.2 87 18 129/72 (91) 95 04/25/20 00:00 97.9 82 18 130/74 (92) 95 04/24/20 21:00 Room Air 04/24/20 20:00 99.3 87 20 150/87 (108) 97 04/24/20 18:46 98.3 Intake and Output 04/24/20 04/25/20 19:00 07:00 Intake Total 25 ml 1390 ml Output Total 1800 ml 1470 ml Balance -1775 ml -80 ml Intake Oral 250 ml IV Total 25 ml 1140 ml Output Urine Total 1400 ml 1350 ml Other 400 ml 120 ml # Voids 3 Laboratory Tests 04/24/20 20:52: POC Whole Blood Glucose 116H 04/25/20 00:06: POC Whole Blood Glucose 91 04/25/20 04:35: POC Whole Blood Glucose 133H 04/25/20 05:10: White Blood Count 5.3, Red Blood Count 3.95L, Hemoglobin 10.9L, Hematocrit 34.2L , Mean Corpuscular Volume 87, Mean Corpuscular Hemoglobin 27.6, Mean Corpuscular Hemoglobin Concent 31.8L, Red Cell Distribution Width 15.4H, Platelet Count 264, Mean Platelet Volume 7.3, Neutrophils (%) (Auto) 53.3, Lymphocytes (%) (Auto) 26.2, Monocytes (%) (Auto) 11.2H, Eosinophils (%) (Auto) 8.0H, Basophils (%) (Auto) 1.3, Sodium Level 140, Potassium Level 3.7, Chloride Level 106, Carbon Dioxide Level 26, Anion Gap 9, Blood Urea Nitrogen 16, Creatinine 1.1, Estimat Glomerular Filtration Rate > 60, Glucose Level 148H, Calcium Level 8.9, Phosphorus Level 3.6, Magnesium Level 1.8, Total Bilirubin 0.3, Aspartate Amino Transf (AST/SGOT) 29, Alanine Aminotransferase (ALT/SGPT) 39, Alkaline P hosphatase 126H, Total Protein 6.4, Albumin 2.5L, Globulin 3.9, Albumin/Globulin Ratio 0.6L Height (Feet): 5 Height (Inches): 4.00 Weight (Pounds): 176 General Appearance: no apparent distress Neck: normal alignment Cardiovascular: normal rate Respiratory/Chest: lungs clear Abdomen: hypoactive bowel sounds Objective Current Medications Medications (Trade) Dose Ordered Sig/Lea Route PRN Reason Start Time Stop Time Status Last Admin Dose Admin Acetaminophen (Tylenol) 650 mg Q4H PRN ORAL Mild Pain 04/05/20 09:30 05/05/20 09:29 Acetaminophen (Tylenol) 650 mg Q4H PRN ORAL temp 100.2 or above 04/17/20 14:45 05/17/20 14:44 Al Hydroxide/Mg Hydroxide (Mylanta) 30 ml Q2HR PRN ORAL GI 04/15/20 21:45 05/15/20 21:44 Allopurinol (Zyloprim) 100 mg DAILY ORAL 04/05/20 09:00 05/05/20 08:59 04/25/20 09:04 Amlodipine Besylate (Norvasc) 5 mg DAILY ORAL 04/05/20 09:00 05/05/20 08:59 04/25/20 09:04 Barium Sulfate (Readi-Cat 2) 450 ml NOW PRN ORAL Radiology Procedure 04/25/20 08:00 04/27/20 07:59 Chlorhexidine Gluconate (Re-Hex 2%) 1 applic DAILY@2000 TOPIC 04/05/20 20:00 07/04/20 19:59 04/24/20 20:25 Cyclobenzaprine HCl (Flexeril) 10 mg Q8H PRN ORAL BACK PAIN/MUSCLE SPASMS 04/25/20 07:45 05/02/20 07:44 Dextrose 1,000 ml @ 85 mls/hr Q24H PRN IV PN interrupted or unavailable 04/05/20 21:00 05/05/20 20:59 04/09/20 01:58 Dextrose (Dextrose 50%) 25 ml Q30M PRN IV Hypoglycemia 04/09/20 06:45 07/08/20 06:44 Dextrose (Dextrose 50%) 50 ml Q30M PRN IV Hypoglycemia 04/09/20 06:45 07/08/20 06:44 Fat Emulsion Intravenous 240 ml/Amino Acids/ Electrolytes/ Dextrose 2,040 ml @ 85 mls/hr Q24H IV 04/20/20 20:00 05/20/20 19:59 04/24/20 20:26 Hydromorphone HCl (Dilaudid) 1 mg Q4H PRN SUBQ Severe pain 04/24/20 17:00 05/01/20 16:59 Insulin Aspart (NovoLOG) EVERY 4 HOURS SUBQ 04/19/20 18:30 07/05/20 00:00 04/25/20 13:10 Insulin Aspart (NovoLOG) 6 units EVERY 4 HOURS SUBQ 04/19/20 21:00 07/18/20 20:59 04/25/20 17:07 Insulin Detemir (Levemir) 18 units BID SUBQ 04/19/20 09:00 07/17/20 08:59 04/25/20 17:07 Ketorolac Tromethamine (Toradol 30mg) 15 mg Q6H PRN IV Severe Breakthru Pain (>7) 04/23/20 10:45 04/28/20 10:44 Lorazepam (Ativan) 1 mg HSPRN PRN SL Sleep 04/22/20 08:45 04/29/20 08:44 Lorazepam (Ativan) 1 mg Q4H PRN SL Muscle Spasm 04/22/20 10:30 04/29/20 10:29 Ondansetron HCl (Zofran) 4 mg Q4H PRN IVP Nausea & Vomiting 04/17/20 14:30 05/17/20 14:29 04/18/20 14:49 Oxycodone/ Acetaminophen (Percocet 5-325) 1 tab Q4H PRN ORAL Moderate Pain (Pain Scale 4-6) 04/24/20 08:00 05/01/20 07:59 04/25/20 15:50 Pantoprazole (Protonix) 40 mg DAILY IVP 04/16/20 09:00 05/16/20 08:59 04/25/20 08:59 Phytonadione (Vitamin K) 10 mg ONCE A WEEK SUBQ 04/12/20 09:00 07/11/20 08:59 04/19/20 10:24 Prochlorperazine (Compazine) 10 mg Q6H PRN IVP Nausea & Vomiting 04/19/20 11:30 05/19/20 11:29 Quetiapine Fumarate (SEROqueL) 400 mg BEDTIME ORAL 04/12/20 21:00 05/20/20 20:59 04/24/20 20:25 Silver Nitrate (Silver Nitrate Applicators) 6 applic DAILYPRN PRN TOPIC abdominal wound application 04/10/20 09:00 07/09/20 08:59 Assessment/Plan Problem List: (1) Diabetes mellitus ICD Codes: E11.9 - Type 2 diabetes mellitus without complications SNOMED: 51785060 (2) Post-operative complication ICD Codes: T81.9XXA - Unspecified complication of procedure, initial encounter SNOMED: 665416225 (3) Weaver Pouch fistula Assessment/Plan: continue Levemir 18 units bid continue R insulin of TPN at 36 untits / bag continue Novolog 6 units every 4 hours - hold if glucose < 110 mg/dL continue Novolog sliding scale every 4 hours will adjust insulin regimen once diet is advanced hypoglycemia protocol in order Justyn Michaels MD Apr 25, 2020 17:13
[2020-04-25 20:00] VITALS: BP 148/88
[2020-04-25] MEDS: Dyna-Hex 2% Top Sol 2oz TOPIC SCH (20:03)
[2020-04-25] MEDS: Fat Emulsion Iv 20% 240 ML in Tpn 1,800 ML IV SCH (20:08)
[2020-04-26] VITALS: BP 123/74
[2020-04-26] MEDS: NovoLOG Insulin Flexpen SUBQ SCH ×12 (00:18→20:47)
[2020-04-26] MEDS: oxyCODONE HCL/Acetaminophen 5/325mg ORAL PRN (01:21)
[2020-04-26 04:00] VITALS: BP 113/74
[2020-04-26 06:15] LABS: BASOPHILS % (AUTO) 1.2 % (0.0-2.0); EOSINOPHILS % (AUTO) 6.9 % (0.0-3.0); HEMOGLOBIN 11.5 G/DL (14.2-18.0); LYMPHOCYTES % (AUTO) 36.5 % (20.0-45.0); MEAN CORPUSCULAR VOLUME 87 FL (80-99); MONOCYTES % (AUTO) 11.8 % (1.0-10.0); NEUTROPHILS % (AUTO) 43.6 % (45.0-75.0); PLATELET COUNT 263 K/UL (150-450); RED BLOOD COUNT 4.12 M/UL (4.70-6.10); RED CELL DISTRIBUTION WIDTH 15.8 % (11.6-14.8); WHITE BLOOD COUNT 4.9 K/UL (4.8-10.8)
[2020-04-26 06:44] LABS: ALANINE AMINOTRANSFERASE 44 U/L (12-78); ALBUMIN 2.7 G/DL (3.4-5.0); ALBUMIN/GLOBULIN RATIO 0.7 (1.0-2.7); ALKALINE PHOSPHATASE 139 U/L (46-116); ANION GAP 10 mmol/L (5-15); ASPARTATE AMINO TRANSFERASE 38 U/L (15-37); BILIRUBIN,TOTAL 0.4 MG/DL (0.2-1.0); BLOOD UREA NITROGEN 18 mg/dL (7-18); CALCIUM 9.1 MG/DL (8.5-10.1); CARBON DIOXIDE 25 MMOL/L (21-32); CHLORIDE 105 MMOL/L (98-107); CREATININE 1.1 MG/DL (0.55-1.30); PHOSPHORUS 4.3 MG/DL (2.5-4.9); POTASSIUM 3.5 MMOL/L (3.5-5.1); SODIUM 140 MMOL/L (136-145)
--- NOTE | 2020-04-26 06:51 | General Progress Note ---
Subjective Allergies: Coded Allergies: CODEINE (Verified Allergy, Unknown, 04/04/20) MORPHINE (Verified Allergy, Unknown, 04/04/20) All Systems: reviewed and negative except above Subjective events noted started on clear liquid diet - did not tolerate glucose values are stable no hypo Item Value Date Time Bedside Blood Glucose 143 mg/dl H 04/26/20 0415 Bedside Blood Glucose 141 mg/dl H 04/26/20 0019 Bedside Blood Glucose 125 mg/dl H 04/25/20 2032 Bedside Blood Glucose 135 mg/dl H 04/25/20 1707 Bedside Blood Glucose 147 mg/dl H 04/25/20 1311 Bedside Blood Glucose 157 mg/dl H 04/25/20 0902 Bedside Blood Glucose 133 mg/dl H 04/25/20 0439 Objective Last 24 Hour Vital Signs Date Time Temp Pulse Resp B/P (MAP) Pulse Ox O2 Delivery O2 Flow Rate FiO2 04/26/20 04:00 97.5 74 16 113/74 (87) 96 04/26/20 00:00 97.5 85 16 123/74 (90) 96 04/25/20 21:00 Room Air 04/25/20 20:00 98.6 83 16 148/88 (108) 93 04/25/20 16:20 98.6 04/25/20 16:00 98.8 89 18 132/86 (101) 98 04/25/20 12:00 98.6 85 19 139/80 (99) 97 04/25/20 09:35 99.0 04/25/20 09:04 84 133/75 04/25/20 09:00 Room Air 04/25/20 08:00 99.0 84 18 133/75 (94) 94 Intake and Output 04/25/20 04/26/20 19:00 07:00 Intake Total 1020 ml 885 ml Output Total 2700 ml 920 ml Balance -1680 ml -35 ml Intake Oral 120 ml IV Total 1020 ml 765 ml Output Urine Total 2000 ml 675 ml Other 700 ml 245 ml # Voids 3 Laboratory Tests 04/25/20 20:29: POC Whole Blood Glucose 125H 04/26/20 00:09: POC Whole Blood Glucose 141H 04/26/20 05:05: White Blood Count [Pending], Red Blood Count [Pending], Hemoglobin [Pending], Hematocrit [Pending], Mean Corpuscular Volume [Pending], Mean Corpuscular Hemoglobin [Pending], Mean Corpuscular Hemoglobin Concent [Pending], Red Cell Distribution Width [Pending], Platelet Count [Pending], Mean Platelet Volume [Pending], Neutrophils (%) (Auto) [Pending], Lymphocytes (%) (Auto) [Pending], Monocytes (%) (Auto) [Pending], Eosinophils (%) (Auto) [Pending], Basophils (%) (Auto) [Pending], Sodium Level 140, Potassium Level 3.5, Chloride Level 105, Carbon Dioxide Level 25, Anion Gap 10, Blood Urea Nitrogen 18, Creatinine 1.1, Estimat Glomerular Filtration Rate > 60, Glucose Level 144H, Calcium Level 9.1, Phosphorus Level 4.3, Magnesium Level 1.7L, Total Bilirubin 0.4, Aspartate Amino Transf (AST/SGOT) 38H, Alanine Aminotransferase (ALT/SGPT) 44, Alkaline Phosphatase 139H, Total Protein 6.8, Albumin 2.7L, Globulin 4.1, Albumin /Globulin Ratio 0.7L Height (Feet): 5 Height (Inches): 4.00 Weight (Pounds): 176 General Appearance: no apparent distress Neck: normal alignment Cardiovascular: normal rate Respiratory/Chest: lungs clear Abdomen: hypoactive bowel sounds Pelvis: normal external exam Objective Current Medications Medications (Trade) Dose Ordered Sig/Lea Route PRN Reason Start Time Stop Time Status Last Admin Dose Admin Acetaminophen (Tylenol) 650 mg Q4H PRN ORAL Mild Pain 04/05/20 09:30 05/05/20 09:29 Acetaminophen (Tylenol) 650 mg Q4H PRN ORAL temp 100.2 or above 04/17/20 14:45 05/17/20 14:44 Al Hydroxide/Mg Hydroxide (Mylanta) 30 ml Q2HR PRN ORAL GI 04/15/20 21:45 05/15/20 21:44 Allopurinol (Zyloprim) 100 mg DAILY ORAL 04/05/20 09:00 05/05/20 08:59 04/25/20 09:04 Amlodipine Besylate (Norvasc) 5 mg DAILY ORAL 04/05/20 09:00 05/05/20 08:59 04/25/20 09:04 Barium Sulfate (Readi-Cat 2) 450 ml NOW PRN ORAL Radiology Procedure 04/25/20 08:00 04/27/20 07:59 Chlorhexidine Gluconate (Re-Hex 2%) 1 applic DAILY@2000 TOPIC 04/05/20 20:00 07/04/20 19:59 04/25/20 20:03 Cyclobenzaprine HCl (Flexeril) 10 mg Q8H PRN ORAL BACK PAIN/MUSCLE SPASMS 04/25/20 07:45 05/02/20 07:44 Dextrose 1,000 ml @ 85 mls/hr Q24H PRN IV PN interrupted or unavailable 04/05/20 21:00 05/05/20 20:59 04/09/20 01:58 Dextrose (Dextrose 50%) 25 ml Q30M PRN IV Hypoglycemia 04/09/20 06:45 07/08/20 06:44 Dextrose (Dextrose 50%) 50 ml Q30M PRN IV Hypoglycemia 04/09/20 06:45 07/08/20 06:44 Fat Emulsion Intravenous 240 ml/Amino Acids/ Electrolytes/ Dextrose 2,040 ml @ 85 mls/hr Q24H IV 04/20/20 20:00 05/20/20 19:59 04/25/20 20:08 Hydromorphone HCl (Dilaudid) 1 mg Q4H PRN SUBQ Severe pain 04/24/20 17:00 05/01/20 16:59 Insulin Aspart (NovoLOG) EVERY 4 HOURS SUBQ 04/19/20 18:30 07/05/20 00:00 04/26/20 04:14 Insulin Aspart (NovoLOG) 6 units EVERY 4 HOURS SUBQ 04/19/20 21:00 07/18/20 20:59 04/26/20 04:15 Insulin Detemir (Levemir) 18 units BID SUBQ 04/19/20 09:00 07/17/20 08:59 04/25/20 17:07 Ketorolac Tromethamine (Toradol 30mg) 15 mg Q6H PRN IV Severe Breakthru Pain (>7) 04/23/20 10:45 04/28/20 10:44 Lorazepam (Ativan) 1 mg HSPRN PRN SL Sleep 04/22/20 08:45 04/29/20 08:44 Lorazepam (Ativan) 1 mg Q4H PRN SL Muscle Spasm 04/22/20 10:30 04/29/20 10:29 Ondansetron HCl (Zofran) 4 mg Q4H PRN IVP Nausea & Vomiting 04/17/20 14:30 05/17/20 14:29 04/18/20 14:49 Oxycodone/ Acetaminophen (Percocet 5-325) 1 tab Q4H PRN ORAL Moderate Pain (Pain Scale 4-6) 04/24/20 08:00 05/01/20 07:59 04/26/20 01:21 Pantoprazole (Protonix) 40 mg DAILY IVP 04/16/20 09:00 05/16/20 08:59 04/25/20 08:59 Phytonadione (Vitamin K) 10 mg ONCE A WEEK SUBQ 04/12/20 09:00 07/11/20 08:59 04/19/20 10:24 Prochlorperazine (Compazine) 10 mg Q6H PRN IVP Nausea & Vomiting 04/19/20 11:30 05/19/20 11:29 Quetiapine Fumarate (SEROqueL) 400 mg BEDTIME ORAL 04/12/20 21:00 05/20/20 20:59 04/25/20 20:03 Silver Nitrate (Silver Nitrate Applicators) 6 applic DAILYPRN PRN TOPIC abdominal wound application 04/10/20 09:00 07/09/20 08:59 Assessment/Plan Problem List: (1) Diabetes mellitus ICD Codes: E11.9 - Type 2 diabetes mellitus without complications SNOMED: 26720574 (2) Post-operative complication ICD Codes: T81.9XXA - Unspecified complication of procedure, initial encounter SNOMED: 478345534 (3) Weaver Pouch fistula Assessment/Plan: continue Levemir 18 units bid continue R insulin of TPN at 36 untits / bag continue Novolog 6 units every 4 hours - hold if glucose < 110 mg/dL continue Novolog sliding scale every 4 hours will adjust insulin regimen once diet is advanced hypoglycemia protocol in order Justyn Michaels MD Apr 26, 2020 06:51
[2020-04-26 08:00] VITALS: BP 129/81
[2020-04-26] MEDS: Allopurinol 100mg Tab ORAL SCH (09:08)
[2020-04-26] MEDS: Phytonadione 10 mg/mL 1ml amp SUBQ SCH (09:08)
[2020-04-26] MEDS: Pantoprazole Inj IVP SCH (09:09)
[2020-04-26] MEDS: Levemir Flexpen SUBQ SCH ×2 (09:11→17:59)
[2020-04-26] MEDS: HYDROmorphone 1mg/ml Carpuject SUBQ PRN ×3 (09:17→22:34)
[2020-04-26 12:00] VITALS: BP 127/83
--- NOTE | 2020-04-26 12:15 | Surgery Progress Note ---
Surgery Progress Note Subjective Symptoms: improved, voiding well, pain decreased Objective Last 24 Hour Vital Signs Date Time Temp Pulse Resp B/P (MAP) Pulse Ox O2 Delivery O2 Flow Rate FiO2 04/26/20 09:47 98.2 04/26/20 09:08 91 129/81 04/26/20 09:00 Room Air 04/26/20 08:00 98.2 91 18 129/81 (97) 97 04/26/20 07:22 97 Room Air 21 04/26/20 04:00 97.5 74 16 113/74 (87) 96 04/26/20 00:00 97.5 85 16 123/74 (90) 96 04/25/20 21:00 Room Air 04/25/20 20:00 98.6 83 16 148/88 (108) 93 04/25/20 16:20 98.6 04/25/20 16:00 98.8 89 18 132/86 (101) 98 I&O Intake and Output 04/25/20 04/26/20 19:00 07:00 Intake Total 1020 ml 885 ml Output Total 2700 ml 920 ml Balance -1680 ml -35 ml Intake Oral 120 ml IV Total 1020 ml 765 ml Output Urine Total 2000 ml 675 ml Other 700 ml 245 ml # Voids 3 Dressing: dry Wound: clean Cardiovascular: RSR Respiratory: clear Abdomen: soft, non-tender, present bowel sounds, other, non-distended Extremities: no edema, no tenderness, no cyanosis Laboratory Tests Test 04/25/20 20:29 04/26/20 00:09 04/26/20 05:05 POC Whole Blood Glucose 125 MG/DL (74-106) H 141 MG/DL (74-106) H White Blood Count 4.9 K/UL (4.8-10.8) Red Blood Count 4.12 M/UL (4.70-6.10) L Hemoglobin 11.5 G/DL (14.2-18.0) L Hematocrit 36.0 % (42.0-52.0) L Mean Corpuscular Volume 87 FL (80-99) Mean Corpuscular Hemoglobin 27.8 PG (27.0-31.0) Mean Corpuscular Hemoglobin Concent 31.9 G/DL (32.0-36.0) L Red Cell Distribution Width 15.8 % (11.6-14.8) H Platelet Count 263 K/UL (150-450) Mean Platelet Volume 7.1 FL (6.5-10.1) Neutrophils (%) (Auto) 43.6 % (45.0-75.0) L Lymphocytes (%) (Auto) 36.5 % (20.0-45.0) Monocytes (%) (Auto) 11.8 % (1.0-10.0) H Eosinophils (%) (Auto) 6.9 % (0.0-3.0) H Basophils (%) (Auto) 1.2 % (0.0-2.0) Sodium Level 140 MMOL/L (136-145) Potassium Level 3.5 MMOL/L (3.5-5.1) Chloride Level 105 MMOL/L (98-107) Carbon Dioxide Level 25 MMOL/L (21-32) Anion Gap 10 mmol/L (5-15) Blood Urea Nitrogen 18 mg/dL (7-18) Creatinine 1.1 MG/DL (0.55-1.30) Estimat Glomerular Filtration Rate > 60 mL/min (>60) Glucose Level 144 MG/DL (74-106) H Calcium Level 9.1 MG/DL (8.5-10.1) Phosphorus Level 4.3 MG/DL (2.5-4.9) Magnesium Level 1.7 MG/DL (1.8-2.4) L Total Bilirubin 0.4 MG/DL (0.2-1.0) Aspartate Amino Transf (AST/SGOT) 38 U/L (15-37) H Alanine Aminotransferase (ALT/SGPT) 44 U/L (12-78) Alkaline Phosphatase 139 U/L (46-116) H Total Protein 6.8 G/DL (6.4-8.2) Albumin 2.7 G/DL (3.4-5.0) L Globulin 4.1 g/dL Albumin/Globulin Ratio 0.7 (1.0-2.7) L Plan Problems: (1) Weaver Pouch fistula Assessment & Plan: Status post repair see Dr. Messer notes Covering for Dr. Messer Patient states he feels better today no nausea vomiting fever chills tolerating clear liquid diet this morning but only approximately 20-30% Labs improved On TPN Ambulatory CT reviewed and discussed with Dr. Messer Overall seems improving Wound clean dry intact Pouch with some output Good urine output Catheter is in place on suction we will plan to place to gravity further meaning 24 hours and see how patient does. Okay advance a full liquid diet as desired by patient. Otherwise continue current care and management. Sg Cervantes Apr 26, 2020 12:15
[2020-04-26 16:00] VITALS: BP 134/78
--- NOTE | 2020-04-26 17:32 | Infectious Diseases Prog Note ---
Assessment/Plan Assessment/Plan ASSESSMENT AND PLAN: 1. enterocutaneous fistula, abdominal wall soft tissue edema and inflammation on CT scan ? abdominal wall cellulitis/soft tissue infection, ? infected fistula site/wound infection wound/drainage culture with klebsiella - sensitive to cephalosporins, carbapenems and levofloxacin, R-zosyn mild leukocytosis post-op resolved mild thrush seen - on micafungin ileus vs bowel obstruction - management per Dr. Messer - s/p ceftriaxone and flagyl - s/p micafungin - s/p fistula repair - 04/17/20 - monitor labs - continue management per Dr. Messer - communicated with Dr. Messer about CT abdomen and pelvis - abdominal CT - post-surgical changes more likely than abdominal abscess - monitor for fevers or leukocytosis - if occurs than restart antibiotics 2. Patient has enterocutaneous fistula. Patient is status post pouch endoscopy. Management per Dr. Messer. 3. Patient has history of diabetes. Continue blood sugar treatment per Endocrine. 4. Hypertension. Continue blood pressure treatment primary care team and Endocrine. 5. Blood sugar and blood pressure control for hypertension and diabetes. 6. Patient has a history of Weaver continent ileostomy. 7. 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 8. History of multiple abdominal surgeries including proctocolectomy and cholecystectomy and Weaver ileostomy. 9. Allergies to codeine, morphine. 10. Social history is negative 11. Family history is noncontributory. 12. MAR is noted. 13. Case discussed with RN. 14. Continue treatment per Dr. Messer and consultants. 15. Orders were noted and entered. Subjective Constitutional: Denies: fever HEENT: Denies: congestion Respiratory: Denies: shortness of breath Cardiovascular: Denies: chest pain Gastrointestinal/Abdominal: Reports: other - less abdominal pain ; Denies: nausea, vomiting Genitourinary: Denies: dysuria, hematuria Neurologic: Denies: headache Psychiatric: Denies: depression Skin: Denies: rash Hematologic: Denies: bleeding Musculoskeletal: Denies: pain Allergies: Coded Allergies: CODEINE (Verified Allergy, Unknown, 04/04/20) MORPHINE (Verified Allergy, Unknown, 04/04/20) Objective Last 24 Hour Vital Signs Date Time Temp Pulse Resp B/P (MAP) Pulse Ox O2 Delivery O2 Flow Rate FiO2 04/26/20 16:00 98.1 73 18 134/78 (96) 99 04/26/20 15:59 98.4 04/26/20 12:00 98.4 84 18 127/83 (98) 98 04/26/20 09:47 98.2 04/26/20 09:08 91 129/81 04/26/20 09:00 Room Air 04/26/20 08:00 98.2 91 18 129/81 (97) 97 04/26/20 07:22 97 Room Air 21 04/26/20 04:00 97.5 74 16 113/74 (87) 96 04/26/20 00:00 97.5 85 16 123/74 (90) 96 04/25/20 21:00 Room Air 04/25/20 20:00 98.6 83 16 148/88 (108) 93 Height (Feet): 5 Height (Inches): 4.00 Weight (Pounds): 176 General Appearance: no acute distress HEENT: normocephalic, atraumatic, anicteric, mucous membranes moist Respiratory/Chest: lungs clear, normal breath sounds Cardiovascular: normal rate, regular rhythm, no gallop/murmur Abdomen: normal bowel sounds, soft, non tender, no organomegaly, non distended, other - less pain, incision clean and dry Genitourinary: other - no lopez Extremities: no cyanosis Skin: no rash Neurologic/Psychiatric: mine captain II-XII grossly normal, alert, responsive Lymphatic: no neck adenopathy Musculoskeletal: no effusion CT abdomen and pelvis: IMPRESSION: Soft tissue edema, inflammation and foci of air in the abdominal wall. No discrete drainable collection. Chest x-ray - FINDINGS: A single one view chest is obtained. Vascularity is normal. The lung corbett are clear bilaterally. Cardiac and mediastinal silhouette are within normal limits. CP angles are sharp. The bony thorax appear unremarkable. IMPRESSION: NO ACUTE CARDIOPULMONARY DISEASE. KUB - 04/22/20 - Impression: Mildly dilated small bowel loops. Given evidence of recent surgery, most likely on the basis of postoperative ileus. Small bowel obstruction also possible and correlation with clinical findings and follow-up radiographs as indicated is recommended CT abdomen and pelvis - 04/25/20 - Impression: Evidence of recent surgery, presumably revision of previously demonstrated continent ileostomy. There is no evidence of bowel obstruction. Ill-defined gas bubbles and phlegmon our seen surrounding the reservoir. Most likely represents routine postsurgical changes, but the possibility of developing abscess should also be considered. Correlate with clinical findings. Gas within the bladder lumen. Most likely represents recent instrumentation. If there is no history of such, then the possibility of infection with gas-forming organism should be considered Prior cholecystectomy Other findings as noted Microbiology Date/Time Source Procedure Growth Status 04/11/20 17:10 Other(Specify in comment) Gram Stain - Final Complete 04/11/20 17:10 Wound Culture - Final Klebsiella Pneumoniae Complete 04/04/20 13:45 Nasopharynx SARS-CoV-2 Antigen (Rapid)(NALINI) - Final Complete Microbiology Date/Time Source Procedure Growth Status 04/11/20 17:10 Other(Specify in comment) Gram Stain - Final Complete 04/11/20 17:10 Wound Culture - Final Klebsiella Pneumoniae Complete 04/04/20 13:45 Nasopharynx SARS-CoV-2 Antigen (Rapid)(NALINI) - Final Complete Laboratory Tests Test 04/25/20 20:29 04/26/20 00:09 04/26/20 05:05 04/26/20 16:49 POC Whole Blood Glucose 125 MG/DL (74-106) H 141 MG/DL (74-106) H 135 MG/DL (74-106) H White Blood Count 4.9 K/UL (4.8-10.8) Red Blood Count 4.12 M/UL (4.70-6.10) L Hemoglobin 11.5 G/DL (14.2-18.0) L Hematocrit 36.0 % (42.0-52.0) L Mean Corpuscular Volume 87 FL (80-99) Mean Corpuscular Hemoglobin 27.8 PG (27.0-31.0) Mean Corpuscular Hemoglobin Concent 31.9 G/DL (32.0-36.0) L Red Cell Distribution Width 15.8 % (11.6-14.8) H Platelet Count 263 K/UL (150-450) Mean Platelet Volume 7.1 FL (6.5-10.1) Neutrophils (%) (Auto) 43.6 % (45.0-75.0) L Lymphocytes (%) (Auto) 36.5 % (20.0-45.0) Monocytes (%) (Auto) 11.8 % (1.0-10.0) H Eosinophils (%) (Auto) 6.9 % (0.0-3.0) H Basophils (%) (Auto) 1.2 % (0.0-2.0) Sodium Level 140 MMOL/L (136-145) Potassium Level 3.5 MMOL/L (3.5-5.1) Chloride Level 105 MMOL/L (98-107) Carbon Dioxide Level 25 MMOL/L (21-32) Anion Gap 10 mmol/L (5-15) Blood Urea Nitrogen 18 mg/dL (7-18) Creatinine 1.1 MG/DL (0.55-1.30) Estimat Glomerular Filtration Rate > 60 mL/min (>60) Glucose Level 144 MG/DL (74-106) H Calcium Level 9.1 MG/DL (8.5-10.1) Phosphorus Level 4.3 MG/DL (2.5-4.9) Magnesium Level 1.7 MG/DL (1.8-2.4) L Total Bilirubin 0.4 MG/DL (0.2-1.0) Aspartate Amino Transf (AST/SGOT) 38 U/L (15-37) H Alanine Aminotransferase (ALT/SGPT) 44 U/L (12-78) Alkaline Phosphatase 139 U/L (46-116) H Total Protein 6.8 G/DL (6.4-8.2) Albumin 2.7 G/DL (3.4-5.0) L Globulin 4.1 g/dL Albumin/Globulin Ratio 0.7 (1.0-2.7) L Current Medications Medications (Trade) Dose Ordered Sig/Lea Route PRN Reason Start Time Stop Time Status Last Admin Dose Admin Acetaminophen (Tylenol) 650 mg Q4H PRN ORAL Mild Pain 04/05/20 09:30 05/05/20 09:29 Acetaminophen (Tylenol) 650 mg Q4H PRN ORAL temp 100.2 or above 04/17/20 14:45 05/17/20 14:44 Al Hydroxide/Mg Hydroxide (Mylanta) 30 ml Q2HR PRN ORAL GI 04/15/20 21:45 05/15/20 21:44 Allopurinol (Zyloprim) 100 mg DAILY ORAL 04/05/20 09:00 05/05/20 08:59 04/26/20 09:08 Amlodipine Besylate (Norvasc) 5 mg DAILY ORAL 04/05/20 09:00 05/05/20 08:59 04/26/20 09:08 Barium Sulfate (Readi-Cat 2) 450 ml NOW PRN ORAL Radiology Procedure 04/25/20 08:00 04/27/20 07:59 Chlorhexidine Gluconate (Re-Hex 2%) 1 applic DAILY@2000 TOPIC 04/05/20 20:00 07/04/20 19:59 04/25/20 20:03 Cyclobenzaprine HCl (Flexeril) 10 mg Q8H PRN ORAL BACK PAIN/MUSCLE SPASMS 04/25/20 07:45 05/02/20 07:44 Dextrose 1,000 ml @ 85 mls/hr Q24H PRN IV PN interrupted or unavailable 04/05/20 21:00 05/05/20 20:59 04/09/20 01:58 Dextrose (Dextrose 50%) 25 ml Q30M PRN IV Hypoglycemia 04/09/20 06:45 07/08/20 06:44 Dextrose (Dextrose 50%) 50 ml Q30M PRN IV Hypoglycemia 04/09/20 06:45 07/08/20 06:44 Fat Emulsion Intravenous 240 ml/Amino Acids/ Electrolytes/ Dextrose 2,040 ml @ 85 mls/hr Q24H IV 04/20/20 20:00 05/20/20 19:59 04/25/20 20:08 Hydromorphone HCl (Dilaudid) 1 mg Q4H PRN SUBQ Severe pain 04/24/20 17:00 05/01/20 16:59 04/26/20 15:29 Insulin Aspart (NovoLOG) EVERY 4 HOURS SUBQ 04/19/20 18:30 07/05/20 00:00 04/26/20 12:42 Insulin Aspart (NovoLOG) 6 units EVERY 4 HOURS SUBQ 04/19/20 21:00 07/18/20 20:59 04/26/20 12:42 Insulin Detemir (Levemir) 18 units BID SUBQ 04/19/20 09:00 07/17/20 08:59 04/26/20 09:11 Ketorolac Tromethamine (Toradol 30mg) 15 mg Q6H PRN IV Severe Breakthru Pain (>7) 04/23/20 10:45 04/28/20 10:44 Lorazepam (Ativan) 1 mg HSPRN PRN SL Sleep 04/22/20 08:45 04/29/20 08:44 Lorazepam (Ativan) 1 mg Q4H PRN SL Muscle Spasm 04/22/20 10:30 04/29/20 10:29 Ondansetron HCl (Zofran) 4 mg Q4H PRN IVP Nausea & Vomiting 04/17/20 14:30 05/17/20 14:29 04/18/20 14:49 Oxycodone/ Acetaminophen (Percocet 5-325) 1 tab Q4H PRN ORAL Moderate Pain (Pain Scale 4-6) 04/24/20 08:00 05/01/20 07:59 04/26/20 01:21 Pantoprazole (Protonix) 40 mg DAILY IVP 04/16/20 09:00 05/16/20 08:59 04/26/20 09:09 Phytonadione (Vitamin K) 10 mg ONCE A WEEK SUBQ 04/12/20 09:00 07/11/20 08:59 04/26/20 09:08 Prochlorperazine (Compazine) 10 mg Q6H PRN IVP Nausea & Vomiting 04/19/20 11:30 05/19/20 11:29 Quetiapine Fumarate (SEROqueL) 400 mg BEDTIME ORAL 04/12/20 21:00 05/20/20 20:59 04/25/20 20:03 Silver Nitrate (Silver Nitrate Applicators) 6 applic DAILYPRN PRN TOPIC abdominal wound application 04/10/20 09:00 07/09/20 08:59 Wilman Rosas MD Apr 26, 2020 17:32
[2020-04-26 20:00] VITALS: BP 133/71
[2020-04-26] MEDS: Dyna-Hex 2% Top Sol 2oz TOPIC SCH (20:21)
[2020-04-26] MEDS: Fat Emulsion Iv 20% 240 ML in Tpn 1,800 ML IV SCH (20:22)
[2020-04-27] VITALS: BP 126/87
[2020-04-27] MEDS: NovoLOG Insulin Flexpen SUBQ SCH ×12 (01:19→20:20)
[2020-04-27 04:00] VITALS: BP 127/76
[2020-04-27 06:01] LABS: BASOPHILS % (AUTO) 1.1 % (0.0-2.0); EOSINOPHILS % (AUTO) 7.4 % (0.0-3.0); HEMATOCRIT 37.3 % (42.0-52.0); HEMOGLOBIN 11.9 G/DL (14.2-18.0); LYMPHOCYTES % (AUTO) 40.7 % (20.0-45.0); MEAN CORPUSCULAR VOLUME 87 FL (80-99); MONOCYTES % (AUTO) 12.1 % (1.0-10.0); NEUTROPHILS % (AUTO) 38.7 % (45.0-75.0); PLATELET COUNT 279 K/UL (150-450); RED BLOOD COUNT 4.29 M/UL (4.70-6.10); RED CELL DISTRIBUTION WIDTH 15.3 % (11.6-14.8); WHITE BLOOD COUNT 5.9 K/UL (4.8-10.8)
[2020-04-27 06:49] LABS: ALANINE AMINOTRANSFERASE 54 U/L (12-78); ALBUMIN 2.8 G/DL (3.4-5.0); ALBUMIN/GLOBULIN RATIO 0.7 (1.0-2.7); ALKALINE PHOSPHATASE 164 U/L (46-116); ANION GAP 9 mmol/L (5-15); ASPARTATE AMINO TRANSFERASE 45 U/L (15-37); BILIRUBIN,TOTAL 0.5 MG/DL (0.2-1.0); BLOOD UREA NITROGEN 19 mg/dL (7-18); CALCIUM 9.2 MG/DL (8.5-10.1); CARBON DIOXIDE 25 MMOL/L (21-32); CHLORIDE 104 MMOL/L (98-107); CREATININE 1.1 MG/DL (0.55-1.30); POTASSIUM 3.9 MMOL/L (3.5-5.1); SODIUM 138 MMOL/L (136-145)
[2020-04-27 08:00] VITALS: BP 136/86
[2020-04-27] MEDS: Levemir Flexpen SUBQ SCH ×2 (09:16→17:55)
[2020-04-27] MEDS: Pantoprazole Inj IVP SCH (09:19)
[2020-04-27] MEDS: Allopurinol 100mg Tab ORAL SCH (09:19)
[2020-04-27 12:00] VITALS: BP 143/78
[2020-04-27] MEDS ORDERED: MAGNESIUM SULFATE IV SCH ×2 (12:30)
[2020-04-27] MEDS ORDERED: D5W IV SCH ×2 (12:30)
--- NOTE | 2020-04-27 14:45 | Surgery Progress Note ---
Surgery Progress Note Subjective Symptoms: improved, tolerating diet, voiding well, pain decreased Objective Last 24 Hour Vital Signs Date Time Temp Pulse Resp B/P (MAP) Pulse Ox O2 Delivery O2 Flow Rate FiO2 04/27/20 12:00 98.1 82 18 143/78 (99) 96 04/27/20 09:20 71 136/72 04/27/20 08:00 98.2 91 18 136/86 (103) 98 04/27/20 07:52 Room Air 04/27/20 04:00 97.3 79 18 127/76 (93) 98 04/27/20 00:00 97.3 79 18 126/87 (100) 96 04/26/20 21:00 Room Air 04/26/20 20:00 97.9 81 18 133/71 (91) 97 04/26/20 19:08 97 Room Air 21 04/26/20 16:00 98.1 73 18 134/78 (96) 99 04/26/20 15:59 98.4 I&O Intake and Output 04/26/20 04/27/20 19:00 07:00 Intake Total 700 ml 200 ml Output Total 1175 ml 1015 ml Balance -475 ml -815 ml Intake Oral 700 ml 200 ml Output Urine Total 900 ml 875 ml Other 275 ml 140 ml # Voids 3 3 Dressing: dry Wound: clean Drains: other Cardiovascular: RSR Respiratory: clear Abdomen: soft, flat, non-tender, present bowel sounds, non-distended Extremities: no edema, no tenderness, no cyanosis Laboratory Tests Test 04/26/20 16:49 04/26/20 20:38 04/27/20 01:14 04/27/20 05:10 POC Whole Blood Glucose 135 MG/DL (74-106) H Pending Pending White Blood Count 5.9 K/UL (4.8-10.8) Red Blood Count 4.29 M/UL (4.70-6.10) L Hemoglobin 11.9 G/DL (14.2-18.0) L Hematocrit 37.3 % (42.0-52.0) L Mean Corpuscular Volume 87 FL (80-99) Mean Corpuscular Hemoglobin 27.7 PG (27.0-31.0) Mean Corpuscular Hemoglobin Concent 31.8 G/DL (32.0-36.0) L Red Cell Distribution Width 15.3 % (11.6-14.8) H Platelet Count 279 K/UL (150-450) Mean Platelet Volume 7.5 FL (6.5-10.1) Neutrophils (%) (Auto) 38.7 % (45.0-75.0) L Lymphocytes (%) (Auto) 40.7 % (20.0-45.0) Monocytes (%) (Auto) 12.1 % (1.0-10.0) H Eosinophils (%) (Auto) 7.4 % (0.0-3.0) H Basophils (%) (Auto) 1.1 % (0.0-2.0) Erythrocyte Sedimentation Rate 80 MM/HR (0-20) H Prothrombin Time 11.4 SEC (9.30-11.50) Prothromb Time International Ratio 1.0 (0.9-1.1) Activated Partial Thromboplast Time 29 SEC (23-33) Sodium Level 138 MMOL/L (136-145) Potassium Level 3.9 MMOL/L (3.5-5.1) Chloride Level 104 MMOL/L (98-107) Carbon Dioxide Level 25 MMOL/L (21-32) Anion Gap 9 mmol/L (5-15) Blood Urea Nitrogen 19 mg/dL (7-18) H Creatinine 1.1 MG/DL (0.55-1.30) Estimat Glomerular Filtration Rate > 60 mL/min (>60) Glucose Level 181 MG/DL (74-106) H Lactic Acid Level 0.80 mmol/L (0.4-2.0) Calcium Level 9.2 MG/DL (8.5-10.1) Magnesium Level 1.6 MG/DL (1.8-2.4) L Total Bilirubin 0.5 MG/DL (0.2-1.0) Aspartate Amino Transf (AST/SGOT) 45 U/L (15-37) H Alanine Aminotransferase (ALT/SGPT) 54 U/L (12-78) Alkaline Phosphatase 164 U/L (46-116) H C-Reactive Protein, Quantitative 1.1 mg/dL (0.00-0.90) H Total Protein 7.1 G/DL (6.4-8.2) Albumin 2.8 G/DL (3.4-5.0) L Globulin 4.3 g/dL Albumin/Globulin Ratio 0.7 (1.0-2.7) L Amylase Level 39 U/L (25-115) Lipase 188 U/L (73-393) Test 04/27/20 05:27 04/27/20 09:14 POC Whole Blood Glucose Pending Pending Plan Problems: (1) Weaver Pouch fistula Assessment & Plan: Status post repair see Dr. Messer notes Covering for Dr. Messer Patient states he feels better today no nausea vomiting fever chills tolerating clear liquid diet this morning but only approximately 20-30% Labs improved On TPN Ambulatory CT reviewed and discussed with Dr. Messer Overall seems improving Wound clean dry intact Pouch with some output Good urine output Catheter is in place on suction we will plan to place to gravity further meaning 24 hours and see how patient does. Okay advance a full liquid diet as desired b y patient. Otherwise continue current care and management. output noted feels better cont current tx plan Sg Cervantes Apr 27, 2020 14:45
[2020-04-27] MEDS: HYDROmorphone 1mg/ml Carpuject SUBQ PRN ×2 (14:53→20:11)
[2020-04-27 16:00] VITALS: BP 136/75
[2020-04-27] MEDS: Dyna-Hex 2% Top Sol 2oz TOPIC SCH (19:48)
[2020-04-27 20:00] VITALS: BP 127/73
[2020-04-27] MEDS: Fat Emulsion Iv 20% 240 ML in Tpn 1,800 ML IV SCH (20:01)
--- NOTE | 2020-04-27 21:24 | Diagnostic Imaging Report ---
EXAM: XR Abdomen, 2 Views CLINICAL HISTORY: F/U TECHNIQUE: Frontal view of the abdomen/pelvis with upright view of the abdomen. COMPARISON: None FINDINGS: Intraperitoneal space: No free air. Gastrointestinal tract: There is evidence of a recent laparotomy. The bowel gas pattern is nonobstructive. Bones/joints: Unremarkable. IMPRESSION: No acute intra-abdominal process.
[2020-04-28] VITALS: BP 124/76
[2020-04-28] MEDS: NovoLOG Insulin Flexpen SUBQ SCH ×12 (00:25→20:20)
[2020-04-28 04:00] VITALS: BP 110/70
[2020-04-28] MEDS: HYDROmorphone 1mg/ml Carpuject SUBQ PRN (04:19)
[2020-04-28 08:00] VITALS: BP 115/76
[2020-04-28] MEDS: Pantoprazole Inj IVP SCH (09:26)
[2020-04-28] MEDS: Allopurinol 100mg Tab ORAL SCH (09:26)
[2020-04-28] MEDS: Levemir Flexpen SUBQ SCH ×2 (09:28→17:27)
[2020-04-28 09:36] LABS: BASOPHILS % (AUTO) 1.2 % (0.0-2.0); EOSINOPHILS % (AUTO) 5.3 % (0.0-3.0); HEMATOCRIT 42.2 % (42.0-52.0); HEMOGLOBIN 13.3 G/DL (14.2-18.0); LYMPHOCYTES % (AUTO) 42.5 % (20.0-45.0); MEAN CORPUSCULAR VOLUME 88 FL (80-99); NEUTROPHILS % (AUTO) 42.1 % (45.0-75.0); PLATELET COUNT 282 K/UL (150-450); RED BLOOD COUNT 4.78 M/UL (4.70-6.10); RED CELL DISTRIBUTION WIDTH 16.1 % (11.6-14.8); WHITE BLOOD COUNT 8.5 K/UL (4.8-10.8)
[2020-04-28 09:54] LABS: ALANINE AMINOTRANSFERASE 70 U/L (12-78); ALBUMIN 3.1 G/DL (3.4-5.0); ALBUMIN/GLOBULIN RATIO 0.6 (1.0-2.7); ALKALINE PHOSPHATASE 207 U/L (46-116); ANION GAP 9 mmol/L (5-15); ASPARTATE AMINO TRANSFERASE 54 U/L (15-37); BILIRUBIN,TOTAL 0.4 MG/DL (0.2-1.0); BLOOD UREA NITROGEN 21 mg/dL (7-18); CALCIUM 9.5 MG/DL (8.5-10.1); CARBON DIOXIDE 26 MMOL/L (21-32); CHLORIDE 103 MMOL/L (98-107); CREATININE 1.2 MG/DL (0.55-1.30); POTASSIUM 4.3 MMOL/L (3.5-5.1); SODIUM 138 MMOL/L (136-145)
[2020-04-28 12:00] VITALS: BP 112/62
--- NOTE | 2020-04-28 12:51 | Surgery Progress Note ---
Surgery Progress Note Subjective Symptoms: improved, tolerating diet, voiding well Additional Comments comfortable ambulatory pain okay good output Objective Last 24 Hour Vital Signs Date Time Temp Pulse Resp B/P (MAP) Pulse Ox O2 Delivery O2 Flow Rate FiO2 04/28/20 10:17 98 Room Air 21 04/28/20 09:27 98 115/76 04/28/20 09:00 Room Air 04/28/20 08:00 97.9 98 16 115/76 (89) 98 04/28/20 04:00 98.5 87 16 110/70 (83) 95 04/28/20 00:00 98.3 81 17 124/76 (92) 97 04/27/20 21:00 Room Air 04/27/20 20:00 98.5 87 16 127/73 (91) 97 04/27/20 16:00 98.2 72 18 136/75 (95) 96 I&O Intake and Output 04/27/20 04/28/20 19:00 07:00 Intake Total 1350 ml 500 ml Output Total 2020 ml 1450 ml Balance -670 ml -950 ml Intake Oral 1350 ml 500 ml Output Urine Total 1100 ml 1050 ml Other 920 ml 400 ml # Voids 4 Dressing: dry Wound: clean Cardiovascular: RSR Respiratory: clear Abdomen: soft, flat, non-tender, present bowel sounds, non-distended Extremities: no edema, no tenderness, no cyanosis Laboratory Tests Test 04/27/20 16:26 04/27/20 20:17 04/28/20 00:21 04/28/20 04:13 POC Whole Blood Glucose Pending 259 MG/DL (74-106) H 162 MG/DL (74-106) H 104 MG/DL (74-106) Test 04/28/20 08:54 04/28/20 09:05 POC Whole Blood Glucose 193 MG/DL (74-106) H White Blood Count 8.5 K/UL (4.8-10.8) Red Blood Count 4.78 M/UL (4.70-6.10) Hemoglobin 13.3 G/DL (14.2-18.0) L Hematocrit 42.2 % (42.0-52.0) Mean Corpuscular Volume 88 FL (80-99) Mean Corpuscular Hemoglobin 27.8 PG (27.0-31.0) Mean Corpuscular Hemoglobin Concent 31.5 G/DL (32.0-36.0) L Red Cell Distribution Width 16.1 % (11.6-14.8) H Platelet Count 282 K/UL (150-450) Mean Platelet Volume 7.3 FL (6.5-10.1) Neutrophils (%) (Auto) 42.1 % (45.0-75.0) L Lymphocytes (%) (Auto) 42.5 % (20.0-45.0) Monocytes (%) (Auto) 9.0 % (1.0-10.0) Eosinophils (%) (Auto) 5.3 % (0.0-3.0) H Basophils (%) (Auto) 1.2 % (0.0-2.0) Sodium Level 138 MMOL/L (136-145) Potassium Level 4.3 MMOL/L (3.5-5.1) Chloride Level 103 MMOL/L (98-107) Carbon Dioxide Level 26 MMOL/L (21-32) Anion Gap 9 mmol/L (5-15) Blood Urea Nitrogen 21 mg/dL (7-18) H Creatinine 1.2 MG/DL (0.55-1.30) Estimat Glomerular Filtration Rate > 60 mL/min (>60) Glucose Level 201 MG/DL (74-106) H Calcium Level 9.5 MG/DL (8.5-10.1) Total Bilirubin 0.4 MG/DL (0.2-1.0) Aspartate Amino Transf (AST/SGOT) 54 U/L (15-37) H Alanine Aminotransferase (ALT/SGPT) 70 U/L (12-78) Alkaline Phosphatase 207 U/L (46-116) H Total Protein 7.9 G/DL (6.4-8.2) Albumin 3.1 G/DL (3.4-5.0) L Globulin 4.8 g/dL Albumin/Globulin Ratio 0.6 (1.0-2.7) L Plan Problems: (1) Weaver Pouch fistula Assessment & Plan: Status post repair see Dr. Messer notes Covering for Dr. Messer Patient states he feels better today no nausea vomiting fever chills tolerating clear liquid diet this morning but only approximately 20-30% Labs improved On TPN Ambulatory CT reviewed and discussed with Dr. Messer Overall seems improving Wound clean dry intact Pouch with some output Good urine output Catheter is in place on suction we will plan to place to gravity further meaning 24 hours and see how patient does. Okay advance a full liquid diet as desired by patient. Otherwise continue current care and management. output noted feels better cont current tx plan eating more consider adv diet to [facility] regular will discuss with Dr. Messer consider d/c tpn Sg Cervantes Apr 28, 2020 12:51
[2020-04-28] MEDS: Hydromorphone 0.5mg/0.5ml inj SUBQ PRN ×2 (13:18→18:28)
[2020-04-28] MEDS ORDERED: Tubing IV Secondary IV ONE (14:09)
[2020-04-28 16:00] VITALS: BP 124/74
--- NOTE | 2020-04-28 17:54 | Infectious Diseases Prog Note ---
Assessment/Plan Assessment/Plan ASSESSMENT AND PLAN: 1. enterocutaneous fistula, abdominal wall soft tissue edema and inflammation on CT scan ? abdominal wall cellulitis/soft tissue infection, ? infected fistula site/wound infection wound/drainage culture with klebsiella - sensitive to cephalosporins, carbapenems and levofloxacin, R-zosyn mild leukocytosis post-op resolved mild thrush seen - on micafungin ileus vs bowel obstruction - management per Dr. Messer - s/p ceftriaxone and flagyl - s/p micafungin - s/p fistula repair - 04/17/20 - monitor labs - continue management per Dr. Messer - communicated with Dr. Messer about CT abdomen and pelvis - abdominal CT - post-surgical changes more likely than abdominal abscess - monitor for fevers or leukocytosis - if occurs than restart antibiotics - currently stable off antibiotics 2. Patient has enterocutaneous fistula. Patient is status post pouch endoscopy. Management per Dr. Messer. 3. Patient has history of diabetes. Continue blood sugar treatment per Endocrine. 4. Hypertension. Continue blood pressure treatment primary care team and Endocrine. 5. Blood sugar and blood pressure control for hypertension and diabetes. 6. Patient has a history of Weaver continent ileostomy. 7. 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 8. History of multiple abdominal surgeries including proctocolectomy and cholecystectomy and Weaver ileostomy. 9. Allergies to codeine, morphine. 10. Social history is negative 11. Family history is noncontributory. 12. MAR is noted. 13. Case discussed with RN. 14. Continue treatment per Dr. Messer and consultants. 15. Orders were noted and entered. Subjective Constitutional: Denies: fever HEENT: Denies: congestion Respiratory: Denies: shortness of breath Gastrointestinal/Abdominal: Denies: nausea, diarrhea Genitourinary: Denies: dysuria, hematuria Neurologic: Denies: headache Psychiatric: Denies: depression Skin: Denies: rash Hematologic: Denies: bleeding Musculoskeletal: Reports: pain - less abdominal pain Allergies: Coded Allergies: CODEINE (Verified Allergy, Unknown, 04/04/20) MORPHINE (Verified Allergy, Unknown, 04/04/20) Objective Last 24 Hour Vital Signs Date Time Temp Pulse Resp B/P (MAP) Pulse Ox O2 Delivery O2 Flow Rate FiO2 04/28/20 16:00 97.5 71 16 124/74 (91) 98 04/28/20 12:00 98.1 68 16 112/62 (79) 96 04/28/20 10:17 98 Room Air 21 04/28/20 09:27 98 115/76 04/28/20 09:00 Room Air 04/28/20 08:00 97.9 98 16 115/76 (89) 98 04/28/20 04:00 98.5 87 16 110/70 (83) 95 04/28/20 00:00 98.3 81 17 124/76 (92) 97 04/27/20 21:00 Room Air 04/27/20 20:00 98.5 87 16 127/73 (91) 97 Height (Feet): 5 Height (Inches): 4.00 Weight (Pounds): 176 General Appearance: no acute distress HEENT: normocephalic, atraumatic, anicteric, mucous membranes moist Respiratory/Chest: lungs clear, normal breath sounds, no respiratory distress, no accessory muscle use Cardiovascular: normal rate, regular rhythm, no gallop/murmur Abdomen: normal bowel sounds, soft, non tender, no organomegaly, non distended, other - incision - clean and dry, no abdominal wall cellulitis or drainage Genitourinary: other - no lopez Extremities: no cyanosis Skin: no rash Neurologic/Psychiatric: alert, responsive Lymphatic: no neck adenopathy Musculoskeletal: no effusion CT abdomen and pelvis: IMPRESSION: Soft tissue edema, inflammation and foci of air in the abdominal wall. No discrete drainable collection. Chest x-ray - FINDINGS: A single one view chest is obtained. Vascularity is normal. The lung corbett are clear bilaterally. Cardiac and mediastinal silhouette are within normal limits. CP angles are sharp. The bony thorax appear unremarkable. IMPRESSION: NO ACUTE CARDIOPULMONARY DISEASE. KUB - 04/22/20 - Impression: Mildly dilated small bowel loops. Given evidence of recent surgery, most likely on the basis of postoperative ileus. Small bowel obstruction also possible and correlation with clinical findings and follow-up radiographs as indicated is recommended CT abdomen and pelvis - 04/25/20 - Impression: Evidence of recent surgery, presumably revision of previously demonstrated continent ileostomy. There is no evidence of bowel obstruction. Ill-defined gas bubbles and phlegmon our seen surrounding the reservoir. Most likely represents routine postsurgical changes, but the possibility of developing abscess should also be considered. Correlate with clinical findings. Gas within the bladder lumen. Most likely represents recent instrumentation. If there is no history of such, then the possibility of infection with gas-forming organism should be considered Prior cholecystectomy Other findings as noted Microbiology Date/Time Source Procedure Growth Status 04/11/20 17:10 Other(Specify in comment) Gram Stain - Final Complete 04/11/20 17:10 Wound Culture - Final Klebsiella Pneumoniae Complete 04/04/20 13:45 Nasopharynx SARS-CoV-2 Antigen (Rapid)(NALINI) - Final Complete Laboratory Tests Test 04/27/20 20:17 04/28/20 00:21 04/28/20 04:13 04/28/20 08:54 POC Whole Blood Glucose 259 MG/DL (74-106) H 162 MG/DL (74-106) H 104 MG/DL (74-106) 193 MG/DL (74-106) H Test 04/28/20 09:05 04/28/20 13:24 04/28/20 17:14 White Blood Count 8.5 K/UL (4.8-10.8) Red Blood Count 4.78 M/UL (4.70-6.10) Hemoglobin 13.3 G/DL (14.2-18.0) L Hematocrit 42.2 % (42.0-52.0) Mean Corpuscular Volume 88 FL (80-99) Mean Corpuscular Hemoglobin 27.8 PG (27.0-31.0) Mean Corpuscular Hemoglobin Concent 31.5 G/DL (32.0-36.0) L Red Cell Distribution Width 16.1 % (11.6-14.8) H Platelet Count 282 K/UL (150-450) Mean Platelet Volume 7.3 FL (6.5-10.1) Neutrophils (%) (Auto) 42.1 % (45.0-75.0) L Lymphocytes (%) (Auto) 42.5 % (20.0-45.0) Monocytes (%) (Auto) 9.0 % (1.0-10.0) Eosinophils (%) (Auto) 5.3 % (0.0-3.0) H Basophils (%) (Auto) 1.2 % (0.0-2.0) Sodium Level 138 MMOL/L (136-145) Potassium Level 4.3 MMOL/L (3.5-5.1) Chloride Level 103 MMOL/L (98-107) Carbon Dioxide Level 26 MMOL/L (21-32) Anion Gap 9 mmol/L (5-15) Blood Urea Nitrogen 21 mg/dL (7-18) H Creatinine 1.2 MG/DL (0.55-1.30) Estimat Glomerular Filtration Rate > 60 mL/min (>60) Glucose Level 201 MG/DL (74-106) H Calcium Level 9.5 MG/DL (8.5-10.1) Total Bilirubin 0.4 MG/DL (0.2-1.0) Aspartate Amino Transf (AST/SGOT) 54 U/L (15-37) H Alanine Aminotransferase (ALT/SGPT) 70 U/L (12-78) Alkaline Phosphatase 207 U/L (46-116) H Total Protein 7.9 G/DL (6.4-8.2) Albumin 3.1 G/DL (3.4-5.0) L Globulin 4.8 g/dL Albumin/Globulin Ratio 0.6 (1.0-2.7) L POC Whole Blood Glucose 283 MG/DL (74-106) H 223 MG/DL (74-106) H Current Medications Medications (Trade) Dose Ordered Sig/Lea Route PRN Reason Start Time Stop Time Status Last Admin Dose Admin Acetaminophen (Tylenol) 650 mg Q4H PRN ORAL Mild Pain 04/05/20 09:30 05/05/20 09:29 Acetaminophen (Tylenol) 650 mg Q4H PRN ORAL temp 100.2 or above 04/17/20 14:45 05/17/20 14:44 Al Hydroxide/Mg Hydroxide (Mylanta) 30 ml Q2HR PRN ORAL GI 04/15/20 21:45 05/15/20 21:44 Allopurinol (Zyloprim) 100 mg DAILY ORAL 04/05/20 09:00 05/05/20 08:59 04/28/20 09:26 Amlodipine Besylate (Norvasc) 5 mg DAILY ORAL 04/05/20 09:00 05/05/20 08:59 04/28/20 09:27 Chlorhexidine Gluconate (Re-Hex 2%) 1 applic DAILY@1999 TOPIC 04/05/20 20:00 07/04/20 19:59 04/27/20 19:48 Cyclobenzaprine HCl (Flexeril) 10 mg Q8H PRN ORAL BACK PAIN/MUSCLE SPASMS 04/25/20 07:45 05/02/20 07:44 Dextrose 1,000 ml @ 85 mls/hr Q24H PRN IV PN interrupted or unavailable 04/05/20 21:00 05/05/20 20:59 04/09/20 01:58 Dextrose (Dextrose 50%) 25 ml Q30M PRN IV Hypoglycemia 04/09/20 06:45 07/08/20 06:44 Dextrose (Dextrose 50%) 50 ml Q30M PRN IV Hypoglycemia 04/09/20 06:45 07/08/20 06:44 Fat Emulsion Intravenous 240 ml/Amino Acids/ Electrolytes/ Dextrose 2,040 ml @ 85 mls/hr Q24H IV 04/20/20 20:00 05/20/20 19:59 04/27/20 20:01 Hydromorphone HCl (Dilaudid) 1 mg Q4H PRN SUBQ Severe pain 04/28/20 09:00 05/01/20 16:59 04/28/20 13:18 Insulin Aspart (NovoLOG) EVERY 4 HOURS SUBQ 04/19/20 18:30 07/05/20 00:00 04/28/20 17:28 Insulin Aspart (NovoLOG) 6 units EVERY 4 HOURS SUBQ 04/19/20 21:00 07/18/20 20:59 04/28/20 17:29 Insulin Detemir (Levemir) 18 units BID SUBQ 04/19/20 09:00 07/17/20 08:59 04/28/20 17:27 Lorazepam (Ativan) 1 mg HSPRN PRN SL Sleep 04/22/20 08:45 04/29/20 08:44 Lorazepam (Ativan) 1 mg Q4H PRN SL Muscle Spasm 04/22/20 10:30 04/29/20 10:29 Ondansetron HCl (Zofran) 4 mg Q4H PRN IVP Nausea & Vomiting 04/17/20 14:30 05/17/20 14:29 04/28/20 02:44 Oxycodone/ Acetaminophen (Percocet 5-325) 1 tab Q4H PRN ORAL Moderate Pain (Pain Scale 4-6) 04/24/20 08:00 05/01/20 07:59 04/26/20 01:21 Pantoprazole (Protonix) 40 mg DAILY IVP 04/16/20 09:00 05/16/20 08:59 04/28/20 09:26 Phytonadione (Vitamin K) 10 mg ONCE A WEEK SUBQ 04/12/20 09:00 07/11/20 08:59 04/26/20 09:08 Prochlorperazine (Compazine) 10 mg Q6H PRN IVP Nausea & Vomiting 04/19/20 11:30 05/19/20 11:29 Quetiapine Fumarate (SEROqueL) 400 mg BEDTIME ORAL 04/12/20 21:00 05/20/20 20:59 04/27/20 20:11 Silver Nitrate (Silver Nitrate Applicators) 6 applic DAILYPRN PRN TOPIC abdominal wound application 04/10/20 09:00 07/09/20 08:59 Wilman Rosas MD Apr 28, 2020 17:54
[2020-04-28 20:00] VITALS: BP 141/77
[2020-04-28] MEDS: Fat Emulsion Iv 20% 240 ML in Tpn 1,800 ML IV SCH (20:16)
[2020-04-28] MEDS: Dyna-Hex 2% Top Sol 2oz TOPIC SCH (20:18)
[2020-04-29] VITALS: BP 133/80
[2020-04-29] MEDS: NovoLOG Insulin Flexpen SUBQ SCH ×9 (00:14→20:56)
[2020-04-29] MEDS: Hydromorphone 0.5mg/0.5ml inj SUBQ PRN ×2 (02:08→08:18)
[2020-04-29 04:00] VITALS: BP 112/66
[2020-04-29 05:59] LABS: BASOPHILS % (AUTO) 0.6 % (0.0-2.0); EOSINOPHILS % (AUTO) 0.8 % (0.0-3.0); HEMATOCRIT 37.6 % (42.0-52.0); HEMOGLOBIN 11.8 G/DL (14.2-18.0); LYMPHOCYTES % (AUTO) 19.8 % (20.0-45.0); MEAN CORPUSCULAR VOLUME 87 FL (80-99); MONOCYTES % (AUTO) 8.4 % (1.0-10.0); NEUTROPHILS % (AUTO) 70.5 % (45.0-75.0); PLATELET COUNT 251 K/UL (150-450); RED BLOOD COUNT 4.31 M/UL (4.70-6.10); RED CELL DISTRIBUTION WIDTH 15.8 % (11.6-14.8); WHITE BLOOD COUNT 12.5 K/UL (4.8-10.8)
[2020-04-29 06:19] LABS: ALANINE AMINOTRANSFERASE 65 U/L (12-78); ALBUMIN 2.7 G/DL (3.4-5.0); ALBUMIN/GLOBULIN RATIO 0.7 (1.0-2.7); ALKALINE PHOSPHATASE 190 U/L (46-116); ANION GAP 11 mmol/L (5-15); ASPARTATE AMINO TRANSFERASE 42 U/L (15-37); BILIRUBIN,TOTAL 0.6 MG/DL (0.2-1.0); BLOOD UREA NITROGEN 20 mg/dL (7-18); CARBON DIOXIDE 24 MMOL/L (21-32); CHLORIDE 101 MMOL/L (98-107); CREATININE 1.2 MG/DL (0.55-1.30); POTASSIUM 3.7 MMOL/L (3.5-5.1); SODIUM 136 MMOL/L (136-145)
--- NOTE | 2020-04-29 06:51 | General Progress Note ---
Subjective Allergies: Coded Allergies: CODEINE (Verified Allergy, Unknown, 04/04/20) MORPHINE (Verified Allergy, Unknown, 04/04/20) All Systems: reviewed and negative except above Subjective events noted seen by Dr Cornell over the weekend glucose was elevated yesterday on full liquid diet Item Value Date Time Bedside Blood Glucose 148 mg/dl H 04/29/20 0420 Bedside Blood Glucose 116 mg/dl 04/29/20 0014 Bedside Blood Glucose 138 mg/dl H 04/28/202019 Bedside Blood Glucose 223 mg/dl H 04/28/20 1729 Bedside Blood Glucose 283 mg/dl H 04/28/20 1336 Bedside Blood Glucose 104 mg/dl 04/28/20 0500 Objective Last 24 Hour Vital Signs Date Time Temp Pulse Resp B/P (MAP) Pulse Ox O2 Delivery O2 Flow Rate FiO2 04/29/20 06:43 114 04/29/20 04:00 98.8 118 18 112/66 (81) 96 04/29/20 00:00 100.3 110 20 133/80 (97) 97 04/28/20 21:00 Room Air 04/28/20 20:00 98.4 90 18 141/77 (98) 97 04/28/20 16:00 97.5 71 16 124/74 (91) 98 04/28/20 12:00 98.1 68 16 112/62 (79) 96 04/28/20 10:17 98 Room Air 21 04/28/20 09:27 98 115/76 04/28/20 09:00 Room Air 04/28/20 08:00 97.9 98 16 115/76 (89) 98 Intake and Output 04/28/20 04/29/20 19:00 07:00 Intake Total 1420 ml 1235 ml Output Total 420 ml 970 ml Balance 1000 ml 265 ml Intake Oral 400 ml 300 ml IV Total 1020 ml 935 ml Output Urine Total 550 ml Other 420 ml 420 ml Laboratory Tests 04/28/20 08:54: POC Whole Blood Glucose 193H 04/28/20 09:05: White Blood Count 8.5, Red Blood Count 4.78, Hemoglobin 13.3L, Hematocrit 42.2, Mean Corpuscular Volume 88, Mean Corpuscular Hemoglobin 27.8, Mean Corpuscular Hemoglobin Concent 31.5L, Red Cell Distribution Width 16.1H, Platelet Count 282, Mean Platelet Volume 7.3, Neutrophils (%) (Auto) 42.1L, Lymphocytes (%) (Auto) 42.5, Monocytes (%) (Auto) 9.0, Eosinophils (%) (Auto) 5.3H, Basophils (%) (Aut o) 1.2, Sodium Level 138, Potassium Level 4.3, Chloride Level 103, Carbon Dioxide Level 26, Anion Gap 9, Blood Urea Nitrogen 21H, Creatinine 1.2, Estimat Glomerular Filtration Rate > 60, Glucose Level 201H, Calcium Level 9.5, Total Bilirubin 0.4, Aspartate Amino Transf (AST/SGOT) 54H, Alanine Aminotransferase (ALT/SGPT) 70, Alkaline Phosphatase 207H, Total Protein 7.9, Albumin 3.1L, Globulin 4.8, Albumin/Globulin Ratio 0.6L 04/28/20 13:24: POC Whole Blood Glucose 283H 04/28/20 17:14: POC Whole Blood Glucose 223H 04/28/20 20:16: POC Whole Blood Glucose [Pending] 04/29/20 00:14: POC Whole Blood Glucose [Pending] 04/29/20 04:18: POC Whole Blood Glucose [Pending] 04/29/20 05:05: White Blood Count 12.5H, Red Blood Count 4.31L, Hemoglobin 11.8L, Hematocrit 37.6L, Mean Corpuscular Volume 87, Mean Corpuscular Hemoglobin 27.5, Mean Corpuscular Hemoglobin Concent 31.5L, Red Cell Distribution Width 15.8H, Platelet Count 251, Mean Platelet Volume 7.7, Neutrophils (%) (Auto) 70.5, Lymphocytes (%) (Auto) 19.8L, Monocytes (%) (Auto) 8.4, Eosinophils (%) (Auto) 0.8, Basophils (%) (Auto) 0.6, Sodium Level 136, Potassium Level 3.7, Chloride Level 101, Carbon Dioxide Level 24, Anion Gap 11, Blood Urea Nitrogen 20H, Creatinine 1.2, Estimat Glomerular Filtration Rate > 60, Glucose Level 150H, Calcium Level 9.0, Total Bilirubin 0.6, Aspartate Amino Transf (AST/SGOT) 42H, Alanine Aminotransferase (ALT/SGPT) 65, Alkaline Phosphatase 190H, Total Protein 6.8, Albumin 2.7L, Globulin 4.1, Albumin/Globulin Ratio 0.7L Height (Feet): 5 Height (Inches): 4.00 Weight (Pounds): 176 General Appearance: no apparent distress Neck: normal alignment Cardiovascular: normal rate Respiratory/Chest: lungs clear Abdomen: hypoactive bowel sounds Pelvis: normal external exam Objective Current Medications Medications (Trade) Dose Ordered Sig/Lea Route PRN Reason Start Time Stop Time Status Last Admin Dose Admin Acetaminophen (Tylenol) 650 mg Q4H PRN ORAL Mild Pain 04/05/20 09:30 05/05/20 09:29 Acetaminophen (Tylenol) 650 mg Q4H PRN ORAL temp 100.2 or above 04/17/20 14:45 05/17/20 14:44 Al Hydroxide/Mg Hydroxide (Mylanta) 30 ml Q2HR PRN ORAL GI 04/15/20 21:45 05/15/20 21:44 Allopurinol (Zyloprim) 100 mg DAILY ORAL 04/05/20 09:00 05/05/20 08:59 04/28/20 09:26 Amlodipine Besylate (Norvasc) 5 mg DAILY ORAL 04/05/20 09:00 05/05/20 08:59 04/28/20 09:27 Chlorhexidine Gluconate (Re-Hex 2%) 1 applic DAILY@2000 TOPIC 04/05/20 20:00 07/04/20 19:59 04/28/20 20:18 Cyclobenzaprine HCl (Flexeril) 10 mg Q8H PRN ORAL BACK PAIN/MUSCLE SPASMS 04/25/20 07:45 05/02/20 07:44 Dextrose 1,000 ml @ 85 mls/hr Q24H PRN IV PN interrupted or unavailable 04/05/20 21:00 05/05/20 20:59 04/09/20 01:58 Dextrose (Dextrose 50%) 25 ml Q30M PRN IV Hypoglycemia 04/09/20 06:45 07/08/20 06:44 Dextrose (Dextrose 50%) 50 ml Q30M PRN IV Hypoglycemia 04/09/20 06:45 07/08/20 06:44 Fat Emulsion Intravenous 240 ml/Amino Acids/ Electrolytes/ Dextrose 2,040 ml @ 85 mls/hr Q24H IV 04/20/20 20:00 05/20/20 19:59 04/28/20 20:16 Hydromorphone HCl (Dilaudid) 1 mg Q4H PRN SUBQ Severe pain 04/28/20 09:00 05/01/20 16:59 04/29/20 02:08 Insulin Aspart (NovoLOG) EVERY 4 HOURS SUBQ 04/19/20 18:30 07/05/20 00:00 04/29/20 04:20 Insulin Aspart (NovoLOG) 6 units EVERY 4 HOURS SUBQ 04/19/20 21:00 07/18/20 20:59 04/29/20 04:20 Insulin Detemir (Levemir) 18 units BID SUBQ 04/19/20 09:00 07/17/20 08:59 04/28/20 17:27 Lorazepam (Ativan) 1 mg HSPRN PRN SL Sleep 04/22/20 08:45 04/29/20 08:44 Lorazepam (Ativan) 1 mg Q4H PRN SL Muscle Spasm 04/22/20 10:30 04/29/20 10:29 Ondansetron HCl (Zofran) 4 mg Q4H PRN IVP Nausea & Vomiting 04/17/20 14:30 05/17/20 14:29 04/28/20 02:44 Oxycodone/ Acetaminophen (Percocet 5-325) 1 tab Q4H PRN ORAL Moderate Pain (Pain Scale 4-6) 04/24/20 08:00 05/01/20 07:59 04/26/20 01:21 Pantoprazole (Protonix) 40 mg DAILY IVP 04/16/20 09:00 05/16/20 08:59 04/28/20 09:26 Phytonadione (Vitamin K) 10 mg ONCE A WEEK SUBQ 04/12/20 09:00 07/11/20 08:59 04/26/20 09:08 Prochlorperazine (Compazine) 10 mg Q6H PRN IVP Nausea & Vomiting 04/19/20 11:30 05/19/20 11:29 Quetiapine Fumarate (SEROqueL) 400 mg BEDTIME ORAL 04/12/20 21:00 05/20/20 20:59 04/28/20 20:18 Silver Nitrate (Silver Nitrate Applicators) 6 applic DAILYPRN PRN TOPIC abdominal wound application 04/10/20 09:00 07/09/20 08:59 Assessment/Plan Problem List: (1) Diabetes mellitus ICD Codes: E11.9 - Type 2 diabetes mellitus without complications SNOMED: 87472073 (2) Post-operative complication ICD Codes: T81.9XXA - Unspecified complication of procedure, initial encounter SNOMED: 100611359 (3) Weaver Pouch fistula Assessment/Plan: increase Levemir to 20 units bid continue R insulin of TPN at 36 untits / bag change Novolog 6 to 8 ac tid change Novolog sliding scale every 4 hours to ac hs hypoglycemia protocol in order Justyn Michaels MD Apr 29, 2020 06:51
[2020-04-29 08:00] VITALS: BP 121/77
[2020-04-29] MEDS: Pantoprazole Inj IVP SCH (08:17)
[2020-04-29] MEDS: Allopurinol 100mg Tab ORAL SCH (08:17)
[2020-04-29] MEDS: Levemir Flexpen SUBQ SCH ×2 (08:20→18:36)
--- NOTE | 2020-04-29 09:03 | General Progress Note ---
Progress Note Progress Note Did well over the weekend but last evening temp 100.3, tachycardic, and abdominal wall is very tender both sides of the incision Minimal po intake yesterday Urine 1000cc BCIR ileo 840 WBC up 12,500 Hgb 11.8 BUN up 20 Cr 1.2 Albumin 2.7 Imp: Rule-out evolving intra-abdominal or abdominal wall infection Plan: Add IV fluids to TPN STAT follow-up CT scan abd+pelvis with oral and IV contrast NPO for now f/u labs in AM blood C&S x2 from PICC line for next temp 100.3 or higher Rodrigo Messer MD Apr 29, 2020 09:03
[2020-04-29] MEDS: 1/2NS w/KCl 20mEq 1000ml 1,000 ML IV SCH (09:58)
--- NOTE | 2020-04-29 11:56 | Diagnostic Imaging Report ---
Clinical Indication: Reason For Exam: ABD PAIN Technique: Patient ingested enteric contrast. IV administration nonionic contrast. Venous phase spiral acquisition obtained through the abdomen and pelvis. Multiplanar reconstructions were generated. Total dose length product 388.8 mGycm. CTDIvol(s) 6.7 mGy. Dose reduction achieved using automated exposure control Comparison: 04/25/2020 Findings: Evidence of recent surgery with midline abdominal skin sena. There are small punctate foci of free intraperitoneal gas which appear decreased compared to the prior exam. There is a collection of fluid with some small foci of gas anterior and inferior to the reservoir of a continent ostomy. This is concerning for potential infected collection/abscess. Overall this collection is slightly increased in size compared to the prior exam. Previously it measured approximately 7.7 cm transverse and currently measures approximately 8.5 cm transverse. Greatest AP diameter of the collection previously was 5 cm and currently approximately 5 cm. Amount of surrounding inflammatory change is stable. There are some punctate foci of gas underlying the midline skin sena superficial to the collection. There is no extraluminal extravasation of administered enteric contrast. No evidence of small bowel obstruction. There is thickening of the wall of the bladder, particularly anteriorly which may be reactive in etiology. There is a punctate focus of gas in the anterior superior aspect of the bladder (sagittal image #34). This was seen on the prior exam. Patient again noted to be status post cholecystectomy. Liver, spleen, adrenal glands, pancreas and kidneys are overall stable in appearance compared to the prior exam. Osseous structures are stable. Abdominal aorta is normal in caliber with mild atherosclerotic calcification. Some small mesenteric lymph nodes are seen, likely reactive in etiology. There is mild dependent atelectasis in the lung bases. IMPRESSION: Evidence of recent surgery with midline skin sena. Punctate foci of free intraperitoneal air likely postoperative in etiology. These are decreased compared to the prior exam. Persistent collection of fluid with some internal foci of air noted adjacent to the conduit ileostomy reservoir in the pelvis, slightly increased in size compared to the prior exam of 04/25/2020 (transverse diameter increased from 7.7 to 8.5 cm). Infection of this fluid collection cannot be excluded based on imaging. Please correlate with clinical findings. Flexion seems contiguous with some fluid and air tracking to the anterior abdominal wall, likely in the tract of the previously seen cutaneous fistula. Please correlate with physical exam to assess for superficial/external drainage. Small focus of gas within the bladder. If there is no recent history of bladder instrumentation/catheterization and this finding may be related to infection or fistulous connection to the bladder. The CT scanner at [facility] is accredited by the [employer] and the scans are performed using protocols designed to limit radiation exposure to as low as reasonably achievable to attain images of sufficient resolution adequate for diagnostic evaluation.
[2020-04-29 12:00] VITALS: BP 121/81
[2020-04-29] MEDS ORDERED: Sodium Bicarbonate 4% 2.4meq/5ml vial IV PRN (13:15)
[2020-04-29] MEDS ORDERED: Lidocaine 1% Plain 30 ml INJ SCH (13:23)
--- NOTE | 2020-04-29 13:42 | General Progress Note ---
Progress Note Progress Note See earlier note. CT scan shows increased likely infected fluid collection with tracking to the abdominal wall and incision. Leidy removed - slight erythema below umbilicus and lower pole of incision Imp: Intra-abdominal abscess tracking to abdominal wall R/O recurrent fistula Plan: Resume IV antibiotics - per ID CT guided drainage of intra-abdominal collection/abscess Leiyd removed - will culture any drainage that may develop npo until procedures completed Rodrigo Messer MD Apr 29, 2020 13:42
--- NOTE | 2020-04-29 13:57 | Infectious Diseases Prog Note ---
Assessment/Plan Assessment/Plan ASSESSMENT AND PLAN: 1. enterocutaneous fistula, abdominal wall soft tissue edema and inflammation on CT scan ? abdominal wall cellulitis/soft tissue infection, ? infected fistula site/wound infection wound/drainage culture with klebsiella - sensitive to cephalosporins, carbapenems and levofloxacin, R-zosyn new, acute abdominal pain with leukocytosis and fevers, tachycardia - ? sepsis, ? intra-abdominal abscess on CT scan - meropenem and vancomycin - possible abdominal fluid collection drainage - s/p fistula repair - 04/17/20 - monitor labs, ua, monitor fevers and leukocytosis - continue management per Dr. Messer - d/w with Dr. Messer about CT abdomen and pelvis 2. Patient has enterocutaneous fistula. Patient is status post pouch endoscopy. Management per Dr. Messer. 3. Patient has history of diabetes. Continue blood sugar treatment per Endocrine. 4. Hypertension. Continue blood pressure treatment primary care team and Endocrine. 5. Blood sugar and blood pressure control for hypertension and diabetes. 6. Patient has a history of Weaver continent ileostomy. 7. 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 8. History of multiple abdominal surgeries including proctocolectomy and cholecystectomy and Weaver ileostomy. 9. Allergies to codeine, morphine. 10. Social history is negative 11. Family history is noncontributory. 12. MAR is noted. 13. Case discussed with RN. 14. Continue treatment per Dr. Messer and consultants. 15. Orders were noted and entered. Subjective Constitutional: Reports: fever, fatigue HEENT: Denies: congestion Respiratory: Denies: shortness of breath Breasts: Denies: discharge Cardiovascular: Denies: chest pain Gastrointestinal/Abdominal: Denies: nausea, vomiting, diarrhea Genitourinary: Denies: dysuria Neurologic: Denies: headache Psychiatric: Denies: depression Skin: Denies: rash Hematologic: Denies: bleeding Musculoskeletal: Reports: pain - more abdominal pain Allergies: Coded Allergies: CODEINE (Verified Allergy, Unknown, 04/04/20) MORPHINE (Verified Allergy, Unknown, 04/04/20) Objective Last 24 Hour Vital Signs Date Time Temp Pulse Resp B/P (MAP) Pulse Ox O2 Delivery O2 Flow Rate FiO2 04/29/20 12:00 98.9 105 18 121/81 (94) 98 04/29/20 09:00 Room Air 04/29/20 08:18 108 121/77 04/29/20 08:00 99.5 108 18 121/77 (92) 94 04/29/20 06:43 114 04/29/20 04:00 98.8 118 18 112/66 (81) 96 04/29/20 00:00 100.3 110 20 133/80 (97) 97 04/28/20 21:00 Room Air 04/28/20 20:00 98.4 90 18 141/77 (98) 97 04/28/20 16:00 97.5 71 16 124/74 (91) 98 Height (Feet): 5 Height (Inches): 4.00 Weight (Pounds): 176 General Appearance: no acute distress HEENT: normocephalic, atraumatic, anicteric, mucous membranes moist Respiratory/Chest: lungs clear, normal breath sounds, no respiratory distress, no accessory muscle use Cardiovascular: normal rate, regular rhythm, no gallop/murmur, no JVD Abdomen: normal bowel sounds, non distended, other - + abdominal pain, no rebound, incision clean and dry Genitourinary: other - no lopez Extremities: no cyanosis Skin: no rash 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 No discrete drainable collection. Chest x-ray - FINDINGS: A single one view chest is obtained. Vascularity is normal. The lung corbett are clear bilaterally. Cardiac and mediastinal silhouette are within normal limits. CP angles are sharp. The bony thorax appear unremarkable. IMPRESSION: NO ACUTE CARDIOPULMONARY DISEASE. KUB - 04/22/20 - Impression: Mildly dilated small bowel loops. Given evidence of recent surgery, most likely on the basis of postoperative ileus. Small bowel obstruction also possible and correlation with clinical findings and follow-up radiographs as indicated is recommended CT abdomen and pelvis - 04/25/20 - Impression: Evidence of recent surgery, presumably revision of previously demonstrated continent ileostomy. There is no evidence of bowel obstruction. Ill-defined gas bubbles and phlegmon our seen surrounding the reservoir. Most likely represents routine postsurgical changes, but the possibility of developing abscess should also be considered. Correlate with clinical findings. Gas within the bladder lumen. Most likely represents recent instrumentation. If there is no history of such, then the possibility of infection with gas-forming organism should be considered Prior cholecystectomy Other findings as noted CT abdomen and pelvis - 04/29/20 - IMPRESSION: Evidence of recent surgery with midline skin sena. Punctate foci of free intraperitoneal air likely postoperative in etiology. These are decreased compared to the prior exam. Persistent collection of fluid with some internal foci of air noted adjacent to the conduit ileostomy reservoir in the pelvis, slightly increased in size compared to the prior exam of 04/25/2020 (transverse diameter increased from 7.7 to 8.5 cm). Infection of this fluid collection cannot be excluded based on imaging. Please correlate with clinical findings. Flexion seems contiguous with some fluid and air tracking to the anterior abdominal wall, likely in the tract of the previously seen cutaneous fistula. Please correlate with physical exam to assess for superficial/external drainage. Small focus of gas within the bladder. If there is no recent history of bladder instrumentation/catheterization and this finding may be related to infection or fistulous connection to the bladder. Laboratory Tests Test 04/28/20 17:14 04/28/20 20:16 04/29/20 00:14 04/29/20 04:18 POC Whole Blood Glucose 223 MG/DL (74-106) H Pending Pending Pending Test 04/29/20 05:05 04/29/20 11:53 White Blood Count 12.5 K/UL (4.8-10.8) H Red Blood Count 4.31 M/UL (4.70-6.10) L Hemoglobin 11.8 G/DL (14.2-18.0) L Hematocrit 37.6 % (42.0-52.0) L Mean Corpuscular Volume 87 FL (80-99) Mean Corpuscular Hemoglobin 27.5 PG (27.0-31.0) Mean Corpuscular Hemoglobin Concent 31.5 G/DL (32.0-36.0) L Red Cell Distribution Width 15.8 % (11.6-14.8) H Platelet Count 251 K/UL (150-450) Mean Platelet Volume 7.7 FL (6.5-10.1) Neutrophils (%) (Auto) 70.5 % (45.0-75.0) Lymphocytes (%) (Auto) 19.8 % (20.0-45.0) L Monocytes (%) (Auto) 8.4 % (1.0-10.0) Eosinophils (%) (Auto) 0.8 % (0.0-3.0) Basophils (%) (Auto) 0.6 % (0.0-2.0) Sodium Level 136 MMOL/L (136-145) Potassium Level 3.7 MMOL/L (3.5-5.1) Chloride Level 101 MMOL/L (98-107) Carbon Dioxide Level 24 MMOL/L (21-32) Anion Gap 11 mmol/L (5-15) Blood Urea Nitrogen 20 mg/dL (7-18) H Creatinine 1.2 MG/DL (0.55-1.30) Estimat Glomerular Filtration Rate > 60 mL/min (>60) Glucose Level 150 MG/DL (74-106) H Calcium Level 9.0 MG/DL (8.5-10.1) Total Bilirubin 0.6 MG/DL (0.2-1.0) Aspartate Amino Transf (AST/SGOT) 42 U/L (15-37) H Alanine Aminotransferase (ALT/SGPT) 65 U/L (12-78) Alkaline Phosphatase 190 U/L (46-116) H Total Protein 6.8 G/DL (6.4-8.2) Albumin 2.7 G/DL (3.4-5.0) L Globulin 4.1 g/dL Albumin/Globulin Ratio 0.7 (1.0-2.7) L POC Whole Blood Glucose Pending Current Medications Medications (Trade) Dose Ordered Sig/Lea Route PRN Reason Start Time Stop Time Status Last Admin Dose Admin Acetaminophen (Tylenol) 650 mg Q4H PRN ORAL Mild Pain 04/05/20 09:30 05/05/20 09:29 Acetaminophen (Tylenol) 650 mg Q4H PRN ORAL temp 100.2 or above 04/17/20 14:45 05/17/20 14:44 Al Hydroxide/Mg Hydroxide (Mylanta) 30 ml Q2HR PRN ORAL GI 04/15/20 21:45 05/15/20 21:44 Allopurinol (Zyloprim) 100 mg DAILY ORAL 04/05/20 09:00 05/05/20 08:59 04/29/20 08:17 Amlodipine Besylate (Norvasc) 5 mg DAILY ORAL 04/05/20 09:00 05/05/20 08:59 04/29/20 08:18 Barium Sulfate (Readi-Cat 2) 450 ml NOW PRN ORAL Radiology Procedure 04/29/20 09:00 05/01/20 08:59 Chlorhexidine Gluconate (Re-Hex 2%) 1 applic DAILY@2000 TOPIC 04/05/20 20:00 07/04/20 19:59 04/28/20 20:18 Cyclobenzaprine HCl (Flexeril) 10 mg Q8H PRN ORAL BACK PAIN/MUSCLE SPASMS 04/25/20 07:45 05/02/20 07:44 Dextrose 1,000 ml @ 85 mls/hr Q24H PRN IV PN interrupted or unavailable 04/05/20 21:00 05/05/20 20:59 04/09/20 01:58 Dextrose (Dextrose 50%) 25 ml Q30M PRN IV Hypoglycemia 04/09/20 06:45 07/08/20 06:44 Dextrose (Dextrose 50%) 50 ml Q30M PRN IV Hypoglycemia 04/09/20 06:45 07/08/20 06:44 Fat Emulsion Intravenous 240 ml/Amino Acids/ Electrolytes/ Dextrose 2,040 ml @ 85 mls/hr Q24H IV 04/20/20 20:00 05/20/20 19:59 04/28/20 20:16 Hydromorphone HCl (Dilaudid) 1 mg Q4H PRN SUBQ Severe pain 04/29/20 13:15 05/06/20 13:14 Insulin Aspart (NovoLOG) BEFORE MEALS AND HS SUBQ 04/29/20 11:30 07/05/20 11:29 04/29/20 11:55 Insulin Aspart (NovoLOG) 8 units BEFORE MEALS SUBQ 04/29/20 11:30 07/18/20 11:29 04/29/20 11:56 Insulin Detemir (Levemir) 20 units BID SUBQ 04/29/20 09:00 07/17/20 08:59 04/29/20 08:20 Lidocaine HCl (Xylocaine 1% 30ml) 30 ml STAT INJ 04/29/20 13:23 05/01/20 13:22 Ondansetron HCl (Zofran) 4 mg Q4H PRN IVP Nausea & Vomiting 04/17/20 14:30 05/17/20 14:29 04/28/20 02:44 Oxycodone/ Acetaminophen (Percocet 5-325) 1 tab Q4H PRN ORAL Moderate Pain (Pain Scale 4-6) 04/29/20 16:00 05/06/20 15:59 Pantoprazole (Protonix) 40 mg DAILY IVP 04/16/20 09:00 05/16/20 08:59 04/29/20 08:17 Phytonadione (Vitamin K) 10 mg ONCE A WEEK SUBQ 04/12/20 09:00 07/11/20 08:59 04/26/20 09:08 Prochlorperazine (Compazine) 10 mg Q6H PRN IVP Nausea & Vomiting 04/19/20 11:30 05/19/20 11:29 Quetiapine Fumarate (SEROqueL) 400 mg BEDTIME ORAL 04/12/20 21:00 05/20/20 20:59 04/28/20 20:18 Silver Nitrate (Silver Nitrate Applicators) 6 applic DAILYPRN PRN TOPIC abdominal wound application 04/10/20 09:00 07/09/20 08:59 Sodium 1,000 ml @ 75 mls/hr [id number] IV 04/29/20 10:00 05/29/20 09:59 04/29/20 09:58 Sodium Bicarbonate (Sodium Bicarbonate 4%) 1 ml NOW PRN IV Radiology Procedure 04/29/20 13:15 05/01/20 13:14 Wilman Rosas MD Apr 29, 2020 13:57
[2020-04-29] MEDS ORDERED: Vancomycin 1.5gm/300ml Premix IVPB SCH (15:00)
[2020-04-29 15:47] LABS: INR 1.1 (0.9-1.1)
[2020-04-29] MEDS ORDERED: oxyCODONE HCL/Acetaminophen 5/325mg ORAL PRN (16:00)
--- NOTE | 2020-04-29 16:44 | Pre-Procedure Note/Attestation ---
Pre-Procedure Note/Attestation Complete Prior to Procedure Planned Procedure: not applicable Procedure Narrative: ct guided drainage Indications for Procedure Pre-Operative Diagnosis: pelvic fluid collection Attestation informed consent obtained prior to procedure Júnior Frost M.D. Apr 29, 2020 16:44
--- NOTE | 2020-04-29 16:56 | Post Operative Note (Narrative ---
Progress Note Post-Op Note successful ct guided drainage of pelvic collection. specimen sent for culture. drain left indwelling. Júnior Frost M.D. Apr 29, 2020 16:56
[2020-04-29 20:00] VITALS: BP 138/69
[2020-04-29] MEDS: Fat Emulsion Iv 20% 240 ML in Tpn 1,800 ML IV SCH (20:00)
[2020-04-29] MEDS: Dyna-Hex 2% Top Sol 2oz TOPIC SCH (20:04)
[2020-04-30] VITALS (7 sets, daily range): BP systolic 125–145; BP diastolic 62–79
[2020-04-30] MEDS: 1/2NS w/KCl 20mEq 1000ml 1,000 ML IV SCH ×2 (00:24→14:09)
[2020-04-30 00:39] LABS: APPEARANCE,URINE CLEAR; BILIRUBIN, URINE NEGATIVE (NEGATIVE); COLOR,URINE PALE YELLOW; GLUCOSE, URINE (UA) 2+ (NEGATIVE); KETONES,URINE NEGATIVE (NEGATIVE); LEUKOCYTE ESTERASE ,URINE NEGATIVE (NEGATIVE); NITRITE,URINE NEGATIVE (NEGATIVE); PH,URINE 6 (4.5-8.0); PROTEIN,URINE NEGATIVE (NEGATIVE); UROBILINOGEN,URINE NORMAL MG/DL (0.0-1.0)
[2020-04-30] MEDS: Vancomycin 750mg/NS 275ml IVPB SCH ×4 (02:49→15:29)
[2020-04-30 05:51] LABS: EOSINOPHILS % (AUTO) 1.9 % (0.0-3.0); HEMATOCRIT 37.8 % (42.0-52.0); HEMOGLOBIN 11.9 G/DL (14.2-18.0); MEAN CORPUSCULAR VOLUME 87 FL (80-99); MONOCYTES % (AUTO) 9.6 % (1.0-10.0); NEUTROPHILS % (AUTO) 60.5 % (45.0-75.0); PLATELET COUNT 208 K/UL (150-450); RED BLOOD COUNT 4.34 M/UL (4.70-6.10); RED CELL DISTRIBUTION WIDTH 15.9 % (11.6-14.8); WHITE BLOOD COUNT 8.7 K/UL (4.8-10.8)
[2020-04-30 06:10] LABS: ALANINE AMINOTRANSFERASE 67 U/L (12-78); ALBUMIN 2.6 G/DL (3.4-5.0); ALBUMIN/GLOBULIN RATIO 0.6 (1.0-2.7); ALKALINE PHOSPHATASE 174 U/L (46-116); ANION GAP 9 mmol/L (5-15); ASPARTATE AMINO TRANSFERASE 41 U/L (15-37); BILIRUBIN,TOTAL 0.9 MG/DL (0.2-1.0); BLOOD UREA NITROGEN 17 mg/dL (7-18); CARBON DIOXIDE 25 MMOL/L (21-32); CHLORIDE 102 MMOL/L (98-107); CREATININE 1.2 MG/DL (0.55-1.30); PHOSPHORUS 2.7 MG/DL (2.5-4.9); POTASSIUM 3.9 MMOL/L (3.5-5.1); SODIUM 136 MMOL/L (136-145)
--- NOTE | 2020-04-30 06:27 | General Progress Note ---
Subjective Allergies: Coded Allergies: CODEINE (Verified Allergy, Unknown, 04/04/20) MORPHINE (Verified Allergy, Unknown, 04/04/20) All Systems: reviewed and negative except above Subjective events noted interval notes reviewed CT guided drainage noted diet is full liquid glucose values on higher side Item Value Date Time Bedside Blood Glucose 196 mg/dl H 04/29/20 2100 Bedside Blood Glucose 221 mg/dl H 04/29/20 1838 Bedside Blood Glucose 222 mg/dl H 04/29/20 1156 Bedside Blood Glucose 148 mg/dl H 04/29/20 0820 Bedside Blood Glucose 148 mg/dl H 04/29/20 0420 Bedside Blood Glucose 116 mg/dl 04/29/20 0014 Objective Last 24 Hour Vital Signs Date Time Temp Pulse Resp B/P (MAP) Pulse Ox O2 Delivery O2 Flow Rate FiO2 04/30/20 03:46 98.4 81 20 125/64 (84) 94 04/30/20 00:00 98.9 88 20 126/66 (86) 95 04/29/20 21:00 Room Air 04/29/20 20:00 99.3 86 20 138/69 (92) 94 04/29/20 15:13 98.9 04/29/20 12:00 98.9 105 18 121/81 (94) 98 04/29/20 09:00 Room Air 04/29/20 08:18 108 121/77 04/29/20 08:00 99.5 108 18 121/77 (92) 94 04/29/20 06:43 114 Intake and Output 04/29/20 04/30/20 19:00 07:00 Intake Total 400 ml 1527.500 ml Output Total 1710 ml Balance -1310 ml 1527.500 ml Intake Oral 400 ml IV Total 1527.500 ml Output Urine Total 900 ml Other 810 ml # Voids 4 Laboratory Tests 04/29/20 11:53: POC Whole Blood Glucose [Pending] 04/29/20 15:30: Prothrombin Time 11.8H, Prothromb Time International Ratio 1.1 04/29/20 23:55: Urine Color Pale yellow, Urine Appearance Clear, Urine pH 6, Urine Specific [place] 1.015, Urine Protein Negative, Urine Glucose (UA) 2+H, Urine Ketones Negative, Urine Blood Negative, Urine Nitrite Negative, Urine Bilirubin Negative, Urine Urobilinogen Normal, Urine Leukocyte Esterase Negative 04/30/20 05:35: White Blood Count 8.7, Red Blood Count 4.34L, Hemoglobin 11.9L, Hematocrit 37.8L , Mean Corpuscular Volume 87, Mean Corpuscular Hemoglobin 27.4, Mean Corpuscular Hemoglobin Concent 31.5L, Red Cell Distribution Width 15.9H, Platelet Count 208, Mean Platelet Volume 7.7, Neutrophils (%) (Auto) 60.5, Lymphocytes (%) (Auto) 27.0, Monocytes (%) (Auto) 9.6, Eosinophils (%) (Auto) 1.9, Basophils (%) (Auto) 1.0, Sodium Level 136, Potassium Level 3.9, Chloride Level 102, Carbon Dioxide Level 25, Anion Gap 9, Blood Urea Nitrogen 17, Creatinine 1.2, Estimat Glomerular Filtration Rate > 60, Glucose Level 225H, Calcium Level 9.0, Phosphorus Level 2.7, Magnesium Level 1.7L, Total Bilirubin 0.9, Aspartate Amino Transf (AST/SGOT) 41H, Alanine Aminotransferase (ALT/SGPT) 67, Alkaline Phosphatase 174H, Total Protein 7.0, Albumin 2.6L, Globulin 4.4, Albumin/Globulin Ratio 0.6L Height (Feet): 5 Height (Inches): 4.00 Weight (Pounds): 176 General Appearance: no apparent distress Neck: normal alignment Cardiovascular: normal rate Respiratory/Chest: lungs clear Abdomen: hypoactive bowel sounds Objective Current Medications Medications (Trade) Dose Ordered Sig/Lea Route PRN Reason Start Time Stop Time Status Last Admin Dose Admin Acetaminophen (Tylenol) 650 mg Q4H PRN ORAL Mild Pain 04/05/20 09:30 05/05/20 09:29 Acetaminophen (Tylenol) 650 mg Q4H PRN ORAL temp 100.2 or above 04/17/20 14:45 05/17/20 14:44 Al Hydroxide/Mg Hydroxide (Mylanta) 30 ml Q2HR PRN ORAL GI 04/15/20 21:45 05/15/20 21:44 Allopurinol (Zyloprim) 100 mg DAILY ORAL 04/05/20 09:00 05/05/20 08:59 04/29/20 08:17 Amlodipine Besylate (Norvasc) 5 mg DAILY ORAL 04/05/20 09:00 05/05/20 08:59 04/29/20 08:18 Barium Sulfate (Readi-Cat 2) 450 ml NOW PRN ORAL Radiology Procedure 04/29/20 09:00 05/01/20 08:59 Chlorhexidine Gluconate (Re-Hex 2%) 1 applic DAILY@2000 TOPIC 04/05/20 20:00 07/04/20 19:59 04/29/20 20:04 Cyclobenzaprine HCl (Flexeril) 10 mg Q8H PRN ORAL BACK PAIN/MUSCLE SPASMS 04/25/20 07:45 05/02/20 07:44 Dextrose 1,000 ml @ 85 mls/hr Q24H PRN IV PN interrupted or unavailable 04/05/20 21:00 05/05/20 20:59 04/09/20 01:58 Dextrose (Dextrose 50%) 25 ml Q30M PRN IV Hypoglycemia 04/09/20 06:45 07/08/20 06:44 Dextrose (Dextrose 50%) 50 ml Q30M PRN IV Hypoglycemia 04/09/20 06:45 07/08/20 06:44 Fat Emulsion Intravenous 240 ml/Amino Acids/ Electrolytes/ Dextrose 2,040 ml @ 85 mls/hr Q24H IV 04/20/20 20:00 05/20/20 19:59 04/29/20 20:00 Hydromorphone HCl (Dilaudid) 1 mg Q4H PRN SUBQ Severe pain 04/29/20 13:15 05/06/20 13:14 04/29/20 20:06 Insulin Aspart (NovoLOG) BEFORE MEALS AND HS SUBQ 04/29/20 11:30 07/05/20 11:29 04/29/20 20:56 Insulin Aspart (NovoLOG) 8 units BEFORE MEALS SUBQ 04/29/20 11:30 07/18/20 11:29 04/29/20 18:38 Insulin Detemir (Levemir) 20 units BID SUBQ 04/29/20 09:00 07/17/20 08:59 04/29/20 18:36 Lidocaine HCl (Xylocaine 1% 30ml) 30 ml STAT INJ 04/29/20 13:23 05/01/20 13:22 Meropenem 1 gm/ Sodium Chloride 100 ml @ 200 mls/hr Q8HR IVPB 04/29/20 14:30 05/04/20 14:29 04/29/20 21:27 Ondansetron HCl (Zofran) 4 mg Q4H PRN IVP Nausea & Vomiting 04/17/20 14:30 05/17/20 14:29 04/28/20 02:44 Oxycodone/ Acetaminophen (Percocet 5-325) 1 tab Q4H PRN ORAL Moderate Pain (Pain Scale 4-6) 04/29/20 16:00 05/06/20 15:59 Pantoprazole (Protonix) 40 mg DAILY IVP 04/16/20 09:00 05/16/20 08:59 04/29/20 08:17 Phytonadione (Vitamin K) 10 mg ONCE A WEEK SUBQ 04/12/20 09:00 07/11/20 08:59 04/26/20 09:08 Prochlorperazine (Compazine) 10 mg Q6H PRN IVP Nausea & Vomiting 04/19/20 11:30 05/19/20 11:29 Quetiapine Fumarate (SEROqueL) 400 mg BEDTIME ORAL 04/12/20 21:00 05/20/20 20:59 04/29/20 20:55 Silver Nitrate (Silver Nitrate Applicators) 6 applic DAILYPRN PRN TOPIC abdominal wound application 04/10/20 09:00 07/09/20 08:59 Sodium 1,000 ml @ 75 mls/hr [id number] IV 04/29/20 10:00 05/29/20 09:59 04/30/20 00:24 Sodium Bicarbonate (Sodium Bicarbonate 4%) 1 ml NOW PRN IV Radiology Procedure 04/29/20 13:15 05/01/20 13:14 Vancomycin HCl (Vanco pharmacy to dose) 1 ea DAILY PRN MISC Per rx protocol 04/29/20 14:00 05/29/20 13:59 Vancomycin HCl 750 mg/Sodium Chloride 275 ml @ 183.333 mls/hr Q12H IVPB 04/30/20 03:00 05/05/20 02:59 04/30/20 02:49 Assessment/Plan Problem List: (1) Diabetes mellitus ICD Codes: E11.9 - Type 2 diabetes mellitus without complications SNOMED: 09192112 (2) Post-operative complication ICD Codes: T81.9XXA - Unspecified complication of procedure, initial encounter SNOMED: 486506681 (3) Weaver Pouch fistula Assessment/Plan: increase Levemir to 26 units bid continue R insulin of TPN at 36 untits / bag change Novolog 8 to 12 units ac tid continue Novolog sliding scale ac hs hypoglycemia protocol in order Justyn Michaels MD Apr 30, 2020 06:27
[2020-04-30] MEDS: NovoLOG Insulin Flexpen SUBQ SCH ×7 (06:35→20:32)
[2020-04-30] MEDS: Allopurinol 100mg Tab ORAL SCH (08:27)
[2020-04-30] MEDS: Pantoprazole Inj IVP SCH (08:28)
[2020-04-30] MEDS: Levemir Flexpen SUBQ SCH ×2 (08:29→17:47)
--- NOTE | 2020-04-30 09:21 | General Progress Note ---
Progress Note Progress Note Afebrile overnight and feeling better after CT guided drainage of intra- abdominal fluid collection - appeared serosang - no enteric fluid or amber pus On Meropenem and Vancomycin pending cultures Abdomen soft, incision erythema improved, less tender around incision I&O satisfactory WBC down 8700 BUN down 17 Cr 1.2 Mg 1.7 Imp: Intra-abdominal collection ?abscess pending cultures, post drainage with catheter in place Plan: Full liquid diet Maintain continuous drainage of Weaver continent ileostomy pouch Mg and Phos infusions Continue TPN f/u labs in AM Rodrigo Messer MD Apr 30, 2020 09:21
[2020-04-30] MEDS: Potassium Phosphate 15mm/250ml 250 ML IVPB SCH ×2 (09:52→14:09)
--- NOTE | 2020-04-30 14:34 | Infectious Diseases Prog Note ---
Assessment/Plan Assessment/Plan ASSESSMENT AND PLAN: 1. enterocutaneous fistula, abdominal wall soft tissue edema and inflammation on CT scan ? abdominal wall cellulitis/soft tissue infection, ? infected fistula site/wound infection wound/drainage culture with klebsiella - sensitive to cephalosporins, carbapenems and levofloxacin, R-zosyn new, acute abdominal pain with leukocytosis and fevers, tachycardia - ? sepsis, ? intra-abdominal abscess on CT scan - meropenem and vancomycin - fluid collection drainage - f/u on culture - s/p fistula repair - 04/17/20 - monitor labs - continue management per Dr. Messer - clinically improved post drainage and antibiotics 2. Patient has enterocutaneous fistula. Patient is status post pouch endoscopy. Management per Dr. Messer. 3. Patient has history of diabetes. Continue blood sugar treatment per Endocrine. 4. Hypertension. Continue blood pressure treatment primary care team and Endocrine. 5. Blood sugar and blood pressure control for hypertension and diabetes. 6. Patient has a history of Weaver continent ileostomy. 7. 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 8. History of multiple abdominal surgeries including proctocolectomy and cholecystectomy and Weaver ileostomy. 9. Allergies to codeine, morphine. 10. Social history is negative 11. Family history is noncontributory. 12. MAR is noted. 13. Case discussed with RN. 14. Continue treatment per Dr. Messer and consultants. 15. Orders were noted and entered. Subjective Constitutional: Denies: fever HEENT: Denies: congestion Respiratory: Denies: shortness of breath Cardiovascular: Denies: chest pain Gastrointestinal/Abdominal: Denies: nausea, vomiting, diarrhea Genitourinary: Reports: dysuria Neurologic: Denies: headache Psychiatric: Reports: depression Skin: Denies: rash Hematologic: Denies: bleeding Musculoskeletal: Reports: pain - less abdominal pain Allergies: Coded Allergies: CODEINE (Verified Allergy, Unknown, 04/04/20) MORPHINE (Verified Allergy, Unknown, 04/04/20) Objective Last 24 Hour Vital Signs Date Time Temp Pulse Resp B/P (MAP) Pulse Ox O2 Delivery O2 Flow Rate FiO2 04/30/20 12:00 98.8 87 19 129/79 (96) 97 04/30/20 09:00 Room Air 04/30/20 08:27 91 131/74 04/30/20 08:00 97.5 91 18 131/74 (93) 96 04/30/20 03:46 98.4 81 20 125/64 (84) 94 04/30/20 00:00 98.9 88 20 126/66 (86) 95 04/29/20 21:00 Room Air 04/29/20 20:00 99.3 86 20 138/69 (92) 94 04/29/20 15:13 98.9 Height (Feet): 5 Height (Inches): 4.00 Weight (Pounds): 176 General Appearance: no acute distress HEENT: normocephalic, atraumatic, anicteric Respiratory/Chest: lungs clear, normal breath sounds, no respiratory distress, no accessory muscle use Cardiovascular: normal rate, regularly irregular, no gallop/murmur Abdomen: normal bowel sounds, soft, non tender, no organomegaly, non distended, other - less abdominal pain Genitourinary: other - no lopez Extremities: no cyanosis Skin: no rash Neurologic/Psychiatric: 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 No discrete drainable collection. Chest x-ray - FINDINGS: A single one view chest is obtained. Vascularity is normal. The lung corbett are clear bilaterally. Cardiac and mediastinal silhouette are within normal limits. CP angles are sharp. The bony thorax appear unremarkable. IMPRESSION: NO ACUTE CARDIOPULMONARY DISEASE. KUB - 04/22/20 - Impression: Mildly dilated small bowel loops. Given evidence of recent surgery, most likely on the basis of postoperative ileus. Small bowel obstruction also possible and correlation with clinical findings and follow-up radiographs as indicated is recommended CT abdomen and pelvis - 04/25/20 - Impression: Evidence of recent surgery, presumably revision of previously demonstrated continent ileostomy. There is no evidence of bowel obstruction. Ill-defined gas bubbles and phlegmon our seen surrounding the reservoir. Most likely represents routine postsurgical changes, but the possibility of developing abscess should also be considered. Correlate with clinical findings. Gas within the bladder lumen. Most likely represents recent instrumentation. If there is no history of such, then the possibility of infection with gas-forming organism should be considered Prior cholecystectomy Other findings as noted CT abdomen and pelvis - 04/29/20 - IMPRESSION: Evidence of recent surgery with midline skin sena. Punctate foci of free intraperitoneal air likely postoperative in etiology. These are decreased compared to the prior exam. Persistent collection of fluid with some internal foci of air noted adjacent to the conduit ileostomy reservoir in the pelvis, slightly increased in size compared to the prior exam of 04/25/2020 (transverse diameter increased from 7.7 to 8.5 cm). Infection of this fluid collection cannot be excluded based on imaging. Please correlate with clinical findings. Flexion seems contiguous with some fluid and air tracking to the anterior abdominal wall, likely in the tract of the previously seen cutaneous fistula. Please correlate with physical exam to assess for superficial/external drainage. Small focus of gas within the bladder. If there is no recent history of bladder instrumentation/catheterization and this finding may be related to infection or fistulous connection to the bladder. Microbiology Date/Time Source Procedure Growth Status 04/29/20 16:51 Abdomen Gram Stain - Final Resulted 04/29/20 16:51 Abdomen Wound Culture - Preliminary NO GROWTH Resulted Laboratory Tests Test 04/29/20 15:30 04/29/20 23:55 04/30/20 05:35 Prothrombin Time 11.8 SEC (9.30-11.50) H Prothromb Time International Ratio 1.1 (0.9-1.1) Urine Color Pale yellow Urine Appearance Clear Urine pH 6 (4.5-8.0) Urine Specific Moroni 1.015 (1.005-1.035) Urine Protein Negative (NEGATIVE) Urine Glucose (UA) 2+ (NEGATIVE) H Urine Ketones Negative (NEGATIVE) Urine Blood Negative (NEGATIVE) Urine Nitrite Negative (NEGATIVE) Urine Bilirubin Negative (NEGATIVE) Urine Urobilinogen Normal MG/DL (0.0-1.0) Urine Leukocyte Esterase Negative (NEGATIVE) White Blood Count 8.7 K/UL (4.8-10.8) Red Blood Count 4.34 M/UL (4.70-6.10) L Hemoglobin 11.9 G/DL (14.2-18.0) L Hematocrit 37.8 % (42.0-52.0) L Mean Corpuscular Volume 87 FL (80-99) Mean Corpuscular Hemoglobin 27.4 PG (27.0-31.0) Mean Corpuscular Hemoglobin Concent 31.5 G/DL (32.0-36.0) L Red Cell Distribution Width 15.9 % (11.6-14.8) H Platelet Count 208 K/UL (150-450) Mean Platelet Volume 7.7 FL (6.5-10.1) Neutrophils (%) (Auto) 60.5 % (45.0-75.0) Lymphocytes (%) (Auto) 27.0 % (20.0-45.0) Monocytes (%) (Auto) 9.6 % (1.0-10.0) Eosinophils (%) (Auto) 1.9 % (0.0-3.0) Basophils (%) (Auto) 1.0 % (0.0-2.0) Sodium Level 136 MMOL/L (136-145) Potassium Level 3.9 MMOL/L (3.5-5.1) Chloride Level 102 MMOL/L (98-107) Carbon Dioxide Level 25 MMOL/L (21-32) Anion Gap 9 mmol/L (5-15) Blood Urea Nitrogen 17 mg/dL (7-18) Creatinine 1.2 MG/DL (0.55-1.30) Estimat Glomerular Filtration Rate > 60 mL/min (>60) Glucose Level 225 MG/DL (74-106) H Calcium Level 9.0 MG/DL (8.5-10.1) Phosphorus Level 2.7 MG/DL (2.5-4.9) Magnesium Level 1.7 MG/DL (1.8-2.4) L Total Bilirubin 0.9 MG/DL (0.2-1.0) Aspartate Amino Transf (AST/SGOT) 41 U/L (15-37) H Alanine Aminotransferase (ALT/SGPT) 67 U/L (12-78) Alkaline Phosphatase 174 U/L (46-116) H Total Protein 7.0 G/DL (6.4-8.2) Albumin 2.6 G/DL (3.4-5.0) L Globulin 4.4 g/dL Albumin/Globulin Ratio 0.6 (1.0-2.7) L Current Medications Medications (Trade) Dose Ordered Sig/Lea Route PRN Reason Start Time Stop Time Status Last Admin Dose Admin Acetaminophen (Tylenol) 650 mg Q4H PRN ORAL Mild Pain 04/05/20 09:30 05/05/20 09:29 Acetaminophen (Tylenol) 650 mg Q4H PRN ORAL temp 100.2 or above 04/17/20 14:45 05/17/20 14:44 Al Hydroxide/Mg Hydroxide (Mylanta) 30 ml Q2HR PRN ORAL GI 04/15/20 21:45 05/15/20 21:44 Allopurinol (Zyloprim) 100 mg DAILY ORAL 04/05/20 09:00 05/05/20 08:59 04/30/20 08:27 Amlodipine Besylate (Norvasc) 5 mg DAILY ORAL 04/05/20 09:00 05/05/20 08:59 04/30/20 08:27 Barium Sulfate (Readi-Cat 2) 450 ml NOW PRN ORAL Radiology Procedure 04/29/20 09:00 05/01/20 08:59 Chlorhexidine Gluconate (Re-Hex 2%) 1 applic DAILY@2000 TOPIC 04/05/20 20:00 07/04/20 19:59 04/29/20 20:04 Cyclobenzaprine HCl (Flexeril) 10 mg Q8H PRN ORAL BACK PAIN/MUSCLE SPASMS 04/25/20 07:45 05/02/20 07:44 Dextrose 1,000 ml @ 85 mls/hr Q24H PRN IV PN interrupted or unavailable 04/05/20 21:00 05/05/20 20:59 04/09/20 01:58 Dextrose (Dextrose 50%) 25 ml Q30M PRN IV Hypoglycemia 04/09/20 06:45 07/08/20 06:44 Dextrose (Dextrose 50%) 50 ml Q30M PRN IV Hypoglycemia 04/09/20 06:45 07/08/20 06:44 Fat Emulsion Intravenous 240 ml/Amino Acids/ Electrolytes/ Dextrose 2,040 ml @ 85 mls/hr Q24H IV 04/20/20 20:00 05/20/20 19:59 04/29/20 20:00 Hydromorphone HCl (Dilaudid) 1 mg Q4H PRN SUBQ Severe pain 04/29/20 13:15 05/06/20 13:14 04/30/20 10:42 Insulin Aspart (NovoLOG) BEFORE MEALS AND HS SUBQ 04/29/20 11:30 07/05/20 11:29 04/30/20 11:48 Insulin Aspart (NovoLOG) 12 units BEFORE MEALS SUBQ 04/30/20 06:30 07/18/20 11:29 04/30/20 11:49 Insulin Detemir (Levemir) 26 units BID SUBQ 04/30/20 09:00 07/17/20 08:59 04/30/20 08:29 Meropenem 1 gm/ Sodium Chloride 100 ml @ 200 mls/hr Q8HR IVPB 04/29/20 14:30 05/04/20 14:29 04/30/20 14:09 Ondansetron HCl (Zofran) 4 mg Q4H PRN IVP Nausea & Vomiting 04/17/20 14:30 05/17/20 14:29 04/28/20 02:44 Oxycodone/ Acetaminophen (Percocet 5-325) 1 tab Q4H PRN ORAL Moderate Pain (Pain Scale 4-6) 04/29/20 16:00 05/06/20 15:59 Pantoprazole (Protonix) 40 mg DAILY IVP 04/16/20 09:00 05/16/20 08:59 04/30/20 08:28 Phytonadione (Vitamin K) 10 mg ONCE A WEEK SUBQ 04/12/20 09:00 07/11/20 08:59 04/26/20 09:08 Potassium Phosphate 250 ml @ 62.5 mls/hr Q4H IVPB 04/30/20 10:00 04/30/20 17:59 04/30/20 14:09 Prochlorperazine (Compazine) 10 mg Q6H PRN IVP Nausea & Vomiting 04/19/20 11:30 05/19/20 11:29 Quetiapine Fumarate (SEROqueL) 400 mg BEDTIME ORAL 04/12/20 21:00 05/20/20 20:59 04/29/20 20:55 Silver Nitrate (Silver Nitrate Applicators) 6 applic DAILYPRN PRN TOPIC abdominal wound application 04/10/20 09:00 07/09/20 08:59 Sodium 1,000 ml @ 75 mls/hr [id number] IV 04/29/20 10:00 05/29/20 09:59 04/30/20 14:09 Sodium Bicarbonate (Sodium Bicarbonate 4%) 1 ml NOW PRN IV Radiology Procedure 04/29/20 13:15 05/01/20 13:14 Vancomycin HCl (Vanco pharmacy to dose) 1 ea DAILY PRN MISC Per rx protocol 04/29/20 14:00 05/29/20 13:59 Vancomycin HCl 750 mg/Sodium Chloride 275 ml @ 183.333 mls/hr Q12H IVPB 04/30/20 03:00 05/05/20 02:59 04/30/20 02:49 Wilman Rosas MD Apr 30, 2020 14:34
[2020-04-30] MEDS ORDERED: Levemir Flexpen SUBQ SCH (18:15)
[2020-04-30] MEDS: Dyna-Hex 2% Top Sol 2oz TOPIC SCH (20:29)
[2020-04-30] MEDS: Fat Emulsion Iv 20% 240 ML in Tpn 1,800 ML IV SCH (20:30)
[2020-05-01 03:16] LABS: HEMOGLOBIN 12.4 G/DL (14.2-18.0); MEAN CORPUSCULAR VOLUME 88 FL (80-99); PLATELET COUNT 246 K/UL (150-450); RED BLOOD COUNT 4.45 M/UL (4.70-6.10); RED CELL DISTRIBUTION WIDTH 16.1 % (11.6-14.8)
[2020-05-01] MEDS: 1/2NS w/KCl 20mEq 1000ml 1,000 ML IV SCH ×2 (03:30→16:47)
[2020-05-01] MEDS: Vancomycin 750mg/NS 275ml IVPB SCH ×2 (03:30)
[2020-05-01 04:00] VITALS: BP 109/67
[2020-05-01 04:16] LABS: ALANINE AMINOTRANSFERASE 67 U/L (12-78); ALBUMIN 2.6 G/DL (3.4-5.0); ALBUMIN/GLOBULIN RATIO 0.7 (1.0-2.7); ALKALINE PHOSPHATASE 204 U/L (46-116); ANION GAP 12 mmol/L (5-15); ASPARTATE AMINO TRANSFERASE 44 U/L (15-37); BILIRUBIN,TOTAL 0.5 MG/DL (0.2-1.0); BLOOD UREA NITROGEN 17 mg/dL (7-18); CALCIUM 8.8 MG/DL (8.5-10.1); CARBON DIOXIDE 22 MMOL/L (21-32); CHLORIDE 104 MMOL/L (98-107); PHOSPHORUS 3.3 MG/DL (2.5-4.9); SODIUM 138 MMOL/L (136-145)
[2020-05-01 04:48] LABS: WHITE BLOOD COUNT 29.1 K/UL (4.8-10.8)
[2020-05-01] MEDS: NovoLOG Insulin Flexpen SUBQ SCH ×7 (05:56→20:50)
[2020-05-01 07:04] LABS: BASOPHILS % (AUTO) 1.2 % (0.0-2.0); EOSINOPHILS % (AUTO) 5.7 % (0.0-3.0); HEMATOCRIT 35.4 % (42.0-52.0); HEMOGLOBIN 11.2 G/DL (14.2-18.0); MEAN CORPUSCULAR VOLUME 88 FL (80-99); MONOCYTES % (AUTO) 6.9 % (1.0-10.0); NEUTROPHILS % (AUTO) 53.1 % (45.0-75.0); PLATELET COUNT 235 K/UL (150-450); RED BLOOD COUNT 4.04 M/UL (4.70-6.10); RED CELL DISTRIBUTION WIDTH 15.8 % (11.6-14.8); WHITE BLOOD COUNT 5.9 K/UL (4.8-10.8)
[2020-05-01 08:14] VITALS: BP 123/69
--- NOTE | 2020-05-01 08:50 | General Progress Note ---
Progress Note Progress Note AVSS Feeling better daily. Occasional GI cramping while ambulating. Much less abdominal pain. Tolerating full liquid diet well Abdomen soft, flat, nunu-incisional induration is much improved, minimal erythema lower pole of incision. Stoma stable Urine 3050 BCIR ileo 1540 Abd collection drain - 15cc serosang Labs done at 0230 with WBC 29,100 but repeat done by RN after seeing result and repeat WBC 5900 - first report must be "lab error" or mislabeling??? BUN 17 Cr 1.0 K 5 albumin 2.6 Imp: Improving on Meropenem and Vancomycin Plan: Advance to BCIR diet (regular diet with all fruits and vegetables pureed and no mushrooms Continue TPN until tolerating new diet f/u labs in AM Maintain continuous drainage of Weaver ileostomy pouch Rodrigo Messer MD May 01, 2020 08:50
[2020-05-01] MEDS: Pantoprazole Inj IVP SCH (09:06)
[2020-05-01] MEDS: Allopurinol 100mg Tab ORAL SCH (09:06)
[2020-05-01] MEDS: Levemir Flexpen SUBQ SCH ×2 (09:08→18:00)
--- NOTE | 2020-05-01 11:53 | Diagnostic Imaging Report ---
Indication: Pelvic fluid collection status post surgery. Concern for infected fluid collection or abscess. Technique: CT-guided drainage of pelvic fluid collection CT dose: Total DLP 519.2 mGycm; CTDI vol 32.3 mGy Comparison: Correlation made to concurrent diagnostic CT of abdomen and pelvis Technique/findings: Patient is an supine on the CT table and limited planning CT of the pelvis was performed with a grid marker in place demonstrate a fluid collection anterior and inferior to the Kock pouch/reservoir. Elected to access the lateral approach given concern for prior midline cutaneous fistula. Appropriate access site was chosen and prepped and draped in the usual sterile fashion. It was locally anesthetized 1% lidocaine. Under CT guidance a 21-gauge needle was advanced into the collection. Wire was advanced changes mainly over the wire of the triaxial sheath. 0.035 wire was advanced and exchange made over the wire for an 8.5 Irish multipurpose drain. The cope loop was formed and locked in the collection. Aspiration was performed yielding approximately 40 cc of thin sanguinous and slightly cloudy fluid. Specimen was sent for culture and sensitivity. Drain was connected to gravity and a dressing was applied. Patient tolerated the procedure almost department in stable condition. IMPRESSION: Successful CT-guided drainage of pelvic fluid collection as above.
[2020-05-01 12:00] VITALS: BP 141/81
[2020-05-01] MEDS: Vancomycin 1gm/D5W 275ml IVPB SCH ×2 (12:09)
[2020-05-01 16:00] VITALS: BP 134/83
[2020-05-01 20:00] VITALS: BP 141/72
[2020-05-01] MEDS: Fat Emulsion Iv 20% 240 ML in Tpn 1,800 ML IV SCH (20:55)
[2020-05-01] MEDS: Dyna-Hex 2% Top Sol 2oz TOPIC SCH (20:56)
[2020-05-02] VITALS: BP 119/57
[2020-05-02] MEDS: Vancomycin 1gm/D5W 275ml IVPB SCH ×4 (00:16→12:12)
[2020-05-02 04:00] VITALS: BP 120/72
[2020-05-02 04:52] LABS: BASOPHILS % (AUTO) 1.4 % (0.0-2.0); EOSINOPHILS % (AUTO) 6.9 % (0.0-3.0); HEMATOCRIT 35.6 % (42.0-52.0); HEMOGLOBIN 11.3 G/DL (14.2-18.0); LYMPHOCYTES % (AUTO) 36.1 % (20.0-45.0); MEAN CORPUSCULAR VOLUME 87 FL (80-99); NEUTROPHILS % (AUTO) 47.6 % (45.0-75.0); PLATELET COUNT 260 K/UL (150-450); RED CELL DISTRIBUTION WIDTH 15.1 % (11.6-14.8); WHITE BLOOD COUNT 6.1 K/UL (4.8-10.8)
[2020-05-02 05:11] LABS: ALANINE AMINOTRANSFERASE 78 U/L (12-78); ALBUMIN 2.5 G/DL (3.4-5.0); ALBUMIN/GLOBULIN RATIO 0.6 (1.0-2.7); ALKALINE PHOSPHATASE 251 U/L (46-116); ANION GAP 10 mmol/L (5-15); ASPARTATE AMINO TRANSFERASE 44 U/L (15-37); BILIRUBIN,TOTAL 0.5 MG/DL (0.2-1.0); BLOOD UREA NITROGEN 17 mg/dL (7-18); CALCIUM 9.3 MG/DL (8.5-10.1); CARBON DIOXIDE 25 MMOL/L (21-32); CHLORIDE 105 MMOL/L (98-107); CREATININE 1.2 MG/DL (0.55-1.30); PHOSPHORUS 3.9 MG/DL (2.5-4.9); POTASSIUM 4.2 MMOL/L (3.5-5.1); SODIUM 140 MMOL/L (136-145)
[2020-05-02] MEDS: 1/2NS w/KCl 20mEq 1000ml 1,000 ML IV SCH (06:00)
[2020-05-02] MEDS: NovoLOG Insulin Flexpen SUBQ SCH ×7 (06:07→21:00)
--- NOTE | 2020-05-02 06:35 | General Progress Note ---
Subjective Allergies: Coded Allergies: CODEINE (Verified Allergy, Unknown, 04/04/20) MORPHINE (Verified Allergy, Unknown, 04/04/20) Subjective events noted interval notes reviewed diet advanced to BCIR still on TPN glucose values improved Item Value Date Time Bedside Blood Glucose 133 mg/dl H 05/02/20 0609 Bedside Blood Glucose 98 mg/dl 05/01/20 2050 Bedside Blood Glucose 222 mg/dl H 05/01/20 1800 Bedside Blood Glucose 182 mg/dl H 05/01/20 1138 Bedside Blood Glucose 185 mg/dl H 05/01/20 0908 Bedside Blood Glucose 185 mg/dl H 05/01/20 0630 Objective Last 24 Hour Vital Signs Date Time Temp Pulse Resp B/P (MAP) Pulse Ox O2 Delivery O2 Flow Rate FiO2 05/02/20 04:00 97.7 77 20 120/72 (88) 96 05/02/20 00:00 97.7 77 20 119/57 (77) 94 05/01/20 21:00 Room Air 05/01/20 20:00 98.6 86 20 141/72 (95) 97 05/01/20 16:00 97.7 83 21 134/83 (100) 100 05/01/20 13:20 97.9 05/01/20 12:00 97.9 77 21 141/81 (101) 100 05/01/20 09:06 91 123/69 05/01/20 09:00 Room Air 05/01/20 08:14 98.3 91 21 123/69 (87) 98 Intake and Output 05/01/20 05/02/20 19:00 07:00 Intake Total 1275 ml 1645.000 ml Output Total 3220 ml Balance -1945 ml 1645.000 ml Intake Oral 1200 ml IV Total 75 ml 1645.000 ml Output Urine Total 1650 ml Other 1570 ml Laboratory Tests 05/01/20 06:45: White Blood Count 5.9#, Red Blood Count 4.04L, Hemoglobin 11.2L, Hematocrit 35.4L, Mean Corpuscular Volume 88, Mean Corpuscular Hemoglobin 27.7, Mean Corpuscular Hemoglobin Concent 31.6L, Red Cell Distribution Width 15.8H, Platelet Count 235, Mean Platelet Volume 8.0, Neutrophils (%) (Auto) 53.1, Lymphocytes (%) (Auto) 33.0, Monocytes (%) (Auto) 6.9, Eosinophils (%) (Auto) 5.7H, Basophils (%) (Auto) 1.2 05/02/20 04:40: White Blood Count 6.1, Red Blood Count 4.10L, Hemoglobin 11.3L, Hematocrit 35.6L , Mean Corpuscular Volume 87, Mean Corpuscular Hemoglobin 27.5, Mean Corpuscular Hemoglobin Concent 31.7L, Red Cell Distribution Width 15.1H, Platelet Count 260, Mean Platelet Volume 7.7, Neutrophils (%) (Auto) 47.6, Lymphocytes (%) (Auto) 36.1, Monocytes (%) (Auto) 8.0, Eosinophils (%) (Auto) 6.9H, Basophils (%) (Auto) 1.4, Sodium Level 140, Potassium Level 4.2, Chloride Level 105, Carbon Dioxide Level 25, Anion Gap 10, Blood Urea Nitrogen 17, Creatinine 1.2, Estimat Glomerular Filtration Rate > 60, Glucose Level 148H, Calcium Level 9.3, Phosphorus Level 3.9, Magnesium Level 1.8, Total Bilirubin 0.5, Aspartate Amino Transf (AST/SGOT) 44H, Alanine Aminotransferase (ALT/SGPT) 78, Alkaline Phosphatase 251H, Total Protein 7.0, Albumin 2.5L, Globulin 4.5, Albumin/Globulin Ratio 0.6L Height (Feet): 5 Height (Inches): 4.00 Weight (Pounds): 176 General Appearance: no apparent distress Neck: normal alignment Cardiovascular: normal rate Respiratory/Chest: lungs clear Abdomen: normal bowel sounds Objective Current Medications Medications (Trade) Dose Ordered Sig/Lea Route PRN Reason Start Time Stop Time Status Last Admin Dose Admin Acetaminophen (Tylenol) 650 mg Q4H PRN ORAL Mild Pain 04/05/20 09:30 05/05/20 09:29 Acetaminophen (Tylenol) 650 mg Q4H PRN ORAL temp 100.2 or above 04/17/20 14:45 05/17/20 14:44 Al Hydroxide/Mg Hydroxide (Mylanta) 30 ml Q2HR PRN ORAL GI 04/15/20 21:45 05/15/20 21:44 Allopurinol (Zyloprim) 100 mg DAILY ORAL 04/05/20 09:00 05/05/20 08:59 05/01/20 09:06 Amlodipine Besylate (Norvasc) 5 mg DAILY ORAL 04/05/20 09:00 05/05/20 08:59 05/01/20 09:06 Chlorhexidine Gluconate (Re-Hex 2%) 1 applic DAILY@2000 TOPIC 04/05/20 20:00 07/04/20 19:59 05/01/20 20:56 Cyclobenzaprine HCl (Flexeril) 10 mg Q8H PRN ORAL BACK PAIN/MUSCLE SPASMS 04/25/20 07:45 05/02/20 07:44 Dextrose 1,000 ml @ 85 mls/hr Q24H PRN IV PN interrupted or unavailable 04/05/20 21:00 05/05/20 20:59 04/09/20 01:58 Dextrose (Dextrose 50%) 25 ml Q30M PRN IV Hypoglycemia 04/09/20 06:45 07/08/20 06:44 Dextrose (Dextrose 50%) 50 ml Q30M PRN IV Hypoglycemia 04/09/20 06:45 07/08/20 06:44 Fat Emulsion Intravenous 240 ml/Amino Acids/ Electrolytes/ Dextrose 2,040 ml @ 85 mls/hr Q24H IV 04/20/20 20:00 05/20/20 19:59 05/01/20 20:55 Hydromorphone HCl (Dilaudid) 1 mg Q4H PRN SUBQ Severe pain 04/29/20 13:15 05/06/20 13:14 05/01/20 20:45 Insulin Aspart (NovoLOG) BEFORE MEALS AND HS SUBQ 04/29/20 11:30 07/05/20 11:29 05/01/20 16:51 Insulin Aspart (NovoLOG) 12 units BEFORE MEALS SUBQ 04/30/20 06:30 07/18/20 11:29 05/02/20 06:09 Insulin Detemir (Levemir) 40 units BID SUBQ 05/01/20 09:00 07/17/20 08:59 05/01/20 18:00 Meropenem 1 gm/ Sodium Chloride 100 ml @ 200 mls/hr Q8HR IVPB 04/29/20 14:30 05/04/20 14:29 05/02/20 06:01 Ondansetron HCl (Zofran) 4 mg Q4H PRN IVP Nausea & Vomiting 04/17/20 14:30 05/17/20 14:29 04/28/20 02:44 Oxycodone/ Acetaminophen (Percocet 5-325) 1 tab Q4H PRN ORAL Moderate Pain (Pain Scale 4-6) 04/29/20 16:00 05/06/20 15:59 Pantoprazole (Protonix) 40 mg DAILY IVP 04/16/20 09:00 05/16/20 08:59 05/01/20 09:06 Phytonadione (Vitamin K) 10 mg ONCE A WEEK SUBQ 04/12/20 09:00 07/11/20 08:59 04/26/20 09:08 Prochlorperazine (Compazine) 10 mg Q6H PRN IVP Nausea & Vomiting 04/19/20 11:30 05/19/20 11:29 Quetiapine Fumarate (SEROqueL) 400 mg BEDTIME ORAL 04/12/20 21:00 05/20/20 20:59 05/01/20 20:56 Silver Nitrate (Silver Nitrate Applicators) 6 applic DAILYPRN PRN TOPIC abdominal wound application 04/10/20 09:00 07/09/20 08:59 Sodium 1,000 ml @ 75 mls/hr [id number] IV 04/29/20 10:00 05/29/20 09:59 05/02/20 06:00 Vancomycin HCl (Vanco pharmacy to dose) 1 ea DAILY PRN MISC Per rx protocol 04/29/20 14:00 05/29/20 13:59 Vancomycin HCl 1 gm/Dextrose 275 ml @ 183.708 mls/hr Q12HR@0000,1200 IVPB 05/01/20 12:00 05/06/20 11:59 05/02/20 00:16 Assessment/Plan Problem List: (1) Diabetes mellitus ICD Codes: E11.9 - Type 2 diabetes mellitus without complications SNOMED: 83982009 (2) Post-operative complication ICD Codes: T81.9XXA - Unspecified complication of procedure, initial encounter SNOMED: 115806423 (3) Weaver Pouch fistula Assessment/Plan: continue Levemir 40 units bid continue R insulin of TPN at 36 untits / bag continue Novolog 12 units ac tid continue Novolog sliding scale ac hs hypoglycemia protocol in order Nazemi,Justyn MD May 02, 2020 06:35
[2020-05-02 08:00] VITALS: BP 132/75
[2020-05-02] MEDS: Pantoprazole Inj IVP SCH (08:44)
[2020-05-02] MEDS: Allopurinol 100mg Tab ORAL SCH (08:44)
[2020-05-02] MEDS: Levemir Flexpen SUBQ SCH ×2 (08:46→17:01)
--- NOTE | 2020-05-02 10:09 | General Progress Note ---
Progress Note Progress Note AVSS Tolerating BCIR low residue dist. Needed dilaudid SQ x 1 for abdominal cramping after ambulation Abdomen soft, still mild erythema and induration lower third of incision, the other indurated areas have resolved Urine 3450 BC[facility] ileo 1090 C&S - gram neg fred and rare gr + cocci CBC - stable chemistries ok Imp: Improving from drainage intra-abdominal abscess Plan: D/C TPN after current supply has been infused maintain continuous drainage of BCIR pouch f/u labs Antibiotics per ID - continue IV until able to transition to po - course to be determined Rodrigo Messer MD May 02, 2020 10:09
[2020-05-02 12:00] VITALS: BP 160/77
--- NOTE | 2020-05-02 15:30 | Infectious Diseases Prog Note ---
Assessment/Plan Assessment/Plan ASSESSMENT AND PLAN: 1. enterocutaneous fistula, abdominal wall soft tissue edema and inflammation on CT scan ? abdominal wall cellulitis/soft tissue infection, ? infected fistula site/wound infection - wound culture with klebsiella gram negative intra-abdominal/pelvic abscess - final ID/sensitivities pending - meropenem for now, discontinue vancomycin - f/u on final fluid collection drainage culture - s/p fistula repair - 04/17/20 - monitor labs - continue management per Dr. Messer - clinically improved post drainage and antibiotics 2. Patient has enterocutaneous fistula. Patient is status post pouch endoscopy. Management per Dr. Messer. 3. Patient has history of diabetes. Continue blood sugar treatment per Endocrine. 4. Hypertension. Continue blood pressure treatment primary care team and Endocrine. 5. Blood sugar and blood pressure control for hypertension and diabetes. 6. Patient has a history of Weaver continent ileostomy. 7. 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 8. History of multiple abdominal surgeries including proctocolectomy and cholecystectomy and Weaver ileostomy. 9. Allergies to codeine, morphine. 10. Social history is negative 11. Family history is noncontributory. 12. MAR is noted. 13. Case discussed with RN. 14. Continue treatment per Dr. Messer and consultants. 15. Orders were noted and entered. Subjective Constitutional: Reports: fatigue; Denies: fever HEENT: Denies: congestion Respiratory: Denies: shortness of breath Cardiovascular: Denies: chest pain Gastrointestinal/Abdominal: Denies: nausea, vomiting, diarrhea Genitourinary: Reports: other - no lopez ; Denies: dysuria, hematuria, frequency Neurologic: Denies: headache Psychiatric: Denies: depression Skin: Denies: rash Hematologic: Denies: bleeding Musculoskeletal: Reports: pain - less abdominal pain Allergies: Coded Allergies: CODEINE (Verified Allergy, Unknown, 04/04/20) MORPHINE (Verified Allergy, Unknown, 04/04/20) Objective Last 24 Hour Vital Signs Date Time Temp Pulse Resp B/P (MAP) Pulse Ox O2 Delivery O2 Flow Rate FiO2 05/02/20 14:00 98.6 05/02/20 12:00 98.6 85 20 160/77 (104) 95 05/02/20 09:00 Room Air 05/02/20 08:44 77 132/75 05/02/20 08:00 97.7 83 20 132/75 (94) 95 05/02/20 04:00 97.7 77 20 120/72 (88) 96 05/02/20 00:00 97.7 77 20 119/57 (77) 94 05/01/20 21:00 Room Air 05/01/20 20:00 98.6 86 20 141/72 (95) 97 05/01/20 16:00 97.7 83 21 134/83 (100) 100 Height (Feet): 5 Height (Inches): 4.00 Weight (Pounds): 176 General Appearance: no acute distress HEENT: normocephalic, atraumatic, anicteric, supple, no JVD Respiratory/Chest: no respiratory distress, no accessory muscle use Cardiovascular: normal rate, regular rhythm, no gallop/murmur, no JVD Abdomen: normal bowel sounds, soft, non tender, no organomegaly, non distended, other - mild erythema noted around incision Genitourinary: other - no lopez Extremities: no cyanosis Skin: no rash Neurologic/Psychiatric: manager banking II-XII grossly normal, alert, responsive Lymphatic: no neck adenopathy Musculoskeletal: no effusion CT abdomen and pelvis: IMPRESSION: Soft tissue edema, inflammation and foci of air in the abdominal wall. No discrete drainable collection. Chest x-ray - FINDINGS: A single one view chest is obtained. Vascularity is normal. The lung corbett are clear bilaterally. Cardiac and mediastinal silhouette are within normal limits. CP angles are sharp. The bony thorax appear unremarkable. IMPRESSION: NO ACUTE CARDIOPULMONARY DISEASE. KUB - 04/22/20 - Impression: Mildly dilated small bowel loops. Given evidence of recent surgery, most likely on the basis of postoperative ileus. Small bowel obstruction also possible and correlation with clinical findings and follow-up radiographs as indicated is recommended CT abdomen and pelvis - 04/25/20 - Impression: Evidence of recent surgery, presumably revision of previously demonstrated continent ileostomy. There is no evidence of bowel obstruction. Ill-defined gas bubbles and phlegmon our seen surrounding the reservoir. Most likely represents routine postsurgical changes, but the possibility of developing abscess should also be considered. Correlate with clinical findings. Gas within the bladder lumen. Most likely represents recent instrumentation. If there is no history of such, then the possibility of infection with gas-forming organism should be considered Prior cholecystectomy Other findings as noted CT abdomen and pelvis - 04/29/20 - IMPRESSION: Evidence of recent surgery with midline skin sena. Punctate foci of free intraperitoneal air likely postoperative in etiology. These are decreased compared to the prior exam. Persistent collection of fluid with some internal foci of air noted adjacent to the conduit ileostomy reservoir in the pelvis, slightly increased in size compared to the prior exam of 04/25/2020 (transverse diameter increased from 7.7 to 8.5 cm). In fection of this fluid collection cannot be excluded based on imaging. Please correlate with clinical findings. Flexion seems contiguous with some fluid and air tracking to the anterior abdominal wall, likely in the tract of the previously seen cutaneous fistula. Please correlate with physical exam to assess for superficial/external drainage. Small focus of gas within the bladder. If there is no recent history of bladder instrumentation/catheterization and this finding may be related to infection or fistulous connection to the bladder. Microbiology Date/Time Source Procedure Growth Status 04/29/20 16:51 Abdomen Gram Stain - Final Resulted 04/29/20 16:51 Wound Culture - Preliminary Gram Negative Jesus Resulted 04/11/20 17:10 Other(Specify in comment) Gram Stain - Final Complete 04/11/20 17:10 Wound Culture - Final Klebsiella Pneumoniae Complete 04/04/20 13:45 Nasopharynx SARS-CoV-2 Antigen (Rapid)(NALINI) - Final Complete Microbiology Date/Time Source Procedure Growth Status 04/29/20 16:51 Abdomen Gram Stain - Final Resulted 04/29/20 16:51 Wound Culture - Preliminary Gram Negative Jesus Resulted Laboratory Tests Test 05/02/20 04:40 White Blood Count 6.1 K/UL (4.8-10.8) Red Blood Count 4.10 M/UL (4.70-6.10) L Hemoglobin 11.3 G/DL (14.2-18.0) L Hematocrit 35.6 % (42.0-52.0) L Mean Corpuscular Volume 87 FL (80-99) Mean Corpuscular Hemoglobin 27.5 PG (27.0-31.0) Mean Corpuscular Hemoglobin Concent 31.7 G/DL (32.0-36.0) L Red Cell Distribution Width 15.1 % (11.6-14.8) H Platelet Count 260 K/UL (150-450) Mean Platelet Volume 7.7 FL (6.5-10.1) Neutrophils (%) (Auto) 47.6 % (45.0-75.0) Lymphocytes (%) (Auto) 36.1 % (20.0-45.0) Monocytes (%) (Auto) 8.0 % (1.0-10.0) Eosinophils (%) (Auto) 6.9 % (0.0-3.0) H Basophils (%) (Auto) 1.4 % (0.0-2.0) Sodium Level 140 MMOL/L (136-145) Potassium Level 4.2 MMOL/L (3.5-5.1) Chloride Level 105 MMOL/L (98-107) Carbon Dioxide Level 25 MMOL/L (21-32) Anion Gap 10 mmol/L (5-15) Blood Urea Nitrogen 17 mg/dL (7-18) Creatinine 1.2 MG/DL (0.55-1.30) Estimat Glomerular Filtration Rate > 60 mL/min (>60) Glucose Level 148 MG/DL (74-106) H Calcium Level 9.3 MG/DL (8.5-10.1) Phosphorus Level 3.9 MG/DL (2.5-4.9) Magnesium Level 1.8 MG/DL (1.8-2.4) Total Bilirubin 0.5 MG/DL (0.2-1.0) Aspartate Amino Transf (AST/SGOT) 44 U/L (15-37) H Alanine Aminotransferase (ALT/SGPT) 78 U/L (12-78) Alkaline Phosphatase 251 U/L (46-116) H Total Protein 7.0 G/DL (6.4-8.2) Albumin 2.5 G/DL (3.4-5.0) L Globulin 4.5 g/dL Albumin/Globulin Ratio 0.6 (1.0-2.7) L Current Medications Medications (Trade) Dose Ordered Sig/Lea Route PRN Reason Start Time Stop Time Status Last Admin Dose Admin Acetaminophen (Tylenol) 650 mg Q4H PRN ORAL Mild Pain 04/05/20 09:30 05/05/20 09:29 Acetaminophen (Tylenol) 650 mg Q4H PRN ORAL temp 100.2 or above 04/17/20 14:45 05/17/20 14:44 Al Hydroxide/Mg Hydroxide (Mylanta) 30 ml Q2HR PRN ORAL GI 04/15/20 21:45 05/15/20 21:44 Allopurinol (Zyloprim) 100 mg DAILY ORAL 04/05/20 09:00 05/05/20 08:59 05/02/20 08:44 Amlodipine Besylate (Norvasc) 5 mg DAILY ORAL 04/05/20 09:00 05/05/20 08:59 05/02/20 08:44 Chlorhexidine Gluconate (Re-Hex 2%) 1 applic DAILY@2000 TOPIC 04/05/20 20:00 07/04/20 19:59 05/01/20 20:56 Dextrose 1,000 ml @ 85 mls/hr Q24H PRN IV PN interrupted or unavailable 04/05/20 21:00 05/05/20 20:59 04/09/20 01:58 Dextrose (Dextrose 50%) 25 ml Q30M PRN IV Hypoglycemia 04/09/20 06:45 07/08/20 06:44 Dextrose (Dextrose 50%) 50 ml Q30M PRN IV Hypoglycemia 04/09/20 06:45 07/08/20 06:44 Fat Emulsion Intravenous 240 ml/Amino Acids/ Electrolytes/ Dextrose 2,040 ml @ 85 mls/hr Q24H IV 04/20/20 20:00 05/02/20 19:59 05/01/20 20:55 Hydromorphone HCl (Dilaudid) 1 mg Q4H PRN SUBQ Severe pain 04/29/20 13:15 05/06/20 13:14 05/02/20 13:30 Insulin Aspart (NovoLOG) BEFORE MEALS AND HS SUBQ 04/29/20 11:30 07/05/20 11:29 05/02/20 11:53 Insulin Aspart (NovoLOG) 12 units BEFORE MEALS SUBQ 04/30/20 06:30 07/18/20 11:29 05/02/20 11:54 Insulin Detemir (Levemir) 40 units BID SUBQ 05/01/20 09:00 07/17/20 08:59 05/02/20 08:46 Meropenem 1 gm/ Sodium Chloride 100 ml @ 200 mls/hr Q8HR IVPB 04/29/20 14:30 05/04/20 14:29 05/02/20 13:31 Ondansetron HCl (Zofran) 4 mg Q4H PRN IVP Nausea & Vomiting 04/17/20 14:30 05/17/20 14:29 04/28/20 02:44 Oxycodone/ Acetaminophen (Percocet 5-325) 1 tab Q4H PRN ORAL Moderate Pain (Pain Scale 4-6) 04/29/20 16:00 05/06/20 15:59 Pantoprazole (Protonix) 40 mg DAILY IVP 04/16/20 09:00 05/16/20 08:59 05/02/20 08:44 Phytonadione (Vitamin K) 10 mg ONCE A WEEK SUBQ 04/12/20 09:00 07/11/20 08:59 04/26/20 09:08 Prochlorperazine (Compazine) 10 mg Q6H PRN IVP Nausea & Vomiting 04/19/20 11:30 05/19/20 11:29 Quetiapine Fumarate (SEROqueL) 400 mg BEDTIME ORAL 04/12/20 21:00 05/20/20 20:59 05/01/20 20:56 Silver Nitrate (Silver Nitrate Applicators) 6 applic DAILYPRN PRN TOPIC abdominal wound application 04/10/20 09:00 07/09/20 08:59 Wilman Rosas MD May 02, 2020 15:30
[2020-05-02 16:00] VITALS: BP 133/77
[2020-05-02 20:00] VITALS: BP 149/82
[2020-05-02] MEDS: Dyna-Hex 2% Top Sol 2oz TOPIC SCH (21:27)
[2020-05-03] VITALS: BP 92/53
[2020-05-03 04:00] VITALS: BP 111/70
[2020-05-03] MEDS: NovoLOG Insulin Flexpen SUBQ SCH ×7 (06:30→21:29)
[2020-05-03 06:57] LABS: ANION GAP 12 mmol/L (5-15); BILIRUBIN,TOTAL 0.5 MG/DL (0.2-1.0); BLOOD UREA NITROGEN 20 mg/dL (7-18); CALCIUM 9.4 MG/DL (8.5-10.1); CARBON DIOXIDE 25 MMOL/L (21-32); CHLORIDE 103 MMOL/L (98-107); CREATININE 1.2 MG/DL (0.55-1.30); PHOSPHORUS 4.2 MG/DL (2.5-4.9); POTASSIUM 4.2 MMOL/L (3.5-5.1); SODIUM 140 MMOL/L (136-145)
[2020-05-03 06:58] LABS: ALANINE AMINOTRANSFERASE 85 U/L (12-78); ALBUMIN 2.8 G/DL (3.4-5.0); ALBUMIN/GLOBULIN RATIO 0.6 (1.0-2.7); ALKALINE PHOSPHATASE 287 U/L (46-116); ASPARTATE AMINO TRANSFERASE 49 U/L (15-37)
--- NOTE | 2020-05-03 06:59 | General Progress Note ---
Subjective Allergies: Coded Allergies: CODEINE (Verified Allergy, Unknown, 04/04/20) MORPHINE (Verified Allergy, Unknown, 04/04/20) Subjective events noted interval notes reviewed no longer on TPN on BCIR diet glucose on lower side this morning Item Value Date Time Bedside Blood Glucose 69 mg/dl L 05/03/20 0639 Bedside Blood Glucose 102 mg/dl 05/02/20 2131 Bedside Blood Glucose 198 mg/dl H 05/02/20 1701 Bedside Blood Glucose 186 mg/dl H 05/02/20 1154 Bedside Blood Glucose 133 mg/dl H 05/02/20 0846 Bedside Blood Glucose 133 mg/dl H 05/02/20 0609 Objective Last 24 Hour Vital Signs Date Time Temp Pulse Resp B/P (MAP) Pulse Ox O2 Delivery O2 Flow Rate FiO2 05/03/20 04:00 98.1 95 16 111/70 (84) 96 05/03/20 00:00 97.5 89 16 92/53 (66) 94 05/02/20 21:00 Room Air 05/02/20 20:55 Room Air 05/02/20 20:00 97.5 86 16 149/82 (104) 94 05/02/20 16:00 97.9 90 20 133/77 (95) 97 05/02/20 14:00 98.6 05/02/20 12:00 98.6 85 20 160/77 (104) 95 05/02/20 09:00 Room Air 05/02/20 08:44 77 132/75 05/02/20 08:00 97.7 83 20 132/75 (94) 95 Intake and Output 05/02/20 05/03/20 19:00 07:00 Intake Total 1300 ml 580 ml Output Total 2770 ml 1400 ml Balance -1470 ml -820 ml Intake Oral 1300 ml 480 ml IV Total 100 ml Output Urine Total 1900 ml 1250 ml Drainage Total 0 ml 10 ml Other 870 ml 140 ml Laboratory Tests 05/03/20 05:18: White Blood Count [Pending], Red Blood Count [Pending], Hemoglobin [Pending], Hematocrit [Pending], Mean Corpuscular Volume [Pending], Mean Corpuscular Hemoglobin [Pending], Mean Corpuscular Hemoglobin Concent [Pending], Red Cell Distribution Width [Pending], Platelet Count [Pending], Mean Platelet Volume [Pending], Neutrophils (%) (Auto) [Pending], Lymphocytes (%) (Auto) [Pending], Monocytes (%) (Auto) [Pending], Eosinophils (%) (Auto) [Pending], Basophils (%) (Auto) [Pending], Sodium Level [Pending], Potassium Level [Pending], Chloride Level [Pending], Carbon Dioxide Level [Pending], Blood Urea Nitrogen [Pending], Creatinine [Pending], Estimat Glomerular Filtration Rate [Pending], Glucose Level [Pending], Calcium Level [Pending], Phosphorus Level [Pending], Magnesium Level [Pending], Total Bilirubin [Pending], Aspartate Amino Transf (AST/SGOT) [Pending], Alanine Aminotransferase (ALT/SGPT) [Pending], Alkaline Phosphatase [Pending], Total Protein [Pending], Albumin [Pending], Globulin [Pending] Height (Feet): 5 Height (Inches): 4.00 Weight (Pounds): 176 General Appearance: no apparent distress Neck: normal alignment Cardiovascular: normal rate Respiratory/Chest: lungs clear Abdomen: normal bowel sounds Objective Current Medications Medications (Trade) Dose Ordered Sig/Lea Route PRN Reason Start Time Stop Time Status Last Admin Dose Admin Acetaminophen (Tylenol) 650 mg Q4H PRN ORAL Mild Pain 04/05/20 09:30 05/05/20 09:29 Acetaminophen (Tylenol) 650 mg Q4H PRN ORAL temp 100.2 or above 04/17/20 14:45 05/17/20 14:44 Al Hydroxide/Mg Hydroxide (Mylanta) 30 ml Q2HR PRN ORAL GI 04/15/20 21:45 05/15/20 21:44 Allopurinol (Zyloprim) 100 mg DAILY ORAL 04/05/20 09:00 05/05/20 08:59 05/02/20 08:44 Amlodipine Besylate (Norvasc) 5 mg DAILY ORAL 04/05/20 09:00 05/05/20 08:59 05/02/20 08:44 Chlorhexidine Gluconate (Re-Hex 2%) 1 applic DAILY@2000 TOPIC 04/05/20 20:00 07/04/20 19:59 05/02/20 21:27 Dextrose 1,000 ml @ 85 mls/hr Q24H PRN IV PN interrupted or unavailable 04/05/20 21:00 05/05/20 20:59 04/09/20 01:58 Dextrose (Dextrose 50%) 25 ml Q30M PRN IV Hypoglycemia 04/09/20 06:45 07/08/20 06:44 Dextrose (Dextrose 50%) 50 ml Q30M PRN IV Hypoglycemia 04/09/20 06:45 07/08/20 06:44 Hydromorphone HCl (Dilaudid) 1 mg Q4H PRN SUBQ Severe pain 04/29/20 13:15 05/06/20 13:14 05/03/20 05:21 Insulin Aspart (NovoLOG) BEFORE MEALS AND HS SUBQ 04/29/20 11:30 07/05/20 11:29 05/02/20 17:00 Insulin Aspart (NovoLOG) 12 units BEFORE MEALS SUBQ 04/30/20 06:30 07/18/20 11:29 05/02/20 17:00 Insulin Detemir (Levemir) 40 units BID SUBQ 05/01/20 09:00 07/17/20 08:59 05/02/20 17:01 Meropenem 1 gm/ Sodium Chloride 100 ml @ 200 mls/hr Q8HR IVPB 05/02/20 22:00 05/07/20 21:59 05/03/20 05:22 Ondansetron HCl (Zofran) 4 mg Q4H PRN IVP Nausea & Vomiting 04/17/20 14:30 05/17/20 14:29 04/28/20 02:44 Oxycodone/ Acetaminophen (Percocet 5-325) 1 tab Q4H PRN ORAL Moderate Pain (Pain Scale 4-6) 04/29/20 16:00 05/06/20 15:59 Pantoprazole (Protonix) 40 mg DAILY IVP 04/16/20 09:00 05/16/20 08:59 05/02/20 08:44 Phytonadione (Vitamin K) 10 mg ONCE A WEEK SUBQ 04/12/20 09:00 07/11/20 08:59 04/26/20 09:08 Prochlorperazine (Compazine) 10 mg Q6H PRN IVP Nausea & Vomiting 04/19/20 11:30 05/19/20 11:29 Quetiapine Fumarate (SEROqueL) 400 mg BEDTIME ORAL 04/12/20 21:00 05/20/20 20:59 05/02/20 21:28 Silver Nitrate (Silver Nitrate Applicators) 6 applic DAILYPRN PRN TOPIC abdominal wound application 04/10/20 09:00 07/09/20 08:59 Assessment/Plan Problem List: (1) Diabetes mellitus ICD Codes: E11.9 - Type 2 diabetes mellitus without complications SNOMED: 82637927 (2) Post-operative complication ICD Codes: T81.9XXA - Unspecified complication of procedure, initial encounter SNOMED: 968715703 (3) Weaver Pouch fistula Assessment/Plan: reduce Levemir to 33 units bid - start with pm dose continue Novolog 12 units ac tid continue Novolog sliding scale ac hs hypoglycemia protocol in order Justyn Michaels MD May 03, 2020 06:59
[2020-05-03 07:04] LABS: HEMATOCRIT 38.4 % (42.0-52.0); HEMOGLOBIN 12.2 G/DL (14.2-18.0); LYMPHOCYTES % (AUTO) 33.9 % (20.0-45.0); MEAN CORPUSCULAR VOLUME 86 FL (80-99); NEUTROPHILS % (AUTO) 49.8 % (45.0-75.0); PLATELET COUNT 316 K/UL (150-450); RED BLOOD COUNT 4.45 M/UL (4.70-6.10); RED CELL DISTRIBUTION WIDTH 15.2 % (11.6-14.8); WHITE BLOOD COUNT 7.5 K/UL (4.8-10.8)
[2020-05-03 07:05] LABS: BASOPHILS % (AUTO) 1.5 % (0.0-2.0); EOSINOPHILS % (AUTO) 5.5 % (0.0-3.0); MONOCYTES % (AUTO) 9.3 % (1.0-10.0)
[2020-05-03 08:00] VITALS: BP 147/81
[2020-05-03] MEDS ORDERED: Ascorbic Acid 500mg tab ORAL PRN (09:30)
--- NOTE | 2020-05-03 09:39 | General Progress Note ---
Progress Note Progress Note AVSS Tolerating BCIR low residue diet - output thick, good volume, cramping relieved by irrigating Weaver Pouch catheter Abdomen soft, incision improved Labs all stable except Mg 1.6 cultures: pseudomomas and klebsiella both sensitive to levaquin - to discuss with ID re transition from IV to po antibiotics Imp: Improved Plan Vitamin C pre thick effluent + additional irrigation Will remove pouch catheter today are replace or start self-intubations. Will discuss with Radiology to remove abd drainage catheter today Rodrigo Messer MD May 03, 2020 09:39
[2020-05-03] MEDS: Pantoprazole Inj IVP SCH (09:52)
[2020-05-03] MEDS: Phytonadione 10 mg/mL 1ml amp SUBQ SCH (09:53)
--- NOTE | 2020-05-03 10:44 | Consultation ---
DATE OF CONSULTATION: 04/28/2020 ENDOCRINOLOGY CONSULTATION CONSULTING PHYSICIAN: Brian Cornell M.D. REFERRING PHYSICIAN: Rodrigo Messer M.D. REASON FOR CONSULTATION: I was asked to see this 64-year-old male by Dr. Rodrigo Messer in Endocrinology consultation for management of hyperglycemia whie on TPN. PERTINENT HISTORY: He has a history of ulcerative colitis referred to Dr. Messer for postoperative complications of Kock pouch.He became hyperglycemic after surgery, and is on TPN D20AA5% at 85 mL per hour.He is on Levemir insulin 18 units q.12h. and NovoLog 6 units subcutaneously around the clock with sliding scale NovoLog q.4h. coverage. FAMILY HISTORY: Unremarkable. PERSONAL HISTORY: Unremarkable. REVIEW OF SYSTEMS: Unremarkable. PHYSICAL EXAMINATION: GENERAL: The patient is in no acute distress. VITAL SIGNS: Blood pressure is 124/76, pulse 81, respirations 17, and temperature 93. HEAD AND NECK: Unremarkable. LUNGS: Clear.CVS-Regular ABD:dressing over the Kock pouch. EXTREMITIES: Revealed no edema. NEUROLOGICAL: Cranial nerves II through XII are grossly intact with toes downgoing to plantar stimulation. LABORATORY DATA: Glucose 162 mg%. ASSESSMENT: 1. Diabetes type 2, out of control. 2. Malnutrition due to post-op complications from Kock pouch PLAN: Levemir Insulin 18u sc q.12h. and NovoLog 6u sc q.4h. and sliding scale novolog q4hr.hba1c in am. Brian Cornell M.D. DR: JEANETTE JOB#: [id number] CC: ANANDA
[2020-05-03 12:00] VITALS: BP 140/71
--- NOTE | 2020-05-03 14:02 | Infectious Diseases Prog Note ---
Assessment/Plan Assessment/Plan ASSESSMENT AND PLAN: 1. enterocutaneous fistula, abdominal wall soft tissue edema and inflammation on CT scan ? abdominal wall cellulitis/soft tissue infection, ? infected fistula site/wound infection - wound culture with klebsiella gram negative intra-abdominal/pelvic abscess - final ID/sensitivities pending - meropenem iv thru today/tonight - can transition to oral levofloxacin plus flagyl x 5 days after iv antibiotics - s/p abscess drainage - 04/29/20 - d/w Dr. Messer, d/w pharmacy - s/p fistula repair - 04/17/20 - monitor labs - continue management per Dr. Messer - clinically improved post drainage and antibiotics 2. Patient has enterocutaneous fistula. Patient is status post pouch endoscopy. Management per Dr. Messer. 3. Patient has history of diabetes. Continue blood sugar treatment per Endocrine. 4. Hypertension. Continue blood pressure treatment primary care team and Endocrine. 5. Blood sugar and blood pressure control for hypertension and diabetes. 6. Patient has a history of Weaver continent ileostomy. 7. 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 8. History of multiple abdominal surgeries including proctocolectomy and cholecystectomy and Weaver ileostomy. 9. Allergies to codeine, morphine. 10. Social history is negative 11. Family history is noncontributory. 12. MAR is noted. 13. Case discussed with RN. 14. Continue treatment per Dr. Messer and consultants. 15. Orders were noted and entered. Subjective Constitutional: Denies: fever HEENT: Denies: congestion Respiratory: Denies: shortness of breath Cardiovascular: Denies: chest pain Gastrointestinal/Abdominal: Reports: other - no abdominal pain ; Denies: nausea, vomiting Genitourinary: Denies: dysuria, hematuria Neurologic: Denies: headache Psychiatric: Denies: depression Skin: Denies: rash Hematologic: Denies: bleeding Musculoskeletal: Reports: pain - less abdominal pain Allergies: Coded Allergies: CODEINE (Verified Allergy, Unknown, 04/04/20) MORPHINE (Verified Allergy, Unknown, 04/04/20) Objective Last 24 Hour Vital Signs Date Time Temp Pulse Resp B/P (MAP) Pulse Ox O2 Delivery O2 Flow Rate FiO2 05/03/20 12:00 98.1 86 18 140/71 (94) 96 05/03/20 09:00 Room Air 05/03/20 08:00 96.6 87 17 147/81 (103) 96 05/03/20 04:00 98.1 95 16 111/70 (84) 96 05/03/20 00:00 97.5 89 16 92/53 (66) 94 05/02/20 21:00 Room Air 05/02/20 20:55 Room Air 05/02/20 20:00 97.5 86 16 149/82 (104) 94 05/02/20 16:00 97.9 90 20 133/77 (95) 97 05/02/20 14:00 98.6 Height (Feet): 5 Height (Inches): 4.00 Weight (Pounds): 176 General Appearance: no acute distress HEENT: normocephalic, atraumatic, anicteric Respiratory/Chest: lungs clear, normal breath sounds, no respiratory distress, no accessory muscle use Cardiovascular: normal rate, regular rhythm, no gallop/murmur Abdomen: normal bowel sounds, soft, non tender, no organomegaly, non distended Genitourinary: other Extremities: no cyanosis Skin: no rash Neurologic/Psychiatric: rn medication II-XII grossly normal, alert, responsive Lymphatic: no neck adenopathy Musculoskeletal: no effusion CT abdomen and pelvis: IMPRESSION: Soft tissue edema, inflammation and foci of air in the abdominal wall. No discrete drainable collection. Chest x-ray - FINDINGS: A single one view chest is obtained. Vascularity is normal. The lung corbett are clear bilaterally. Cardiac and mediastinal silhouette are within normal limits. CP angles are sharp. The bony thorax appear unremarkable. IMPRESSION: NO ACUTE CARDIOPULMONARY DISEASE. KUB - 04/22/20 - Impression: Mildly dilated small bowel loops. Given evidence of recent surgery, most likely on the basis of postoperative ileus. Small bowel obstruction also possible and correlation with clinical findings and follow-up radiographs as indicated is recommended CT abdomen and pelvis - 04/25/20 - Impression: Evidence of recent surgery, presumably revision of previously demonstrated continent ileostomy. There is no evidence of bowel obstruction. Ill-defined gas bubbles and phlegmon our seen surrounding the reservoir. Most likely represents routine postsurgical changes, but the possibility of developing abscess should also be considered. Correlate with clinical findings. Gas within the bladder lumen. Most likely represents recent instrumentation. If there is no history of such, then the possibility of infection with gas-forming organism should be considered Prior cholecystectomy Other findings as noted CT abdomen and pelvis - 04/29/20 - IMPRESSION: Evidence of recent surgery with midline skin sena. Punctate foci of free intraperitoneal air likely postoperative in etiology. These are decreased compared to the prior exam. Persistent collection of fluid with some internal foci of air noted adjacent to the conduit ileostomy reservoir in the pelvis, slightly increased in size compared to the prior exam of 04/25/2020 (transverse diameter increased from 7.7 to 8.5 cm). Infection of this fluid collection cannot be excluded based on imaging. Please correlate with clinical findings. Flexion seems contiguous with some fluid and air tracking to the anterior abdominal wall, likely in the tract of the previously seen cutaneous fistula. Please correlate with physical exam to assess for superficial/external drainage. Small focus of gas within the bladder. If there is no recent history of bladder instrumentation/catheterization and this finding may be related to infection or fistulous connection to the bladder. Microbiology Date/Time Source Procedure Growth Status 04/29/20 16:51 Abdomen Gram Stain - Final Complete 04/29/20 16:51 Wound Culture - Final Pseudomonas Aeruginosa Complete 04/11/20 17:10 Other(Specify in comment) Gram Stain - Final Complete 04/11/20 17:10 Wound Culture - Final Klebsiella Pneumoniae Complete 04/04/20 13:45 Nasopharynx SARS-CoV-2 Antigen (Rapid)(NALINI) - Final Complete Laboratory Tests Test 05/03/20 05:18 White Blood Count 7.5 K/UL (4.8-10.8) Red Blood Count 4.45 M/UL (4.70-6.10) L Hemoglobin 12.2 G/DL (14.2-18.0) L Hematocrit 38.4 % (42.0-52.0) L Mean Corpuscular Volume 86 FL (80-99) Mean Corpuscular Hemoglobin 27.4 PG (27.0-31.0) Mean Corpuscular Hemoglobin Concent 31.7 G/DL (32.0-36.0) L Red Cell Distribution Width 15.2 % (11.6-14.8) H Platelet Count 316 K/UL (150-450) Mean Platelet Volume 7.3 FL (6.5-10.1) Neutrophils (%) (Auto) 49.8 % (45.0-75.0) Lymphocytes (%) (Auto) 33.9 % (20.0-45.0) Monocytes (%) (Auto) 9.3 % (1.0-10.0) Eosinophils (%) (Auto) 5.5 % (0.0-3.0) H Basophils (%) (Auto) 1.5 % (0.0-2.0) Sodium Level 140 MMOL/L (136-145) Potassium Level 4.2 MMOL/L (3.5-5.1) Chloride Level 103 MMOL/L (98-107) Carbon Dioxide Level 25 MMOL/L (21-32) Anion Gap 12 mmol/L (5-15) Blood Urea Nitrogen 20 mg/dL (7-18) H Creatinine 1.2 MG/DL (0.55-1.30) Estimat Glomerular Filtration Rate > 60 mL/min (>60) Glucose Level 73 MG/DL (74-106) L Calcium Level 9.4 MG/DL (8.5-10.1) Phosphorus Level 4.2 MG/DL (2.5-4.9) Magnesium Level 1.6 MG/DL (1.8-2.4) L Total Bilirubin 0.5 MG/DL (0.2-1.0) Aspartate Amino Transf (AST/SGOT) 49 U/L (15-37) H Alanine Aminotransferase (ALT/SGPT) 85 U/L (12-78) H Alkaline Phosphatase 287 U/L (46-116) H Total Protein 7.4 G/DL (6.4-8.2) Albumin 2.8 G/DL (3.4-5.0) L Globulin 4.6 g/dL Albumin/Globulin Ratio 0.6 (1.0-2.7) L Current Medications Medications (Trade) Dose Ordered Sig/Lea Route PRN Reason Start Time Stop Time Status Last Admin Dose Admin Acetaminophen (Tylenol) 650 mg Q4H PRN ORAL temp 100.2 or above 04/17/20 14:45 05/17/20 14:44 Acetaminophen (Tylenol) 650 mg Q4H PRN ORAL Mild Pain 05/03/20 09:30 06/02/20 09:29 Al Hydroxide/Mg Hydroxide (Mylanta) 30 ml Q2HR PRN ORAL GI 04/15/20 21:45 05/15/20 21:44 Allopurinol (Zyloprim) 100 mg DAILY ORAL 05/04/20 09:00 06/03/20 08:59 Amlodipine Besylate (Norvasc) 5 mg DAILY ORAL 05/04/20 09:00 06/03/20 08:59 Ascorbic Acid (Vitamin C) 500 mg NEEDED PRN ORAL Constipation 05/03/20 09:30 06/02/20 09:29 05/03/20 10:39 Chlorhexidine Gluconate (Re-Hex 2%) 1 applic DAILY@2000 TOPIC 04/05/20 20:00 07/04/20 19:59 05/02/20 21:27 Dextrose 1,000 ml @ 85 mls/hr Q24H PRN IV PN interrupted or unavailable 04/05/20 21:00 05/05/20 20:59 04/09/20 01:58 Dextrose (Dextrose 50%) 25 ml Q30M PRN IV Hypoglycemia 04/09/20 06:45 07/08/20 06:44 Dextrose (Dextrose 50%) 50 ml Q30M PRN IV Hypoglycemia 04/09/20 06:45 07/08/20 06:44 Hydromorphone HCl (Dilaudid) 1 mg Q4H PRN SUBQ Severe pain 04/29/20 13:15 05/06/20 13:14 05/03/20 05:21 Insulin Aspart (NovoLOG) BEFORE MEALS AND HS SUBQ 04/29/20 11:30 07/05/20 11:29 05/03/20 12:07 Insulin Aspart (NovoLOG) 12 units BEFORE MEALS SUBQ 04/30/20 06:30 07/18/20 11:29 05/03/20 13:04 Insulin Detemir (Levemir) 33 units BID SUBQ 05/03/20 18:00 07/17/20 08:59 Magnesium Sulfate 100 ml @ 100 mls/hr Q1H IVPB 05/03/20 10:00 05/03/20 13:59 05/03/20 13:10 Meropenem 1 gm/ Sodium Chloride 100 ml @ 200 mls/hr Q8HR IVPB 05/02/20 22:00 05/07/20 21:59 05/03/20 05:22 Ondansetron HCl (Zofran) 4 mg Q4H PRN IVP Nausea & Vomiting 04/17/20 14:30 05/17/20 14:29 04/28/20 02:44 Oxycodone/ Acetaminophen (Percocet 5-325) 1 tab Q4H PRN ORAL Moderate Pain (Pain Scale 4-6) 04/29/20 16:00 05/06/20 15:59 Pantoprazole (Protonix) 40 mg DAILY IVP 04/16/20 09:00 05/16/20 08:59 05/03/20 09:52 Phytonadione (Vitamin K) 10 mg ONCE A WEEK SUBQ 04/12/20 09:00 07/11/20 08:59 05/03/20 09:53 Prochlorperazine (Compazine) 10 mg Q6H PRN IVP Nausea & Vomiting 04/19/20 11:30 05/19/20 11:29 Quetiapine Fumarate (SEROqueL) 400 mg BEDTIME ORAL 04/12/20 21:00 05/20/20 20:59 05/02/20 21:28 Silver Nitrate (Silver Nitrate Applicators) 6 applic DAILYPRN PRN TOPIC abdominal wound application 04/10/20 09:00 07/09/20 08:59 Wilman Rosas MD May 03, 2020 14:02
--- NOTE | 2020-05-03 14:57 | General Progress Note ---
Progress Note Progress Note See earlier note. CT guided drain removed without difficulty [facility] ileo catheter removed - reinserts readily Imp: improved Plan: RN supervised [facility] self-intubations: from awakening to hs q3h and prn; overnight prn continue I&O ID to change IV Meropenem to po Levaquin and Flagyl Hopefully will be stable for discharge in 48 hours f/u labs in Rodrigo Burnett MD May 03, 2020 14:57
[2020-05-03 16:00] VITALS: BP 142/93
[2020-05-03] MEDS: Levemir Flexpen SUBQ SCH (18:33)
[2020-05-03] MEDS: Dyna-Hex 2% Top Sol 2oz TOPIC SCH (19:55)
[2020-05-03 20:00] VITALS: BP 137/76
[2020-05-04 04:30] VITALS: BP 122/67
[2020-05-04 05:05] VITALS: BP 122/67
[2020-05-04] MEDS: metroNIDAZOLE 250mg tab ORAL SCH ×3 (05:25→21:18)
[2020-05-04] MEDS: Levofloxacin 500mg tab ORAL SCH (05:26)
[2020-05-04 05:29] LABS: EOSINOPHILS % (AUTO) 5.8 % (0.0-3.0); HEMATOCRIT 36.2 % (42.0-52.0); LYMPHOCYTES % (AUTO) 36.7 % (20.0-45.0); MEAN CORPUSCULAR VOLUME 87 FL (80-99); MONOCYTES % (AUTO) 11.2 % (1.0-10.0); NEUTROPHILS % (AUTO) 45.3 % (45.0-75.0); PLATELET COUNT 288 K/UL (150-450); RED BLOOD COUNT 4.17 M/UL (4.70-6.10); RED CELL DISTRIBUTION WIDTH 15.4 % (11.6-14.8); WHITE BLOOD COUNT 6.4 K/UL (4.8-10.8)
[2020-05-04] MEDS: NovoLOG Insulin Flexpen SUBQ SCH ×7 (05:37→20:13)
[2020-05-04 06:01] LABS: ALANINE AMINOTRANSFERASE 89 U/L (12-78); ALBUMIN 2.7 G/DL (3.4-5.0); ALBUMIN/GLOBULIN RATIO 0.6 (1.0-2.7); ALKALINE PHOSPHATASE 286 U/L (46-116); ANION GAP 9 mmol/L (5-15); ASPARTATE AMINO TRANSFERASE 49 U/L (15-37); BILIRUBIN,TOTAL 0.5 MG/DL (0.2-1.0); BLOOD UREA NITROGEN 25 mg/dL (7-18); CALCIUM 8.5 MG/DL (8.5-10.1); CARBON DIOXIDE 26 MMOL/L (21-32); CHLORIDE 103 MMOL/L (98-107); CREATININE 1.2 MG/DL (0.55-1.30); PHOSPHORUS 3.1 MG/DL (2.5-4.9); POTASSIUM 4.1 MMOL/L (3.5-5.1); SODIUM 137 MMOL/L (136-145)
[2020-05-04 08:00] VITALS: BP 113/77
[2020-05-04] MEDS: Pantoprazole Inj IVP SCH (08:36)
[2020-05-04] MEDS: Allopurinol 100mg Tab ORAL SCH (08:36)
[2020-05-04] MEDS: Levemir Flexpen SUBQ SCH ×2 (08:37→17:06)
--- NOTE | 2020-05-04 09:17 | General Progress Note ---
Progress Note Progress Note AVSS Feeling well with less pain and cramping. Self-intubating his Weaver Pouch with 30 Fr Breanne catheter without difficulty. Output thick Abdomen soft, no incisional or nunu-incisional induration. Non-tender I&O satisfactory WBC 6400 Hgb 12 BUN 27 up Cr 1.2 stable Now on Levaquin 500mg po QD x 5 days abnd Flagyl 500mg po q8h x 5 days Imp: Improved Plan: Increase po fluid intake continue RN supervised [facility] self-intubations remove PICC anticipate discharge in Rodrigo Burnett MD May 04, 2020 09:17
[2020-05-04 12:00] VITALS: BP 118/70
--- NOTE | 2020-05-04 15:20 | General Progress Note ---
Subjective Allergies: Coded Allergies: CODEINE (Verified Allergy, Unknown, 04/04/20) MORPHINE (Verified Allergy, Unknown, 04/04/20) All Systems: reviewed and negative except above Subjective events noted interval notes reviewed bedtime glucose was elevated last night after scheduled Novolog 12 with dinner was held this morning glucose on low normal side Item Value Date Time Bedside Blood Glucose 76 mg/dl 05/04/20 1134 Bedside Blood Glucose 197 mg/dl H 05/04/20 0837 Bedside Blood Glucose 197 mg/dl H 05/04/20 0557 Bedside Blood Glucose 265 mg/dl H 05/03/20 2129 Bedside Blood Glucose 119 mg/dl 05/03/20 1833 Bedside Blood Glucose 174 mg/dl H 05/03/20 1304 Bedside Blood Glucose 97 mg/dl 05/03/20 0702 Objective Last 24 Hour Vital Signs Date Time Temp Pulse Resp B/P (MAP) Pulse Ox O2 Delivery O2 Flow Rate FiO2 05/04/20 13:16 97.7 05/04/20 09:00 Room Air 05/04/20 08:36 110 113/77 05/04/20 08:00 97.7 95 20 113/77 (89) 97 05/04/20 04:30 97.7 20 122/67 (85) 97 05/03/20 20:47 Room Air 05/03/20 20:00 98.2 20 137/76 (96) 98 05/03/20 16:00 96.7 78 19 142/93 (109) 97 l Intake and Output 05/03/20 05/04/20 19:00 07:00 Intake Total 600 ml 360 ml Output Total 1060 ml 1120 ml Balance -460 ml -760 ml Intake Oral 600 ml 360 ml Output Urine Total 960 ml 650 ml Other 100 ml 470 ml Laboratory Tests 05/04/20 05:15: White Blood Count 6.4, Red Blood Count 4.17L, Hemoglobin 12.0L, Hematocrit 36.2L , Mean Corpuscular Volume 87, Mean Corpuscular Hemoglobin 28.8, Mean Corpuscular Hemoglobin Concent 33.3, Red Cell Distribution Width 15.4H, Platelet Count 288, Mean Platelet Volume 7.3, Neutrophils (%) (Auto) 45.3, Lymphocytes (%) (Auto) 36.7, Monocytes (%) (Auto) 11.2H, Eosinophils (%) (Auto) 5.8H, Basophils (%) (Auto) 1.0, Sodium Level 137, Potassium Level 4.1, Chloride Level 103, Carbon Dioxide Level 26, Anion Gap 9, Blood Urea Nitrogen 25H, Creatinine 1.2, Estimat Glomerular Filtration Rate > 60, Glucose Level 214#H, Calcium Level 8.5, Phosphorus Level 3.1, Magnesium Level 1.8, Total Bilirubin 0.5, Aspartate Amino Transf (AST/SGOT) 49H, Alanine Aminotransferase (ALT/SGPT) 89H, Alkaline Phosphatase 286H, Total Protein 7.1, Albumin 2.7L, Globulin 4.4, Albumin/Globulin Ratio 0.6L Height (Feet): 5 Height (Inches): 4.00 Weight (Pounds): 176 General Appearance: no apparent distress Neck: normal alignment Cardiovascular: normal rate Respiratory/Chest: lungs clear Abdomen: normal bowel sounds Pelvis: normal external exam Objective Current Medications Medications (Trade) Dose Ordered Sig/Lea Route PRN Reason Start Time Stop Time Status Last Admin Dose Admin Acetaminophen (Tylenol) 650 mg Q4H PRN ORAL temp 100.2 or above 04/17/20 14:45 05/17/20 14:44 Acetaminophen (Tylenol) 650 mg Q4H PRN ORAL Mild Pain 05/03/20 09:30 06/02/20 09:29 Al Hydroxide/Mg Hydroxide (Mylanta) 30 ml Q2HR PRN ORAL GI 04/15/20 21:45 05/15/20 21:44 Allopurinol (Zyloprim) 100 mg DAILY ORAL 05/04/20 09:00 06/03/20 08:59 05/04/20 08:36 Amlodipine Besylate (Norvasc) 5 mg DAILY ORAL 05/04/20 09:00 06/03/20 08:59 05/04/20 08:36 Ascorbic Acid (Vitamin C) 500 mg NEEDED PRN ORAL Constipation 05/03/20 09:30 06/02/20 09:29 05/03/20 10:39 Chlorhexidine Gluconate (Re-Hex 2%) 1 applic DAILY@2000 TOPIC 04/05/20 20:00 07/04/20 19:59 05/03/20 19:55 Dextrose 1,000 ml @ 85 mls/hr Q24H PRN IV PN interrupted or unavailable 04/05/20:00 05/05/20 20:59 04/09/20 01:58 Dextrose (Dextrose 50%) 25 ml Q30M PRN IV Hypoglycemia 04/09/20 06:45 07/08/20 06:44 Dextrose (Dextrose 50%) 50 ml Q30M PRN IV Hypoglycemia 04/09/20 06:45 07/08/20 06:44 Hydromorphone HCl (Dilaudid) 1 mg Q4H PRN SUBQ Severe pain 04/29/20 13:15 05/06/20 13:14 05/04/20 12:46 Insulin Aspart (NovoLOG) BEFORE MEALS AND HS SUBQ 04/29/20 11:30 07/05/20 11:29 05/04/20 05:37 Insulin Aspart (NovoLOG) 12 units BEFORE MEALS SUBQ 04/30/20 06:30 07/18/20 11:29 05/04/20 11:34 Insulin Detemir (Levemir) 33 units BID SUBQ 05/03/20 18:00 07/17/20 08:59 05/04/20 08:37 Levofloxacin (Levaquin) 500 mg Q24H ORAL 05/04/20 06:00 05/11/20 05:59 05/04/20 05:26 Metronidazole (Flagyl) 500 mg Q8HR ORAL 05/04/20 06:00 05/11/20 05:59 05/04/20 13:47 Ondansetron HCl (Zofran) 4 mg Q4H PRN IVP Nausea & Vomiting 04/17/20 14:30 05/17/20 14:29 04/28/20 02:44 Oxycodone/ Acetaminophen (Percocet 5-325) 1 tab Q4H PRN ORAL Moderate Pain (Pain Scale 4-6) 04/29/20 16:00 05/06/20 15:59 Pantoprazole (Protonix) 40 mg DAILY IVP 04/16/20 09:00 05/16/20 08:59 05/04/20 08:36 Phytonadione (Vitamin K) 10 mg ONCE A WEEK SUBQ 04/12/20 09:00 07/11/20 08:59 05/03/20 09:53 Prochlorperazine (Compazine) 10 mg Q6H PRN IVP Nausea & Vomiting 04/19/20 11:30 05/19/20 11:29 Quetiapine Fumarate (SEROqueL) 400 mg BEDTIME ORAL 04/12/20 21:00 05/20/20 20:59 05/03/20 21:13 Silver Nitrate (Silver Nitrate Applicators) 6 applic DAILYPRN PRN TOPIC abdominal wound application 04/10/20 09:00 07/09/20 08:59 Assessment/Plan Problem List: (1) Diabetes mellitus ICD Codes: E11.9 - Type 2 diabetes mellitus without complications SNOMED: 31191589 (2) Post-operative complication ICD Codes: T81.9XXA - Unspecified complication of procedure, initial encounter SNOMED: 365047450 (3) Weaver Pouch fistula Assessment/Plan: reduce Levemir to 30 units bid - start with pm dose continue Novolog 12 units ac tid continue Novolog sliding scale ac hs hypoglycemia protocol in order Justyn Michaels MD May 04, 2020 15:20
--- NOTE | 2020-05-04 15:56 | Infectious Diseases Prog Note ---
Assessment/Plan Assessment/Plan ASSESSMENT AND PLAN: 1. enterocutaneous fistula, abdominal wall soft tissue edema and inflammation on CT scan ? abdominal wall cellulitis/soft tissue infection, ? infected fistula site/wound infection - wound culture with klebsiella pseudomonas intra-abdominal and pelvic abscess - oral levofloxacin plus flagyl x 5 days - s/p abscess drainage - 04/29/20 - d/w Dr. Messer, d/w pharmacy - s/p fistula repair - 04/17/20 - monitor labs - continue management per Dr. Messer - clinically improved post drainage and antibiotics - stable ID stand point 2. Patient has enterocutaneous fistula. Patient is status post pouch endoscopy. Management per Dr. Messer. 3. Patient has history of diabetes. Continue blood sugar treatment per Endocrine. 4. Hypertension. Continue blood pressure treatment primary care team and Endocrine. 5. Blood sugar and blood pressure control for hypertension and diabetes. 6. Patient has a history of Weaver continent ileostomy. 7. 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 8. History of multiple abdominal surgeries including proctocolectomy and cholecystectomy and Weaver ileostomy. 9. Allergies to codeine, morphine. 10. Social history is negative 11. Family history is noncontributory. 12. MAR is noted. 13. Case discussed with RN. 14. Continue treatment per Dr. Messer and consultants. 15. Orders were noted and entered. Subjective Constitutional: Denies: fever, fatigue HEENT: Denies: congestion Respiratory: Denies: shortness of breath Cardiovascular: Denies: chest pain Gastrointestinal/Abdominal: Denies: nausea Genitourinary: Denies: dysuria, hematuria Neurologic: Denies: headache Psychiatric: Denies: depression Skin: Denies: rash Hematologic: Denies: bleeding Musculoskeletal: Denies: pain Allergies: Coded Allergies: CODEINE (Verified Allergy, Unknown, 04/04/20) MORPHINE (Verified Allergy, Unknown, 04/04/20) Objective Last 24 Hour Vital Signs Date Time Temp Pulse Resp B/P (MAP) Pulse Ox O2 Delivery O2 Flow Rate FiO2 05/04/20 13:16 97.7 05/04/20 09:00 Room Air 05/04/20 08:36 110 113/77 05/04/20 08:00 97.7 95 20 113/77 (89) 97 05/04/20 04:30 97.7 20 122/67 (85) 97 05/03/20 20:47 Room Air 05/03/20 20:00 98.2 20 137/76 (96) 98 05/03/20 16:00 96.7 78 19 142/93 (109) 97 Height (Feet): 5 Height (Inches): 4.00 Weight (Pounds): 176 General Appearance: no acute distress HEENT: normocephalic, atraumatic, anicteric, mucous membranes moist Respiratory/Chest: lungs clear, normal breath sounds, no respiratory distress, no accessory muscle use Cardiovascular: normal rate, regular rhythm, no gallop/murmur, no JVD Abdomen: normal bowel sounds, soft, non tender, no organomegaly, non distended Genitourinary: other - no lopez Extremities: no cyanosis Skin: no rash 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 No discrete drainable collection. Chest x-ray - FINDINGS: A single one view chest is obtained. Vascularity is normal. The lung corbett are clear bilaterally. Cardiac and mediastinal silhouette are within normal limits. CP angles are sharp. The bony thorax appear unremarkable. IMPRESSION: NO ACUTE CARDIOPULMONARY DISEASE. KUB - 04/22/20 - Impression: Mildly dilated small bowel loops. Given evidence of recent surgery, most likely on the basis of postoperative ileus. Small bowel obstruction also possible and correlation with clinical findings and follow-up radiographs as indicated is recommended CT abdomen and pelvis - 04/25/20 - Impression: Evidence of recent surgery, presumably revision of previously demonstrated continent ileostomy. There is no evidence of bowel obstruction. Ill-defined gas bubbles and phlegmon our seen surrounding the reservoir. Most likely represents routine postsurgical changes, but the possibility of developing abscess should also be considered. Correlate with clinical findings. Gas within the bladder lumen. Most likely represents recent instrumentation. If there is no history of such, then the possibility of infection with gas-forming organism should be considered Prior cholecystectomy Other findings as noted CT abdomen and pelvis - 04/29/20 - IMPRESSION: Evidence of recent surgery with midline skin esna. Punctate foci of free intraperitoneal air likely postoperative in etiology. These are decreased compared to the prior exam. Persistent collection of fluid with some internal foci of air noted adjacent to the conduit ileostomy reservoir in the pelvis, slightly increased in size compared to the prior exam of 04/25/2020 (transverse diameter increased from 7.7 to 8.5 cm). Infection of this fluid collection cannot be excluded based on imaging. Please correlate with clinical findings. Flexion seems contiguous with some fluid and air tracking to the anterior abdominal wall, likely in the tract of the previously seen cutaneous fistula. Please correlate with physical exam to assess for superficial/external drainage. Small focus of gas within the bladder. If there is no recent history of bladder instrumentation/catheterization and this finding may be related to infection or fistulous connection to the bladder. Microbiology Date/Time Source Procedure Growth Status 04/29/20 16:51 Abdomen Gram Stain - Final Complete 04/29/20 16:51 Wound Culture - Final Pseudomonas Aeruginosa Complete 04/11/20 17:10 Other(Specify in comment) Gram Stain - Final Complete 04/11/20 17:10 Wound Culture - Final Klebsiella Pneumoniae Complete 04/04/20 13:45 Nasopharynx SARS-CoV-2 Antigen (Rapid)(NALINI) - Final Complete Laboratory Tests Test 05/04/20 05:15 White Blood Count 6.4 K/UL (4.8-10.8) Red Blood Count 4.17 M/UL (4.70-6.10) L Hemoglobin 12.0 G/DL (14.2-18.0) L Hematocrit 36.2 % (42.0-52.0) L Mean Corpuscular Volume 87 FL (80-99) Mean Corpuscular Hemoglobin 28.8 PG (27.0-31.0) Mean Corpuscular Hemoglobin Concent 33.3 G/DL (32.0-36.0) Red Cell Distribution Width 15.4 % (11.6-14.8) H Platelet Count 288 K/UL (150-450) Mean Platelet Volume 7.3 FL (6.5-10.1) Neutrophils (%) (Auto) 45.3 % (45.0-75.0) Lymphocytes (%) (Auto) 36.7 % (20.0-45.0) Monocytes (%) (Auto) 11.2 % (1.0-10.0) H Eosinophils (%) (Auto) 5.8 % (0.0-3.0) H Basophils (%) (Auto) 1.0 % (0.0-2.0) Sodium Level 137 MMOL/L (136-145) Potassium Level 4.1 MMOL/L (3.5-5.1) Chloride Level 103 MMOL/L (98-107) Carbon Dioxide Level 26 MMOL/L (21-32) Anion Gap 9 mmol/L (5-15) Blood Urea Nitrogen 25 mg/dL (7-18) H Creatinine 1.2 MG/DL (0.55-1.30) Estimat Glomerular Filtration Rate > 60 mL/min (>60) Glucose Level 214 MG/DL (74-106) #H Calcium Level 8.5 MG/DL (8.5-10.1) Phosphorus Level 3.1 MG/DL (2.5-4.9) Magnesium Level 1.8 MG/DL (1.8-2.4) Total Bilirubin 0.5 MG/DL (0.2-1.0) Aspartate Amino Transf (AST/SGOT) 49 U/L (15-37) H Alanine Aminotransferase (ALT/SGPT) 89 U/L (12-78) H Alkaline Phosphatase 286 U/L (46-116) H Total Protein 7.1 G/DL (6.4-8.2) Albumin 2.7 G/DL (3.4-5.0) L Globulin 4.4 g/dL Albumin/Globulin Ratio 0.6 (1.0-2.7) L Current Medications Medications (Trade) Dose Ordered Sig/Lea Route PRN Reason Start Time Stop Time Status Last Admin Dose Admin Acetaminophen (Tylenol) 650 mg Q4H PRN ORAL temp 100.2 or above 04/17/20 14:45 05/17/20 14:44 Acetaminophen (Tylenol) 650 mg Q4H PRN ORAL Mild Pain 05/03/20 09:30 06/02/20 09:29 Al Hydroxide/Mg Hydroxide (Mylanta) 30 ml Q2HR PRN ORAL GI 04/15/20 21:45 05/15/20 21:44 Allopurinol (Zyloprim) 100 mg DAILY ORAL 05/04/20 09:00 06/03/20 08:59 05/04/20 08:36 Amlodipine Besylate (Norvasc) 5 mg DAILY ORAL 05/04/20 09:00 06/03/20 08:59 05/04/20 08:36 Ascorbic Acid (Vitamin C) 500 mg NEEDED PRN ORAL Constipation 05/03/20 09:30 06/02/20 09:29 05/03/20 10:39 Chlorhexidine Gluconate (Re-Hex 2%) 1 applic DAILY@2000 TOPIC 04/05/20 20:00 07/04/20 19:59 05/03/20 19:55 Dextrose 1,000 ml @ 85 mls/hr Q24H PRN IV PN interrupted or unavailable 04/05/20 21:00 05/05/20 20:59 04/09/20 01:58 Dextrose (Dextrose 50%) 25 ml Q30M PRN IV Hypoglycemia 04/09/20 06:45 07/08/20 06:44 Dextrose (Dextrose 50%) 50 ml Q30M PRN IV Hypoglycemia 04/09/20 06:45 07/08/20 06:44 Hydromorphone HCl (Dilaudid) 1 mg Q4H PRN SUBQ Severe pain 04/29/20 13:15 05/06/20 13:14 05/04/20 12:46 Insulin Aspart (NovoLOG) BEFORE MEALS AND HS SUBQ 04/29/20 11:30 07/05/20 11:29 05/04/20 05:37 Insulin Aspart (NovoLOG) 12 units BEFORE MEALS SUBQ 04/30/20 06:30 07/18/20 11:29 05/04/20 11:34 Insulin Detemir (Levemir) 30 units BID SUBQ 05/04/20 18:00 07/17/20 08:59 Levofloxacin (Levaquin) 500 mg Q24H ORAL 05/04/20 06:00 05/11/20 05:59 05/04/20 05:26 Metronidazole (Flagyl) 500 mg Q8HR ORAL 05/04/20 06:00 05/11/20 05:59 05/04/20 13:47 Ondansetron HCl (Zofran) 4 mg Q4H PRN IVP Nausea & Vomiting 04/17/20 14:30 05/17/20 14:29 04/28/20 02:44 Oxycodone/ Acetaminophen (Percocet 5-325) 1 tab Q4H PRN ORAL Moderate Pain (Pain Scale 4-6) 04/29/20 16:00 05/06/20 15:59 Pantoprazole (Protonix) 40 mg DAILY IVP 04/16/20 09:00 05/16/20 08:59 05/04/20 08:36 Phytonadione (Vitamin K) 10 mg ONCE A WEEK SUBQ 04/12/20 09:00 07/11/20 08:59 05/03/20 09:53 Prochlorperazine (Compazine) 10 mg Q6H PRN IVP Nausea & Vomiting 04/19/20 11:30 05/19/20 11:29 Quetiapine Fumarate (SEROqueL) 400 mg BEDTIME ORAL 04/12/20 21:00 05/20/20 20:59 05/03/20 21:13 Silver Nitrate (Silver Nitrate Applicators) 6 applic DAILYPRN PRN TOPIC abdominal wound application 04/10/20 09:00 07/09/20 08:59 Wilman Rosas MD May 04, 2020 15:56
[2020-05-04 16:00] VITALS: BP 115/67
[2020-05-04 20:00] VITALS: BP 119/72
[2020-05-04] MEDS: Dyna-Hex 2% Top Sol 2oz TOPIC SCH (20:00)
[2020-05-05] VITALS: BP 114/69
[2020-05-05 04:00] VITALS: BP 124/73
[2020-05-05] MEDS: metroNIDAZOLE 250mg tab ORAL SCH (05:51)
[2020-05-05] MEDS: Levofloxacin 500mg tab ORAL SCH (05:51)
[2020-05-05] MEDS: NovoLOG Insulin Flexpen SUBQ SCH ×2 (05:51→05:52)
[2020-05-05 08:00] VITALS: BP 110/73
[2020-05-05] MEDS: Pantoprazole Inj IVP SCH (08:41)
[2020-05-05 08:42] VITALS: BP 110/73
[2020-05-05] MEDS: Allopurinol 100mg Tab ORAL SCH (08:42)
[2020-05-05] MEDS: Levemir Flexpen SUBQ SCH (08:45)
--- NOTE | 2020-05-05 09:03 | General Progress Note ---
Progress Note Progress Note AVSS doing well with Lavaquin 500mg po q24hrs and flagyl 500mg po q8h - to stay on meds for additional 4 days - Rx given to patient, and he has Percocet meds Abdomen soft, non-distended, no induration of incision or abdominal wall. Intubating fine with satisfactory output Imp: Improved Plan: Discharge - resume pre-admit home meds Full instructions/limitations/supplies discussed/provided To intubate q3h am to hs and prn To continue BCIR diet Follow-up office 05/09/20 and to call prn Rodrigo Messer MD May 05, 2020 09:03
--- NOTE | 2020-05-08 08:49 | Discharge Summary ---
Discharge Summary Discharge Summary _ Date of admission: 04/04/2020 Date of discharge: 05/05/[address] Messer History of Present Illness and Brief Hospital Course Mr. Rod is a 64-year-old male with history of indeterminate colitis (ulcerative colitis versus granulomatous colitis), who has undergone proctocolectomy and then creation of a Weaver type Kock pouch continent ileostomy several years ago. Patient had been doing well overall, intubating his pouch with a 30 Far[place] Kati catheter 6-7 times per day and sleeping through the night without needing to intubate with only occasional episodes of pouchitis over the years. For 1 month, he was feeling some fullness in the central abdomen and then where he lives in [place], he had developed an abscess in the lower portion of his midline incision at the junction of the middle and lower thirds. Patient underwent incision and drainage by a surgeon in [place] and within 2 days he had stool and gas coming out of the opening representing an enterocutaneous fistula, most likely involving his Weaver continent ileostomy pouch. Patient then was discharged from the hospital there and came to [facility] since there was no surgeon in [place] with any experience with the Weaver or Kock pouch continent ileostomy. Patient was admitted to the hospital for further management. Patient underwent pouchogram which showed normal pouch and proximal small bowel with fistula tract likely from the pouch. CT abdomen/pelvis showed inflammation of abdominal wall at fistula site without fluid collection. Patient was started on antibiotics. Fistulogram x-ray revealed complex enteric cutaneous fistula tract leading into the Weaver continent ileostomy pouch. Patient was continued on TPN given malnutrition. The repeat fistulogram was negative but pouchogram of Weaver continent ileostomy pouch revealed persistent fistulous tract to skin. Patient underwent laparotomy with repair of Weaver continent ileostomy pouch enterocutaneous fistula. Patient tolerated the procedure well and left the operating room in good condition. The details of the procedure can be found in the operative note by Dr. Messer. A follow-up CT scan revealed a phlegmon with ill-defined gas bubbles surrounding the pouch most likely postsurgical but could not rule out developing abscess. There was no distended small bowel loops. Patient developed new onset fever and became tachycardic. It was necessary to rule out evolving intra-abdominal or abdominal wall infection. A repeat CT scan showed increased likely infected fluid collection with tracking to the abdominal wall and incision. Patient was restarted on IV antibiotics. CT-guided drainage of intra-abdominal collection/abscess was performed. The fluid appeared serosanguineous. The culture and sensitivity showed gram-negative fred and rare gram-positive cocci. The antibiotics were adjusted accordingly. Patient was intubating fine with satisfactory output. Patient was instructed to follow-up with Dr. Messer at his office on 05/09/2020. Consultants: Endocrinology Dr. Michaels Infectious disease Dr. Rosas Discharge Condition Stable Discharge Activity As tolerated Discharge Diet Regular Final diagnoses Pseudomonas intra-abdominal and pelvic abscess Klebsiella cellulitis History of hypertension History of insulin-dependent diabetes Malnutrition Acute onset enterocutaneous fistula, likely involving Weaver continent ileostomy pouch. s/p cholecystectomy with incidental appendectomy. s/p proctocolectomy with Tracie ileostomy in 1979 at age 24. s/p Weaver continent ileostomy pouch in 1989 at age 34. I have been assigned to dictate discharge summary for this account. I was not involved in the patient's management Sheldon Spears May 08, 2020 08:49
== END 2020-05-05 11:20 | disposition home or self-care (01) | DRG 329 ==
LOC: EMR 13:35 → 4E 13:39 → EDBEDREQ 14:11 → 2E 04-29 15:46
PROC: 02HV33Z Insertion of Infusion Device into Superior Vena Cava, Percutaneous Approach (ICD-10-PCS; 2020-04-05)
PROC: 0DJD8ZZ Inspection of Lower Intestinal Tract, Via Natural or Artificial Opening Endoscopic (ICD-10-PCS; 2020-04-08)
PROC: 0DQB0ZZ Repair Ileum, Open Approach (ICD-10-PCS; principal; 2020-04-17 12:00)
PROC: 0W9J3ZZ Drainage of Pelvic Cavity, Percutaneous Approach (ICD-10-PCS; 2020-04-29)
DX: K94.19 Other complications of enterostomy (principal); K65.1 Peritoneal abscess; K63.2 Fistula of intestine; E46 Unspecified protein-calorie malnutrition; K56.7 Ileus, unspecified; I10 Essential (primary) hypertension; Z88.6 Allergy status to analgesic agent; Z90.49 Acquired absence of other specified parts of digestive tract; Z79.4 Long term (current) use of insulin; Z87.19 Personal history of other diseases of the digestive system; E11.65 Type 2 diabetes mellitus with hyperglycemia; B96.1 Klebsiella pneumoniae [K. pneumoniae] as the cause of diseases classified elsewhere
CPT/HCPCS: 20501; 36415; 36573; 71045; 74018; 74177; 74270; 75989; 76000; 76080; 76937; 80053; 80202; 81001; 81003; 82150; 82607; 82728; 82746; 82962; 83540; 83550; 83605; 83690; 83735; 84100; 85025; 85610; 85651; 85730; 86140; 86850; 86900; 86901; 87070; 87181; 87205; 93005; 94003; 94150; 96374; 99285; J1815; J2180; J2405; J2710; S5561